=== PATIENT | male | born 1940 | race Caucasian/White ===

== ENCOUNTER → 2016-10-30 | Outpatient (CLI) | payer MEDICARE, OTHER ==
[~2016-10-30] MED LIST: AMLO2.5T PO; ASPI325T32 PO; DIGO125T PO; FAMO20TA5 PO; ISOS30TA3 PO; LISI1TAB8 PO; LOVA20TA2 PO; METO-333 PO; NITR0.4T SL; OMEG-77 PO; TAMS0.4C2 PO
--- OUTSIDE RECORDS SUMMARY | 2016-10-30 11:54 | XMS REPORT | Continuity of Care Document ---
Author Author [facility] Organization [facility] Address Unknown Phone Unavailable Allergies Medications Problems Procedures Results Encounters ACCT No. Visit Date/Time Discharge Status Pt. Type Provider Facility Loc./Unit Complaint [id number] 09/27/2013 08:30:00 2013 23:59:59 CLS Outpatient
[2016-10-30 12:05] LABS: MEAN PLATELET VOLUME 11.5 FL (7.4-10.4); RED BLOOD COUNT 5.39 10^6/uL (4.35-5.85); RED CELL DISTRIBUTION WIDTH 12.7 % (10.0-14.5); WHITE BLOOD COUNT 6.9 10^3/uL (4.3-11.0)
[2016-10-30 12:26] LABS: ALANINE AMINOTRANSFERASE 33 U/L (0-55); ALBUMIN 4.3 G/DL (3.2-4.5); ANION GAP 10 MMOL/L (5-14); ASPARTATE AMINO TRANSFERASE 26 U/L (5-34); BLOOD UREA NITROGEN 11 MG/DL (7-18); BUN/CREATININE RATIO 11; CALCIUM 9.4 MG/DL (8.5-10.1); CARBON DIOXIDE 27 MMOL/L (21-32); CHLORIDE 97 MMOL/L (98-107); CREATININE SERUM 1.02 MG/DL (0.60-1.30); GFR ESTIMATED > 60; GLUCOSE 104 MG/DL (70-105); POTASSIUM 4.2 MMOL/L (3.6-5.0); SODIUM 134 MMOL/L (135-145); TOTAL PROTEIN 7.2 G/DL (6.4-8.2)
[2016-10-30 12:33] LABS: TROPONIN I < 0.30 NG/ML (<0.30)
== END ==
LOC: CARD 11:51
PROVIDERS: ATTEND Nurse Practitioner Family
DX: R07.9 Chest pain, unspecified (principal)
CPT/HCPCS: 36415; 80053; 82553; 84484; 85027; 93005

== ENCOUNTER 2016-11-11 08:17 | Emergency (ER) | payer MEDICARE, OTHER ==
[~2016-11-11] VITALS: Ht 180.3 cm; Wt 83.5 kg
[~2016-11-11 08:17] MED LIST changes: -ISOS30TA3 PO
--- OUTSIDE RECORDS SUMMARY | 2016-11-11 08:22 | XMS REPORT | Continuity of Care Document ---
Author Author [facility] Organization [facility] Address Unknown Phone Unavailable Care Team Providers Care Eyewear Consultant Name Role Phone KALI BRAVO MD PCP Insurance Providers Payer Name Policy Number Subscriber Name Relationship [employer] [id number] Zion Portillo 18 Self / Same As Patient Comm Crossover Enter Ins Name [id number] Zion Portillo 18 Self / Same As Patient Advance Directives Directive Response Recorded Date/Time Advance Directives Yes 11/03/16 3:09pm Health Care Power of Distance Learning Program Coordinator Y 11/03/16 3:09pm Resuscitation Status Full Code 11/03/16 3:09pm Chief Complaint and Reason for Visit Chief Complaint CHEST PAIN Reason for Visit Chest pain Problems Active Problems Medical Problem Onset Date Status Chest pain Unknown Acute Medications Current Home Medications Medication Dose Units Route Directions Days/Qty Instructions Start Date Tamsulosin Hcl 0.4 Mg 0.4 Mg Oral Daily@1800 11/03/16 Lovastatin 20 Mg 40 Mg Oral Twice A Day 11/03/16 Nitroglycerin 0.4 Mg 0.4 Mg Sublingual As Directed as needed for Chest Pain 11/03/16 [place]-3 Fatty Acids/Fish Oil 1 Each 1,000 Mg Oral Twice A Day Metoprolol Tartrate 25 Mg 12.5 Mg Oral Twice A Day 30 11/05/16 Amlodipine Besylate 2.5 Mg 2.5 Mg Oral Daily 30 11/05/16 Aspirin 325 Mg 325 Mg Oral Daily 90 11/05/16 Famotidine 20 Mg 20 Mg Oral Twice A Day 60 11/05/16 Past Home Medications Medication Directions Ordered Status Digoxin 125 Mcg Tablet, 0.125 Mg Oral Daily 11/03/16 Discontinued Lisinopril/Hydrochlorothiazide 1 Each Tablet, 1 Tab Oral Daily 11/03/16 Discontinued Social History Social History Problem Response Recorded Date/Time Alcohol Use Regular Use 11/03/2016 3:23pm Recreational Drug Use No 11/03/2016 3:23pm Recent Foreign Travel No 11/03/2016 3:01pm Recent Infectious Disease Exposure No 11/03/2016 3:01pm Hospitalization with Isolation Denies 11/05/2016 10:24am Sexually Transmitted Disease No 11/03/2016 3:23pm HIV/AIDS No 11/03/2016 3:23pm Smoking Status Former Smoker 11/03/2016 3:05pm Type Used Cigarettes 11/05/2016 10:24am Recent Hopitalizations No 11/03/2016 3:23pm Sexually Transmitted Disease No 11/03/2016 3:23pm Hospitalization with Isolation Denies 11/05/2016 10:24am Query Response Start Date Stop Date Smoking Status Former Smoker Hospital Discharge Instructions Patient Instructions Physician Instructions Prescription: Transmitted to Pharmacy Resume Normal Activity: Yes (after 3 days) Discharge Diet: Low Fat/Low Cholesterol Diet for 24 Hours: No Alcohol, No Saxman Foods, No Spicy Foods Diet After 24 Hours: Clear Liquid if Nauseous Drink 6-8 Glasses of Fluid/Day: Yes Driving Instructions: No Driving for 24 Hours Return to The Hospital For: any concern for lifethreatening illness or injury Symptoms to Reoprt to : Fever Over 101 Degrees F, Pain/Pressure in Chest, Heart Beat Irreg/Pounding, Pain/Pressure in Jaw, Lightheadedness, Pain/Pressure in Shoulder, Questions/Concerns, Dizziness/Fainting, Shortness of Breath For Problems or Questions: Contact Your Physician, Go to Emergency Room Plan of Care Discharge Date 11/05/16 10:00am Disposition 01 HOME, SELF-CARE Instructions/Education Provided Ventricular Tachycardia Chest Pain (DC) Prescriptions See Medication Section Referrals [facility] (Unspecified) - 11/13/16 Reason(s) for Referral: Chest pain You are scheduled for a follow up appointment with Dr. Bravo on November [address] recinos (Unspecified) - 11/11/16 Reason(s) for Referral: Chest pain You are scheduled for a follow up appointment with Dr. Recinos on November 11 at 1030 am, please call his office of concerns at [phone] Care Plan and Goals See Discharge Instructions Section Functional Status Query Response Date Recorded Patient Orientation Person Place Time November 05, 2016 10:24am Patient Orientation Person Place Time Situation November 05, 2016 10:24am Comprehension Ability Understands Concepts November 05, 2016 8:15am Allergies, Adverse Reactions, Alerts No known allergies. Immunizations No immunization records. Vital Signs Acute Vital Signs Vital Response Date/Time Temperature (Fahrenheit) 96.7 degrees F (97.6 - 99.5) 11/05/2016 10:00am Temperature (Calculated Celsius) 35.61166 degrees C (36.4 - 37.5) 11/05/2016 8:16am Temperature Source Tympanic 11/05/2016 10:00am Pulse Rate (adult) 61 bpm (60 - 90) 11/05/2016 10:00am Respiratory Rate 15 bpm (12 - 24) 11/05/2016 10:00am O2 Sat by Pulse Oximetry 95 % (88 - 100) 11/05/2016 10:00am Blood Pressure 129/65 mm Hg 11/05/2016 10:00am Blood Pressure Mean 86 mm Hg 11/05/2016 9:00am Pain Numeric Pain Scale 0-No Pain 11/05/2016 10:00am Height (Feet) 5 feet 11/03/2016 3:01pm Height (Inches) 11.00 inches 11/03/2016 3:01pm Height (Calculated Centimeters) 180.740466 cm 11/03/2016 3:01pm Weight (Pounds) 184 pounds 11/05/2016 5:40am Weight (Ounces) 3.0 oz 11/05/2016 5:40am Weight (Calculated Grams) 91827.045 gm 11/05/2016 5:40am Weight (Calculated Kilograms) 83.769425 kilograms 11/05/2016 5:40am Calculated BMI 26.0 11/03/2016 3:01pm Capillary Refill Capillary Refill Less Than 3 Seconds 11/04/2016 7:05pm Results Laboratory Results Test Name Result Units Flags Reference Collection Date/Time Result Date/ Time Comments White Blood Count 6.9 10^3/uL 4.3-11.0 10/30/2016 11:59am 10/30/2016 12 :07pm Red Blood Count 5.39 10^6/uL 4.35-5.85 10/30/2016 11:59am 10/30/2016 12 :07pm Hemoglobin 16.0 G/DL 13.3-17.7 10/30/2016 11:5910/30/2016 12:07pm Hematocrit 46 % 40-54 10/30/2016 11:5910/30/2016 12:07pm Mean Corpuscular Volume 86 FL 80-99 10/30/2016 11:5910/30/2016 12: 07pm Mean Corpuscular Hemoglobin 30 PG 25-34 10/30/2016 11:59am 10/30/2016 12:07pm Mean Corpuscular Hemoglobin Concent 35 G/DL 32-36 10/30/2016 11:59 12:07pm Red Cell Distribution Width 12.7 % 10.0-14.5 10/30/2016 11:592016 12:07pm Platelet Count 137 10^3/uL 130-400 10/30/2016 11:5910/30/2016 12: 07pm Mean Platelet Volume 11.5 FL H 7.4-10.4 10/30/2016 11:5910/30/2016 12: 07pm Sodium Level 134 MMOL/L L 135-145 10/30/2016 11:5910/30/2016 12:30pm Potassium Level 4.2 MMOL/L 3.6-5.0 10/30/2016 11:5910/30/2016 12: 30pm Chloride Level 97 MMOL/L L 98-107 10/30/2016 11:5910/30/2016 12:30pm Carbon Dioxide Level 27 MMOL/L 21-32 10/30/2016 11:5910/30/2016 12: 30pm Anion Gap 10 MMOL/L 5-14 10/30/2016 11:5910/30/2016 12:30pm Blood Urea Nitrogen 11 MG/DL 7-18 10/30/2016 11:59am 10/30/2016 12: 30pm Creatinine 1.02 MG/DL 0.60-1.30 10/30/2016 11:59am 10/30/2016 12:30pm BUN/Creatinine Ratio 11 10/30/2016 11:59am 10/30/2016 12:30pm Estimat Glomerular Filtration Rate > 60 10/30/2016 11:59am 2016 12:30pm GFR INTERPRETIVE DATA UNITS FOR ESTIMATED GFR (eGFR): mL/min/1.73 M2 REFERENCE RANGE FOR ESTIMATED GFR (eGFR) eGFR NORMAL eGFR >60 MODERATELY DECREASED eGFR 30-59 SEVERLY DECREASED eGFR 15-29 KIDNEY FAILURE <15 (OR DIALYSIS) Glucose Level 104 MG/DL 70-105 10/30/2016 11:59am 10/30/2016 12:30pm Calcium Level 9.4 MG/DL 8.5-10.1 10/30/2016 11:59am 10/30/2016 12:30pm Total Bilirubin 1.0 MG/DL 0.1-1.0 10/30/2016 11:59am 10/30/2016 12: 30pm Alkaline Phosphatase 81 U/L 40-136 10/30/2016 11:59am 10/30/2016 12: 30pm Aspartate Amino Transf (AST/SGOT) 26 U/L 5-34 10/30/2016 11:59am 2016 12:30pm Alanine Aminotransferase (ALT/SGPT) 33 U/L 0-55 10/30/2016 11:59am 12:30pm Creatine Kinase MB 3.7 NG/ML <6.6 10/30/2016 11:5910/30/2016 12: 36pm Troponin I < 0.30 NG/ML <0.30 10/30/2016 11:59am 10/30/2016 12:36pm Total Protein 7.2 G/DL 6.4-8.2 10/30/2016 11:59am 10/30/2016 12:30pm Albumin 4.3 G/DL 3.2-4.5 10/30/2016 11:59am 10/30/2016 12:30pm Pending Laboratory Results Test Name Collection Date/Time Procedures Procedure Status Date Provider(s) Tracing only of electrocardiogram Completed 10/30/16 KAREN MCCAIN APRN Tracing only of electrocardiogram Completed 11/03/16 EMILIA THAKUR MD Color Doppler echocardiography Completed 11/04/16 Santiago RECINOS MD Encounters Encounter Location Arrival/Admit Date Discharge/Depart Date Attending Provider Discharged Inpatient (obs) [facility] 11/03/16 2:22pm 10:00am KALI BRAVO MD Registered Clinic [facility] 10/30/16 11:51am KAREN MCCAIN APRN Recent Diagnosis Chest pain
[2016-11-11 08:32] LABS: BASOPHILS % (AUTO) 1 % (0-10); EOSINOPHILS # (AUTO) 0.2 10^3/uL (0.0-0.3); EOSINOPHILS % (AUTO) 3 % (0-10); LYMPHOCYTES # (AUTO) 1.7 X 10^3 (1.0-4.0); LYMPHOCYTES % (AUTO) 25 % (12-44); MEAN CORPUSCULAR HEMOGLOBIN 30 PG (25-34); MEAN CORPUSCULAR HGB CONC 34 G/DL (32-36); MEAN CORPUSCULAR VOLUME 87 FL (80-99); MEAN PLATELET VOLUME 11.5 FL (7.4-10.4); MONOCYTES # (AUTO) 0.7 X 10^3 (0.0-1.0); MONOCYTES % (AUTO) 11 % (0-12); NEUTROPHILS # (AUTO) 4.3 X 10^3 (1.8-7.8); NEUTROPHILS % (AUTO) 61 % (42-75); PLATELET COUNT 152 10^3/uL (130-400); RED BLOOD COUNT 5.31 10^6/uL (4.35-5.85); RED CELL DISTRIBUTION WIDTH 12.7 % (10.0-14.5)
[2016-11-11 08:46] LABS: INR 1.1 (0.8-1.4); PROTHROMBIN TIME PATIENT 13.6 SEC (12.2-14.7)
[2016-11-11 08:54] LABS: ALANINE AMINOTRANSFERASE 37 U/L (0-55); ALBUMIN 4.1 G/DL (3.2-4.5); ANION GAP 10 MMOL/L (5-14); ASPARTATE AMINO TRANSFERASE 23 U/L (5-34); BILIRUBIN,TOTAL 1.1 MG/DL (0.1-1.0); BLOOD UREA NITROGEN 14 MG/DL (7-18); BUN/CREATININE RATIO 13; CALCIUM 9.1 MG/DL (8.5-10.1); CARBON DIOXIDE 24 MMOL/L (21-32); CHLORIDE 101 MMOL/L (98-107); GFR ESTIMATED > 60; GLUCOSE 99 MG/DL (70-105); MAGNESIUM 2.4 MG/DL (1.8-2.4); POTASSIUM 4.3 MMOL/L (3.6-5.0); SODIUM 135 MMOL/L (135-145); TOTAL PROTEIN 6.7 G/DL (6.4-8.2)
[2016-11-11] MEDS ORDERED: RX-NITROGLYCERIN 0.4 MG TAB BTL 25'S SL ONE (09:00)
--- NOTE | 2016-11-11 09:32 | Diagnostic Imaging Report ---
INDICATION: Chest pain, left arm tingling. FINDINGS: Heart size and configuration normal. Vascular structures nondilated. Hilar and mediastinal contours normal. No failure, effusion, or pneumothorax. IMPRESSION: Negative. Dictated by: Dictated on workstation # [id number]
--- NOTE | 2016-11-11 10:19 | ED Chest Pain ---
General Chief Complaint: Chest Pain Stated Complaint: CHEST PAIN Nursing Triage Note: PT REPORTS CHEST PAIN WHEN HE WOKE UP AROUND 0600 THIS AM. HE REPORTS L ARM TINGLING. HE DENIES N/V, DYSPNEA, DIAPHORESIS. PT ALSO REPORTS TAKING 325 ASA AND 2 [employer]. Nursing Sepsis Screen: No Definite Risk Source: patient, old records Exam Limitations: no limitations History of Present Illness Time seen by provider: 08:22 Initial Comments This 76-year-old gentleman presents to the emergency room with complaints of chest pain and pain and numbness in the left arm. he took 2 nitroglycerin at home which did help. He also take aspirin 325 mg. Pain started at about 07: 00. It is characterized as a tightness. He now rates the pain as a 2-3/10. He denies any palpitations. He has associated shortness of air and dizziness. Review of his chart reveals a cardiac catheterization performed on November 05 revealing no obstructive disease but noting slow flow in the RCA. Patient contacted Dr. Recinos's office and was directed to the emergency room. Allergies and Home Medications Allergies Coded Allergies: No Known Drug Allergies (Unverified , 11/03/16) Home Medications Amlodipine Besylate 2.5 Mg Tablet #30 2.5 MG PO DAILY Prescribed by: KALI ORO on 11/05/16 0931 Aspirin 325 Mg Tablet. #90 325 MG PO DAILY Prescribed by: KALI ORO on 11/05/16 0931 Famotidine 20 Mg Tablet #60 20 MG PO BID Prescribed by: KALI ORO on 11/05/16 0931 Isosorbide Mononitrate 30 Mg Tab.er.24h #14 30 MG PO DAILY Prescribed by: EMILIA TEJADA on 11/11/16 1234 Lovastatin 20 Mg Tablet 40 MG PO BID (Reported) Metoprolol Tartrate 25 Mg Tablet #30 12.5 MG PO BID Prescribed by: KALI ORO on 11/05/16 0931 Nitroglycerin 0.4 Mg Tab.subl 0.4 MG SL UD PRN PRN CHEST PAIN (Reported) [place]-3 Fatty Acids/Fish Oil 1 Each Capsule 1,000 MG PO BID (Reported) Tamsulosin HCl 0.4 Mg Cap.er.24h 0.4 MG PO DAILY@1800 (Reported) Review of Systems Constitutional: no symptoms reported EENTM: No Symptoms Reported Respiratory: See HPI Cardiovascular: See HPI Gastrointestinal: No Symptoms Reported Genitourinary: No Symptoms Reported Musculoskeletal: no symptoms reported Skin: no symptoms reported Psychiatric/Neurological: No Symptoms Reported Endocrine: No Symptoms Reported Past Uocptue-Soexth-Jqjpqi Hx Patient Social History Alcohol Use: Occasionally Uses Recreational Drug Use: No Smoking Status: Former Smoker Type Used: Cigarettes 2nd Hand Smoke Exposure: No Recent Foreign Travel: No Contact w/Someone Who Travel: No Recent Infectious Disease Expo: No Recent Hopitalizations: Yes (CHEST PAIN) Immunizations Up To Date Tetanus Booster (TDap): Unknown Date of Pneumonia Vaccine: Jun 08, 2016 Date of Influenza Vaccine: Jun 08, 2016 Seasonal Allergies Seasonal Allergies: Yes Surgeries HX Surgeries: Yes (skin cancer excision) Surgeries: Abdominal, Cardiac (cardiac catheter October 2016), Tonsillectomy Respiratory Hx Respiratory Disorders: No Cardiovascular Hx Cardiac Disorders: Yes Cardiac Disorders: High Cholesterol, Hypertension Neurological Hx Neurological Disorders: No Reproductive System Hx Reproductive Disorders: No Sexually Transmitted Disease: No HIV/AIDS: No Genitourinary Hx Genitourinary Disorders: No Genitourinary Disorders: Benign Prostatic Hyperpl, Prostate Problems Gastrointestinal Hx Gastrointestinal Disorders: No Gastrointestinal Disorders: Gastroesophageal Reflux Musculoskeletal Hx Musculoskeletal Disorders: No Musculoskeletal Disorders: Arthritis Endocrine Hx Endocrine Disorders: No HEENT HX ENT Disorders: No Loss of Vision: Denies Hearing Impairment: Denies Cancer Hx Cancer: Yes Cancer: Skin Psychosocial Hx Psychiatric Problems: No Integumentary HX Skin/Integumentary Disorder: No Blood Transfusions Hx Blood Disorders: No Adverse Reaction to a Blood Tr: No Family Medical History Significant Family History: Heart Disease, Cancer, COPD Family Medial History: Asthma 19 FATHER Cancer of mouth Cardiovascular disease G8 BROTHER Myocardial infarction G8 BROTHER Neoplasm G8 BROTHER Parkinson's disease 19 MOTHER Respiratory disorder 19 FATHER Physical Exam Vital Signs Vital Sign - Last 12Hours 11/11/16 11/11/16 08:17 08:20 Temp 98.3 Pulse 54 Resp 16 B/P 146/91 Pulse Ox 96 O2 Delivery Room Air O2 Flow Rate 2 Capillary Refill : Less Than 3 Seconds General Appearance: No Apparent Distress WD/WN HEENT: PERRL/EOMI Normal ENT Inspection Neck: Normal Inspection Respiratory: Chest Non Tender Lungs Clear Normal Breath Sounds No Accessory Muscle Use No Respiratory Distress Cardiovascular: Regular Rate, Rhythm No Edema No Murmur Gastrointestinal: Normal Bowel Sounds Non Tender Soft Extremity: Normal Inspection Non Tender No Calf Tenderness No Pedal Edema Neurologic/Psychiatric: Alert Oriented x3 No Motor/Sensory Deficits 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 Norm as Tested Skin: Normal Color Warm/Dry Progress/Results/Core Measures Results/Orders Lab Results Laboratory Tests Test 11/11/16 08:26 11/11/16 11:29 Range/Units Activated Partial Thromboplast Time 29 24-35 SEC Alanine Aminotransferase (ALT/SGPT) 37 0-55 U/L Albumin 4.1 3.2-4.5 G/DL Alkaline Phosphatase 81 40-136 U/L Anion Gap 10 5-14 MMOL/L Aspartate Amino Transf (AST/SGOT) 23 5-34 U/L BUN/Creatinine Ratio 13 Basophils # (Auto) 0.0 0.0-0.1 10^3/uL Basophils (%) (Auto) 1 0-10 % Blood Urea Nitrogen 14 7-18 MG/DL Calcium Level 9.1 8.5-10.1 MG/DL Carbon Dioxide Level 24 21-32 MMOL/L Chloride Level 101 98-107 MMOL/L Creatinine 1.10 0.60-1.30 MG/DL Eosinophils # (Auto) 0.2 0.0-0.3 10^3/uL Eosinophils (%) (Auto) 3 0-10 % Estimat Glomerular Filtration Rate > 60 Glucose Level 99 70-105 MG/DL Hematocrit 46 40-54 % Hemoglobin 15.8 13.3-17.7 G/DL INR Comment 1.1 0.8-1.4 Lymphocytes # (Auto) 1.7 1.0-4.0 X 10^3 Lymphocytes (%) (Auto) 25 12-44 % Magnesium Level 2.4 1.8-2.4 MG/DL Mean Corpuscular Hemoglobin 30 25-34 PG Mean Corpuscular Hemoglobin Concent 34 32-36 G/DL Mean Corpuscular Volume 87 80-99 FL Mean Platelet Volume 11.5 H 7.4-10.4 FL Monocytes # (Auto) 0.7 0.0-1.0 X 10^3 Monocytes (%) (Auto) 11 0-12 % Myoglobin 75.0 10.0-92.0 NG/ML Neutrophils # (Auto) 4.3 1.8-7.8 X 10^3 Neutrophils (%) (Auto) 61 42-75 % Platelet Count 152 130-400 10^3/uL Potassium Level 4.3 3.6-5.0 MMOL/L Prothrombin Time 13.6 12.2-14.7 SEC Red Blood Count 5.31 4.35-5.85 10^6/uL Red Cell Distribution Width 12.7 10.0-14.5 % Sodium Level 135 135-145 MMOL/L Total Bilirubin 1.1 H 0.1-1.0 MG/DL Total Protein 6.7 6.4-8.2 G/DL Troponin I < 0.30 < 0.30 <0.30 NG/ML White Blood Count 7.0 4.3-11.0 10^3/uL My Orders Orders-EMILIA THAKUR MD Cbc With Automated Diff (11/11/16 08:22) Magnesium (11/11/16 08:22) Chest 1 View, Ap/Pa Only (11/11/16 08:22) Ekg Tracing (11/11/16 08:22) Cardiac Profile 1 (11/11/16 08:22) Comprehensive Metabolic Panel (11/11/16 08:22) Myoglobin Serum (11/11/16 08:22) Protime With Inr (11/11/16 08:22) Partial Thromboplastin Time (11/11/16 08:22) O2 (11/11/16 08:22) Monitor-Rhythm Ecg Trace Only (11/11/16 08:22) Saline Lock/Iv-Start (11/11/16 08:22) Rx-Nitroglycerin Sl Tabs (Rx-Nitrostat S (11/11/16 09:00) Famotidine Injection (Pepcid Injection) (11/11/16 10:30) Lidocaine 2% Viscous 15 Ml (Xylocaine Vi (11/11/16 10:30) Antacid Suspension (Mylanta Suspension (11/11/16 10:30) Troponin I (11/11/16 10:32) Ketorolac Injection (Toradol Injection) (11/11/16 12:30) Ekg Tracing (11/11/16 14:54) Medications Given in ED Vital Signs/I&O Vital Sign - Last 12Hours 11/11/16 11/11/16 11/11/16 11/11/16 08:17 08:17 08:20 13:00 Temp 98.3 98.3 Pulse 54 56 Resp 16 16 B/P 146/91 Pulse Ox 96 100 96 O2 Delivery Room Air Room Air Nasal Cannula O2 Flow Rate 2 Blood Pressure Mean: 109 Progress Note #1: Time: 10:18 Progress Note Case reviewed with Dr. Recinos who believes his pain is not related to coronary artery disease based on his prior workup. He requests an additional troponin be drawn at the 3 hour bailey a and a trial treatment of GI cocktail and Toradol be administered. If troponin is negative, he may be discharged with the addition of Imdur Rx. Progress Note #2: Progress Note 3 are troponin was negative. GI cocktail did not improve his pain but Toradol did. ECG Initial ECG Impression Date: Nov 11, 2016 Initial ECG Impression Time: 08:22 Initial ECG Rate: 53 Initial ECG Rhythm: Normal Sinus Initial ECG Intervals: Normal Comment Normal sinus rhythm with no ST elevation or depression. No abnormal intervals or axis deviation. Diagnostic Imaging Diagonstic Imaging: Xray Plain Films/CT/US/NM/MRI: chest Comments Chest x-ray viewed by me and report reviewed. See report below: NAME: GABY VALERO Drew MED REC#: [id number] PT STATUS: REG ER : 1940 PHYSICIAN: EMILIA THAKUR MD ADMIT DATE: 11/11/16/ER Signed Date of Exam: 11/11/16 CHEST 1 VIEW, AP/PA ONLY INDICATION: Chest pain, left arm tingling. FINDINGS: Heart size and configuration normal. Vascular structures nondilated. Hilar and mediastinal contours normal. No failure, effusion, or pneumothorax. IMPRESSION: Negative. Dictated by: Dictated on workstation # [id number] Dict: 11/11/16 0927 Trans: 11/11/16 1146 GENNY [id number] Interpreted by: MARY DUPREE Electronically signed by:MARY DUPREE 11/11/16 1148 Departure Impression Impression: Primary Impression: Chest pain Qualified Code: R07.9 - Chest pain, unspecified Additional Impression: Lightheadedness Disposition: 01 HOME, SELF-CARE Condition: Stable Departure-Patient Inst. Decision time for Depature: 12:31 Referrals: KALI ORO MD (PCP/Family) Primary Care Physician Patient Instructions: Chest Pain (DC) Add. Discharge Instructions: Use Imdur (isosorbide mononitrate) as prescribed which will hopefully prevent the need for nitroglycerin use. Follow-up with Dr. Recinos as soon as possible. Return to the emergency room if symptoms worsen. All discharge instructions reviewed with patient and/or family. Voiced understanding. Scripts Isosorbide Mononitrate (Isosorbide Mononitrate ER)30 Mg Tab.er.24h30 Mg PO DAILY #14 TAB Prov:EMILIA THAKUR MD 11/11/16 Copy Copies To 1: Santiago RECINOS MD, JOSHUA T MD Nov 11, 2016 10:19
[2016-11-11] MEDS ORDERED: ANTACID SUSP 30 ML UDC (MYLANTA) PO ONE (10:30)
[2016-11-11] MEDS ORDERED: LIDOCAINE 2% VISCOUS 15 ML UDC PO ONE (10:30)
[2016-11-11] MEDS ORDERED: FAMOTIDINE 20MG/2ML IV (PEPCID) IVP ONE (10:30)
[2016-11-11] MEDS ORDERED: KETOROLAC 30 MG/ML VIAL IVP ONE (12:30)
[2016-11-11] MEDS ORDERED: ISOS30TA3 PO ×2 (12:33→12:34)
[2016-11-11 13:00] VITALS: BP 135/84
== END 2016-11-11 13:00 | disposition home or self-care (01) ==
LOC: EDUNIT# 08:17 → ER 08:19
DX: R07.9 Chest pain, unspecified (principal); R42 Dizziness and giddiness; M79.602 Pain in left arm; I10 Essential (primary) hypertension; Z79.82 Long term (current) use of aspirin; Z79.899 Other long term (current) drug therapy; Z87.891 Personal history of nicotine dependence
CPT/HCPCS: 36415; 71010; 80053; 83735; 83874; 84484; 85025; 85610; 85730; 93005; 93041; 96374; 96375

== ENCOUNTER 2018-03-31 05:31 | Outpatient (CLI) | payer MEDICARE, OTHER ==
[~2018-03-31] VITALS: Ht 180.3 cm; Wt 86.6 kg
[~2018-03-31 05:31] MED LIST changes: +ISOS30TA3 PO
[2018-03-31 11:15] VITALS: BP 130/68
[2018-03-31] MEDS ORDERED: AMLO5TAB2 PO (14:04)
[2018-03-31] MEDS ORDERED: OMEG-109 PO (14:04)
[2018-03-31] MEDS ORDERED: ASPI81TA16 PO (14:04)
[2018-03-31] MEDS ORDERED: METO-333 PO (14:04)
[2018-03-31] MEDS ORDERED: DUTA0.5C16 PO (14:04)
[2018-03-31] MEDS ORDERED: LOVA40TA2 PO (14:04)
[2018-04-03] MEDS ORDERED: TRAM50TA2 PO (13:43)
== END 2018-03-31 11:25 | disposition home or self-care (01) ==
LOC: PREOP 05:31
PROVIDERS: ATTEND Surgery
DX: Z01.818 Encounter for other preprocedural examination (principal)
CPT/HCPCS: 87081

== ENCOUNTER 2018-04-03 09:32 | Day surgery (SDC) | payer MEDICARE, OTHER ==
[~2018-04-03] VITALS: Ht 180.3 cm; Wt 86.6 kg
[~2018-04-03 09:32] MED LIST changes: +AMLO5TAB2 PO; +ASPI81TA16 PO; +DUTA0.5C16 PO; +LOVA40TA2 PO; +OMEG-109 PO
[2018-04-03] MEDS ORDERED: ceFAZolin 2 GM IV Premixed 50 ML ONE (09:40)
[2018-04-03 09:45] VITALS: BP 132/76
[2018-04-03] MEDS: LACTATED RINGERS 1,000 ML IV PRN ×3 (09:45→13:30)
[2018-04-03] MEDS ORDERED: ceFAZolin 2 GM IV Premixed 50 ML IV ONE (10:00)
[2018-04-03] MEDS ORDERED: CATHETER FLUSH 10 ML SYR IV PRN (10:00)
[2018-04-03] MEDS ORDERED: BUP/EPI 0.5% 1:200,000 (SENSORCAINE) 30 ML VIAL ONE (10:23)
[2018-04-03] MEDS ORDERED: SEVOFLURANE (ULTANE) 15 ML INHAL SOLN ONE ×5 (10:34→13:56)
[2018-04-03] MEDS ORDERED: DEXAMETHASONE 10 MG/ML (DECADRON) 1 ML VIAL ONE ×2 (10:34→13:43)
[2018-04-03] MEDS ORDERED: LIDOCAINE PF 2% 5 ML (XYLOCAINE) VIAL ONE (10:34)
[2018-04-03] MEDS ORDERED: ROCURONIUM 10 MG/ML 5 ML SYRINGE IV ONE (10:34)
[2018-04-03] MEDS ORDERED: ONDANSETRON 4 MG/2 ML (SDV) Z0FRAN ONE ×2 (10:34→13:43)
[2018-04-03] MEDS ORDERED: fentaNYL INJECTION 100 MCG/2 ML AMP ONE (10:35)
[2018-04-03] MEDS ORDERED: MIDAZOLAM 2 MG/2 ML (VERSED) VIAL ONE (10:35)
--- NOTE | 2018-04-03 12:44 | Progress Note-Pre Operative ---
Pre-Operative Progress Note H&P Reviewed The H&P was reviewed, patient examined and no changes noted. Date Seen by Provider: Mar 30, 2018 Time Seen by Provider: 14:20 Date H&P Reviewed: Apr 03, 2018 Time H&P Reviewed: 12:44 Pre-Operative Diagnosis: Skin lesions ARMOND GOLDBERG MD Apr 03, 2018 12:44 pm
[2018-04-03] MEDS ORDERED: GLYCOPYRROLATE 0.2 MG/ML (ROBINUL) 2 ML VIAL ONE (13:35)
[2018-04-03] MEDS ORDERED: proPOfol 200 MG/20 ML (DIPRIVAN) VIAL IV ONE (13:36)
[2018-04-03] MEDS ORDERED: TRAM50TA2 PO (13:43)
--- NOTE | 2018-04-03 13:45 | Discharge Inst-Simple/Standard ---
Discharge Inst-Standard Discharge Medications New, Converted or Re-Newed RX: RX on Chart Patient Instructions/Follow Up Plan of Care/Instructions/FU: Band-Aids off in 48 hours. Follow-up with my nurse in 10 days for suture removal Activity as Tolerated: Yes Discharge Diet: No Restrictions ARMOND GOLDBERG MD Apr 03, 2018 1:45 pm
--- NOTE | 2018-04-03 13:58 | Operative Report ---
Operative Report Date of Procedure/Surgery Apr 03, 2018 Surgeon (s) ARMOND GOLDBERG MD [employer] Consultant (s): N/A Post-Operative Diagnosis 1. 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 Superficial squamous cell carcinoma left yazdanism Procedure Performed 1. Excision of basal cell carcinoma right side of neck 2. Excision of squamous cell carcinoma left yazdanism Description of Procedure Anesthesia Type: General Estimated blood loss (mL): Minimal Specimen(s) collected/removed Basal and squamous cell carcinoma Description of the Procedure Indication for the procedures: This gentleman presented with skin lesions involving the right posterior neck and the left yazdanism, having the appearance of a carcinomata. He was offered excision with frozen section to confirm the diagnosis and ensure negative margins, should malignancy be discovered. Informed consent was obtained after reviewing the operative details and complications of hematoma and wound infection. Description of the procedures: She was placed supine on the operative table and general anesthesia induced. A gram of Ancef was administered intravenously as prophylaxis against wound infection. 1. Basal cell carcinoma right side of neck: After adequate anesthetic preparation, preemptive analgesia was established using 0.5 percent Marcaine with epinephrine. An elliptical incision 4 cm in length by 3 cm in width was made and the lesion excised down to the subcutaneous tissue. It was oriented with silk sutures and sent for histological examination. The pathologist reported basal cell carcinoma with negative margins. Hemostasis was achieved using cautery and the incision closed using interrupted 4-0 nylon sutures. Steri-Strips and a nonadherent dressing were then applied. 2. Squamous cell carcinoma left yazdanism: Skin preparation and preemptive analgesia were established using the similar fashion. An elliptical incision 4 cm in length by 20 cm in width was made and the lesion excised down to the subcutaneous tissue. It was some sutures and sent for frozen section analysis. The pathologist reported a squamous cell carcinoma with negative margins. Hemostasis was achieved using cautery, ligaclips and a Vicryl transfixation suture. The defect was then closed using 5-0 nylon, in a continuous fashion. Steri-strips and a nonadherent dressing were applied. He tolerated procedure well, was extubated in the operating room and taken to the recovery room in a stable condition. Findings of the Procedure See op report Allergies and Home Medications Allergies Coded Allergies: No Known Drug Allergies (Unverified , 11/03/16) Home Medications Amlodipine Besylate 5 Mg Tablet, 5 MG PO DAILY, (Reported) Aspirin 81 Mg Tablet.dr, 81 MG PO DAILY, (Reported) Dutasteride 0.5 Mg Capsule, 0.5 MG PO DAILY, (Reported) Lovastatin 40 Mg Tablet, 40 MG PO HS, (Reported) Metoprolol Tartrate 25 Mg Tablet, 12.5 MG PO BID, (Reported) take 1/2 of 25mg tab Nitroglycerin 0.4 Mg Tab.subl, 0.4 MG SL UD PRN for CHEST PAIN, (Reported) [place]-3 Fatty Acids/Fish Oil 1 Each Capsule, 1,200 MG PO DAILY, (Reported) Tamsulosin HCl 0.4 Mg Cap.er.24h, 0.4 MG PO DAILY@1800, (Reported) Tramadol HCl 50 Mg Tablet, 50 MG PO Q12H PRN for PAIN-MILD TO MODERATE Prescribed by: ARMOND GOLDBERG on 04/03/18 1343 Patient Home Medication List Home Medication List Reviewed: Yes ARMOND GOLDBERG MD Apr 03, 2018 1:58 pm
[2018-04-03] MEDS ORDERED: ONDANSETRON 4 MG/2 ML (SDV) Z0FRAN IVP PRN (14:15)
[2018-04-03] MEDS ORDERED: morphine INJ 10 MG/ML 1ML (SYR OR VIAL) IVP PRN (14:15)
[2018-04-03 14:50] VITALS: BP 121/62
[2018-04-03 15:20] VITALS: BP 120/60
[2018-04-03 15:50] VITALS: BP 127/67
[2018-04-03 16:00] VITALS: BP 127/67
== END 2018-04-03 16:00 | disposition home or self-care (01) ==
LOC: SDC 09:32
PROVIDERS: ATTEND Surgery
DX: C44.41 Basal cell carcinoma of skin of scalp and neck (principal); C44.320 Squamous cell carcinoma of skin of unspecified parts of face; I10 Essential (primary) hypertension; Z79.82 Long term (current) use of aspirin

== ENCOUNTER 2019-08-02 05:47 | Outpatient (CLI) | payer MEDICARE, OTHER ==
[~2019-08-02] VITALS: Ht 182 cm; Wt 86.3 kg
[~2019-08-02 05:47] MED LIST changes: -AMLO2.5T PO; +AMLO2.5T4 PO; -AMLO5TAB2 PO; +AMLO5TAB9 PO; +TRAM50TA2 PO
[2019-08-02] MEDS ORDERED: AMLO10TA7 PO (13:27)
[2019-08-02] MEDS ORDERED: TAMS0.4C98 PO (13:27)
== END 2019-08-02 13:30 ==
LOC: PREOP 05:47
PROVIDERS: ATTEND Surgery
DX: Z01.818 Encounter for other preprocedural examination (principal)

== ENCOUNTER → 2020-02-28 | Outpatient (CLI) | payer MEDICARE, OTHER ==
[~2020-02-28] MED LIST changes: +AMLO10TA7 PO; -DIGO125T PO; +DIGO125T3 PO; -DUTA0.5C16 PO; +DUTA0.5C17 PO; +LISI1TAB25 PO; -LISI1TAB8 PO; +TMSL.4C PO; -TRAM50TA2 PO; +TRM50T PO
--- NOTE | 2020-02-28 13:28 | Diagnostic Imaging Report ---
EXAMINATION: Chest 2 view HISTORY: WEIGHT LOSS UNINTENTIONAL COMPARISON: None available. FINDINGS: The lungs are clear without edema or pneumonia. No pleural effusion or pneumothorax. Heart size is normal. IMPRESSION: 1. Clear lungs. Dictated by: Dictated on workstation # [id number]
== END ==
LOC: RAD 13:01
PROVIDERS: ATTEND Family Medicine
DX: R63.4 Abnormal weight loss (principal)
CPT/HCPCS: 71046

== ENCOUNTER 2020-03-15 12:53 | Outpatient (RCR) | payer MEDICARE, OTHER ==
[2020-03-08 12:50] VITALS: BP 134/63
[2020-03-08] MEDS: FERRIC CARBOXYMALTOSE INJ 750 MG in NS (IVPB) 250 ML IV SCH (13:12)
[~2020-03-15] VITALS: Ht 180.3 cm; Wt 78.2 kg
[~2020-03-15 12:53] MED LIST changes: -LISI1TAB25 PO; +LISI1TAB46 PO
[2020-03-15 13:00] VITALS: BP 127/64
[2020-03-15 13:18] VITALS: BP 127/64
[2020-03-15] MEDS: FERRIC CARBOXYMALTOSE INJ 750 MG in NS (IVPB) 250 ML IV SCH (13:24)
[2020-03-15 13:40] VITALS: BP 127/64
== END 2020-06-06 | disposition home or self-care (01) ==
LOC: SDC 12:53
PROVIDERS: ATTEND Nurse Practitioner Family
DX: D64.9 Anemia, unspecified (principal)
CPT/HCPCS: 96365

== ENCOUNTER 2020-03-23 07:15 | Outpatient (RCR) | payer MEDICARE, OTHER ==
[~2020-03-23] VITALS: Ht 180.3 cm; Wt 78.2 kg
[~2020-03-23 07:15] MED LIST changes: +LISI1TAB25 PO; -LISI1TAB46 PO
== END 2020-03-23 10:25 | disposition home or self-care (01) ==
LOC: PREOP 07:15
PROVIDERS: ATTEND Surgery
DX: Z01.818 Encounter for other preprocedural examination (principal); D50.9 Iron deficiency anemia, unspecified; K29.50 Unspecified chronic gastritis without bleeding; Z20.828 Contact with and (suspected) exposure to other viral communicable diseases
CPT/HCPCS: 87635

== ENCOUNTER 2020-03-27 07:59 | Day surgery (SDC) | payer MEDICARE, OTHER ==
[2020-03-27] VITALS (7 sets, daily range): BP systolic 85–137; BP diastolic 54–70
[~2020-03-27] VITALS: Ht 180 cm; Wt 78.2 kg
[2020-03-27] MEDS ORDERED: LACTATED RINGERS 1,000 ML IV STA (08:06)
[2020-03-27] MEDS ORDERED: LACTATED RINGERS 1,000 ML IV ONE (08:12)
[2020-03-27] MEDS ORDERED: HURRICAINE EXT TUBE (BENZOCAINE) XX PRN (08:15)
[2020-03-27] MEDS ORDERED: proPOfol 200 MG/20 ML (DIPRIVAN) VIAL IV ONE (08:15)
--- NOTE | 2020-03-27 08:15 | Progress Note-Pre Operative ---
Pre-Operative Progress Note H&P Reviewed The H&P was reviewed, patient examined and no changes noted. Time Seen by Provider: 08:14 Date H&P Reviewed: Mar 27, 2020 Time H&P Reviewed: 08:14 Pre-Operative Diagnosis: Dysphagia, Gastritis, unintentional weight loss, a nemia, ?rectal bleed DORIS BUSTAMANTE DO Mar 27, 2020 08:15
--- NOTE | 2020-03-27 08:59 | Progress Note-Post Operative ---
Post-Operative Progess Note Surgeon (s)/Manager Assessment (s) Surgeon DORIS BUSTAMANTE DO Manager Assessment: none Pre-Operative Diagnosis Dysphagia, Gastritis, unintentional weight loss, anemia, ?rectal bleed Post-Operative Diagnosis Duodenal polyp Gastritis hiatal hernia esophagitis diverticula desc colon polyp internal hemorrhoids Procedure & Operative Findings Date of Procedure 03/27/20 Procedure Performed/Findings EGD with bx Colon with bx Anesthesia Type IV sedation by anesthesia Estimated Blood Loss Estimated blood loss (mL): scant Specimens/Packing Specimens Removed duodenal polyp antral bx x 2 GE jxn bx desc colon polyp DORIS BUSTAMANTE DO Mar 27, 2020 08:59
--- NOTE | 2020-03-27 09:01 | Endoscopy Discharge Instruct ---
Endo Procedure/Findings Findings 1.: Polyp (duodenum), Hiatal Hernia, Gastritis 2.: Polyp (descending colon) 3.: Diverticulosis 4.: Internal Hemorrhoids Discharge Instructions - Activity: You might feel a little sleepy until tomorrow. This is due to the medicine you received to relax you. Until tomorrow, you should: NOT drive a car, operate machinery or power tools. NOT drink any alcoholic beverages. NOT make any important decisions or sign importortant papers. Do not return to work until tomorrow, unless otherwise instructed. Resume previous activities tomorrow. Diet: Start by taking liquids. If you tolerate liquids, advance to solid food. make an appointment for one week 1.: Colonscopy in 5 years, EGD in 3 years Notify Physician - If you experience excessive bleeding, unusual abdominal pain, fever, or chest pain, contact your doctor immediately. DORIS BUSTAMANTE DO Mar 27, 2020 09:01
--- NOTE | 2020-03-27 09:39 | Anesthesia-General Post-Op ---
MAC Patient Condition Mental Status/LOC: Same as Preop Cardiovascular: Satisfactory Nausea/Vomiting: Absent Respiratory: Satisfactory Pain: Controlled Complications: Absent Post Op Complications Complications None Follow Up Care/Instructions Patient Instructions None needed. Anesthesiology Discharge Order Discharge Order Patient is doing well, no complaints, stable vital signs, no apparent adverse anesthesia problems. YOAN RAMAN DO Mar 27, 2020 09:39
--- NOTE | 2020-03-28 04:05 | OPERATIVE REPORT ---
DATE OF SERVICE: 03/27/2020 PREOPERATIVE DIAGNOSES: Dysphagia, gastritis, some weight loss, anemia and questionable rectal bleed. POSTOPERATIVE DIAGNOSES: Duodenal polyp, gastritis, hiatal hernia as well as colon polyps, diverticula, internal hemorrhoids. PROCEDURES: 1. EGD with biopsy. 2. Colonoscopy with cold biopsy. SURGEON: Rajan Das DO COURTROOM CLERK: None. ANESTHESIA: IV sedation by the anesthesiologist. SPECIMEN: Duodenal polyp, biopsy of antrum x2. GE junction biopsy and a descending colon polyp biopsy. BLOOD LOSS: Scant. FLUIDS: Per anesthesia. POSTOPERATIVE CONDITION: Stable. INDICATION FOR PROCEDURE: The patient is an 79-year-old male who has been having some dysphagia, gastritis, weight loss. He was also anemic and had a questionable rectal bleed, needed a workup. FINDINGS: The patient had a duodenal polyp. He had some gastritis and hiatal hernia, possibly some esophagitis. In the colon, he had a small polyp and then he had a large diverticula and some internal hemorrhoids. PROCEDURE NOTE: After informed consent was obtained, the patient was brought to the endoscopy suite, placed in bed in left lateral decubitus position. He was administered IV sedation by the anesthesiologist who then monitored his vitals the entire time, heart rate, blood pressure and pulse ox and started with the EGD, placing scope down the mouth through the esophagus into the stomach, pushed through into the antrum into the duodenum and in the duodenum saw a polyp, took a picture of this and did a biopsy and then pulled back and did a biopsy of the antrum twice and then pulled into the GE junction and did a biopsy of GE junction and had retroflexed the scope and saw a hiatal hernia, took a picture of this. At this point, then suctioned the air out of stomach, pulled the scope up the esophagus and out the mouth. Switched the camera, switched gloves, went down below, started the colonoscopy, pushed the scope in. On the way in, noted large diverticula, took pictures of these and then able to get past these all the way to the cecum, pushed in about 150 cm. Once in the cecum, took a picture of appendiceal orifice and then slowly withdrew the scope insufflating to look circumferentially at the de luna looking at the cecum, up the ascending colon to the hepatic flexure, then down the transverse colon, splenic flexure, into the descending colon. In the descending colon, saw small flat polyp, did a cold biopsy of this and then continued down through the sigmoid into the rectum, retroflexed the scope in the rectal vault and saw some minimal internal hemorrhoids, took a picture of this, removed the scope in the stomach. We did see small little bits of what looked like blood. Picture was taken, maybe this is just a gastritis. The patient tolerated the procedure, recovered in endoscopy suite. Job ID: [id number] DocumentID: [id number] Dictated Date: 03/27/2020 20:30:52 Roving Can Tender Date: 03/28/2020 04:04:07 Dictated By: RAJAN DAS DO
== END 2020-03-27 09:50 | disposition home or self-care (01) ==
LOC: ENDO 07:59
PROVIDERS: ATTEND Surgery
DX: K31.7 Polyp of stomach and duodenum (principal); K29.50 Unspecified chronic gastritis without bleeding; K63.5 Polyp of colon; K21.0 Gastro-esophageal reflux disease with esophagitis; K31.89 Other diseases of stomach and duodenum; K44.9 Diaphragmatic hernia without obstruction or gangrene; K64.8 Other hemorrhoids; K57.30 Diverticulosis of large intestine without perforation or abscess without bleeding; D50.9 Iron deficiency anemia, unspecified; I10 Essential (primary) hypertension; E78.5 Hyperlipidemia, unspecified; M06.9 Rheumatoid arthritis, unspecified; N40.0 Benign prostatic hyperplasia without lower urinary tract symptoms; Z79.82 Long term (current) use of aspirin; Z87.891 Personal history of nicotine dependence; Z79.899 Other long term (current) drug therapy; Z85.828 Personal history of other malignant neoplasm of skin

== ENCOUNTER → 2020-04-18 | Outpatient (CLI) | payer MEDICARE, OTHER ==
[~2020-04-18] MED LIST changes: +BARIUM SUSPENSION 2.1% (VANILLA SILQ) 450 ML PO ONE; +CATHETER FLUSH 10 ML SYR IV PRN; +HOLD METFORMIN - RECEIVED CONTRAST 20 ML VIAL IV SCH; +IOHEXOL 350 MG/ML 100 ML (OMNIPAQUE 350) VIAL IV ONE; +NS 100 ML (IVPB) BAG IV ONE
--- NOTE | 2020-04-18 14:50 | Diagnostic Imaging Report ---
EXAMINATION: CT Chest, Abdomen and Pelvis with intravenous contrast. TECHNIQUE: Multiple contiguous axial images were obtained through the chest, abdomen and pelvis after the uneventful administration of intravenous contrast. All CT scans use one or more of the following dose optimizing techniques: automated exposure control, MA and/or KvP adjustment based on a patient size and exam type, or iterative reconstruction. HISTORY: Weight loss and abdominal pain. COMPARISON: None available. FINDINGS: There is no edema or pneumonia. No pleural effusion. No pneumothorax. No suspicious nodules. There is no axillary or supraclavicular lymphadenopathy. There is no mediastinal lymphadenopathy. Heart size is normal. There are mild coronary artery calcifications. No pericardial effusion. Aorta is normal in caliber. There is a hyperenhancing focus in the right hemiliver which is occult on the delayed imaging. This is likely either hemangioma or transient hepatic attenuation difference. There is no biliary ductal dilation. Gallbladder is normal. Pancreas is normal. Spleen is normal. Adrenal glands are normal. There is a 6.0 x 5.5 cm intermediate attenuation in left lower pole renal lesion. In this location on the previous exam, there was a cyst measuring 3.3 cm. This was clearly a cyst with internal Hounsfield attenuation of approximately three. There is no hydronephrosis. Urinary bladder is normal. There is a fat-containing left inguinal hernia. Visualized bowel is normal in caliber without obstruction or inflammation. No free fluid or air. No abdominal or pelvic lymphadenopathy. Aorta is normal in caliber without aneurysm. There are no suspicious osseous lesions. IMPRESSION: 1. Left renal mass with intermediate attenuation highly concerning for renal cell carcinoma. Pre and postcontrast-enhanced exam is recommended to determine if there are solid enhancing components. 2. Indeterminate liver lesion likely representing transient hepatic attenuation difference. Liver MRI is recommended for further evaluation. Report give to Dr. Bravo at 2:49 PM 04/18/2020/cb Report faxed to [phone] Dictated by: Dictated on workstation # [id number]
== END ==
LOC: RAD 13:04
PROVIDERS: ATTEND Family Medicine
DX: N28.89 Other specified disorders of kidney and ureter (principal); K76.89 Other specified diseases of liver; R63.4 Abnormal weight loss; R10.9 Unspecified abdominal pain
CPT/HCPCS: 71260; 74177

== ENCOUNTER → 2020-04-20 | Outpatient (CLI) | payer MEDICARE, OTHER ==
[~2020-04-20] MED LIST changes: -BARIUM SUSPENSION 2.1% (VANILLA SILQ) 450 ML PO ONE; -CATHETER FLUSH 10 ML SYR IV PRN; +GADOBUTROL 10 MMOL/10 ML (GADAVIST) VIAL IV ONE; -HOLD METFORMIN - RECEIVED CONTRAST 20 ML VIAL IV SCH; -IOHEXOL 350 MG/ML 100 ML (OMNIPAQUE 350) VIAL IV ONE; -NS 100 ML (IVPB) BAG IV ONE
--- NOTE | 2020-04-20 10:16 | Diagnostic Imaging Report ---
PROCEDURE: MR imaging abdomen with and without contrast. TECHNIQUE: Multiplanar, multisequence MR imaging of the abdomen was performed with and without contrast. INDICATION: Renal mass. Indeterminate liver lesion. COMPARISON: CT chest and pelvis 04/18/[address] abdomen and pelvis of 04/19/2020. FINDINGS: No hepatic steatosis, iron deposition or nodularity of the surface. Portal vein is patent. Postcontrast imaging demonstrates no pathologic enhancement that would suggest a neoplastic process. In the right hepatic lobe along the posterior margin of the middle hepatic vein, segment 8, there is a vague bulbous focus of enhancement at the branching point of hepatic vein which follows the blood pool on all phases. This has associated T2 hyperintense signal and measures 1.3 x 0.5 cm (image 9, series 7) and would be compatible with a hemangioma. The small size does not entirely account for the enhancement seen on prior CT and there is also likely a component of transient hepatic attenuation difference on that CT but there are no features of transient hepatic intensity difference on today's examination. In the lower pole of left kidney, there is again noted a solid mass with a claw sign indicating arising from the kidney. This measures approximately 5.3 x 5.5 cm on today's examination and is hypoenhancing relative to the normal renal parenchyma but has MRI features that must be considered a primary renal cancer until proven otherwise. No lymphadenopathy in the upper abdomen. Gallbladder is normal in appearance. No pancreatic mass. Adrenals are normal. Spleen is unremarkable. No pleural effusion. IMPRESSION: 1. There is a small hemangioma within the anterior aspect of the right hepatic lobe (segment 8). No focal hepatic lesion that would indicate metastatic disease/neoplastic process. 2. Solid mass in lower pole of left kidney is again noted and must be considered primary renal cell carcinoma until proven otherwise. Dictated by: Dictated on workstation # [id number]
== END ==
LOC: RAD 07:45
PROVIDERS: ATTEND Family Medicine
DX: N28.89 Other specified disorders of kidney and ureter (principal); K76.89 Other specified diseases of liver; D18.03 Hemangioma of intra-abdominal structures
CPT/HCPCS: 74183

== ENCOUNTER → 2020-05-19 | Outpatient (CLI) | payer MEDICARE, OTHER ==
[~2020-05-19] MED LIST changes: -GADOBUTROL 10 MMOL/10 ML (GADAVIST) VIAL IV ONE; -LISI1TAB25 PO; +LISI1TAB46 PO
--- NOTE | 2020-05-19 12:13 | NUR ---
EKG DONE. DR. ORO CALLED WITH RESULTS. ORDERS FROM DR. ORO TO DISMISS HOME. COPY OF EKG FAXED TO DR. ORO AND [facility].
== END ==
LOC: CARD 11:13
DX: Z01.810 Encounter for preprocedural cardiovascular examination (principal)
CPT/HCPCS: 93005

== ENCOUNTER → 2020-08-08 | Outpatient (CLI) | payer MEDICARE, OTHER ==
[~2020-08-08] MED LIST changes: +AMLO-250 PO; +AMLO-251 PO; -AMLO10TA7 PO; -AMLO5TAB9 PO
--- NOTE | 2020-08-08 12:09 | Diagnostic Imaging Report ---
INDICATION: Low back pain and left hip pain. TIME OF EXAM: 10:05 AM FINDINGS: 2 views left hip demonstrate normal femoral acetabular alignment. Femoral head and neck are intact. Joint space is fairly well-maintained. No fracture or dislocation is identified. IMPRESSION: No acute bony abnormality is detected. Dictated by: Dictated on workstation # [id number]
--- NOTE | 2020-08-08 12:28 | Diagnostic Imaging Report ---
INDICATION: Muscle spasms and back pain. TIME OF EXAM: 10:06 AM FINDINGS: 3 views lumbar spine were obtained. There is some straightening of the normal lumbar lordotic curvature. Vertebral body heights are maintained. No acute compression fracture is detected. There is multilevel degenerative disc disease with variable disc space narrowing and marginal spurring. There is multilevel facet arthropathy. Abdominal aorta is heavily calcified. IMPRESSION: Lumbar spondylosis. No acute bony abnormality is detected. Dictated by: Dictated on workstation # [id number]
== END ==
LOC: RAD 09:29
PROVIDERS: ATTEND Family Medicine
DX: M47.816 Spondylosis without myelopathy or radiculopathy, lumbar region (principal)
CPT/HCPCS: 72100; 73502

== ENCOUNTER → 2020-08-29 | Outpatient (CLI) | payer MEDICARE, OTHER | LOC: CARD 14:00 | PROVIDERS: ATTEND Internal Medicine Cardiovascular Disease | DX: I47.2 Ventricular tachycardia (principal); I51.7 Cardiomegaly | CPT/HCPCS: 93306 ==

== ENCOUNTER → 2020-09-15 | Outpatient (CLI) | payer MEDICARE, OTHER ==
[~2020-09-15] VITALS: Ht 180 cm; Wt 75.0 kg
[~2020-09-15] MED LIST changes: +CATHETER FLUSH 10 ML SYR IV PRN; +REGADENOSON 0.4 MG/5 ML SYR (LEXISCAN) IV ONE
[2020-09-15 09:12] VITALS: BP 141/76
== END ==
LOC: CARD 08:15
PROVIDERS: ATTEND Internal Medicine Cardiovascular Disease
DX: I47.2 Ventricular tachycardia (principal)
CPT/HCPCS: 78452; 93017; A9502

== ENCOUNTER → 2021-01-26 | Outpatient (CLI) | payer MEDICARE, OTHER ==
[~2021-01-26] MED LIST changes: +ACHD5005 PO; -CATHETER FLUSH 10 ML SYR IV PRN; -DUTA0.5C17 PO; +DUTA0.5C36 PO; +HOLD METFORMIN - RECEIVED CONTRAST 20 ML VIAL IV SCH; -ISOS30TA3 PO; +ISOS30TA82 PO; +NF-NACL1GT PO; +OXYB5TAB13 PO; -REGADENOSON 0.4 MG/5 ML SYR (LEXISCAN) IV ONE
[2021-01-26] MEDS: IOHEXOL 350 MG/ML 100 ML (OMNIPAQUE 350) VIAL IV ONE (12:31)
[2021-01-26] MEDS: CATHETER FLUSH 10 ML SYR IV PRN (12:31)
[2021-01-26] MEDS: NS 100 ML (IVPB) BAG IV ONE (12:31)
--- NOTE | 2021-01-26 13:13 | Diagnostic Imaging Report ---
PROCEDURE: CT chest, abdomen, and pelvis with contrast. TECHNIQUE: Multiple contiguous axial images were obtained through the chest, abdomen, and pelvis after the administration of intravenous contrast. Auto Exposure Controls were utilized during the CT exam to meet ALARA standards for radiation dose reduction. INDICATION: Renal cell carcinoma. COMPARISON: Correlation is made with prior CT from 04/18/2020. FINDINGS: CT CHEST: No axillary, hilar, or mediastinal lymphadenopathy is detected. No pericardial or pleural fluid is detected. No definite pulmonary masses are seen. Minimal nodularity along the major fissures bilaterally appears similar to prior exam. There is a sclerotic lesion within the T9 vertebral body, similar to prior exam and indeterminate. No osteolytic lesions are seen. IMPRESSION: 1. No evidence of thoracic lymphadenopathy or pulmonary metastatic disease. CT ABDOMEN AND PELVIS: Tiny low densities in the left lobe of the liver are noted, too small to characterize but perhaps small cysts. No other liver masses are seen. Gallbladder is unremarkable. There is no biliary ductal dilatation. The pancreas and spleen are unremarkable. No adrenal mass is detected. Left kidney is now surgically absent. Right kidney is unremarkable. Aorta is heavily calcified but nonaneurysmal. No central retroperitoneal or mesenteric lymphadenopathy is seen. Small and large bowel loops are normal in caliber. There is diverticulosis of the sigmoid but no evidence of acute diverticulitis. Bladder is unremarkable. There is a fat-containing left inguinal hernia. No definite inguinal or iliac lymphadenopathy is detected. There appears to be an acute compression fracture involving the L5 vertebral body, new since prior CT. There are areas of sclerosis within the L5 vertebral body and this may be a pathologic fracture. There is a new area of sclerosis in the right iliac bone, also suspicious for a metastatic lesion. Remainder of the lumbar vertebrae are unremarkable. IMPRESSION: 1. No evidence of abdominal or pelvic lymphadenopathy. 2. L5 compression fracture, likely pathologic. This would likely be amenable to kyphoplasty with core biopsy. No definite retropulsion of fracture fragments is identified. 3. Sclerotic lesion in the right iliac bone, consistent with metastatic lesion. Dictated by: Dictated on workstation # [id number]
== END ==
LOC: RAD 11:51
PROVIDERS: ATTEND Nurse Practitioner Family
DX: C64.9 Malignant neoplasm of unspecified kidney, except renal pelvis (principal); S32.050A Wedge compression fracture of fifth lumbar vertebra, initial encounter for closed fracture; C79.51 Secondary malignant neoplasm of bone; X58.XXXA Exposure to other specified factors, initial encounter
CPT/HCPCS: 71260; 74177

== ENCOUNTER 2021-01-29 12:21 | Inpatient (IN) | payer MEDICARE, OTHER ==
[~2021-01-29] VITALS: Ht 180.3 cm; Wt 66.7 kg
[~2021-01-29 12:21] MED LIST changes: -ACHD5005 PO; -HOLD METFORMIN - RECEIVED CONTRAST 20 ML VIAL IV SCH; -NF-NACL1GT PO; -OXYB5TAB13 PO
[2021-01-29] MEDS ORDERED: CATHETER FLUSH 10 ML SYR IV PRN (13:15)
[2021-01-29 13:28] VITALS: BP 156/75
[2021-01-29] MEDS: NS IV 1000 ML 1,000 ML IV SCH ×2 (13:33→23:23)
[2021-01-29] MEDS: ENOXAPARIN 40 MG/0.4 ML (LOVENOX) SYR SC SCH (13:33)
[2021-01-29] MEDS: morphine INJ 4 MG/ML 1 ML (VIAL/SYRINGE) IVP PRN ×2 (14:48→17:26)
[2021-01-29] MEDS ORDERED: NF-NACL1GT PO (15:41)
[2021-01-29] MEDS ORDERED: ACHD5005 PO (15:41)
[2021-01-29] MEDS ORDERED: OXYB5TAB13 PO (15:41)
[2021-01-29] MEDS ORDERED: polyethylene glycoL POWDER 17 GM (MIRALAX) PACK PO PRN (15:45)
[2021-01-29 16:00] VITALS: BP 132/64
--- NOTE | 2021-01-29 16:26 | History & Physical ---
History of Present Illness History of Present Illness Reason for visit/HPI PT IS AN 80 Y/O MALE WHO IS KNOWN TO ME FROM CLINIC. HE PRESENTED TO THE [facility] TODAY FOR A CONSULTATION AFTER AN OUTSIDE MRI SHOWED LIKELY METASTATIC RENAL CELL CARCINOMA TO HIS SPINE AND ILIAC BONE ON THE LEFT. DR. BOYD INITIALLY WAS PLANNING ON SENDING THE PT TO TO HIS UROLOGIST FOR THEM TO GET GABY INTO NEUROSURGERY FOR BIOPSY AND TREATMENT OF THE COMPRESSION FX WITH BIOPS Y, HOWEVER THE NEUROSURGERY TEAM RECOMMENDED TO AVOID BIOPSY OF THE LUMBAR SPINE AND INSTEAD START HIM ON IV STEROIDS, RADIATION TREATMENT OF THE SPINAL LESION AND INSTEAD TO BIOPSY THE ILIAC BONE ISLAND OF METASTASIS. [facility] WAS THEREFORE ADMITTED FOR PAIN CONTROL WELL RADIATION AND IV STEROIDS WITH PLANS FOR BIOPSY ON 01/30/2021. THIS EVENING GABY REPORTS THAT HE IS FEELING PAIN AT A 4/10 WHILE LYING STILL IN BED, BUT THIS GOES UP TO 10/10 WITH ANY MOVEMENT OR SITTING UP AT ALL IN THE BED/CHAIR. HE REPORTS PAIN WITH ROLLING OVER TO URINATE AND HE HAS NOT HAD A BOWEL MOVEMENT IN THE LAST 1-2 DAYS. Date of Admission January 29, 2021 at 12:45 Date Seen by a Provider: January 29, 2021 Time Seen by a Provider: 16:10 Attending Physician Kali Bravo MD Admitting Physician Kali Bravo MD Consult DR. BOYD, DR. MAN, DR. CABRERA Allergies and Home Medications Allergies Coded Allergies: No Known Drug Allergies (Verified , 03/27/20) Home Medications Amlodipine Besylate 10 Mg Tablet, 10 MG PO DAILY, (Reported) Last Action: Reviewed Dutasteride 0.5 Mg Capsule, 0.5 MG PO DAILY, (Reported) Last Action: Converted Hydrocodone/Acetaminophen 1 Each Tablet, 1 EACH PO Q4H PRN for PAIN-MODERATE (5- 7), (Reported) Last Action: Reviewed Lovastatin 40 Mg Tablet, 40 MG PO HS, (Reported) Last Action: Held Metoprolol Tartrate 25 Mg Tablet, 12.5 MG PO BID, (Reported) TAKES OF A (25MG) TABLET Last Action: Reviewed Oxybutynin Chloride 5 Mg Tablet, 5 MG PO DAILY, (Reported) Last Action: Held Sodium Chloride 1 Gm Tab, 0.5 GM PO BID, (Reported) TAKES OF A (1GM) TABLET Last Action: Held Tamsulosin HCl 0.4 Mg Cap, 0.4 MG PO HS, (Reported) Last Action: Reviewed Patient Home Medication List Home Medication List Reviewed: Yes Past Ufulaxo-Piodxz-Vcrojb Hx Past Med/Social Hx: Reviewed Nursing Past Med/Soc Hx Patient Social History Marrital Status: Number of Children: 2 Number of living children: 2 Living Status: LIVES AT HOME WITH SPOUSE 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) Alcohol Beverage of Choice: Beer Smoking Status: Former Smoker Former Smoker, Quit: Nov 03, 1976 Type Used: Cigarettes 2nd Hand Smoke Exposure: Yes Physical Abuse Screen: No Sexual Abuse: No Recent Foreign Travel: No Contact w/other who traveled: No Recent Hopitalizations: No Recent Infectious Disease Expo: No Immunizations Up To Date Tetanus Booster (TDap): Unknown Date of Pneumonia Vaccine: Jun 15, 2018 Date of Influenza Vaccine: Jun 08, 2020 Seasonal Allergies Seasonal Allergies: Yes Past Medical History Surgeries: Abdominal (UMBILICAL HERNIA REPAIR IN 2007), Adenoidectomy, Nephrectomy (LEFT SIDE 2019 AT [facility] DR. MCKOY), Tonsillectomy Currently Using CPAP: No Currently Using BIPAP: No Cardiac: High Cholesterol, Hypertension Reproductive: No Sexually Transmitted Disease: No HIV/AIDS: No Genitourinary: Benign Prostatic Hyperpl, Prostate Problems Gastrointestinal: Gastroesophageal Reflux Musculoskeletal: Arthritis Loss of Vision: Denies Hearing Impairment: Denies Cancer: Skin, Kidney (LEFT - RENAL CELL CARCINOMA WITH LEFT KIDNEY REMOVED IN 2019 AT [facility]) What Type of Treatment Did You: Surgical Intervention History of Blood Disorders: No Adverse Reaction to Blood Garvey: No (N/A) Family History Reviewed and Corrections made Asthma 19 FATHER Cancer of mouth Cardiovascular disease G8 BROTHER Myocardial infarction G8 BROTHER Neoplasm G8 BROTHER Parkinson's disease 19 MOTHER Respiratory disorder 19 FATHER Heart Disease, Cancer, CAD Over 55 Years Old, COPD, Other Conditions/Hx (PARKINSON'S DISEASE) Review of Systems Constitutional: No chills, No diaphoresis, No fever; malaise, weakness, weight loss EENTM: No hoarseness, No throat pain Respiratory: No cough, No dyspnea on exertion, No short of breath Cardiovascular: No palpitations, No syncope Gastrointestinal: No abdominal pain; constipation; No loss of appetite, No nausea, No vomiting Genitourinary: frequency Musculoskeletal: back pain, other (LEFT HIP PAIN) Skin: no symptoms reported Psychiatric/Neurological: Denies Anxiety, Denies Depressed; Weakness All Other Systems Reviewed Negative Unless Noted: Yes Physical Exam Vital Signs Vital Signs - First Documented 01/29/21 01/29/21 12:40 13:28 Temp 37.1 Pulse 70 Resp 18 B/P (MAP) 156/75 (102) Pulse Ox 94 O2 Delivery Room Air Capillary Refill : Height, Weight, BMI Height: 5'11.00" Weight: 191lbs. 0.0oz. 86.441530gt; 28.71 BMI Method:Stated General Appearance: No Apparent Distress, WD/WN Eyes: Bilateral Eye Normal Inspection, Bilateral Eye PERRL, Bilateral Eye EOMI HEENT: PERRL/EOMI, Pharynx Normal Neck: Non Tender, Supple Respiratory: Chest Non Tender, Lungs Clear, Normal Breath Sounds, No Accessory Muscle Use, No Respiratory Distress Cardiovascular: Regular Rate, Rhythm, No Edema, Normal Peripheral Pulses Gastrointestinal: Normal Bowel Sounds, No Organomegaly, No Pulsatile Mass, Non Tender, Soft Rectal: Deferred Back: Other (PT LYING FLAT IN BED, PAIN WITH MOVEMENT, SITTING UPRIGHT CAUSES SIGNIFICANT PAIN) Extremity: Normal Capillary Refill, Normal Range of Motion, Non Tender, No Calf Tenderness, No Pedal Edema Neurologic/Psychiatric: Alert, Oriented x3, No Motor/Sensory Deficits, Normal Mood/Affect, 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 BOYD - INITIALLY TODAY HE WAS PLANNING ON SENDING PT UP TO [facility] WHERE HE HAS BEEN TREATED FOR RENAL CELL CA, HOWEVER, THE UROLOGIST UP THERE INFORMED US THAT THEY WOULD NOT RECOMMEND A BIOPSY OF THE SPINE, INSTEAD WOULD RECOMMEND STEROIDS, RADIATION AND BIOPSY OF ILIAC BONE. - DECISION WAS THEN MADE TO KEEP GABY HERE IN [place] FOR RADIATION AND BIOPSY. CT CHEST/ABDOMEN/PELVIS W 01/26/21 PROCEDURE: CT chest, abdomen, and pelvis with contrast. INDICATION: Renal cell carcinoma. COMPARISON: Correlation is made with prior CT from 04/18/2020. CT CHEST: No axillary, hilar, or mediastinal lymphadenopathy is detected. No pericardial or pleural fluid is detected. No definite pulmonary masses are seen. Minimal nodularity along the major fissures bilaterally appears similar to prior exam. There is a sclerotic lesion within the T9 vertebral body, similar to prior exam and indeterminate. No osteolytic lesions are seen. IMPRESSION: 1. No evidence of thoracic lymphadenopathy or pulmonary metastatic disease. CT ABDOMEN AND PELVIS: Tiny low densities in the left lobe of the liver are noted, too small to characterize but perhaps small cysts. No other liver masses are seen. Gallbladder is unremarkable. There is no biliary ductal dilatation. The pancreas and spleen are unremarkable. No adrenal mass is detected. Left kidney is now surgically absent. Right kidney is unremarkable. Aorta is heavily calcified but nonaneurysmal. No central retroperitoneal or mesenteric lymphadenopathy is seen. Small and large bowel loops are normal in caliber. There is diverticulosis of the sigmoid but no evidence of acute diverticulitis. Bladder is unremarkable. There is a fat-containing left inguinal hernia. No definite inguinal or iliac lymphadenopathy is detected. There appears to be an acute compression fracture involving the L5 vertebral body, new since prior CT. There are areas of sclerosis within the L5 vertebral body and this may be a pathologic fracture. There is a new area of sclerosis in the right iliac bone, also suspicious for a metastatic lesion. Remainder of the lumbar vertebrae are unremarkable. IMPRESSION: 1. No evidence of abdominal or pelvic lymphadenopathy. 2. L5 compression fracture, likely pathologic. This would likely be amenable to kyphoplasty with core biopsy. No definite retropulsion of fracture fragments is identified. 3. Sclerotic lesion in the right iliac bone, consistent with metastatic lesion. HYPERTENSION - RESUME HOME REGIMEN BPH - RESUME HOME REGIMEN SEVERE BACK PAIN - IV MORPHINE, STEROIDS FOR DECREASE IN EDEMA FROM METASTATIC CANCER TO BONE LEFT HIP PAIN - PAIN CONTROL WITH MORPHINE, HYPONATREMIA - PT ON IV FLUIDS, MONITOR SODIUM LEVELS Admission Diagnosis RENAL CELL CARCINOMA STATUS POST LEFT NEPHRECTOMY METASTATIC LESIONS TO SPINE AND ILIAC BONE AND SACRUM HYPERTENSION BPH SEVERE BACK PAIN LEFT HIP PAIN HYPONATREMIA Admission Status: Inpatient Order (span 2 midnights) Reason for Inpatient Admission: INPT ADMISSION FOR PAIN CONTROL, TREATMENT OF METASTATIC CANCER TO SPINE, HIP, WILL REQUIRE AT LEAST 72+ HOURS FOR STABILIZATION AND PLAN FOR FURTHER TREATMENT/PLACEMENT KALI BRAVO MD January 29, 2021 16:26
[2021-01-29] MEDS: TAMSULOSIN 0.4 MG (FLOMAX) CAP PO SCH (16:50)
[2021-01-29] MEDS ORDERED: LIDOCAINE UROJET 2% GEL 10 ML PKG ONE (17:02)
[2021-01-29] MEDS ORDERED: LIDOCAINE UROJET 2% GEL 10 ML PKG TOP ONE (17:15)
[2021-01-29 19:42] VITALS: BP 135/71
[2021-01-29] MEDS: DOCUSATE SODIUM 100 MG (COLACE) CAP PO SCH (20:00)
[2021-01-29] MEDS: meTOprolol TARTRATE 25 MG (LOPRESSOR) TABLET PO SCH (20:01)
--- NOTE | 2021-01-29 22:45 | CONSULTATION REPORT ---
DATE OF SERVICE: 01/29/2021 The patient is admitted to room 422. PRIMARY AND REFERRING PHYSICIAN: Rita Bravo MD IMPRESSION: 1. An 80-year-old male admitted to the hospital with intractable low back pain. 2. Recent MRI of the lower back with sclerotic lesion replacing L5 vertebral body with spinal canal encroachment, sacral lesion as well as a pelvic lesion consistent with metastasis. CT scan of the chest, abdomen and pelvis done after the MRI showed acute compression fracture of L5 vertebral body. 3. Previous history of kidney cancer, status post left nephrectomy in 2019. RECOMMENDATIONS: 1. Pain management with IV morphine. 2. Dexamethasone 10 mg bolus, which was given at [facility] and 4 mg IV every 6 hours. 3. Radiation oncology consultation for palliative radiation therapy. 4. Radiology consult for biopsy of the pelvic lesion. 5. After the radiation therapy is completed, if the patient still has significant pain due to the compression fracture, he may be a candidate for kyphoplasty. 6. Once the pathology result is available, we will discuss about other systemic treatment options. 7. We will follow the patient with you. BRIEF HISTORY: The patient is an 80-year-old male who was diagnosed with left kidney cancer and underwent left nephrectomy in 05/2020. He complained of increasing back pain since the past few months until recent MRI of the back showed possible metastatic disease and cauda equina syndrome. An urgent medical oncology consultation was requested, and the patient was seen today morning, but because of his significant pain, it was decided to admit him to the hospital for further management. Discussions were held with his urologist at [facility] prior to admission here for further management. PAST MEDICAL HISTORY: Significant for hypertension for more than 10 years. He has cardiac problems and was following with network applications specialist, but denied any coronary artery disease or WI. History of gastroesophageal reflux disease and taking Pepcid on an outpatient basis. Hypercholesterolemia diagnosed several years ago and on treatment. History of chronic anemia. PAST SURGICAL HISTORY: Include a tonsillectomy and adenoidectomy in childhood, few skin cancers removed from his neck and face in the past. Umbilical hernia repair in 2007 and robotic-assisted left nephrectomy in 05/2020. SOCIAL HISTORY: The patient is and lives in [facility]. He has two daughters, one of whom lives in [place] and one in [place]. 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 He has smoked less than a pack of cigarettes a day for 10 years, but quit more than 45 years ago. He uses 1 to 2 beer on most days until 2 weeks ago. Denied any recreational drug use. FAMILY HISTORY: Significant for his mother who was diagnosed with stomach cancer at the age of 75 years. His brother was diagnosed with pancreatic/liver cancer in his 60s. His sister was diagnosed with breast cancer in her late 60s. No other malignancies in the family that the patient knows of. Several relatives have diabetes mellitus type 1. PHYSICAL EXAMINATION: GENERAL: Today showed an elderly male, well developed and nourished, awake and oriented, in moderate distress due to the back pain. VITAL SIGNS: Temperature was 36.5 degrees centigrade, pulse rate of 70, respirations 20, blood pressure 132/64 with oxygen saturation of 95% on room air. HEENT: Normocephalic, extraocular muscles intact, conjunctivae pink, oral mucosa moist. NECK: Supple, with no JVD. No cervical, supraclavicular or axillary lymphadenopathy palpable. CHEST: Symmetrical. LUNGS: Fairly clear to auscultation without wheezes or rales. CARDIOVASCULAR: Regular in rate and rhythm. No murmurs or gallops heard. ABDOMEN: Soft, nontender with no hepatosplenomegaly or other masses palpable. EXTREMITIES: Showed no edema. Motor strength in the left lower extremity was 4/5 compared to the right side, which was 5/5. There was no other focal motor deficits noted. Any movement of his body cause significant pain and he was lying in bed without moving during the interview and exam. Recent MRI of the lumbar spine done on 01/24/2021 at [facility] was reviewed. This showed the L5 vertebral body completely replaced by what is likely metastatic cancer. Also lesion in the first sacral vertebral body that also has appearance of a metastatic lesion. There is an area of mass in the right iliac bone adjacent to the SI joint that has the appearance of metastatic lesion. The L5 vertebral body mass extends posterior to the spinal canal causing severe central spinal stenosis. Left lateral recess and neural foraminal stenosis is also seen at the L5 level. The patient then had CT scan of the chest, abdomen and pelvis on 01/26/[address] [facility] scan of the chest showed no evidence of thoracic lymphadenopathy or pulmonary metastatic disease. Sclerotic lesion within the T9 vertebral body similar to prior exam, which is indeterminate. No osteolytic lesion seen. CT scan of the abdomen and pelvis showed no evidence of lymphadenopathy. L5 compression fracture likely pathologic was seen, areas of sclerosis within the L5 vertebral body was seen. New area of sclerosis in the right iliac bone also suspicious for metastatic lesion. Reviewed his previous robotic-assisted laparoscopic left nephrectomy done at [facility]. Pathology report showed renal tumor with predominantly papillary architecture and cells with oncocytic and eosinophilic cytoplasm as well as prominent spindle cell/sarcomatoid features and extensive necrosis. This was WHO grade IV tumor and unclassified. Tumor extended into the renal sinus, but all margins were uninvolved by invasive carcinoma. Pathology staging was [id number]. Thank you for allowing me to participate in this patient's care. I will follow the patient with you and make appropriate recommendations. Job ID: [id number] DocumentID: [id number] Dictated Date: 01/29/2021 18:26:05 Offset Lithographic Press Operator Date: 01/29/2021 22:45:16 Dictated By: NADIA BOYD MD
[2021-01-30] VITALS (16 sets, daily range): BP systolic 119–163; BP diastolic 57–82
[2021-01-30] MEDS: morphine INJ 4 MG/ML 1 ML (VIAL/SYRINGE) IVP PRN ×4 (05:24→21:16)
[2021-01-30 05:59] LABS: BASOPHILS % (AUTO) 0 % (0-10); EOSINOPHILS % (AUTO) 0 % (0-10); HEMATOCRIT 38 % (40-54); HEMOGLOBIN 12.2 g/dL (13.3-17.7); LYMPHOCYTES # (AUTO) 0.7 10^3/uL (1.0-4.0); LYMPHOCYTES % (AUTO) 7 % (12-44); MEAN CORPUSCULAR HEMOGLOBIN 27 pg (25-34); MEAN CORPUSCULAR HGB CONC 33 g/dL (32-36); MEAN CORPUSCULAR VOLUME 82 fL (80-99); MEAN PLATELET VOLUME 10.4 fL (9.0-12.2); MONOCYTES # (AUTO) 0.2 10^3/uL (0.0-1.0); MONOCYTES % (AUTO) 2 % (0-12); NEUTROPHILS # (AUTO) 9.3 10^3/uL (1.8-7.8); NEUTROPHILS % (AUTO) 90 % (42-75); PLATELET COUNT 288 10^3/uL (130-400); WHITE BLOOD COUNT 10.4 10^3/uL (4.3-11.0)
[2021-01-30 06:11] LABS: INR 1.2 (0.8-1.4); PROTHROMBIN TIME PATIENT 15.2 SEC (12.2-14.7)
[2021-01-30 06:19] LABS: ALBUMIN 3.1 GM/DL (3.2-4.5); CHLORIDE 95 MMOL/L (98-107); POTASSIUM 4.2 MMOL/L (3.6-5.0); SODIUM 129 MMOL/L (135-145)
[2021-01-30 06:20] LABS: CALCIUM 9.1 MG/DL (8.5-10.1)
[2021-01-30 06:21] LABS: GLUCOSE 148 MG/DL (70-105)
[2021-01-30 06:22] LABS: TOTAL PROTEIN 6.5 GM/DL (6.4-8.2)
[2021-01-30 06:23] LABS: BILIRUBIN,TOTAL 0.5 MG/DL (0.1-1.0); CARBON DIOXIDE 24 MMOL/L (21-32)
[2021-01-30 06:24] LABS: LYMPHOCYTES % (MANUAL) 5 %; MONOCYTES % (MANUAL) 2 %; NEUTROPHILS % (MANUAL) 93 %; RBC MORPH NORMAL
[2021-01-30 06:25] LABS: ALKALINE PHOSPHATASE 186 U/L (40-136); CREATININE SERUM 0.96 MG/DL (0.60-1.30); GFR ESTIMATED > 60
[2021-01-30 06:26] LABS: BUN/CREATININE RATIO 20
[2021-01-30 06:28] LABS: ALANINE AMINOTRANSFERASE 30 U/L (0-55)
[2021-01-30] MEDS ORDERED: morphine INJ 10 MG/ML 1ML (SYR OR VIAL) IVP STA (08:49)
[2021-01-30] MEDS ORDERED: DUTASTERIDE 0.5 MG PO SCH (09:00)
--- NOTE | 2021-01-30 09:14 | Progress Note ---
Subjective Subjective Date Seen by Provider: January 30, 2021 Time Seen by Provider: 08:20 PT REPORTS THAT HE IS FEELING BETTER TODAY WITH IMPROVED PAIN CONTROL WELL NOT HAVING TO GET UP TO URINATE HELPING TO ALSO IMPROVE HIS PAIN. PT HAD CARBONE PLACED LAST NIGHT. HE IS WORRIED ABOUT ADEQUATE PAIN CONTROL PRIOR TO GOING DOWN TO HAVE BIOPSY AND RADIATION. HE HAS NOT HAD A BOWEL MOVEMENT IN THE PAST 2-3 DAYS. Review of Systems General: No Chills; Fatigue HEENT: No Head Aches Pulmonary: No Dyspnea, No Cough Cardiovascular: No: Chest Pain, Palpitations Gastrointestinal: Abdominal Pain; No: Nausea Genitourinary: Other (CARBONE IN PLACE) Musculoskeletal: back pain, leg pain (LEFT HIP/BACK) Neurological: Weakness; No: Change in speech All Other Systems Reviewed All Other Systems Reviewed: Yes Objective Exam Vital Signs Vital Signs - First Documented 01/29/21 01/29/21 12:40 13:28 Temp 37.1 Pulse 70 Resp 18 B/P (MAP) 156/75 (102) Pulse Ox 94 O2 Delivery Room Air Capillary Refill : General Appearance: No Apparent Distress, WD/WN Eyes: Bilateral Eye Normal Inspection, Bilateral Eye PERRL, Bilateral Eye EOMI HEENT: PERRL/EOMI, Pharynx Normal Neck: Non Tender, Supple Respiratory: Chest Non Tender, Lungs Clear, Normal Breath Sounds, No Accessory Muscle Use, No Respiratory Distress Cardiovascular: Regular Rate, Rhythm, No Edema, Normal Peripheral Pulses Gastrointestinal: Normal Bowel Sounds, No Organomegaly, No Pulsatile Mass, Non Tender, Soft Extremity: Normal Capillary Refill Neurologic/Psychiatric: Alert, Oriented x3, No Motor/Sensory Deficits, Normal Mood/Affect, tobacco sizer II-XII Norm as Tested Skin: Warm/Dry Lymphatic: No Adenopathy Results Lab Laboratory Tests 01/30/21 05:39: White Blood Count 10.4, Red Blood Count 4.56, Hemoglobin 12.2L, Hematocrit 38L, Mean Corpuscular Volume 82, Mean Corpuscular Hemoglobin 27, Mean Corpuscular Hemoglobin Concent 33, Red Cell Distribution Width 14.1, Platelet Count 288, Mean Platelet Volume 10.4, Immature Granulocyte % (Auto) 1, Neutrophils (%) (Auto) 90H, Lymphocytes (%) (Auto) 7L, Monocytes (%) (Auto) 2, Eosinophils (%) (Auto) 0, Basophils (%) (Auto) 0, Neutrophils # (Auto) 9.3H, Lymphocytes # (Auto) 0.7L, Monocytes # (Auto) 0.2, Eosinophils # (Auto) 0.0, Basophils # (Auto) 0.0, Immature Granulocyte # (Auto) 0.1, Neutrophils % (Manual) 93, Lymphocytes % (Manual) 5, Monocytes % (Manual) 2, Blood Morphology Comment NORMAL, Prothrombin Time 15.2H, INR Comment 1.2, Sodium Level 129L, Potassium Level 4.2, Chloride Level 95L, Carbon Dioxide Level 24, Anion Gap 10, Blood Urea Nitrogen 19H, Creatinine 0.96, Estimat Glomerular Filtration Rate > 60, BUN/Creatinine Ratio 20, Glucose Level 148H, Calcium Level 9.1, Corrected Calci um 9.8, Total Bilirubin 0.5, Aspartate Amino Transf (AST/SGOT) 19, Alanine Aminotransferase (ALT/SGPT) 30, Alkaline Phosphatase 186H, Total Protein 6.5, Albumin 3.1L Assessment/Plan Assessment/Plan Admission Dx RENAL CELL CARCINOMA STATUS POST LEFT NEPHRECTOMY METASTATIC LESIONS TO SPINE AND ILIAC BONE AND SACRUM HYPERTENSION BPH SEVERE BACK PAIN LEFT HIP PAIN HYPONATREMIA CONSTIPATION Assessment and Plan RENAL CELL CARCINOMA STATUS POST LEFT NEPHRECTOMY METASTATIC LESIONS TO SPINE AND ILIAC BONE AND SACRUM HYPERTENSION BPH SEVERE BACK PAIN LEFT HIP PAIN HYPONATREMIA CONSTIPATION RENAL CELL CARCINOMA STATUS POST LEFT NEPHRECTOMY METASTATIC LESIONS TO SPINE AND ILIAC BONE AND SACRUM - PAIN CONTROL WITH IV MORPHINE - CONSULT TO DR. BOYD - INITIALLY TODAY HE WAS PLANNING ON SENDING PT UP TO WHERE HE HAS BEEN TREATED FOR RENAL CELL CA, HOWEVER, THE UROLOGIST UP THERE INFORMED US THAT THEY WOULD NOT RECOMMEND A BIOPSY OF THE SPINE, INSTEAD WOULD RECOMMEND STEROIDS, RADIATION AND BIOPSY OF ILIAC BONE. - DECISION WAS THEN MADE TO KEEP GABY HERE IN [place] FOR RADIATION AND BIOPSY. CT CHEST/ABDOMEN/PELVIS W 01/26/21 PROCEDURE: CT chest, abdomen, and pelvis with contrast. INDICATION: Renal cell carcinoma. COMPARISON: Correlation is made with prior CT from 04/18/2020. CT CHEST: No axillary, hilar, or mediastinal lymphadenopathy is detected. No pericardial or pleural fluid is detected. No definite pulmonary masses are seen. Minimal nodularity along the major fissures bilaterally appears similar to prior exam. There is a sclerotic lesion within the T9 vertebral body, similar to prior exam and indeterminate. No osteolytic lesions are seen. IMPRESSION: 1. No evidence of thoracic lymphadenopathy or pulmonary metastatic disease. CT ABDOMEN AND PELVIS: Tiny low densities in the left lobe of the liver are noted, too small to characterize but perhaps small cysts. No other liver masses are seen. Gallbladder is unremarkable. There is no biliary ductal dilatation. The pancreas and spleen are unremarkable. No adrenal mass is detected. Left kidney is now surgically absent. Right kidney is unremarkable. Aorta is heavily calcified but nonaneurysmal. No central retroperitoneal or mesenteric lymphadenopathy is seen. Small and large bowel loops are normal in caliber. There is diverticulosis of th e sigmoid but no evidence of acute diverticulitis. Bladder is unremarkable. There is a fat-containing left inguinal hernia. No definite inguinal or iliac lymphadenopathy is detected. There appears to be an acute compression fracture involving the L5 vertebral body, new since prior CT. There are areas of sclerosis within the L5 vertebral body and this may be a pathologic fracture. T here is a new area of sclerosis in the right iliac bone, also suspicious for a metastatic lesion. Remainder of the lumbar vertebrae are unremarkable. IMPRESSION: 1. No evidence of abdominal or pelvic lymphadenopathy. 2. L5 compression fracture, likely pathologic. This would likely be amenable to kyphoplasty with core biopsy. No definite retropulsion of fracture fragments is identified. 3. Sclerotic lesion in the right iliac bone, consistent with metastatic lesion. HYPERTENSION - RESUMED HOME REGIMEN - BP IMPROVED TODAY COMPARED TO ADMISSION BPH - RESUMED HOME REGIMEN - FLOMAX AND PROSCAR SEVERE BACK PAIN - IV MORPHINE, STEROIDS FOR DECREASE IN EDEMA FROM METASTATIC CANCER TO BONE LEFT HIP PAIN - PAIN CONTROL WITH MORPHINE, HYPONATREMIA - PT ON IV FLUIDS, MONITOR SODIUM LEVELS CONSTIPATION - DULCOLAX PO, PRN MIRALAX CHANGED TO SCHEDULED AT HS, AND PT TO BE GIVEN A DULCOLAX SUPPOSITORY TODAY IF NO BM BY 2PM CARBONE PLACED YESTERDAY FOR COMFORT, TO AIDE PAIN CONTROL SO PT DOES NOT HAVE TO GET UP TO URINATE OR ROLL TO THE SIDE TO URINATE. WILL START LOVENOX AND SCD'S FOR DVT PROPHYLAXIS TOMORROW. GI PROPHYLAXIS WITH PEPCID. Admission Dx RENAL CELL CARCINOMA STATUS POST LEFT NEPHRECTOMY METASTATIC LESIONS TO SPINE AND ILIAC BONE AND SACRUM HYPERTENSION BPH SEVERE BACK PAIN LEFT HIP PAIN HYPONATREMIA Clinical Quality Measures Admission Status Admission Dx RENAL CELL CARCINOMA STATUS POST LEFT NEPHRECTOMY METASTATIC LESIONS TO SPINE AND ILIAC BONE AND SACRUM HYPERTENSION BPH SEVERE BACK PAIN LEFT HIP PAIN HYPONATREMIA PREETHI,KALI A MD January 30, 2021 09:14
[2021-01-30] MEDS: DOCUSATE SODIUM 100 MG (COLACE) CAP PO SCH ×2 (09:42→21:17)
[2021-01-30] MEDS: FINASTERIDE (PROSCAR) 5 MG TAB PO SCH ×3 (09:42→17:25)
[2021-01-30] MEDS: PANTOPRAZOLE 40 MG (PROTONIX) TAB PO SCH (09:42)
[2021-01-30] MEDS: amLODIPine 5 MG (NORVASC) TAB PO SCH (09:42)
[2021-01-30] MEDS: meTOprolol TARTRATE 25 MG (LOPRESSOR) TABLET PO SCH ×2 (09:42→21:17)
[2021-01-30] MEDS: NS IV 1000 ML 1,000 ML IV SCH (09:43)
[2021-01-30] MEDS ORDERED: MIDAZOLAM 2 MG/2 ML (VERSED) VIAL IVP ONE (11:15)
[2021-01-30] MEDS ORDERED: fentaNYL INJ 100 MCG/2 ML AMP IVP ONE (11:15)
[2021-01-30] MEDS ORDERED: LIDOCAINE 1% INJ 20 ML 20 ML VIAL INJ ONE (11:15)
[2021-01-30] MEDS: ENOXAPARIN 40 MG/0.4 ML (LOVENOX) SYR SC SCH ×2 (13:17→21:15)
--- NOTE | 2021-01-30 13:45 | Pre-Op Note & Conscious Sedat ---
Pre-Operative Progress Note H&P Reviewed The H&P was reviewed, patient examined and no changes noted. Date H&P Reviewed: January 30, 2021 Time H&P Reviewed: 11:00 Pre-Op Diagnosis: iliac mass Conscious Sedation Pre-Proced Time 11:00 ASA Score 2 For ASA 3 and 4: Consider anesthesia and medical clearance. Also, for patients with a history of failed moderate sedation consider anesthesia. Airway Lungs Heart ASA score ASA 1: a normal healthy patient ASA 2: a patient with a mild systemic disease (mid diabetes, controlled hypertension, obesity ASA 3: a patient with a severe systemic disease that limits activity (angina, COPD, prior Myocardial infarction) ASA 4: a patient with an incapacitating disease that is a constant threat to life (CHF, renal failure) ASA 5: a moribund patient not expected to survive 24 hrs. (ruptured aneurysm) ASA 6: a declared brain- patient whose organs are being harvested. For emergent operations, add the letter E after the classification Mallampati Classification Grade 2 Sedation Plan Analgesia, Amnesia, Plan communicated to team members, Discussed options with patient/fam, Discussed risks with patient/fam The patient is an appropriate candidate to undergo the planned procedure, sedation, and anesthesia. The patient immediately re-assessed prior to indication. ЮЛИЯ MAN MD January 30, 2021 13:45
[2021-01-30] MEDS ORDERED: BISACODYL 10 MG SUPP (DULCOLAX) PR ONE (14:00)
--- NOTE | 2021-01-30 16:01 | Diagnostic Imaging Report ---
INDICATION: Sclerotic bone lesion. Patient presents for CT-guided biopsy. DETAILS OF THE PROCEDURE: The patient was brought to the CT suite and placed on the table in the prone position. Axial imaging through the pelvis was performed to evaluate for an appropriate entry site. The procedure was performed utilizing conscious sedation with Radiology nursing and constant patient monitoring. The patient was given a total of 100 mcg of fentanyl intravenously and 1 mg of Versed intravenously. The total procedure time was 10 minutes. The bone biopsy needle was advanced and placed with its tip along the posterior cortex of the right iliac bone. The needle was advanced through the cortex utilizing a bone marrow drill. Core biopsy of the sclerotic lesion in the right iliac bone was performed. The needle was removed and hemostasis was obtained using manual compression. The patient tolerated the procedure well and left the Department in stable condition. IMPRESSION: Successful CT-guided bone biopsy of the sclerotic lesion in the right iliac bone utilizing conscious sedation. Pathology results are currently pending. Dictated by: Dictated on workstation # [id number]
[2021-01-30] MEDS: TAMSULOSIN 0.4 MG (FLOMAX) CAP PO SCH (17:25)
--- NOTE | 2021-01-30 18:25 | Progress Note ---
Standard Progress Note Progress Notes/Assess & Plan Date Seen by a Provider: January 30, 2021 Time Seen by a Provider: 18:20 Progress/Assessment & Plan 80-year-old male with history of left kidney cancer, status post left nephrectomy in 2019 admitted to the hospital with intractable low back pain. MRI and CT scan showing sclerotic/lytic process involving L5 vertebral body with spinal canal encroachment as well as other lesions in the sacrum and pelvic bone. Evidence of L5 vertebral body compression fracture. Patient underwent CT-guided biopsy of the pelvic bone mass today under conscious sedation and tolerated this. Radiation oncology consult was also completed. He is currently on steroids as well as pain medications with reasonable control of back pain. Any movement still causes significant pain. Morphine 2 mg bolus does not control the discomfort when he moves. Will increase the dose to 4 mg bolus as needed. Continue bowel regimen. Will await pathology report before any definitive recommendations regarding systemic therapy. Start radiation therapy palliatively soon. Will follow patient with you. NADIA BOYD January 30, 2021 18:25
[2021-01-30] MEDS: polyethylene glycoL POWDER 17 GM (MIRALAX) PACK PO SCH (21:49)
[2021-01-31 00:25] VITALS: BP 125/76
[2021-01-31 04:40] VITALS: BP 165/77
[2021-01-31 05:23] LABS: CHLORIDE 94 MMOL/L (98-107); POTASSIUM 4.3 MMOL/L (3.6-5.0); SODIUM 128 MMOL/L (135-145)
[2021-01-31 05:24] LABS: CALCIUM 8.9 MG/DL (8.5-10.1)
[2021-01-31 05:25] LABS: GLUCOSE 131 MG/DL (70-105)
[2021-01-31 05:26] LABS: CARBON DIOXIDE 26 MMOL/L (21-32)
[2021-01-31 05:28] LABS: CREATININE SERUM 0.89 MG/DL (0.60-1.30); GFR ESTIMATED > 60
[2021-01-31 05:29] LABS: BUN/CREATININE RATIO 22
[2021-01-31 07:25] VITALS: BP 151/72
[2021-01-31] MEDS: PANTOPRAZOLE 40 MG (PROTONIX) TAB PO SCH (08:52)
[2021-01-31] MEDS: amLODIPine 5 MG (NORVASC) TAB PO SCH (08:53)
[2021-01-31] MEDS: DOCUSATE SODIUM 100 MG (COLACE) CAP PO SCH ×2 (08:53→20:29)
[2021-01-31] MEDS: morphine INJ 4 MG/ML 1 ML (VIAL/SYRINGE) IVP PRN ×4 (08:53→21:48)
[2021-01-31] MEDS: meTOprolol TARTRATE 25 MG (LOPRESSOR) TABLET PO SCH ×2 (08:53→20:29)
--- NOTE | 2021-01-31 08:57 | Progress Note ---
Subjective Subjective Date Seen by Provider: January 31, 2021 Time Seen by Provider: 08:40 PT CONTINUES TO COMPLAIN ABOUT PAIN IN HIS BACK, PAIN WITH MOVEMENT, DISCOMFORT WITH ROLLING OVER IN BED. HE COMPLAINS ABOUT CONSTIPATION. Review of Systems General: No Chills; Fatigue HEENT: No Head Aches Pulmonary: No Dyspnea, No Cough Cardiovascular: No: Chest Pain, Palpitations Gastrointestinal: Abdominal Pain; No: Nausea Genitourinary: Other (CARBONE IN PLACE) Musculoskeletal: back pain, leg pain (LEFT HIP/BACK) Neurological: Weakness; No: Change in speech All Other Systems Reviewed All Other Systems Reviewed: Yes Objective Exam Vital Signs Vital Signs - First Documented 01/29/21 01/29/21 01/30/21 12:40 13:28 12:15 Temp 37.1 Pulse 70 Resp 18 B/P (MAP) 156/75 (102) Pulse Ox 94 O2 Delivery Room Air O2 Flow Rate 2.00 Capillary Refill : General Appearance: No Apparent Distress, WD/WN Eyes: Bilateral Eye Normal Inspection, Bilateral Eye PERRL, Bilateral Eye EOMI HEENT: PERRL/EOMI, Pharynx Normal Neck: Non Tender, Supple Respiratory: Chest Non Tender, Lungs Clear, Normal Breath Sounds, No Accessory Muscle Use, No Respiratory Distress Cardiovascular: Regular Rate, Rhythm, No Edema, Normal Peripheral Pulses Gastrointestinal: Normal Bowel Sounds, No Organomegaly, No Pulsatile Mass, Non Tender, Soft Extremity: Normal Capillary Refill Neurologic/Psychiatric: Alert, Oriented x3, No Motor/Sensory Deficits, Normal Mood/Affect, forensic social worker II-XII Norm as Tested Skin: Warm/Dry Lymphatic: No Adenopathy Results Lab Laboratory Tests 01/31/21 04:55: Sodium Level 128L, Potassium Level 4.3, Chloride Level 94L, Carbon Dioxide Level 26, Anion Gap 8, Blood Urea Nitrogen 20H, Creatinine 0.89, Estimat Glomerular Filtration Rate > 60, BUN/Creatinine Ratio 22, Glucose Level 131H, Calcium Level 8.9 Assessment/Plan Assessment/Plan Admission Dx RENAL CELL CARCINOMA STATUS POST LEFT NEPHRECTOMY METASTATIC LESIONS TO SPINE AND ILIAC BONE AND SACRUM HYPERTENSION BPH SEVERE BACK PAIN LEFT HIP PAIN HYPONATREMIA CONSTIPATION Assessment and Plan RENAL CELL CARCINOMA STATUS POST LEFT NEPHRECTOMY METASTATIC LESIONS TO SPINE AND ILIAC BONE AND SACRUM HYPERTENSION BPH SEVERE BACK PAIN LEFT HIP PAIN HYPONATREMIA CONSTIPATION RENAL CELL CARCINOMA STATUS POST LEFT NEPHRECTOMY METASTATIC LESIONS TO SPINE AND ILIAC BONE AND SACRUM - PAIN CONTROL WITH IV MORPHINE - CONSULT TO DR. BOYD - ONC AND DR. CABRERA - RAD ONC - INITIALLY ON THE DAY OF ADMISSION DR. BOYD WAS PLANNING ON SENDING PT TO WHERE HE HAS BEEN TREATED FOR RENAL CELL CA, HOWEVER, THE UROLOGIST AT INFORMED US THAT THEY WOULD NOT RECOMMEND A BIOPSY OF THE SPINE, INSTEAD WOULD RECOMMEND STEROIDS, RADIATION AND BIOPSY OF ILIAC BONE. - DECISION WAS THEN MADE TO KEEP GABY HERE IN [place] FOR RADIATION AND BIOPSY. - PT IS STATUS POST BIOPSY - WAITING ON PATHOLOGY CT CHEST/ABDOMEN/PELVIS W 01/26/21 PROCEDURE: CT chest, abdomen, and pelvis with contrast. INDICATION: Renal cell carcinoma. COMPARISON: Correlation is made with prior CT from 04/18/2020. CT CHEST: No axillary, hilar, or mediastinal lymphadenopathy is detected. No pericardial or pleural fluid is detected. No definite pulmonary masses are seen. Minimal nodularity along the major fissures bilaterally appears similar to prior exam. There is a sclerotic lesion within the T9 vertebral body, similar to prior exam and indeterminate. No osteolytic lesions are seen. IMPRESSION: 1. No evidence of thoracic lymphadenopathy or pulmonary metastatic disease. CT ABDOMEN AND PELVIS: Tiny low densities in the left lobe of the liver are noted, too small to characterize but perhaps small cysts. No other liver masses are seen. Gallbladder is unremarkable. There is no biliary ductal dilatation. The pancreas and spleen are unremarkable. No adrenal mass is detected. Left kidney is now surgically absent. Right kidney is unremarkable. Aorta is heavily calcified but nonaneurysmal. No central retroperitoneal or mesenteric lymphadenopathy is seen. Small and large bowel loops are normal in caliber. There is diverticulosis of the sigmoid but no evidence of acute diverticulitis. Bladder is unremarkable. There is a fat-containing left inguinal hernia. No definite inguinal or iliac lymphadenopathy is detected. There appears to be an acute compression fracture involving the L5 vertebral body, new since prior CT. There are areas of sclerosis within the L5 vertebral body and this may be a pathologic fracture. There is a new area of sclerosis in the right iliac bone, also suspicious for a metastatic lesion. Remainder of the lumbar vertebrae are unremarkable. IMPRESSION: 1. No evidence of abdominal or pelvic lymphadenopathy. 2. L5 compression fracture, likely pathologic. This would likely be amenable to kyphoplasty with core biopsy. No definite retropulsion of fracture fragments is identified. 3. Sclerotic lesion in the right iliac bone, consistent with metastatic lesion. HYPERTENSION - RESUMED HOME REGIMEN - BP STABLE, MONITOR, ADDITIONAL AGENTS IF NEEDED BPH - RESUMED HOME REGIMEN - FLOMAX AND PROSCAR SEVERE BACK PAIN - IV MORPHINE, STEROIDS FOR DECREASE IN EDEMA FROM METASTATIC CANCER TO BONE LEFT HIP PAIN - PAIN CONTROL WITH MORPHINE, HYPONATREMIA - PT ON IV FLUIDS, MONITOR SODIUM LEVELS CONSTIPATION - DULCOLAX PO, PRN MIRALAX CHANGED TO SCHEDULED AT HS, AND PT TO BE GIVEN A DULCOLAX SUPPOSITORY TODAY IF NO BM BY 2PM CARBONE PLACED YESTERDAY FOR COMFORT, TO AIDE PAIN CONTROL SO PT DOES NOT HAVE TO GET UP TO URINATE OR ROLL TO THE SIDE TO URINATE. WILL START LOVENOX AND SCD'S FOR DVT PROPHYLAXIS TOMORROW. GI PROPHYLAXIS WITH PEPCID. Admission Dx RENAL CELL CARCINOMA STATUS POST LEFT NEPHRECTOMY METASTATIC LESIONS TO SPINE AND ILIAC BONE AND SACRUM HYPERTENSION BPH SEVERE BACK PAIN LEFT HIP PAIN HYPONATREMIA CONSTIPATION Clinical Quality Measures Admission Status Admission Dx RENAL CELL CARCINOMA STATUS POST LEFT NEPHRECTOMY METASTATIC LESIONS TO SPINE AND ILIAC BONE AND SACRUM HYPERTENSION BPH SEVERE BACK PAIN LEFT HIP PAIN HYPONATREMIA CONSTIPATION KALI ORO MD January 31, 2021 08:57
[2021-01-31] MEDS ORDERED: meTOprolol TARTRATE 25 MG (LOPRESSOR) TABLET PO ONE (09:15)
[2021-01-31 11:25] VITALS: BP 122/64
[2021-01-31 16:00] VITALS: BP 144/69
--- NOTE | 2021-01-31 17:21 | Progress Note ---
Standard Progress Note Progress Notes/Assess & Plan Date Seen by a Provider: January 31, 2021 Time Seen by a Provider: 17:18 Progress/Assessment & Plan 80-year-old male with history of left kidney cancer, status post left nephrectomy in 2019 admitted to the hospital with intractable low back pain. MRI and CT scan showing sclerotic/lytic process involving L5 vertebral body with spinal canal encroachment as well as other lesions in the sacrum and pelvic bone. Evidence of L5 vertebral body compression fracture. Patient underwent CT-guided biopsy of the pelvic bone mass on 01/30/2021 under conscious sedation. Slides will be available for pathology review tomorrow. Radiation oncology consult completed. He is currently on steroids as well as pain medications with reasonable control of back pain. He was able to sit and take a shower today. He is using morphine 4 mg IV prior to any activity. I will switch the dexamethasone to 4 mg p.o. every 8 hours today. Continue bowel regimen. Will await pathology report before any definitive recommendations regarding systemic therapy. Start radiation therapy palliatively soon. Will follow patient with you. NADIA BOYD January 31, 2021 17:21
[2021-01-31] MEDS: TAMSULOSIN 0.4 MG (FLOMAX) CAP PO SCH (17:37)
[2021-01-31] MEDS: FINASTERIDE (PROSCAR) 5 MG TAB PO SCH (17:37)
[2021-01-31 20:00] VITALS: BP 128/61
[2021-01-31] MEDS: ENOXAPARIN 40 MG/0.4 ML (LOVENOX) SYR SC SCH (20:29)
[2021-01-31] MEDS: polyethylene glycoL POWDER 17 GM (MIRALAX) PACK PO SCH (20:29)
[2021-02-01] MEDS: morphine INJ 4 MG/ML 1 ML (VIAL/SYRINGE) IVP PRN ×5 (00:13→15:04)
[2021-02-01 00:17] VITALS: BP 132/62
[2021-02-01 03:29] VITALS: BP 145/71
[2021-02-01 06:00] LABS: HEMATOCRIT 35 % (40-54); HEMOGLOBIN 11.4 g/dL (13.3-17.7); MEAN CORPUSCULAR HEMOGLOBIN 27 pg (25-34); MEAN CORPUSCULAR HGB CONC 33 g/dL (32-36); MEAN CORPUSCULAR VOLUME 82 fL (80-99); MEAN PLATELET VOLUME 10.8 fL (9.0-12.2); PLATELET COUNT 280 10^3/uL (130-400); WHITE BLOOD COUNT 16.3 10^3/uL (4.3-11.0)
[2021-02-01 06:10] LABS: CHLORIDE 91 MMOL/L (98-107); POTASSIUM 4.4 MMOL/L (3.6-5.0)
[2021-02-01] MEDS ORDERED: NS IV 1000 ML 1,000 ML ONE (06:10)
[2021-02-01 06:11] LABS: CALCIUM 8.4 MG/DL (8.5-10.1); GLUCOSE 121 MG/DL (70-105)
[2021-02-01 06:12] LABS: SODIUM 125 MMOL/L (135-145)
[2021-02-01 06:13] LABS: CARBON DIOXIDE 25 MMOL/L (21-32)
[2021-02-01 06:15] LABS: CREATININE SERUM 0.97 MG/DL (0.60-1.30); GFR ESTIMATED > 60
[2021-02-01 06:16] LABS: BUN/CREATININE RATIO 24
[2021-02-01] MEDS: NS IV 1000 ML 1,000 ML IV SCH ×2 (06:29→20:32)
--- NOTE | 2021-02-01 08:55 | Progress Note ---
Subjective Subjective Date Seen by Provider: February 01, 2021 Time Seen by Provider: 08:30 PT REPORTS THAT HE CONTINUES TO HAVE CONSTIPATION. HE HAS INCREASE IN PAIN WITH MOVEMENT. FAMILY NOTES THAT HE IS SOMEWHAT IRRITABLE AT TIME. HE DENIES CHEST PAIN, SHORTNESS OF BREATH, ABDOMINAL PAIN. Review of Systems General: No Chills; Fatigue HEENT: No Head Aches Pulmonary: No Dyspnea, No Cough Cardiovascular: No: Chest Pain, Palpitations Gastrointestinal: Abdominal Pain, Constipation; No: Nausea Genitourinary: Other (CARBONE IN PLACE) Musculoskeletal: back pain, leg pain (LEFT HIP/BACK) Neurological: Weakness; No: Change in speech All Other Systems Reviewed All Other Systems Reviewed: Yes Objective Exam Vital Signs Vital Signs - First Documented 01/29/21 01/29/21 01/30/21 12:40 13:28 12:15 Temp 37.1 Pulse 70 Resp 18 B/P (MAP) 156/75 (102) Pulse Ox 94 O2 Delivery Room Air O2 Flow Rate 2.00 Capillary Refill : General Appearance: No Apparent Distress, WD/WN Eyes: Bilateral Eye Normal Inspection, Bilateral Eye PERRL, Bilateral Eye EOMI HEENT: PERRL/EOMI, Pharynx Normal Neck: Non Tender, Supple Respiratory: Chest Non Tender, Lungs Clear, Normal Breath Sounds, No Accessory Muscle Use, No Respiratory Distress Cardiovascular: Regular Rate, Rhythm, No Edema, Normal Peripheral Pulses Gastrointestinal: Normal Bowel Sounds, No Organomegaly, No Pulsatile Mass, Non Tender, Soft Extremity: Normal Capillary Refill Neurologic/Psychiatric: Alert, Oriented x3, No Motor/Sensory Deficits, Normal 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, 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 as 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 Skin: Warm/Dry Lymphatic: No Adenopathy Results Lab Laboratory Tests 02/01/21 05:40: White Blood Count 16.3H, Red Blood Count 4.26L, Hemoglobin 11.4L, Hematocrit 35L , Mean Corpuscular Volume 82, Mean Corpuscular Hemoglobin 27, Mean Corpuscular Hemoglobin Concent 33, Red Cell Distribution Width 14.2, Platelet Count 280, Mean Platelet Volume 10.8, Sodium Level 125*L, Potassium Level 4.4, Chloride Level 91L, Carbon Dioxide Level 25, Anion Gap 9, Blood Urea Nitrogen 23H, Creatinine 0.97, Estimat Glomerular Filtration Rate > 60, BUN/Creatinine Ratio 24, Glucose Level 121H, Calcium Level 8.4L Assessment/Plan Assessment/Plan Admission Dx RENAL CELL CARCINOMA STATUS POST LEFT NEPHRECTOMY METASTATIC LESIONS TO SPINE AND ILIAC BONE AND SACRUM HYPERTENSION BPH SEVERE BACK PAIN LEFT HIP PAIN HYPONATREMIA CONSTIPATION Assessment and Plan RENAL CELL CARCINOMA STATUS POST LEFT NEPHRECTOMY METASTATIC LESIONS TO SPINE AND ILIAC BONE AND SACRUM HYPERTENSION BPH SEVERE BACK PAIN LEFT HIP PAIN HYPONATREMIA CONSTIPATION RENAL CELL CARCINOMA STATUS POST LEFT NEPHRECTOMY METASTATIC LESIONS TO SPINE AND ILIAC BONE AND SACRUM - PAIN CONTROL WITH IV MORPHINE - CONSULT TO DR. BOYD - ONC AND DR. CABRERA - RAD ONC - INITIALLY ON THE DAY OF ADMISSION DR. BOYD WAS PLANNING ON SENDING PT TO WHERE HE HAS BEEN TREATED FOR RENAL CELL CA, HOWEVER, THE UROLOGIST AT INFORMED US THAT THEY WOULD NOT RECOMMEND A BIOPSY OF THE SPINE, INSTEAD WOULD RECOMMEND STEROIDS, RADIATION AND BIOPSY OF ILIAC BONE. - DECISION WAS THEN MADE TO KEEP GABY HERE IN [place] FOR RADIATION AND BIOPSY. - PT IS STATUS POST BIOPSY - CONTINUING TO WAIT ON PATHOLOGY CT CHEST/ABDOMEN/PELVIS W 01/26/21 PROCEDURE: CT chest, abdomen, and pelvis with contrast. INDICATION: Renal cell carcinoma. COMPARISON: Correlation is made with prior CT from 04/18/2020. CT CHEST: No axillary, hilar, or mediastinal lymphadenopathy is detected. No pericardi al or pleural fluid is detected. No definite pulmonary masses are seen. Minimal nodularity along the major fissures bilaterally appears similar to prior exam. There is a sclerotic lesion within the T9 vertebral body, similar to prior exam and indeterminate. No osteolytic lesions are seen. IMPRESSION: 1. No evidence of thoracic lymphadenopathy or pulmonary metastatic disease. CT ABDOMEN AND PELVIS: Tiny low densities in the left lobe of the liver are noted, too small to characterize but perhaps small cysts. No other liver masses are seen. Gallbladder is unremarkable. There is no biliary ductal dilatation. The pancreas and spleen are unremarkable. No adrenal mass is detected. Left kidney is now surgically absent. Right kidney is unremarkable. Aorta is heavily calcified but nonaneurysmal. No central retroperitoneal or mesenteric lymphadenopathy is seen. Small and large bowel loops are normal in caliber. There is diverticulosis of the sigmoid but no evidence of acute diverticulitis. Bladder is unremarkable. There is a fat-containing left inguinal hernia. No definite inguinal or iliac lymphadenopathy is detected. There appears to be an acute compression fracture involving the L5 vertebral body, new since prior CT. There are areas of sclerosis within the L5 vertebral body and this may be a pathologic fracture. There is a new area of sclerosis in the right iliac bone, also suspicious for a metastatic lesion. Remainder of the lumbar vertebrae are unremarkable. IMPRESSION: 1. No evidence of abdominal or pelvic lymphadenopathy. 2. L5 compression fracture, likely pathologic. This would likely be amenable to kyphoplasty with core biopsy. No definite retropulsion of fracture fragments is identified. 3. Sclerotic lesion in the right iliac bone, consistent with metastatic lesion. HYPERTENSION - RESUMED HOME REGIMEN - BP STABLE, MONITOR, ADDITIONAL AGENTS IF NEEDED BPH - RESUMED HOME REGIMEN - FLOMAX AND PROSCAR SEVERE BACK PAIN - IV MORPHINE, STEROIDS FOR DECREASE IN EDEMA FROM METASTATIC CANCER TO BONE LEFT HIP PAIN - PAIN CONTROL WITH MORPHINE, HYPONATREMIA - PT ON IV FLUIDS, MONITOR SODIUM LEVELS CONSTIPATION - DULCOLAX PO, PRN MIRALAX CHANGED TO SCHEDULED AT HS - STARTED PT ON RELISTOR ON 02/01/2021 CARBONE PLACED FOR COMFORT, TO AIDE PAIN CONTROL SO PT DOES NOT HAVE TO GET UP TO URINATE OR ROLL TO THE SIDE TO URINATE. LOVENOX AND SCD'S FOR DVT PROPHYLAXIS GI PROPHYLAXIS WITH PEPCID. Admission Dx RENAL CELL CARCINOMA STATUS POST LEFT NEPHRECTOMY METASTATIC LESIONS TO SPINE AND ILIAC BONE AND SACRUM HYPERTENSION BPH SEVERE BACK PAIN LEFT HIP PAIN HYPONATREMIA CONSTIPATION Clinical Quality Measures Admission Status Admission Dx RENAL CELL CARCINOMA STATUS POST LEFT NEPHRECTOMY METASTATIC LESIONS TO SPINE AND ILIAC BONE AND SACRUM HYPERTENSION BPH SEVERE BACK PAIN LEFT HIP PAIN HYPONATREMIA CONSTIPATION KALI ORO MD February 01, 2021 08:55
[2021-02-01] MEDS: meTOprolol TARTRATE 25 MG (LOPRESSOR) TABLET PO SCH ×2 (09:22→20:31)
[2021-02-01] MEDS: amLODIPine 5 MG (NORVASC) TAB PO SCH (09:22)
[2021-02-01] MEDS: PANTOPRAZOLE 40 MG (PROTONIX) TAB PO SCH (09:22)
[2021-02-01] MEDS: DOCUSATE SODIUM 100 MG (COLACE) CAP PO SCH ×2 (09:22→20:31)
[2021-02-01] MEDS ORDERED: METHYLNALTREXONE 12 MG/0.6 ML (RELISTOR) VIAL SQ SCH (10:00)
[2021-02-01 16:00] VITALS: BP 147/62
--- NOTE | 2021-02-01 16:42 | Progress Note ---
Standard Progress Note Progress Notes/Assess & Plan Date Seen by a Provider: February 01, 2021 Time Seen by a Provider: 16:39 Progress/Assessment & Plan 80-year-old male with history of left kidney cancer, status post left nephrectomy in 2019 admitted to the hospital with intractable low back pain. MRI and CT scan showing sclerotic/lytic process involving L5 vertebral body with spinal canal encroachment as well as other lesions in the sacrum and pelvic bone. Evidence of L5 vertebral body compression fracture. Patient underwent CT-guided biopsy of the pelvic bone mass on 01/30/2021 under conscious sedation. 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 IHC stains pending. Radiation oncology notified of pathology results. He will start palliative radiation therapy today. He is currently on steroids as well as pain medications with reasonable control of back pain. He is more tired today. He is using morphine 4 mg IV prior to any activity. Currently on dexamethasone 4 mg p.o. every 8 hours with food. Continue bowel regimen. Once radiation therapy is completed, will discuss about palliative systemic therapy. First-line agents include immunotherapy plus targeted therapy. Will follow patient with you. NADIA BOYD February 01, 2021 16:42
[2021-02-01] MEDS: FINASTERIDE (PROSCAR) 5 MG TAB PO SCH (17:29)
[2021-02-01] MEDS: TAMSULOSIN 0.4 MG (FLOMAX) CAP PO SCH (17:29)
[2021-02-01] MEDS ORDERED: BISACODYL 10 MG SUPP (DULCOLAX) PR PRN (17:45)
[2021-02-01] MEDS ORDERED: HYDROCORTISONE/PRAM (PROCTOFOAM HC) 10 GM CAN PR PRN (17:45)
[2021-02-01 20:00] VITALS: BP 130/68
[2021-02-01] MEDS: ENOXAPARIN 40 MG/0.4 ML (LOVENOX) SYR SC SCH (20:31)
[2021-02-01] MEDS: polyethylene glycoL POWDER 17 GM (MIRALAX) PACK PO SCH (20:31)
[2021-02-02 00:12] VITALS: BP 169/76
[2021-02-02] MEDS: morphine INJ 4 MG/ML 1 ML (VIAL/SYRINGE) IVP PRN ×2 (03:51→08:40)
[2021-02-02 05:43] LABS: CHLORIDE 92 MMOL/L (98-107); POTASSIUM 4.2 MMOL/L (3.6-5.0); SODIUM 126 MMOL/L (135-145)
[2021-02-02 05:44] LABS: CALCIUM 8.4 MG/DL (8.5-10.1); GLUCOSE 109 MG/DL (70-105)
[2021-02-02 05:46] LABS: CARBON DIOXIDE 22 MMOL/L (21-32)
[2021-02-02 05:48] LABS: CREATININE SERUM 0.81 MG/DL (0.60-1.30); GFR ESTIMATED > 60
[2021-02-02 05:49] LABS: BUN/CREATININE RATIO 28
[2021-02-02 07:20] VITALS: BP 154/76
[2021-02-02] MEDS: meTOprolol TARTRATE 25 MG (LOPRESSOR) TABLET PO SCH (08:41)
[2021-02-02] MEDS: amLODIPine 5 MG (NORVASC) TAB PO SCH (08:41)
[2021-02-02] MEDS: DOCUSATE SODIUM 100 MG (COLACE) CAP PO SCH (08:41)
[2021-02-02] MEDS: PANTOPRAZOLE 40 MG (PROTONIX) TAB PO SCH (08:41)
[2021-02-02] MEDS: NS IV 1000 ML 1,000 ML IV SCH (10:06)
--- NOTE | 2021-02-02 10:15 | Discharge Summary ---
Diagnosis/Chief Complaint Date of Admission January 29, 2021 at 12:45 Date of Discharge Discharge Date: February 02, 2021 Discharge Time: 10:15 Admission Diagnosis Admission Diagnosis RENAL CELL CARCINOMA STATUS POST LEFT NEPHRECTOMY METASTATIC LESIONS TO SPINE AND ILIAC BONE AND SACRUM HYPERTENSION BPH SEVERE BACK PAIN LEFT HIP PAIN HYPONATREMIA CONSTIPATION Discharge Diagnosis RENAL CELL CARCINOMA STATUS POST LEFT NEPHRECTOMY METASTATIC LESIONS TO SPINE AND ILIAC BONE AND SACRUM HYPERTENSION BPH SEVERE BACK PAIN LEFT HIP PAIN HYPONATREMIA CONSTIPATION Reason Hospital Visit PT IS AN 80 Y/O MALE WHO IS KNOWN TO ME FROM CLINIC. HE PRESENTED TO THE [facility] TODAY FOR A CONSULTATION AFTER AN OUTSIDE MRI SHOWED LIKELY METASTATIC RENAL CELL CARCINOMA TO HIS SPINE AND ILIAC BONE ON THE LEFT. DR. BOYD INITIALLY WAS PLANNING ON SENDING THE PT TO TO HIS UROLOGIST FOR THEM TO GET GABY INTO NEUROSURGERY FOR BIOPSY AND TREATMENT OF THE COMPRESSION FX WITH BIOPSY, HOWEVER THE NEUROSURGERY TEAM RECOMMENDED TO AVOID BIOPSY OF THE LUMBAR SPINE AND INSTEAD START HIM ON IV STEROIDS, RADIATION TREATMENT OF THE SPINAL LESION AND INSTEAD TO BIOPSY THE ILIAC BONE ISLAND OF METASTASIS. GABY WAS THEREFORE ADMITTED FOR PAIN CONTROL WELL RADIATION AND IV STEROIDS WITH PLANS FOR BIOPSY ON 01/30/2021. THIS EVENING GABY REPORTS THAT HE IS FEELING PAIN AT A 4/10 WHILE LYING STILL IN BED, BUT THIS GOES UP TO 10/10 WITH ANY MOVEMENT OR SITTING UP AT ALL IN THE BED/CHAIR. HE REPORTS PAIN WITH ROLLING OVER TO URINATE AND HE HAS NOT HAD A BOWEL MOVEMENT IN THE LAST 1-2 DAYS. Discharge Summary Procedures: ILIAC BONE BIOPSY RADIATION THERAPY Consultations DR. YANNICK MAN Discharge Physical Examination Allergies: Coded Allergies: No Known Drug Allergies (Verified , 03/27/20) Vitals & I&Os Vital Signs Date Time Temp Pulse Resp B/P (MAP) Pulse Ox O2 Delivery O2 Flow Rate FiO2 02/02/21 07:20 36.7 62 20 154/76 (102) 99 Room Air 01/30/21 12:30 2.00 General Appearance: Alert, Oriented X3, Cooperative, No Acute Distress HEENT: Atraumatic, PERRLA, Mucous Memb Moist/[place] Respiratory: Clear to Auscultation, Normal Air Movement Cardiovascular: Regular Rate Abdominal: Normal Bowel Sounds, Soft Extremities: No Clubbing, No Cyanosis Skin: No Rashes, No Breakdown Neuro: Cranial Nerves 3-12 NL Psych/Mental Status: Mental Status NL, Mood NL Hospital Course Was the Problem List Reviewed?: Yes RENAL CELL CARCINOMA STATUS POST LEFT NEPHRECTOMY METASTATIC LESIONS TO SPINE AND ILIAC BONE AND SACRUM HYPERTENSION BPH SEVERE BACK PAIN LEFT HIP PAIN HYPONATREMIA CONSTIPATION RENAL CELL CARCINOMA STATUS POST LEFT NEPHRECTOMY METASTATIC LESIONS TO SPINE AND ILIAC BONE AND SACRUM - PAIN CONTROL WITH IV MORPHINE - CONSULT TO DR. BOYD - ONC AND DR. CABRERA - RAD ONC - INITIALLY ON THE DAY OF ADMISSION DR. BOYD WAS PLANNING ON SENDING PT TO WHERE HE HAS BEEN TREATED FOR RENAL CELL CA, HOWEVER, THE UROLOGIST AT INFORMED US THAT THEY WOULD NOT RECOMMEND A BIOPSY OF THE SPINE, INSTEAD WOULD RECOMMEND STEROIDS, RADIATION AND BIOPSY OF ILIAC BONE. - DECISION WAS THEN MADE TO KEEP GABY HERE IN [place] FOR RADIATION AND BIOPSY. - PT IS STATUS POST BIOPSY - CONTINUING TO WAIT ON PATHOLOGY CT CHEST/ABDOMEN/PELVIS W 01/26/21 PROCEDURE: CT chest, abdomen, and pelvis with contrast. INDICATION: Renal cell carcinoma. COMPARISON: Correlation is made with prior CT from 04/18/2020. CT CHEST: No axillary, hilar, or mediastinal lymphadenopathy is detected. No pericardial or pleural fluid is detected. No definite pulmonary masses are seen. Minimal nodularity along the major fissures bilaterally appears similar to prior exam. There is a sclerotic lesion within the T9 vertebral body, similar to prior exam and indeterminate. No osteolytic lesions are seen. IMPRESSION: 1. No evidence of thoracic lymphadenopathy or pulmonary metastatic disease. CT ABDOMEN AND PELVIS: Tiny low densities in the left lobe of the liver are noted, too small to characterize but perhaps small cysts. No other liver masses are seen. Gallbladder is unremarkable. There is no biliary ductal dilatation. The pancreas and spleen are unremarkable. No adrenal mass is detected. Left kidney is now surgically absent. Right kidney is unremarkable. Aorta is heavily calcified but nonaneurysmal. No central retroperitoneal or mesenteric lymphadenopathy is seen. Small and large bowel loops are normal in caliber. There is diverticulosis of the sigmoid but no evidence of acute diverticulitis. Bladder is unremarkable. There is a fat-containing left inguinal hernia. No definite inguinal or iliac lymphadenopathy is detected. There appears to be an acute compression fracture involving the L5 vertebral body, new since prior CT. There are areas of sclerosis within the L5 vertebral body and this may be a pathologic fracture. There is a new area of sclerosis in the right iliac bone, also suspicious for a metastatic lesion. Remainder of the lumbar vertebrae are unremarkable. IMPRESSION: 1. No evidence of abdominal or pelvic lymphadenopathy. 2. L5 compression fracture, likely pathologic. This would likely be amenable to kyphoplasty with core biopsy. No definite retropulsion of fracture fragments is identified. 3. Sclerotic lesion in the right iliac bone, consistent with metastatic lesion. 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 LOVENOX AND SCD'S FOR DVT PROPHYLAXIS GI PROPHYLAXIS WITH PEPCID. Pending Labs Laboratory Tests 02/02/21 05:12: Sodium Level 126, Potassium Level 4.2, Chloride Level 92, Carbon Dioxide Level 22, Anion Gap 12, Blood Urea Nitrogen 23, Creatinine 0.81, Estimat Glomerular Filtration Rate > 60, BUN/Creatinine Ratio 28, Glucose Level 109, Calcium Level 8.4 Discharge Condition at discharge STABLE Instructions to patient/family Please see electronic discharge instructions given to patient. Discharge Medications Reviewed and agree with Discharge Medication list on patient's Discharge Instruction sheet KALI ORO MD February 02, 2021 10:15
== END 2021-02-02 10:19 | disposition swing bed (61) | DRG 543 ==
LOC: 4TH 12:45
PROVIDERS: ADMIT Family Medicine; ATTEND Family Medicine
PROC: 07DR3ZX Extraction of Iliac Bone Marrow, Percutaneous Approach, Diagnostic (ICD-10-PCS; principal; 2021-01-29)
PROC: [UNRECOGNIZED PROCEDURE] (2021-01-29)
DX: C79.51 Secondary malignant neoplasm of bone (principal); E87.1 Hypo-osmolality and hyponatremia; M48.56XA Collapsed vertebra, not elsewhere classified, lumbar region, initial encounter for fracture; G89.3 Neoplasm related pain (acute) (chronic); Z87.891 Personal history of nicotine dependence; Z90.5 Acquired absence of kidney; E78.00 Pure hypercholesterolemia, unspecified; I10 Essential (primary) hypertension; N40.0 Benign prostatic hyperplasia without lower urinary tract symptoms; K21.9 Gastro-esophageal reflux disease without esophagitis; M19.90 Unspecified osteoarthritis, unspecified site; M54.9 Dorsalgia, unspecified; Z85.53 Personal history of malignant neoplasm of renal pelvis; M25.552 Pain in left hip; K59.00 Constipation, unspecified
CPT/HCPCS: 36415; 38222; 77012; 77280; 77290; 77295; 77300; 77334; 77470; 80048; 80053; 85007; 85027; 85610; 99156; 99205

== ENCOUNTER 2021-02-02 09:19 | Inpatient (IN) | payer MEDICARE, OTHER ==
[~2021-02-02] VITALS: Ht 180.3 cm; Wt 86.6 kg
[~2021-02-02 09:19] MED LIST changes: +ACHD5005 PO; +NF-NACL1GT PO; +OXYB5TAB13 PO
[2021-02-02] MEDS ORDERED: METOCLOPRAMIDE INJ 10 MG/2 ML (REGLAN) IV PRN (10:30)
[2021-02-02] MEDS ORDERED: BISACODYL 10 MG SUPP (DULCOLAX) PR PRN (10:30)
[2021-02-02] MEDS ORDERED: ONDANSETRON 4 MG/2 ML (SDV) Z0FRAN IV PRN (10:30)
[2021-02-02] MEDS ORDERED: diphenhydrAMINE 50 MG/ML INJ (BENADRYL) IV PRN (10:30)
[2021-02-02] MEDS ORDERED: ENOXAPARIN 40 MG/0.4 ML (LOVENOX) SYR SC SCH (10:30)
[2021-02-02] MEDS ORDERED: CATHETER FLUSH 10 ML SYR IV PRN (10:30)
[2021-02-02] MEDS ORDERED: NALOXONE 0.4 MG/ML 1 ML (NARCAN) VIAL IV PRN (10:30)
[2021-02-02] MEDS ORDERED: HYDROCORTISONE/PRAM (PROCTOFOAM HC) 10 GM CAN PR PRN (10:30)
--- NOTE | 2021-02-02 10:49 | History & Physical ---
History of Present Illness History of Present Illness Reason for visit/HPI PT IS AN 80 Y/O MALE WHO HAS KNOWN HISTORY OF LEFT SIDED RENAL CELL CARCINOMA - STATUS POST LEFT NEPHRECTOMY IN 05/2021 AT [facility]. HE STARTED TO HAVE AN INCREASE IN PAIN IN HIS BACK, WAS SENT FOR IMAGING WHICH REVEALED DESTRUCTIVE LESION TO LUMBAR SPINE. PT WAS REFERRED TO DR. BOYD FOR EVALUATION, AND AT THE TIME OF THE EVAL, THEY WERE GOING TO SEND HIM BACK TO FOR A BIOPSY, BUT RECOMMENDED FOR GABY TO STAY LOCALLY, HAVE HIS ILIAC BONE BIOPSIED HERE AND THEN START ON STEROIDS AND RADIATION THERAPY. HE WAS STARTED ON RADIATION YESTERDAY AFTER THE INITIAL LOOK AT HIS CELLS FROM BIOPSY LOOKED LIKE METASTATIC RENAL CELL CA. TODAY HIS BIOPSY CONFIRMED METASTATIC RENAL CELL CA, AND HE WILL BE TRANSITIONED TO SWING BED FOR PAIN CONTROL WITH IV MORHPINE, CONTINUED RADIATION THERAPY, AND START BED BOUND PHYSICAL THERAPY. Date of Admission 02/02/2021 Date Seen by a Provider: February 02, 2021 Time Seen by a Provider: 09:40 Attending Physician Kali Bravo MD Admitting Physician Kali Bravo MD Consult DR. BOYD - ONCOLOGY/HEMATOLOGY DR. CABRERA - RADIATION ONCOLOGY Allergies and Home Medications Allergies Coded Allergies: No Known Drug Allergies (Verified , 03/27/20) Home Medications Amlodipine Besylate 10 Mg Tablet, 10 MG PO DAILY, (Reported) Last Action: Reviewed Dutasteride 0.5 Mg Capsule, 0.5 MG PO DAILY, (Reported) Last Action: Reviewed Hydrocodone/Acetaminophen 1 Each Tablet, 1 EACH PO Q4H PRN for PAIN-MODERATE (5- 7), (Reported) Last Action: Reviewed Lovastatin 40 Mg Tablet, 40 MG PO HS, (Reported) Last Action: Reviewed Metoprolol Tartrate 25 Mg Tablet, 12.5 MG PO BID, (Reported) TAKES OF A (25MG) TABLET Last Action: Reviewed Oxybutynin Chloride 5 Mg Tablet, 5 MG PO DAILY, (Reported) Last Action: Reviewed Sodium Chloride 1 Gm Tab, 0.5 GM PO BID, (Reported) TAKES OF A (1GM) TABLET Last Action: Reviewed Tamsulosin HCl 0.4 Mg Cap, 0.4 MG PO HS, (Reported) Last Action: Reviewed Patient Home Medication List Home Medication List Reviewed: Yes Past Czniahz-Ozgpaj-Umopcm Hx Past Med/Social Hx: Reviewed and Corrections made Patient Social History Marrital Status: Number of Children: 2 Number of living children: 2 Living Status: LIVES WITH SPOUSE IN THEIR HOME 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) Alcohol Beverage of Choice: Beer Smoking Status: Former Smoker Former Smoker, Quit: Nov 03, 1976 Type Used: Cigarettes 2nd Hand Smoke Exposure: No Physical Abuse Screen: No Sexual Abuse: No Recent Foreign Travel: No Contact w/other who traveled: No Recent Hopitalizations: No Recent Infectious Disease Expo: No Social History LIVES WITH 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, 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 Immunizations Up To Date Tetanus Booster (TDap): Unknown Date of Pneumonia Vaccine: Jun 15, 2018 Date of Influenza Vaccine: Jun 08, 2020 Seasonal Allergies Seasonal Allergies: Yes Past Medical History Surgeries: Abdominal, Adenoidectomy, Nephrectomy (LEFT SIDE 05/2021), Ton sillectomy Currently Using CPAP: No Currently Using BIPAP: No Cardiac: High Cholesterol, Hypertension Reproductive: No Sexually Transmitted Disease: No HIV/AIDS: No Genitourinary: Benign Prostatic Hyperpl, Prostate Problems Gastrointestinal: Gastroesophageal Reflux Musculoskeletal: Arthritis Loss of Vision: Denies Hearing Impairment: Denies Cancer: Skin, Kidney What Type of Treatment Did You: Surgical Intervention History of Blood Disorders: No Adverse Reaction to Blood Garvey: No (N/A) Family History Reviewed and Corrections made Asthma 19 FATHER Cancer of mouth Cardiovascular disease G8 BROTHER Myocardial infarction G8 BROTHER Neoplasm G8 BROTHER Parkinson's disease 19 MOTHER Respiratory disorder 19 FATHER Asthma, Heart Disease, Cancer, CAD Over 55 Years Old, COPD, Other Conditions/Hx (PARKINSON'S DISEASE) Review of Systems Constitutional: No chills, No fever; malaise, weakness EENTM: No hoarseness, No throat pain Respiratory: No cough, No dyspnea on exertion, No short of breath Cardiovascular: No chest pain, No palpitations Gastrointestinal: No abdominal pain; constipation; No loss of appetite, No nausea, No vomiting Genitourinary: other (CARBONE IN PLACE) Musculoskeletal: back pain, muscle weakness, other (LEFT HEEL PAIN, LEFT HIP PAIN) Skin: other (LEFT NASAL BRIDGE RAISED INTERMITTENTLY BLEEDING SITE) Psychiatric/Neurological: Denies Anxiety, Denies Depressed; Other (FAMILY REPORTS WAS A LITTLE CONFUSED YESTERDAY AFTER MORPHINE, WAS ALSO IRRITABLE) All Other Systems Reviewed Negative Unless Noted: Yes Physical Exam Vital Signs Capillary Refill : Height, Weight, BMI Height: 5'11.00" Weight: 191lbs. 0.0oz. 86.098686dv; 28.71 BMI Method:Stated General Appearance: No Apparent Distress, WD/WN HEENT: PERRL/EOMI, Pharynx Normal, Other (NODULAR LESION LEFT NASAL BRIDGE NEAR EYE) Respiratory: Chest Non Tender, Lungs Clear, Normal Breath Sounds, No Accessory Muscle Use, No Respiratory Distress Cardiovascular: Regular Rate, Rhythm, Normal Peripheral Pulses Gastrointestinal: Normal Bowel Sounds, No Organomegaly, No Pulsatile Mass, Non Tender, Soft Rectal: Deferred Extremity: Normal Capillary Refill, Normal Inspection, Non Tender, No Calf Tenderness, No Pedal Edema Neurologic/Psychiatric: Alert, Oriented x3, No Motor/Sensory Deficits, Normal Mood/Affect, 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 BOYD - ONC AND DR. CABRERA - RAD ONC - INITIALLY ON THE DAY OF ADMISSION DR. BOYD WAS PLANNING ON SENDING PT TO WHERE HE HAS BEEN TREATED FOR RENAL CELL CA, HOWEVER, THE UROLOGIST AT INFORMED US THAT THEY WOULD NOT RECOMMEND A BIOPSY OF THE SPINE, INSTEAD WOULD RECOMMEND STEROIDS, RADIATION AND BIOPSY OF ILIAC BONE. - DECISION WAS THEN MADE TO KEEP GABY HERE IN [place] FOR RADIATION AND BIOPSY. - PT IS STATUS POST BIOPSY - VERBAL REPORT FROM PATHOLOGY - THE BIOPSY REVEALED METASTATIC RENAL CELL CARCINOMA - NEXT STEP WILL BE KYPHOPLASTY AFTER HE HAS COMPLETED RADIATION THERAPY TO HIS SPINE - PT WAS STARTED ON RADIATION THERAPY ON 02/01/21 -TOTAL NUMBER OF TREATMENTS TO BE DETERMINED BY DR. CABRERA CT CHEST/ABDOMEN/PELVIS W 01/26/21 PROCEDURE: CT chest, abdomen, and pelvis with contrast. INDICATION: Renal cell carcinoma. COMPARISON: Correlation is made with prior CT from 04/18/2020. CT CHEST: No axillary, hilar, or mediastinal lymphadenopathy is detected. No p ericardial or pleural fluid is detected. No definite pulmonary masses are seen. Minimal nodularity along the major fissures bilaterally appears similar to prior exam. There is a sclerotic lesion within the T9 vertebral body, similar to prior exam and indeterminate. No osteolytic lesions are seen. IMPRESSION: 1. No evidence of thoracic lymphadenopathy or pulmonary metastatic disease. CT ABDOMEN AND PELVIS: Tiny low densities in the left lobe of the liver are noted, too small to characterize but perhaps small cysts. No other liver masses are seen. Gallbladder is unremarkable. There is no biliary ductal dilatation. The pancreas and spleen are unremarkable. No adrenal mass is detected. Left kidney is now surgically absent. Right kidney is unremarkable. Aorta is heavily calcified but nonaneurysmal. No central retroperitoneal or mesenteric lymphadenopathy is seen. Small and large bowel loops are normal in caliber. There is diverticulosis of the sigmoid but no evidence of acute diverticulitis. Bladder is unremarkable. There is a fat-containing left inguinal hernia. No definite inguinal or iliac lymphadenopathy is detected. There appears to be an acute compression fracture involving the L5 vertebral body, new since prior CT. There are areas of sclerosis within the L5 vertebral body and this may be a pathologic fracture. There is a new area of sclerosis in the right iliac bone, also suspicious for a metastatic lesion. Remainder of the lumbar vertebrae are unremarkable. IMPRESSION: 1. No evidence of abdominal or pelvic lymphadenopathy. 2. L5 compression fracture, likely pathologic. This would likely be amenable to kyphoplasty with core biopsy. No definite retropulsion of fracture fragments is identified. 3. Sclerotic lesion in the right iliac bone, consistent with metastatic lesion. HYPERTENSION - RESUMED HOME REGIMEN - BP STABLE, MONITOR, ADDITIONAL AGENTS IF NEEDED BPH - RESUMED HOME REGIMEN - FLOMAX AND PROSCAR SEVERE BACK PAIN - IV MORPHINE, STEROIDS FOR DECREASE IN EDEMA FROM METASTATIC CANCER TO BONE - NOT WELL CONTROLLED - WILL START FISCAL TECHNICIAN PUMP FOR PT CONTROL OF PAIN LEFT HIP PAIN - PAIN CONTROL WITH MORPHINE, HYPONATREMIA - PT ON IV FLUIDS, MONITOR SODIUM LEVELS, GATORADE/POWERADE WITH MEALS CONSTIPATION - DULCOLAX PO, PRN MIRALAX CHANGED TO SCHEDULED AT [facility] - STARTED PT ON RELISTOR ON 02/01/2021 HEMORRHOIDS - RX FOR PROTOCORT AND PRN DULCOLAX WEAKNESS WITH GAIT INSTABILITY - START BED BOUND THERAPY AT THIS TIME LEFT HEEL PAIN - RX FOR VOLTAREN GEL TO HEEL CARBONE PLACED FOR COMFORT, TO AIDE PAIN CONTROL SO PT DOES NOT HAVE TO GET UP TO URINATE OR ROLL TO THE SIDE TO URINATE. LOVENOX AND SCD'S FOR DVT PROPHYLAXIS GI PROPHYLAXIS WITH PEPCID. Admission Diagnosis RENAL CELL CARCINOMA STATUS POST LEFT NEPHRECTOMY RENAL CELL CARCINOMA METASTATIC LESIONS TO SPINE AND ILIAC BONE AND SACRUM HYPERTENSION BPH SEVERE BACK PAIN LEFT HIP PAIN HYPONATREMIA CONSTIPATION HEMORRHOIDS WEAKNESS LEFT HEEL PAIN Admission Status: Other (Swing Bed) KALI BRAVO MD February 02, 2021 10:49
[2021-02-02] MEDS: morphine PCA 100 MG/100 ML BAG IV PRN (12:01)
[2021-02-02] MEDS: NS IV 1000 ML 1,000 ML IV SCH (12:06)
[2021-02-02] MEDS ORDERED: DICLOFENAC 1% GEL 100 GM (VOLTAREN) TUBE TOP SCH (13:00)
--- NOTE | 2021-02-02 14:22 | Occupational Therapy Eval ---
OT Evaluation-General/PLF Medical Diagnosis Admission Date February 02, 2021 at 10:26 Medical Diagnosis: metastatic renal cell cancer Onset Date: February 02, 2021 Therapy Diagnosis Therapy Diagnosis: decreased ADL Status, weakness Height/Weight Height (Feet): 5 Height (Inches): 11.00 Weight (Pounds): 191 Weight (Ounces): 0.0 Referral Physician: Shelly Referral Reason: Evaluation/Treatment Medical History Additional Medical History HTN, high cholesterol, GERD, arthritis, skin cancer, kidney cancer (L nephrectomy 2019) Current History Increased pain in back. Biopsy confirmed metastatic renal cell cancer, transferred to [facility] status for pain control, radiation therapy, and skilled therapies. Social History Current Living Status: Spouse ADL-Prior Level of Function SCALE: Activities may be completed with or without assistive devices. 2-Ahcfdvxzgd-jowcjow completes the activity by him/herself with no assistance from a helper. 5-Set-up or Clean-up Assistance-helper sets up or cleans up; patient completes activity. [place] assists only prior to or following the activity. 4-Supervision or Touching Assistance-helper provides verbal cues and/or touching/steadying and/or contact guard assistance as patient completes activity. Assistance may be provided throughout the activity or intermittently. 3-Partial/Moderate Assistance-helper does LESS THAN HALF the effort. [place] lifts, holds or supports trunk or limbs, but provides less than half the effort. 2-Substantial/Maximal Assistance-helper does MORE THAN HALF the effort. [place] lifts or holds trunk or limbs and provides more than half the effort. 4-Khlxwmgbb-ouaufj does ALL the effort. Patient does none of the effort to complete the activity. Or, the assistance of 2 or more helpers is required for the patient to complete the activity. If activity was not attempted, code reason: 7-Patient Refused. 9-Not Applicable-not attempted and the patient did not perform the activity before the current illness, exacerbation or injury. 10-Not Attempted due to Environmental Limitations-(lack of equipment, weather restraints, etc.). 88-Not Attempted due to Medical Conditions or Safety Concerns. ADL PLOF Comments Pt reports IND with all ADLs at PLOF, owns a cane and a walker, uses AD for functional mobility as needed. Self Care: Independent Functional Cognition: Independent DME/Equipment: Tub/Shower OT Current Status Subjective Pt laying in bed, daughter and at bedside. Agreeable to OT evaluation and tx. Mental Status/Objective Patient Orientation: Person, Place, Time, Situation Attachments: IV, Oxygen Current Glasses/Contacts: Yes Hand Dominance: Right Upper Extremity ROM WFL Upper Extremity Coordination WFL Upper Extremity Sensation WFL, pt denies tingling/numbness Upper Extremity Strength RUE shoulder strength decreased. ADL-Treatment Eating (QC): 6 (Pt indicates able to open containers and use utensils to cut food.) Oral Hygiene (QC): 5 (based on clincial judgement, pt would require set up assist with task at bed level.) Shower/Bathe Self (QC): 88 (not attempted due to pt's pain and no OOB activity per doctor) Upper Body Dressing (QC): 88 (not attempted due to pt's pain and no OOB activity per doctor) Lower Body Dressing (QC): 88 (not attempted due to pt's pain and no OOB activity per doctor) On/Off Footwear (QC): 88 (not attempted due to pt's pain and no OOB activity per doctor) Toileting Hygiene (QC): 88 (not attempted due to pt's pain and no OOB activity per doctor) Other Treatments Pt laying in bed, family present. Pt agreeable to OT evaluation and tx. Pt provides information about home set up and PLOF, and participates in UE screen. Pt states he has increased pain when HOB is raised. Per doctor, no OOB activity at this time. Pt's lunch arrives, but pt does not desire food at this time, as he is not hungry. OT educated pt and family on recommendation for tub transfer bench for when pt returns home, they verbalize understanding. ADLs not performed on this date as pt has increased pain in sitting, and no OOB activities per doctor. OT tx focused on increasing BUE strength and activity tolerance. OT educated pt on UE exercises using moderate resistance theraband, providing pt with written HEP. Pt completed x10 reps each of the following, BUES: shoulder flexion (3 reps RUE due to fatigue), external rotation, horizontal abduction, elbow flexion and elbow extension. Pt required min skilled verbal cues with exercises. Pt provided with heavy resistance set up mold technician sponge, pt completed x20 reps BUEs. Post tx, pt laying in bed, call light in reach and all needs met. Education OT Patient Education: Correct positioning, Energy conservation, Exercise program, Modified ADL techniques, Progress toward Goal/Update tx plan, Purpose of tx/functional activities Teaching Recipient: Patient Teaching Methods: Discussion Response to Teaching: Verbalize Understanding OT Chcf Goals Greenhouse Laborer Goals Time Frame: Feb 23, 2021 Eating (QC): 6 Oral Hygiene (QC): 6 Toileting Hygiene (QC): 4 Shower/Bathe Self (QC): 4 Upper Body Dressing (QC): 5 Lower Body Dressing (QC): 3 On/Off Footwear (QC): 3 Additional Goals: 1-Demonstrate ADL Tasks, 2-Verbalize Understanding, 3-Impro veStrength/Sameer 1=Demonstrate adherence to instructed precautions during ADL tasks. 2=Patient will verbalize/demonstrate understanding of assistive devices/modifications for ADL. 3=Patient will improve strength/tolerance for activity to enable patient to perform ADL's. OT Education/Plan Problem List/Assessment Assessment: Decreased Activ Tolerance, Decreased UE Strength, Impaired I ADL's, Impaired Self-Care Skills Pt would benefit from skilled OT services in order to increase BUE strength and activity tolerance, and increase safety and independence with ADLs in order to maximize LOF for safe return home. Discharge Recommendations Plan/Recommendations: Continue POC Equpiment Recommendations-D/C: Extended Bath Bench Treatment Plan/Plan of Care Patient would benefit from OT for education, treatment and training to promote independence in ADL's, mobility, safety and/or upper extremity function for ADL's. Plan of Care: ADL Retraining, Functional Mobility, UE Funct Exercise/Act Treatment Duration: Feb 23, 2021 Frequency: 5 times per week Estimated Hrs Per Day: .25 hour per day Agreement: Yes Rehab Potential: Guarded Time/GCodes Start Time: 13:25 Stop Time: 13:50 Total Time Billed (hr/min): 25 Billed Treatment Time 1, EVM (10'), EX (15') [place] RUBIN OT February 02, 2021 14:22
--- NOTE | 2021-02-02 14:40 | Physical Therapy Evaluation ---
PT Evaluation-General Medical Diagnosis Admission Date February 02, 2021 at 10:26 Medical Diagnosis: renal cell carcinoma Onset Date: January 29, 2021 Therapy Diagnosis Therapy Diagnosis: debility/weakness Height/Weight Height (Feet): 5 Height (Inches): 11.00 Weight (Pounds): 191 Weight (Ounces): 0.0 Precautions Precautions/Isolations: Standard Precautions Referral Physician: Shelly Reason for Referral: Evaluation/Treatment Referral Comments Bed Bound exercises only to begin and advance as physician states Medical History Pertinent Medical History: HTN Additional Medical History nephrectomy Current History SWB status for pain control due to metastatic cancer and L5 compression fracture Reviewed History: Yes Social History Home: Single Level Current Living Status: Spouse Prior Prior Level of Function SCALE: Activities may be completed with or without assistive devices. 9-Ctzwsahtxj-pqxkqkm completes the activity by him/herself with no assistance from a helper. 5-Set-up or Clean-up Assistance-helper sets up or cleans up; patient completes activity. [place] assists only prior to or following the activity. 4-Supervision or Touching Assistance-helper provides verbal cues and/or touching/steadying and/or contact guard assistance as patient completes activity. Assistance may be provided throughout the activity or intermittently. 3-Partial/Moderate Assistance-helper does LESS THAN HALF the effort. [place] lifts, holds or supports trunk or limbs, but provides less than half the effort. 2-Substantial/Maximal Assistance-helper does MORE THAN HALF the effort. [place] lifts or holds trunk or limbs and provides more than half the effort. 3-Fidjfuajh-kfuzwj does ALL the effort. Patient does none of the effort to complete the activity. Or, the assistance of 2 or more helpers is required for the patient to complete the activity. If activity was not attempted, code reason: 7-Patient Refused. 9-Not Applicable-not attempted and the patient did not perform the activity before the current illness, exacerbation or injury. 10-Not Attempted due to Environmental Limitations-(lack of equipment, weather restraints, etc.). 88-Not Attempted due to Medical Conditions or Safety Concerns. Bed Mobility: 6 Transfers (B,C,W/C): 6 Gait: 6 Indoor Mobility (Ambulation): Independent Prior Devices Use: Walker PT Evaluation-Current Subjective Patient agrees to PT. Pain Numeric Pain Scale: 3 Location: Left, Lower Location Body Site: Back Pain Description: Ache Objective Patient Orientation: Normal For Age Attachments: Helms Catheter, IV DISTRIBUTION CENTER ASSOCIATE ROM/Strength ROM Lower Extremities bilateral LE WFL Strength Lower Extremities 3/5 grossly bilateral LE (no formal resistance testing performed) Integumentary/Posture Integumentary refer to nursing notes Bladder Incontinence: Helms Cath Neuromuscular (Tone, Coordination, Reflexes) grossly intact Sensory Vision: Functional Hearing: Functional Transfers Roll Left & Right (QC): 88 Sit to Lying (QC): 88 Lying to Sitting/Side of Bed(Q: 88 Sit to Stand (QC): 88 Chair/Iuj-xp-Frsim Xfer(QC): 88 Toilet Transfer (QC): 88 Car Transfer (QC): 88 bed bound exercises only Gait Does the Patient Walk?: No and Walking Goal IS indicated Walk 10 feet (QC): 88 Walk 50 ft with 2 Turns(QC): 88 Walk 150 ft (QC): 88 Walking 10ft/uneven surface-QC: 88 Gait Assistive Device: FWW Wheelchair Training Does the Pt Use a Wheelchair?: No Wheel 50 ft with 2 turns (QC): 9 Wheel 150 ft (QC): 9 Stairs 1 Step (curb) (QC): 88 4 Steps (QC): 88 12 Steps (QC): 9 Balance Picking up an Object (QC): 88 Treatment Issued written HEP and performed exercises 10 reps of all (AP, QS, GS, HS, SLR, Abd/Add) Assessment/Needs 80 y.o. male, will be seen by skilled PT to perform bed exercises bilateral LE and advance to OOB activity per physician request. Rehab Potential: Guarded PT Home Health Speech Therapist Goals Fdc Goals PT Home Health Speech Therapist Goals Time Frame: Feb 23, 2021 Roll Left & Right (QC): 4 Sit to Lying (QC): 4 Lying-Sitting on Side/Bed(QC): 4 Sit to Stand (QC): 4 Chair/Gau-cx-Sursq Xfer(QC): 4 Toilet Transfer (QC): 4 Car Transfer (QC): 4 Does the Patient Walk: Yes Walk 10 feet (QC): 4 Walk 50ft with 2 Turns (QC): 4 Walk 150 ft (QC): 4 Walking 10ft on Uneven Surface: 4 1 Step (curb) (QC): 4 4 Steps (QC): 9 12 Steps (QC): 9 Picking up an Object (QC): 5 (modified) Wheel 50 feet with 2 turns (QC: 9 Wheel 150 feet: 9 PT Plan Problem List Problem List: Activity Tolerance Treatment/Plan Treatment Plan: Continue Plan of Care Treatment Plan: Bed Mobility, Education, Functional Activity Sameer, Functional Strength, Gait, Safety, Therapeutic Exercise, Transfers Treatment Duration: Feb 23, 2021 Frequency: 6 times per week Estimated Hrs Per Day: .25 hour per day Patient and/or Family Agrees t: Yes Time/GCodes Time In: 1300 Time Out: 1323 Total Billed Treatment Time: 23 Total Billed Treatment 1 visit EVModC 8 min EX 15 min JENNIFER ROBLES PT February 02, 2021 14:40
[2021-02-02] MEDS: FINASTERIDE (PROSCAR) 5 MG TAB PO SCH (17:10)
[2021-02-02] MEDS: TAMSULOSIN 0.4 MG (FLOMAX) CAP PO SCH (17:10)
[2021-02-02 17:28] VITALS: BP 137/74
[2021-02-02] MEDS: DOCUSATE SODIUM 100 MG (COLACE) CAP PO SCH (20:18)
[2021-02-02] MEDS: meTOprolol TARTRATE 25 MG (LOPRESSOR) TABLET PO SCH (20:18)
[2021-02-02] MEDS: polyethylene glycoL POWDER 17 GM (MIRALAX) PACK PO SCH (20:18)
[2021-02-02] MEDS: ENOXAPARIN 40 MG/0.4 ML (LOVENOX) SYR SC SCH (20:18)
[2021-02-02] MEDS: DICLOFENAC 1% GEL 100 GM (VOLTAREN) TUBE TOP SCH (20:21)
[2021-02-03 05:41] LABS: BASOPHILS % (AUTO) 0 % (0-10); EOSINOPHILS % (AUTO) 0 % (0-10); HEMATOCRIT 40 % (40-54); HEMOGLOBIN 12.7 g/dL (13.3-17.7); LYMPHOCYTES # (AUTO) 0.7 10^3/uL (1.0-4.0); LYMPHOCYTES % (AUTO) 5 % (12-44); MEAN CORPUSCULAR HEMOGLOBIN 27 pg (25-34); MEAN CORPUSCULAR HGB CONC 32 g/dL (32-36); MEAN CORPUSCULAR VOLUME 84 fL (80-99); MEAN PLATELET VOLUME 10.8 fL (9.0-12.2); MONOCYTES % (AUTO) 7 % (0-12); NEUTROPHILS # (AUTO) 11.9 10^3/uL (1.8-7.8); NEUTROPHILS % (AUTO) 87 % (42-75); PLATELET COUNT 255 10^3/uL (130-400); WHITE BLOOD COUNT 13.7 10^3/uL (4.3-11.0)
[2021-02-03 05:45] VITALS: BP 149/64
[2021-02-03 05:51] LABS: CHLORIDE 89 MMOL/L (98-107); POTASSIUM 4.6 MMOL/L (3.6-5.0)
[2021-02-03 05:52] LABS: CALCIUM 8.7 MG/DL (8.5-10.1)
[2021-02-03 05:53] LABS: GLUCOSE 108 MG/DL (70-105)
[2021-02-03 05:54] LABS: CARBON DIOXIDE 26 MMOL/L (21-32)
[2021-02-03 05:57] LABS: CREATININE SERUM 0.75 MG/DL (0.60-1.30); GFR ESTIMATED > 60
[2021-02-03 05:58] LABS: BUN/CREATININE RATIO 29; SODIUM 126 MMOL/L (135-145)
[2021-02-03 06:05] LABS: LYMPHOCYTES % (MANUAL) 2 %; MONOCYTES % (MANUAL) 5 %; NEUTROPHILS % (MANUAL) 93 %; RBC MORPH NORMAL
[2021-02-03 08:38] VITALS: BP 177/80
--- NOTE | 2021-02-03 08:49 | Physical Therapy Daily Note ---
PT Daily Note-Current Subjective Pt agreeable to PT exercises in bed this date, denies pain when he is lying flat. "It only hurts when I sit up." Appearance Following session, pt supine in bed with call light and tray within reach. All needs met at this time. Mental Status Patient Orientation: Person, Place Attachments: Oxygen, Helms Catheter, IV Transfers SCALE: Activities may be completed with or without assistive devices. 2-Oocjbcwury-poqezdj completes the activity by him/herself with no assistance from a helper. 5-Set-up or Clean-up Assistance-helper sets up or cleans up; patient completes activity. Malone assists only prior to or following the activity. 4-Supervision or Touching Assistance-helper provides verbal cues and/or touchi ng/steadying and/or contact guard assistance as patient completes activity. Assistance may be provided throughout the activity or intermittently. 3-Partial/Moderate Assistance-helper does LESS THAN HALF the effort. Malone lifts, holds or supports trunk or limbs, but provides less than half the effort. 2-Substantial/Maximal Assistance-helper does MORE THAN HALF the effort. Malone lifts or holds trunk or limbs and provides more than half the effort. 7-Toruzxsgt-cpcccl does ALL the effort. Patient does none of the effort to complete the activity. Or, the assistance of 2 or more helpers is required for the patient to complete the activity. If activity was not attempted, code reason: 7-Patient Refused. 9-Not Applicable-not attempted and the patient did not perform the activity before the current illness, exacerbation or injury. 10-Not Attempted due to Environmental Limitations-(lack of equipment, weather restraints, etc.). 88-Not Attempted due to Medical Conditions or Safety Concerns. Exercises Supine Ex: Ankle pumps, Quad Set, Glut sets, Heel Slides, Straight leg raise, Hip abd/add Supine Reps: 20 Assessment Current Status: Fair Progress Pt tolerated supine bed exercises well, no increase in pain level noted. PT Entry Level Automotive Technician Goals Entry Level Automotive Technician Goals PT Residential Goals Time Frame: Feb 23, 2021 Roll Left & Right (QC): 4 Sit to Lying (QC): 4 Lying-Sitting on Side/Bed(QC): 4 Sit to Stand (QC): 4 Chair/Fym-sm-Dsaig Xfer(QC): 4 Toilet Transfer (QC): 4 Car Transfer (QC): 4 Does the Patient Walk: Yes Walk 10 feet (QC): 4 Walk 50ft with 2 Turns (QC): 4 Walk 150 ft (QC): 4 Walking 10ft on Uneven Surface: 4 1 Step (curb) (QC): 4 4 Steps (QC): 9 12 Steps (QC): 9 Picking up an Object (QC): 5 (modified) Wheel 50 feet with 2 turns (QC: 9 Wheel 150 feet: 9 PT Plan Problem List Problem List: Activity Tolerance, Functional Strength, Safety, Balance, Gait, Transfer, Bed Mobility, ROM Treatment/Plan Treatment Plan: Continue Plan of Care Treatment Plan: Bed Mobility, Education, Functional Activity Sameer, Functional Strength, Gait, Safety, Therapeutic Exercise, Transfers Treatment Duration: Feb 23, 2021 Frequency: 6 times per week Estimated Hrs Per Day: .25 hour per day Patient and/or Family Agrees t: Yes Time/GCodes Time In: 816 Time Out: 831 Total Billed Treatment 1 visit EX (15') [place] PT February 03, 2021 08:49
[2021-02-03] MEDS: DOCUSATE SODIUM 100 MG (COLACE) CAP PO SCH ×2 (09:21→20:13)
[2021-02-03] MEDS: meTOprolol TARTRATE 25 MG (LOPRESSOR) TABLET PO SCH ×2 (09:21→20:13)
[2021-02-03] MEDS: PANTOPRAZOLE 40 MG (PROTONIX) TAB PO SCH (09:22)
[2021-02-03] MEDS: SENNA W/DOCUSATE (SENOKOT S) TABLET PO SCH (09:22)
[2021-02-03] MEDS: amLODIPine 5 MG (NORVASC) TAB PO SCH (09:22)
[2021-02-03] MEDS: METHYLNALTREXONE 12 MG/0.6 ML (RELISTOR) VIAL SQ SCH (09:23)
[2021-02-03] MEDS: DICLOFENAC 1% GEL 100 GM (VOLTAREN) TUBE TOP SCH ×4 (10:04→20:13)
--- NOTE | 2021-02-03 12:50 | Progress Note ---
Subjective Subjective Date Seen by Provider: February 03, 2021 Time Seen by Provider: 12:44 80 yo male with metastatic renal cell carcinoma- admitted for pain control. He reports his pain is a little better. reports he is able to tolerate sitting up a little better. He is hopeful to get pain under control and go home to return for radiation treatments. Review of Systems General: No Chills, No Night Sweats HEENT: No Head Aches Pulmonary: No Dyspnea, No Cough Cardiovascular: No: Chest Pain, Palpitations Gastrointestinal: No: Nausea, Vomiting, Abdominal Pain Genitourinary: No Dysuria Musculoskeletal: other (left hip pain), back pain Neurological: Weakness All Other Systems Reviewed All Other Systems Reviewed: Yes Objective Exam Vital Signs Vital Signs Date Time Temp Pulse Resp B/P (MAP) Pulse Ox O2 Delivery O2 Flow Rate FiO2 02/03/21 10:30 97 Room Air 02/03/21 09:00 18 02/03/21 09:00 95 Room Air 02/03/21 08:38 67 177/80 (112) Room Air 02/03/21 06:53 96 Room Air 02/03/21 05:45 36.7 62 15 149/64 (92) 99 Room Air 02/03/21 02:29 95 Room Air 02/02/21 21:46 97 Room Air 02/02/21 20:30 97 Room Air 02/02/21 20:12 17 02/02/21 18:30 97 Room Air 02/02/21 17:28 36.3 73 17 137/74 (95) 98 Room Air 02/02/21 13:07 98 Room Air I & O 02/03/21 06:59 Intake Total 2480 ml Output Total 4850 ml Balance -2370 ml General Appearance: No Apparent Distress, WD/WN HEENT: PERRL/EOMI, Other (NODULAR LESION LEFT NASAL BRIDGE NEAR EYE) Respiratory: Chest Non Tender, Lungs Clear, Normal Breath Sounds, No Accessory Muscle Use, No Respiratory Distress Cardiovascular: Regular Rate, Rhythm, Normal Peripheral Pulses Gastrointestinal: Normal Bowel Sounds, No Organomegaly, No Pulsatile Mass, Non Tender, Soft Rectal: Deferred Extremity: Normal Capillary Refill, Normal Inspection, Non Tender, No Calf Tenderness, No Pedal Edema Neurologic/Psychiatric: Alert, Oriented x3, No Motor/Sensory Deficits, Normal Mood/Affect Skin: Warm/Dry Lymphatic: No Adenopathy Results Lab Laboratory Tests 02/03/21 05:10: White Blood Count 13.7H, Red Blood Count 4.73, Hemoglobin 12.7L, Hematocrit 40, Mean Corpuscular Volume 84, Mean Corpuscular Hemoglobin 27, Mean Corpuscular Hemoglobin Concent 32, Red Cell Distribution Width 14.3, Platelet Count 255, Mean Platelet Volume 10.8, Immature Granulocyte % (Auto) 1, Neutrophils (%) (Auto) 87H, Lymphocytes (%) (Auto) 5L, Monocytes (%) (Auto) 7, Eosinophils (%) (Auto) 0, Basophils (%) (Auto) 0, Neutrophils # (Auto) 11.9H, Lymphocytes # (Auto) 0.7L, Monocytes # (Auto) 1.0, Eosinophils # (Auto) 0.0, Basophils # (Auto) 0.0, Immature Granulocyte # (Auto) 0.1, Neutrophils % (Manual) 93, Lymphocytes % (Manual) 2, Monocytes % (Manual) 5, Blood Morphology Comment NORMAL, Sodium Level 126L, Potassium Level 4.6, Chloride Level 89L, Carbon Dioxide Level 26, Anion Gap 10, Blood Urea Nitrogen 22H, Creatinine 0.75, Estimat Glomerular Filtration Rate > 60, BUN/Creatinine Ratio 29, Glucose Level 108H, Calcium Level 8.7 Assessment/Plan Assessment/Plan Assessment and Plan RENAL CELL CARCINOMA STATUS POST LEFT NEPHRECTOMY RENAL CELL CARCINOMA METASTATIC LESIONS TO SPINE AND ILIAC BONE AND SACRUM - PAIN CONTROL WITH IV MORPHINE - CONSULT TO DR. BOYD - ONC AND DR. CABRERA - RAD ONC - PT IS STATUS POST BIOPSY - THE BIOPSY REVEALED METASTATIC RENAL CELL CARCINOMA - NEXT STEP WILL BE KYPHOPLASTY AFTER HE HAS COMPLETED RADIATION THERAPY TO HIS SPINE - PT WAS STARTED ON RADIATION THERAPY ON 02/01/21 -TOTAL NUMBER OF TREATMENTS TO BE DETERMINED BY DR. CABRERA CT CHEST/ABDOMEN/PELVIS W 01/26/21 HYPERTENSION - RESUMED HOME REGIMEN - BP STABLE, MONITOR, ADDITIONAL AGENTS IF NEEDED BPH - RESUMED HOME REGIMEN - FLOMAX AND PROSCAR SEVERE BACK PAIN - IV MORPHINE, STEROIDS FOR DECREASE IN EDEMA FROM METASTATIC CANCER TO BONE - DRY YARD WORKER pump. LEFT HIP PAIN - PAIN CONTROL WITH MORPHINE, HYPONATREMIA - PT ON IV FLUIDS, MONITOR SODIUM LEVELS, GATORADE/POWERADE WITH MEALS -multifactorial- one being his malignancy. CONSTIPATION - DULCOLAX PO, MIRALAX - STARTED PT ON RELISTOR ON 02/01/2021 HEMORRHOIDS - RX FOR PROTOCORT AND PRN DULCOLAX WEAKNESS WITH GAIT INSTABILITY - BED BOUND THERAPY LEFT HEEL PAIN - RX FOR VOLTAREN GEL TO HEEL CARBONE PLACED FOR COMFORT, TO AIDE PAIN CONTROL SO PT DOES NOT HAVE TO GET UP TO URINATE OR ROLL TO THE SIDE TO URINATE. LOVENOX AND SCD'S FOR DVT PROPHYLAXIS GI PROPHYLAXIS WITH PEPCID. 02/03/21- patient's pain is controlled a little better- goal right now is to get his pain under a little better control in hopes of him going home and returning for radiation. Continue SWB status and we will reassess after his next radiation treatment on FridayFebruary 06. Na level at 126 will need to monitor- GEORGE DOUGLAS MD February 03, 2021 12:50
[2021-02-03] MEDS: NS IV 1000 ML 1,000 ML IV SCH ×2 (13:25→17:00)
[2021-02-03 17:00] VITALS: BP 125/54
[2021-02-03] MEDS: FINASTERIDE (PROSCAR) 5 MG TAB PO SCH (18:03)
[2021-02-03] MEDS: TAMSULOSIN 0.4 MG (FLOMAX) CAP PO SCH (18:03)
[2021-02-03] MEDS: polyethylene glycoL POWDER 17 GM (MIRALAX) PACK PO SCH (20:13)
[2021-02-03] MEDS: ENOXAPARIN 40 MG/0.4 ML (LOVENOX) SYR SC SCH (20:13)
[2021-02-04 05:23] VITALS: BP 159/63
[2021-02-04 05:35] LABS: CHLORIDE 91 MMOL/L (98-107); POTASSIUM 4.6 MMOL/L (3.6-5.0); SODIUM 126 MMOL/L (135-145)
[2021-02-04 05:36] LABS: CALCIUM 8.1 MG/DL (8.5-10.1); GLUCOSE 116 MG/DL (70-105)
[2021-02-04 05:38] LABS: CARBON DIOXIDE 25 MMOL/L (21-32)
[2021-02-04 05:40] LABS: CREATININE SERUM 0.83 MG/DL (0.60-1.30); GFR ESTIMATED > 60
[2021-02-04 05:41] LABS: BUN/CREATININE RATIO 33
[2021-02-04] MEDS: SENNA W/DOCUSATE (SENOKOT S) TABLET PO SCH (08:24)
[2021-02-04] MEDS: DOCUSATE SODIUM 100 MG (COLACE) CAP PO SCH ×2 (08:25→19:27)
[2021-02-04] MEDS: meTOprolol TARTRATE 25 MG (LOPRESSOR) TABLET PO SCH ×2 (08:25→19:25)
[2021-02-04] MEDS: PANTOPRAZOLE 40 MG (PROTONIX) TAB PO SCH (08:25)
[2021-02-04] MEDS: amLODIPine 5 MG (NORVASC) TAB PO SCH (08:25)
[2021-02-04] MEDS: DICLOFENAC 1% GEL 100 GM (VOLTAREN) TUBE TOP SCH ×4 (08:28→19:27)
[2021-02-04] MEDS ORDERED: METHYLNALTREXONE 12 MG/0.6 ML (RELISTOR) VIAL SQ SCH (09:00)
--- NOTE | 2021-02-04 10:59 | Progress Note ---
Standard Progress Note Progress Notes/Assess & Plan Date Seen by a Provider: February 04, 2021 Time Seen by a Provider: 10:55 Progress/Assessment & Plan 80-year-old male admitted with intractable low back pain with MRI showing L5 lesion with compression fracture as well as sacral and pelvic lesions. Patient has previous history of renal cancer status post nephrectomy in 2019. 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 Started on palliative radiation last . Currently on morphine FIELD TECHNICAL SPECIALIST at 1 mg/h continuous infusion with as needed boluses. Pain under better control. He is sitting up in a chair this morning and is using bolus morphine before any activity. Appetite is fair and denied any constipation. Currently taking dexamethasone 4 mg every 8 hours with food. I will change this to twice daily with food. Started in bed physical therapy. Still has Helms catheter as he needs help getting up and cannot stand or sit for prolonged time. Resume radiation therapy on Friday as tomorrow is a holiday. Once pain better controlled, will change pain medication to oral and DC Helms catheter. Will follow patient with you. NADIA BOYD February 04, 2021 10:59
[2021-02-04 15:47] VITALS: BP 135/69
[2021-02-04] MEDS: TAMSULOSIN 0.4 MG (FLOMAX) CAP PO SCH (17:13)
[2021-02-04] MEDS: FINASTERIDE (PROSCAR) 5 MG TAB PO SCH (17:13)
[2021-02-04 18:39] VITALS: BP 135/69
[2021-02-04] MEDS: morphine PCA 100 MG/100 ML BAG IV PRN (18:39)
[2021-02-04] MEDS: polyethylene glycoL POWDER 17 GM (MIRALAX) PACK PO SCH (19:24)
[2021-02-04] MEDS: ENOXAPARIN 40 MG/0.4 ML (LOVENOX) SYR SC SCH (19:25)
[2021-02-05] MEDS: NS IV 1000 ML 1,000 ML IV SCH (02:09)
[2021-02-05 04:28] LABS: BASOPHILS % (AUTO) 0 % (0-10); EOSINOPHILS % (AUTO) 0 % (0-10); HEMATOCRIT 36 % (40-54); HEMOGLOBIN 11.9 g/dL (13.3-17.7); LYMPHOCYTES # (AUTO) 0.7 10^3/uL (1.0-4.0); LYMPHOCYTES % (AUTO) 5 % (12-44); MEAN CORPUSCULAR HEMOGLOBIN 27 pg (25-34); MEAN CORPUSCULAR HGB CONC 33 g/dL (32-36); MEAN CORPUSCULAR VOLUME 82 fL (80-99); MEAN PLATELET VOLUME 10.8 fL (9.0-12.2); MONOCYTES # (AUTO) 1.4 10^3/uL (0.0-1.0); MONOCYTES % (AUTO) 10 % (0-12); NEUTROPHILS # (AUTO) 11.9 10^3/uL (1.8-7.8); NEUTROPHILS % (AUTO) 85 % (42-75); PLATELET COUNT 236 10^3/uL (130-400)
[2021-02-05 04:39] LABS: CHLORIDE 89 MMOL/L (98-107); POTASSIUM 4.4 MMOL/L (3.6-5.0)
[2021-02-05 04:40] LABS: CALCIUM 8.2 MG/DL (8.5-10.1)
[2021-02-05 04:41] LABS: GLUCOSE 115 MG/DL (70-105)
[2021-02-05 04:42] LABS: CARBON DIOXIDE 26 MMOL/L (21-32)
[2021-02-05 04:45] LABS: BUN/CREATININE RATIO 32; CREATININE SERUM 0.76 MG/DL (0.60-1.30); GFR ESTIMATED > 60
[2021-02-05 04:50] LABS: SODIUM 124 MMOL/L (135-145)
[2021-02-05 04:51] LABS: LYMPHOCYTES % (MANUAL) 4 %; MONOCYTES % (MANUAL) 10 %; NEUTROPHILS % (MANUAL) 86 %; RBC MORPH NORMAL
[2021-02-05 05:20] VITALS: BP 158/80
[2021-02-05] MEDS: amLODIPine 5 MG (NORVASC) TAB PO SCH (08:24)
[2021-02-05] MEDS: PANTOPRAZOLE 40 MG (PROTONIX) TAB PO SCH (08:24)
[2021-02-05] MEDS: SENNA W/DOCUSATE (SENOKOT S) TABLET PO SCH (08:24)
[2021-02-05] MEDS: DOCUSATE SODIUM 100 MG (COLACE) CAP PO SCH ×2 (08:24→19:46)
[2021-02-05] MEDS: meTOprolol TARTRATE 25 MG (LOPRESSOR) TABLET PO SCH ×2 (08:24→19:46)
[2021-02-05] MEDS: DICLOFENAC 1% GEL 100 GM (VOLTAREN) TUBE TOP SCH ×4 (08:25→19:49)
[2021-02-05] MEDS: SODIUM CHLORIDE 1 GM TABLET PO SCH ×2 (08:25→19:48)
[2021-02-05] MEDS: METHYLNALTREXONE 12 MG/0.6 ML (RELISTOR) VIAL SQ SCH (08:25)
--- NOTE | 2021-02-05 09:39 | Physical Therapy Daily Note ---
PT Daily Note-Current Subjective Pt agreeable to exercise. Transfers SCALE: Activities may be completed with or without assistive devices. 5-Zzkdzcptys-etbafxw completes the activity by him/herself with no assistance from a helper. 5-Set-up or Clean-up Assistance-helper sets up or cleans up; patient completes activity. Crawford assists only prior to or following the activity. 4-Supervision or Touching Assistance-helper provides verbal cues and/or touching/steadying and/or contact guard assistance as patient completes activity. Assistance may be provided throughout the activity or intermittently. 3-Partial/Moderate Assistance-helper does LESS THAN HALF the effort. Crawford lifts, holds or supports trunk or limbs, but provides less than half the effort. 2-Substantial/Maximal Assistance-helper does MORE THAN HALF the effort. Crawford lifts or holds trunk or limbs and provides more than half the effort. 1-Ffpxrlufp-ywxipz does ALL the effort. Patient does none of the effort to complete the activity. Or, the assistance of 2 or more helpers is required for the patient to complete the activity. If activity was not attempted, code reason: 7-Patient Refused. 9-Not Applicable-not attempted and the patient did not perform the activity before the current illness, exacerbation or injury. 10-Not Attempted due to Environmental Limitations-(lack of equipment, weather restraints, etc.). 88-Not Attempted due to Medical Conditions or Safety Concerns. Exercises Supine Ex: Ankle pumps, Quad Set, Glut sets, Heel Slides, Short Arc Quads, Resisted flex/ext, Straight leg raise, Hip abd/add Supine Reps: 15 End range passive stretch for ankle DF and hip abd Assessment pt tolerated exercise without complaint of increased pain. Pt reports he will repeat exercises with assist from his later in the day. PT Skilled Nursing Goals Senior Svp Goals PT Skilled Nursing Goals Time Frame: Feb 23, 2021 Roll Left & Right (QC): 4 Sit to Lying (QC): 4 Lying-Sitting on Side/Bed(QC): 4 Sit to Stand (QC): 4 Chair/Prs-vd-Erwxh Xfer(QC): 4 Toilet Transfer (QC): 4 Car Transfer (QC): 4 Does the Patient Walk: Yes Walk 10 feet (QC): 4 Walk 50ft with 2 Turns (QC): 4 Walk 150 ft (QC): 4 Walking 10ft on Uneven Surface: 4 1 Step (curb) (QC): 4 4 Steps (QC): 9 12 Steps (QC): 9 Picking up an Object (QC): 5 (modified) Wheel 50 feet with 2 turns (QC: 9 Wheel 150 feet: 9 PT Plan Treatment/Plan Treatment Plan: Continue Plan of Care Treatment Plan: Bed Mobility, Education, Functional Activity Sameer, Functional Strength, Gait, Safety, Therapeutic Exercise, Transfers Treatment Duration: Feb 23, 2021 Frequency: 6 times per week Estimated Hrs Per Day: .25 hour per day Patient and/or Family Agrees t: Yes Time/GCodes Time In: 915 Time Out: 935 Total Billed Treatment Time: 15 Total Billed Treatment visit, exercise 15min LOUISE SALINAS PT February 05, 2021 09:39
[2021-02-05] MEDS ORDERED: SODIUM CHLORIDE 3% 500 ML IV SCH (10:00)
--- NOTE | 2021-02-05 11:01 | Occupational Ther Daily Note ---
OT Current Status-Daily Note Subjective No pain reported. Mental Status/Objective Patient Orientation: Person, Place, Time, Situation ADL-Treatment Therapy Code Descriptions/Definitions Functional Tyrrell Measure: 0=Not Assessed/NA 4=Minimal Assistance 1=Total Assistance 5=Supervision or Setup 2=Maximal Assistance 6=Modified Tyrrell 3=Moderate Assistance 7=Complete IndependenceSCALE: Activities may be completed with or without assistive devices. 8-Yzntftyrtp-uddxxts completes the activity by him/herself with no assistance from a helper. 5-Set-up or Clean-up Assistance-helper sets up or cleans up; patient completes activity. Kent assists only prior to or following the activity. 4-Supervision or Touching Assistance-helper provides verbal cues and/or touching/steadying and/or contact guard assistance as patient completes activity. Assistance may be provided throughout the activity or intermittently. 3-Partial/Moderate Assistance-helper does LESS THAN HALF the effort. Kent lifts, holds or supports trunk or limbs, but provides less than half the effort. 2-Substantial/Maximal Assistance-helper does MORE THAN HALF the effort. Kent lifts or holds trunk or limbs and provides more than half the effort. 3-Tmrkhelaf-ohyoxg does ALL the effort. Patient does none of the effort to complete the activity. Or, the assistance of 2 or more helpers is required for the patient to complete the activity. If activity was not attempted, code reason: 7-Patient Refused. 9-Not Applicable-not attempted and the patient did not perform the activity before the current illness, exacerbation or injury. 10-Not Attempted due to Environmental Limitations-(lack of equipment, weather restraints, etc.). 88-Not Attempted due to Medical Conditions or Safety Concerns. Shower/Bathe Self (QC): 3 (Mod assist per pt. and spouse.) On/Off Footwear: 2 (Per pt. and spouse.) Pt. sitting on side of bed when OT enters room. Pt. has just returned from shower. Spouse assisted pt. in shower. Pt. able to transfer sit-supine with SBA, but requires assistance to manuever bed to comfort level. Pt. rests, and agrees to UE exercises. Pt. has been issued theraband and HEP/handout. Spouse would like to see exercises demonstrated so that she can assist him if needed. Pt. is able to complete 4 bilateral UE exercises x 10 reps each, with red theraband, in all planes, for continued strengthening and endurance. Pt. requires rest breaks throughout session. Noted increased weakness overall in right shoulder, and pt. is limited in range that he can perform with exercises. All needs are met at end of session and pt. reports being comfortable in bed. Education OT Patient Education: Correct positioning, Exercise program, Modified ADL techniques, Progress toward Goal/Update tx plan, Purpose of tx/functional activities, Reviewed precautions, Rehab process, Transfer techniques Teaching Recipient: Patient Teaching Methods: Demonstration, Discussion Response to Teaching: Verbalize Understanding, Return Demonstration OT Skilled Nursing Goals Software Asset Manager Goals Time Frame: Feb 23, 2021 Eating (QC): 6 Oral Hygiene (QC): 6 Toileting Hygiene (QC): 4 Shower/Bathe Self (QC): 4 Upper Body Dressing (QC): 5 Lower Body Dressing (QC): 3 On/Off Footwear (QC): 3 Additional Goals: 1-Demonstrate ADL Tasks, 2-Verbalize Understanding, 3- ImproveStrength/Sameer 1=Demonstrate adherence to instructed precautions during ADL tasks. 2=Patient will verbalize/demonstrate understanding of assistive devices/modifications for ADL. 3=Patient will improve strength/tolerance for activity to enable patient to perform ADL's. OT Education/Plan Problem List/Assessment Assessment: Decreased Activ Tolerance, Decreased UE Strength, Impaired I ADL's, Impaired Self-Care Skills Pt would benefit from skilled OT services in order to increase BUE strength and activity tolerance, and increase safety and independence with ADLs in order to maximize LOF for safe return home. Discharge Recommendations Plan/Recommendations: Continue POC Treatment Plan/Plan of Care Treatment,Training & Education: Yes Patient would benefit from OT for education, treatment and training to promote independence in ADL's, mobility, safety and/or upper extremity function for ADL's. Plan of Care: ADL Retraining, Functional Mobility, UE Funct Exercise/Act Treatment Duration: Feb 23, 2021 Frequency: 5 times per week Estimated Hrs Per Day: .25 hour per day Agreement: Yes Rehab Potential: Fair Time/GCodes Start Time: 10:17 Stop Time: 10:34 Total Time Billed (hr/min): 17 Billed Treatment Time 1, Ex LAUREN HERNADEZ OT February 05, 2021 11:01
--- NOTE | 2021-02-05 11:38 | Progress Note ---
Subjective Subjective Date Seen by Provider: February 05, 2021 Time Seen by Provider: 10:20 80 yo male with metastatic renal cell carcinoma- admitted for pain control. He is not happy about getting another IV as it makes it even more difficult to move or get around. and daughter at bedside. Sodium level down to 124- unable to keep up with po and IVF fluids. Overall patient is a little better- he did take a shower today and this made him feel a little better Review of Systems General: No Chills, No Night Sweats HEENT: No Head Aches Pulmonary: No Dyspnea, No Cough Cardiovascular: No: Chest Pain, Palpitations Gastrointestinal: No: Nausea, Vomiting, Abdominal Pain Genitourinary: No Dysuria Musculoskeletal: other (left hip pain), back pain Neurological: Weakness All Other Systems Reviewed All Other Systems Reviewed: Yes Objective Exam Vital Signs Vital Signs Date Time Temp Pulse Resp B/P (MAP) Pulse Ox O2 Delivery O2 Flow Rate FiO2 02/05/21 10:15 Room Air 02/05/21 09:00 Room Air 02/05/21 09:00 14 02/05/21 07:20 97 Room Air 02/05/21 05:20 36.7 58 15 158/80 (106) 98 Room Air 02/05/21 02:13 93 Room Air 02/04/21 22:21 96 Room Air 02/04/21 20:20 97 Room Air 02/04/21 20:19 16 02/04/21 19:23 36.7 17 02/04/21 18:44 97 Room Air 02/04/21 18:39 36.8 67 18 135/69 (91) 96 Room Air 02/04/21 14:44 99 Room Air I & O 02/05/21 07:00 Intake Total 3545 ml Output Total 3150 ml Balance 395 ml General Appearance: No Apparent Distress, WD/WN HEENT: PERRL/EOMI, Other (NODULAR LESION LEFT NASAL BRIDGE NEAR EYE) Respiratory: Chest Non Tender, Lungs Clear, Normal Breath Sounds, No Accessory Muscle Use, No Respiratory Distress Cardiovascular: Regular Rate, Rhythm, Normal Peripheral Pulses Gastrointestinal: Normal Bowel Sounds, No Organomegaly, No Pulsatile Mass, Non Tender, Soft Rectal: Deferred Extremity: Normal Capillary Refill, Normal Inspection, Non Tender, No Calf Tenderness, Pedal Edema (trace) Neurologic/Psychiatric: Alert, Oriented x3, No Motor/Sensory Deficits, Normal Mood/Affect Skin: Warm/Dry Lymphatic: No Adenopathy Results Lab Laboratory Tests 02/05/21 04:15: White Blood Count 14.0H, Red Blood Count 4.42, Hemoglobin 11.9L, Hematocrit 36L, Mean Corpuscular Volume 82, Mean Corpuscular Hemoglobin 27, Mean Corpuscular Hemoglobin Concent 33, Red Cell Distribution Width 14.4, Platelet Count 236, Mean Platelet Volume 10.8, Immature Granulocyte % (Auto) 1, Neutrophils (%) (Auto) 85H, Lymphocytes (%) (Auto) 5L, Monocytes (%) (Auto) 10, Eosinophils (%) (Auto) 0, Basophils (%) (Auto) 0, Neutrophils # (Auto) 11.9H, Lymphocytes # (Auto) 0.7L, Monocytes # (Auto) 1.4H, Eosinophils # (Auto) 0.0, Basophils # (Auto) 0.0, Immature Granulocyte # (Auto) 0.1, Neutrophils % (Manual) 86, Lymphocytes % (Manual) 4, Monocytes % (Manual) 10, Blood Morphology Comment NORMAL, Sodium Level 124*L, Potassium Level 4.4, Chloride Level 89L, Carbon Dioxide Level 26, Anion Gap 9, Blood Urea Nitrogen 24H, Creatinine 0.76, Estimat Glomerular Filtration Rate > 60, BUN/Creatinine Ratio 32, Glucose Level 115H, Calcium Level 8.2L Assessment/Plan Assessment/Plan Assessment and Plan RENAL CELL CARCINOMA STATUS POST LEFT NEPHRECTOMY RENAL CELL CARCINOMA METASTATIC LESIONS TO SPINE AND ILIAC BONE AND SACRUM - PAIN CONTROL WITH IV MORPHINE - CONSULT TO DR. BOYD - ONC AND DR. CABRERA - RAD ONC - PT IS STATUS POST BIOPSY - THE BIOPSY REVEALED METASTATIC RENAL CELL CARCINOMA - NEXT STEP WILL BE KYPHOPLASTY AFTER HE HAS COMPLETED RADIATION THERAPY TO HIS SPINE - PT WAS STARTED ON RADIATION THERAPY ON 02/01/21 -TOTAL NUMBER OF TREATMENTS TO BE DETERMINED BY DR. CABRERA CT CHEST/ABDOMEN/PELVIS W 01/26/21 HYPERTENSION - RESUMED HOME REGIMEN - BP STABLE, MONITOR, ADDITIONAL AGENTS IF NEEDED BPH - RESUMED HOME REGIMEN - FLOMAX AND PROSCAR SEVERE BACK PAIN - IV MORPHINE, STEROIDS FOR DECREASE IN EDEMA FROM METASTATIC CANCER TO BONE - COLLET MAKING MACHINE OPERATOR pump. LEFT HIP PAIN - PAIN CONTROL WITH MORPHINE, HYPONATREMIA - PT ON IV FLUIDS, MONITOR SODIUM LEVELS, GATORADE/POWERADE WITH MEALS -multifactorial- one being his malignancy. CONSTIPATION - DULCOLAX PO, MIRALAX - STARTED PT ON RELISTOR ON 02/01/2021 HEMORRHOIDS - RX FOR PROTOCORT AND PRN DULCOLAX WEAKNESS WITH GAIT INSTABILITY - BED BOUND THERAPY LEFT HEEL PAIN - RX FOR VOLTAREN GEL TO HEEL CARBONE PLACED FOR COMFORT, TO AIDE PAIN CONTROL SO PT DOES NOT HAVE TO GET UP TO URINATE OR ROLL TO THE SIDE TO URINATE. LOVENOX AND SCD'S FOR DVT PROPHYLAXIS GI PROPHYLAXIS WITH PEPCID. 02/03/21- patient's pain is controlled a little better- goal right now is to get his pain under a little better control in hopes of him going home and returning for radiation. Continue SWB status and we will reassess after his next radiation treatment on FridayFebruary 06. Na level at 126 will need to monitor- 02/04/21- feeling a little better- sat up in chair 02/05/21- Na down to 124- starting hypertonic saline- goal to bring it up to 130. Rechecking BMP at 6pm. 1 bag of 500cc 3% saline should be enough. Continue pain control. Dr. Bravo will resume care tomorrow. GEORGE DOUGLAS MD February 05, 2021 11:38
[2021-02-05] MEDS: FINASTERIDE (PROSCAR) 5 MG TAB PO SCH (17:41)
[2021-02-05] MEDS: TAMSULOSIN 0.4 MG (FLOMAX) CAP PO SCH (17:41)
[2021-02-05 18:00] VITALS: BP 168/87
[2021-02-05 18:38] LABS: CHLORIDE 91 MMOL/L (98-107); POTASSIUM 4.7 MMOL/L (3.6-5.0); SODIUM 126 MMOL/L (135-145)
[2021-02-05 18:39] LABS: CALCIUM 8.1 MG/DL (8.5-10.1); GLUCOSE 108 MG/DL (70-105)
[2021-02-05 18:41] LABS: CARBON DIOXIDE 27 MMOL/L (21-32)
[2021-02-05 18:43] LABS: CREATININE SERUM 0.75 MG/DL (0.60-1.30); GFR ESTIMATED > 60
[2021-02-05 18:44] LABS: BUN/CREATININE RATIO 31
[2021-02-05] MEDS: polyethylene glycoL POWDER 17 GM (MIRALAX) PACK PO SCH (19:46)
[2021-02-05] MEDS: ENOXAPARIN 40 MG/0.4 ML (LOVENOX) SYR SC SCH (19:46)
[2021-02-06] MEDS: NS IV 1000 ML 1,000 ML IV SCH ×2 (02:30→13:06)
[2021-02-06 04:31] LABS: CHLORIDE 96 MMOL/L (98-107)
[2021-02-06 04:32] LABS: POTASSIUM 4.3 MMOL/L (3.6-5.0); SODIUM 131 MMOL/L (135-145)
[2021-02-06 04:33] LABS: GLUCOSE 113 MG/DL (70-105)
[2021-02-06 04:35] LABS: CARBON DIOXIDE 25 MMOL/L (21-32)
[2021-02-06 04:37] LABS: CREATININE SERUM 0.72 MG/DL (0.60-1.30); GFR ESTIMATED > 60
[2021-02-06 04:38] LABS: BUN/CREATININE RATIO 29
[2021-02-06 05:58] VITALS: BP 130/73
--- NOTE | 2021-02-06 08:48 | Progress Note ---
Subjective Subjective Date Seen by Provider: Feb 06, 2021 Time Seen by Provider: 08:50 PT REPORTS THAT HE WOULD LIKE HIS CO2 MONITOR REMOVED AND SOME OF THE IV'S REMOVED WELL. HE REPORTS THAT HIS STOOLING HAS IMPROVED AND HE HAS BEEN ABLE TO SIT ON THE TOILET WITHOUT MUCH PAIN. 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 HE WOULD LIKE TO KEEP HIS CARBONE FOR ANOTHER DAY OR SO. THEY REPORT THAT DR. BOYD TALKED ABOUT REMOVING THE TAX SERVICES SPECIALIST AND STARTING HIM ON ORAL PAIN MEDICATION TODAY OR TOMORROW. Review of Systems General: No Chills, No Night Sweats HEENT: No Head Aches Pulmonary: No Dyspnea, No Cough Cardiovascular: No: Chest Pain, Palpitations Gastrointestinal: No: Nausea, Vomiting, Abdominal Pain Genitourinary: No Dysuria Musculoskeletal: other (left hip pain), back pain Neurological: Weakness All Other Systems Reviewed All Other Systems Reviewed: Yes Objective Exam Vital Signs Vital Signs - First Documented 02/02/21 02/02/21 02/02/21 12:39 13:07 17:28 Temp 36.3 Pulse 73 Resp 18 B/P (MAP) 137/74 (95) Pulse Ox 98 O2 Delivery Room Air Capillary Refill : General Appearance: No Apparent Distress, WD/WN HEENT: PERRL/EOMI, Other (NODULAR LESION LEFT NASAL BRIDGE NEAR EYE) Respiratory: Chest Non Tender, Lungs Clear, Normal Breath Sounds, No Accessory Muscle Use, No Respiratory Distress Cardiovascular: Regular Rate, Rhythm, Normal Peripheral Pulses Gastrointestinal: Normal Bowel Sounds, No Organomegaly, No Pulsatile Mass, Non Tender, Soft Rectal: Deferred Extremity: Normal Capillary Refill, Normal Inspection, Non Tender, No Calf Tenderness, Pedal Edema (trace) Neurologic/Psychiatric: Alert, Oriented x3, No Motor/Sensory Deficits, Normal Mood/Affect Skin: Warm/Dry Lymphatic: No Adenopathy Results Lab Laboratory Tests 02/05/21 18:11: Sodium Level 126L, Potassium Level 4.7, Chloride Level 91L, Carbon Dioxide Level 27, Anion Gap 8, Blood Urea Nitrogen 23H, Creatinine 0.75, Estimat Glomerular Filtration Rate > 60, BUN/Creatinine Ratio 31, Glucose Level 108H, Calcium Level 8.1L 02/06/21 04:05: Sodium Level 131L, Potassium Level 4.3, Chloride Level 96L, Carbon Dioxide Level 25, Anion Gap 10, Blood Urea Nitrogen 21H, Creatinine 0.72, Estimat Glomerular Filtration Rate > 60, BUN/Creatinine Ratio 29, Glucose Level 113H, Calcium Level 8.0L Assessment/Plan Assessment/Plan Admission Dx RENAL CELL CARCINOMA STATUS POST LEFT NEPHRECTOMY 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 BOYD - ONC AND DR. CABRERA - RAD ONC - INITIALLY ON THE DAY OF ADMISSION DR. BOYD WAS PLANNING ON SENDING PT TO WHERE HE HAS BEEN TREATED FOR RENAL CELL CA, HOWEVER, THE UROLOGIST AT [facility] NFORMED US THAT THEY WOULD NOT RECOMMEND A BIOPSY OF THE SPINE, INSTEAD WOULD RECOMMEND STEROIDS, RADIATION AND BIOPSY OF ILIAC BONE. - DECISION WAS THEN MADE TO KEEP GABY HERE IN [place] FOR RADIATION AND BIOPSY. - PT IS STATUS POST BIOPSY - VERBAL REPORT FROM PATHOLOGY - THE BIOPSY REVEALED METASTATIC RENAL CELL CARCINOMA - NEXT STEP WILL BE KYPHOPLASTY AFTER HE HAS COMPLETED RADIATION THERAPY TO HIS SPINE - PT WAS STARTED ON RADIATION THERAPY ON 02/01/21 -TOTAL NUMBER OF TREATMENTS TO BE DETERMINED BY DR. CABRERA CT CHEST/ABDOMEN/PELVIS W 01/26/21 PROCEDURE: CT chest, abdomen, and pelvis with contrast. INDICATION: Renal cell carcinoma. COMPARISON: Correlation is made with prior CT from 04/18/2020. CT CHEST: No axillary, hilar, or mediastinal lymphadenopathy is detected. No pericardial or pleural fluid is detected. No definite pulmonary masses are seen. Minimal nodularity along the major fissures bilaterally appears similar to prior exam. There is a sclerotic lesion within the T9 vertebral body, similar to prior exam and indeterminate. No osteolytic lesions are seen. IMPRESSION: 1. No evidence of thoracic lymphadenopathy or pulmonary metastatic disease. CT ABDOMEN AND PELVIS: Tiny low densities in the left lobe of the liver are noted, too small to characterize but perhaps small cysts. No other liver masses are seen. Gallbladder is unremarkable. There is no biliary ductal dilatation. The pancreas and spleen are unremarkable. No adrenal mass is detected. Left kidney is now surgically absent. Right kidney is unremarkable. Aorta is heavily calcified but nonaneurysmal. No central retroperitoneal or mesenteric lymphadenopathy is seen. Small and large bowel loops are normal in caliber. There is diverticulosis of the sigmoid but no evidence of acute diverticulitis. Bladder is unremarkable. There is a fat-containing left inguinal hernia. No definite inguinal or iliac lymphadenopathy is detected. There appears to be an acute compression fracture involving the L5 vertebral body, new since prior CT. There are areas of sclerosis within the L5 vertebral body and this may be a pathologic fracture. There is a new area of sclerosis in the right iliac bone, also suspicious for a metastatic lesion. Remainder of the lumbar vertebrae are unremarkable. IMPRESSION: 1. No evidence of abdominal or pelvic lymphadenopathy. 2. L5 compression fracture, likely pathologic. This would likely be amenable to kyphoplasty with core biopsy. No definite retropulsion of fracture fragments is identified. 3. Sclerotic lesion in the right iliac bone, consistent with metastatic lesion. HYPERTENSION - RESUMED HOME REGIMEN - BP STABLE, MONITOR, ADDITIONAL AGENTS IF NEEDED BPH - RESUMED HOME REGIMEN - FLOMAX AND PROSCAR SEVERE BACK PAIN - STARTED TAX SERVICES SPECIALIST PUMP FOR PT CONTROL OF PAIN - PT TO BE TRANSITIONED TO ORAL EXTENDED RELEASE MORPHINE AT 15MG BID WITH PRN MORPHINE VIA TAX SERVICES SPECIALIST, AND WILL THEN MONITOR SYMPTOMS AND PAIN CONTROL. LEFT HIP PAIN - PAIN CONTROL WITH MORPHINE, HYPONATREMIA - PT ON IV FLUIDS, MONITOR SODIUM LEVELS, GATORADE/POWERADE WITH MEALS CONSTIPATION - DULCOLAX PO, PRN MIRALAX CHANGED TO SCHEDULED AT [facility] - STARTED PT ON RELISTOR ON 02/01/2021 HEMORRHOIDS - RX FOR PROTOCORT AND PRN DULCOLAX WEAKNESS WITH GAIT INSTABILITY - [facility] LEFT HEEL PAIN - RX FOR VOLTAREN GEL TO HEEL CARBONE PLACED FOR COMFORT, TO AIDE PAIN CONTROL SO PT DOES NOT HAVE TO GET UP TO URINATE OR ROLL TO THE SIDE TO URINATE. LOVENOX AND SCD'S FOR DVT PROPHYLAXIS GI PROPHYLAXIS WITH PEPCID. Admission Dx RENAL CELL CARCINOMA STATUS POST LEFT NEPHRECTOMY RENAL CELL CARCINOMA METASTATIC LESIONS TO SPINE AND ILIAC BONE AND SACRUM HYPERTENSION BPH SEVERE BACK PAIN LEFT HIP PAIN HYPONATREMIA CONSTIPATION HEMORRHOIDS WEAKNESS LEFT HEEL PAIN Clinical Quality Measures Admission Status Admission Dx RENAL CELL CARCINOMA STATUS POST LEFT NEPHRECTOMY RENAL CELL CARCINOMA METASTATIC LESIONS TO SPINE AND ILIAC BONE AND SACRUM HYPERTENSION BPH SEVERE BACK PAIN LEFT HIP PAIN HYPONATREMIA CONSTIPATION HEMORRHOIDS WEAKNESS LEFT HEEL PAIN KALI ORO MD Feb 06, 2021 08:48
[2021-02-06] MEDS: amLODIPine 5 MG (NORVASC) TAB PO SCH (08:49)
[2021-02-06] MEDS: meTOprolol TARTRATE 25 MG (LOPRESSOR) TABLET PO SCH ×2 (08:49→20:59)
[2021-02-06] MEDS: SENNA W/DOCUSATE (SENOKOT S) TABLET PO SCH (08:50)
[2021-02-06] MEDS: DOCUSATE SODIUM 100 MG (COLACE) CAP PO SCH ×2 (08:50→20:58)
[2021-02-06] MEDS: PANTOPRAZOLE 40 MG (PROTONIX) TAB PO SCH (08:50)
[2021-02-06] MEDS: SODIUM CHLORIDE 1 GM TABLET PO SCH ×2 (08:50→20:58)
[2021-02-06] MEDS: DICLOFENAC 1% GEL 100 GM (VOLTAREN) TUBE TOP SCH ×4 (08:51→21:00)
--- NOTE | 2021-02-06 10:27 | Occupational Ther Daily Note ---
OT Current Status-Daily Note Subjective Pt laying in bed, 2 family members present. Pt agreeable to OT tx. Denies pain while seated. Mental Status/Objective Patient Orientation: Person, Place, Time, Situation ADL-Treatment Therapy Code Descriptions/Definitions Functional [place] Measure: 0=Not Assessed/NA 4=Minimal Assistance 1=Total Assistance 5=Supervision or Setup 2=Maximal Assistance 6=Modified [place] 3=Moderate Assistance 7=Complete IndependenceSCALE: Activities may be completed with or without assistive devices. 0-Emfkigmhvo-utzxwlo completes the activity by him/herself with no assistance from a helper. 5-Set-up or Clean-up Assistance-helper sets up or cleans up; patient completes activity. [place] assists only prior to or following the activity. 4-Supervision or Touching Assistance-helper provides verbal cues and/or touching/steadying and/or contact guard assistance as patient completes activity. Assistance may be provided throughout the activity or intermittently. 3-Partial/Moderate Assistance-helper does LESS THAN HALF the effort. [place] lifts, holds or supports trunk or limbs, but provides less than half the effort. 2-Substantial/Maximal Assistance-helper does MORE THAN HALF the effort. [place] lifts or holds trunk or limbs and provides more than half the effort. 8-Mfpgsttvy-hiibcz does ALL the effort. Patient does none of the effort to complete the activity. Or, the assistance of 2 or more helpers is required for the patient to complete the activity. If activity was not attempted, code reason: 7-Patient Refused. 9-Not Applicable-not attempted and the patient did not perform the activity before the current illness, exacerbation or injury. 10-Not Attempted due to Environmental Limitations-(lack of equipment, weather restraints, etc.). 88-Not Attempted due to Medical Conditions or Safety Concerns. Eating (QC): 6 (Per pt report) Oral Hygiene (QC): 5 (based on clincial judgement, pt would require set up assist at bed level.) Shower/Bathe Self (QC): 3 (based on pt and spouse information, mod A.) Upper Body Dressing (QC): 88 (not attempted due to pt's pain and no OOB activity per doctor) Lower Body Dressing (QC): 88 (not attempted due to pt's pain and no OOB activity per doctor) On/Off Footwear: 2 (per pt and spouse report) Toileting Hygiene (QC): 88 (not attempted due to pt's pain and no OOB activity per doctor) Toilet Transfer (QC): 88 (not attempted due to pt's pain and no OOB activity per doctor) Other Treatment Pt laying in bed, agreeable to OT Tx. OT educated pt and family on DME/AE r ecommendations. Pt's family has already purchased an extended bath bench for pt. OT educates pt on long handled sponge to wash LEs, in order to conserve energy and decrease bending/twisting required for task in order to decrease pain. OT discusses BSC for pt if pt does not have energy to ambulate into bathroom. Pt's family indicate they are having GBs installed in shower and possibly by toilet. OT educated family on using BSC over toilet as another option, they verbalize understanding. Pt and family state no concerns wtih ability to complete ADLs at home. In order to increase BUE strength and activity tolerance, pt completed 5/5 UE exercises using moderate resistance theraband, x10 reps each (x10 reps AROM R shoulder flexion due to limited shoulder movement and weakness, pt unable to complete shoulder flexion using theraband.) OT provided pt with light resistance theraband for RUE shoulder flexion, pt still had difficulty with movement, instructed to continue AROM and progress towards light resistance band. Post tx, pt laying in bed, call light in reach and all needs met. Education OT Patient Education: Correct positioning, Modified ADL techniques, Progress toward Goal/Update tx plan, Purpose of tx/functional activities Teaching Recipient: Patient Teaching Methods: Discussion Response to Teaching: Verbalize Understanding OT Correction Goals Intervention Nurse Goals Time Frame: Feb 23, 2021 Eating (QC): 6 Oral Hygiene (QC): 6 Toileting Hygiene (QC): 4 Shower/Bathe Self (QC): 4 Upper Body Dressing (QC): 5 Lower Body Dressing (QC): 3 On/Off Footwear (QC): 3 Additional Goals: 1-Demonstrate ADL Tasks, 2-Verbalize Understanding, 3- ImproveStrength/Sameer 1=Demonstrate adherence to instructed precautions during ADL tasks. 2=Patient will verbalize/demonstrate understanding of assistive devices/modifications for ADL. 3=Patient will improve strength/tolerance for activity to enable patient to perform ADL's. OT Education/Plan Problem List/Assessment Assessment: Decreased Activ Tolerance, Decreased UE Strength, Impaired Bed Mobility, Impaired Funct Balance, Impaired I ADL's, Impaired Self-Care Skills Pt would benefit from skilled OT services in order to increase BUE strength and activity tolerance, and increase safety and independence with ADLs in order to maximize LOF for safe return home. Discharge Recommendations Plan/Recommendations: Continue POC Treatment Plan/Plan of Care Patient would benefit from OT for education, treatment and training to promote independence in ADL's, mobility, safety and/or upper extremity function for ADL's. Plan of Care: ADL Retraining, Functional Mobility, UE Funct Exercise/Act Treatment Duration: Feb 23, 2021 Frequency: 5 times per week Estimated Hrs Per Day: .25 hour per day Agreement: Yes Rehab Potential: Fair Time/GCodes Start Time: 09:35 Stop Time: 09:55 Total Time Billed (hr/min): 20 Billed Treatment Time 1, EX [place] RUBIN OT Feb 06, 2021 10:27
--- NOTE | 2021-02-06 12:25 | Physical Therapy Daily Note ---
PT Daily Note-Current Subjective Pt denies pain. Pt up in chair, just finished a shower. Pt agreeable to ther ex in recliner. Daughter present and inquires about home evaluation. Discussed home equipment for pt including: hospital bed, bedside commode, urinal, shower chair and installing a bar near toilet in bathroom. Pt daughter has on order a shower chair and hand held shower. Pt daughter had hand rail installed for steps to enter home. Pt daughter plans to video the bathroom to show therapist for suggestions on bar placement. Home health will be ordered once pt DC'd per daughter. Mental Status Patient Orientation: Person, Place, Situation Transfers SCALE: Activities may be completed with or without assistive devices. 2-Ccbohkdkhk-aotaqlg completes the activity by him/herself with no assistance from a helper. 5-Set-up or Clean-up Assistance-helper sets up or cleans up; patient completes activity. [place] assists only prior to or following the activity. 4-Supervision or Touching Assistance-helper provides verbal cues and/or touching/steadying and/or contact guard assistance as patient completes activity. Assistance may be provided throughout the activity or intermittently. 3-Partial/Moderate Assistance-helper does LESS THAN HALF the effort. [place] lifts, holds or supports trunk or limbs, but provides less than half the effort. 2-Substantial/Maximal Assistance-helper does MORE THAN HALF the effort. [place] lifts or holds trunk or limbs and provides more than half the effort. 9-Wtbychffo-lcfdoo does ALL the effort. Patient does none of the effort to complete the activity. Or, the assistance of 2 or more helpers is required for the patient to complete the activity. If activity was not attempted, code reason: 7-Patient Refused. 9-Not Applicable-not attempted and the patient did not perform the activity before the current illness, exacerbation or injury. 10-Not Attempted due to Environmental Limitations-(lack of equipment, weather restraints, etc.). 88-Not Attempted due to Medical Conditions or Safety Concerns. Exercises Supine Ex: Heel Slides, Hip abd/add Supine Reps: 20 Seated Therapy Exercises: Ankle pumps, Long arc quads, Hip flexion Seated Reps: 20 Assessment Current Status: Good Progress Pt humberto above well without increase in pain per pt. Pt resting with call light and all needs met. Pt family education: discussed best options for hospital bed and commode placement and Bathroom situation at home. Pt and pt family verbalized agreement. All needs met. PT Technology Sales Specialist Goals Senior Living Goals PT Technology Sales Specialist Goals Time Frame: Feb 23, 2021 Roll Left & Right (QC): 4 Sit to Lying (QC): 4 Lying-Sitting on Side/Bed(QC): 4 Sit to Stand (QC): 4 Chair/Rfp-ij-Ihbea Xfer(QC): 4 Toilet Transfer (QC): 4 Car Transfer (QC): 4 Does the Patient Walk: Yes Walk 10 feet (QC): 4 Walk 50ft with 2 Turns (QC): 4 Walk 150 ft (QC): 4 Walking 10ft on Uneven Surface: 4 1 Step (curb) (QC): 4 4 Steps (QC): 9 12 Steps (QC): 9 Picking up an Object (QC): 5 (modified) Wheel 50 feet with 2 turns (QC: 9 Wheel 150 feet: 9 PT Plan Treatment/Plan Treatment Plan: Continue Plan of Care Treatment Plan: Bed Mobility, Education, Functional Activity Sameer, Functional Strength, Gait, Safety, Therapeutic Exercise, Transfers Treatment Duration: Feb 23, 2021 Frequency: 6 times per week Estimated Hrs Per Day: .25 hour per day Patient and/or Family Agrees t: Yes Time/GCodes Time In: 1100 Time Out: 1120 Total Billed Treatment Time: 20 Total Billed Treatment 1, ther ex 20' LIZ TAYLOR CPTA Feb 06, 2021 12:25
[2021-02-06 17:01] VITALS: BP 135/72
[2021-02-06] MEDS: TAMSULOSIN 0.4 MG (FLOMAX) CAP PO SCH (17:05)
[2021-02-06] MEDS: FINASTERIDE (PROSCAR) 5 MG TAB PO SCH (17:05)
--- NOTE | 2021-02-06 19:06 | Progress Note ---
Standard Progress Note Progress Notes/Assess & Plan Date Seen by a Provider: Feb 06, 2021 Time Seen by a Provider: 19:03 Progress/Assessment & Plan 80-year-old male admitted with intractable low back pain with MRI showing L5 lesion with compression fracture as well as sacral and pelvic lesions. Patient has previous history of renal cancer status post nephrectomy in 2019. 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 Started on palliative radiation last . Currently on morphine TRAFFIC DIVISION COMMANDING OFFICER at 1 mg/h continuous infusion with as needed boluses. Pain under good control. He is able to walk into the restroom with a walker and sit in the chair for short periods of time. He is starting on long-acting oral pain medications today with the continuous infusion by TRAFFIC DIVISION COMMANDING OFFICER scheduled to be stopped tomorrow morning. Continue as needed boluses and titrate dose as needed. Continue physical therapy and start ambulating more as tolerated. Currently on dexamethasone 4 mg twice daily and will continue this for a few days before changing this to daily. Will consider discontinuing Helms catheter tomorrow morning. Continue daily radiation therapy. Will discuss systemic therapy for metastatic renal cell carcinoma once radiation is completed and patient is stable. Will follow patient with you. NADIA BOYD Feb 06, 2021 19:06
[2021-02-06] MEDS: polyethylene glycoL POWDER 17 GM (MIRALAX) PACK PO SCH (20:58)
[2021-02-06] MEDS: ENOXAPARIN 40 MG/0.4 ML (LOVENOX) SYR SC SCH (20:59)
[2021-02-06] MEDS: morphine ER 15 MG (MS CONTIN) TAB PO SCH (20:59)
[2021-02-07 04:24] LABS: BASOPHILS % (AUTO) 0 % (0-10); EOSINOPHILS % (AUTO) 0 % (0-10); HEMATOCRIT 36 % (40-54); HEMOGLOBIN 11.7 g/dL (13.3-17.7); LYMPHOCYTES # (AUTO) 0.6 10^3/uL (1.0-4.0); LYMPHOCYTES % (AUTO) 6 % (12-44); MEAN CORPUSCULAR HEMOGLOBIN 27 pg (25-34); MEAN CORPUSCULAR HGB CONC 33 g/dL (32-36); MEAN CORPUSCULAR VOLUME 83 fL (80-99); MEAN PLATELET VOLUME 11.5 fL (9.0-12.2); MONOCYTES # (AUTO) 0.8 10^3/uL (0.0-1.0); MONOCYTES % (AUTO) 8 % (0-12); NEUTROPHILS # (AUTO) 8.4 10^3/uL (1.8-7.8); NEUTROPHILS % (AUTO) 85 % (42-75); PLATELET COUNT 187 10^3/uL (130-400); WHITE BLOOD COUNT 9.9 10^3/uL (4.3-11.0)
[2021-02-07 04:40] LABS: CHLORIDE 94 MMOL/L (98-107)
[2021-02-07 04:41] LABS: POTASSIUM 4.5 MMOL/L (3.6-5.0); SODIUM 129 MMOL/L (135-145)
[2021-02-07 04:42] LABS: CALCIUM 8.4 MG/DL (8.5-10.1); GLUCOSE 102 MG/DL (70-105)
[2021-02-07 04:44] LABS: CARBON DIOXIDE 27 MMOL/L (21-32); LYMPHOCYTES % (MANUAL) 10 %; MONOCYTES % (MANUAL) 6 %; NEUTROPHILS % (MANUAL) 84 %; RBC MORPH NORMAL
[2021-02-07 04:46] LABS: CREATININE SERUM 0.74 MG/DL (0.60-1.30); GFR ESTIMATED > 60
[2021-02-07 04:47] LABS: BUN/CREATININE RATIO 31
[2021-02-07 06:00] VITALS: BP 155/72
[2021-02-07] MEDS: morphine PCA 100 MG/100 ML BAG IV PRN (06:57)
[2021-02-07] MEDS: METHYLNALTREXONE 12 MG/0.6 ML (RELISTOR) VIAL SQ SCH (08:08)
[2021-02-07] MEDS: DOCUSATE SODIUM 100 MG (COLACE) CAP PO SCH ×2 (08:08→21:06)
[2021-02-07] MEDS: morphine ER 15 MG (MS CONTIN) TAB PO SCH ×2 (08:08→21:05)
[2021-02-07] MEDS: SENNA W/DOCUSATE (SENOKOT S) TABLET PO SCH (08:09)
[2021-02-07] MEDS: amLODIPine 5 MG (NORVASC) TAB PO SCH (08:09)
[2021-02-07] MEDS: PANTOPRAZOLE 40 MG (PROTONIX) TAB PO SCH (08:09)
[2021-02-07] MEDS: meTOprolol TARTRATE 25 MG (LOPRESSOR) TABLET PO SCH ×2 (08:09→21:06)
[2021-02-07] MEDS: SODIUM CHLORIDE 1 GM TABLET PO SCH ×2 (08:09→21:05)
[2021-02-07] MEDS: DICLOFENAC 1% GEL 100 GM (VOLTAREN) TUBE TOP SCH ×5 (08:10→21:54)
--- NOTE | 2021-02-07 08:40 | Progress Note ---
Subjective Subjective Date Seen by Provider: Feb 07, 2021 Time Seen by Provider: 08:30 PT REPORTS THAT HE IS STILL HAVING SOME BACK PAIN, LESS THAN ON ADMISSION. FAMILY REPORTS THAT THEY WERE TOLD HE WOULD BE ABLE TO GO OFF OF TAFFY PULLER SOON. HE DENIES ABDOMINAL PAIN, NAUSEA, CHEST PAIN, SHORTNESS OF BREATH Review of Systems General: No Chills, No Night Sweats HEENT: No Head Aches Pulmonary: No Dyspnea, No Cough Cardiovascular: No: Chest Pain, Palpitations Gastrointestinal: No: Nausea, Vomiting, Abdominal Pain Genitourinary: No Dysuria Musculoskeletal: other (left hip pain), back pain Neurological: Weakness All Other Systems Reviewed All Other Systems Reviewed: Yes Objective Exam Vital Signs Vital Signs - First Documented 02/02/21 02/02/21 02/02/21 12:39 13:07 17:28 Temp 36.3 Pulse 73 Resp 18 B/P (MAP) 137/74 (95) Pulse Ox 98 O2 Delivery Room Air Capillary Refill : General Appearance: No Apparent Distress, WD/WN HEENT: PERRL/EOMI, Other (NODULAR LESION LEFT NASAL BRIDGE NEAR EYE) Respiratory: Chest Non Tender, Lungs Clear, Normal Breath Sounds, No Accessory Muscle Use, No Respiratory Distress Cardiovascular: Regular Rate, Rhythm, Normal Peripheral Pulses Gastrointestinal: Normal Bowel Sounds, No Organomegaly, No Pulsatile Mass, Non Tender, Soft Rectal: Deferred Extremity: Normal Capillary Refill, Normal Inspection, Non Tender, No Calf Tenderness, Pedal Edema (trace) Neurologic/Psychiatric: Alert, Oriented x3, No Motor/Sensory Deficits, Normal Mood/Affect Skin: Warm/Dry Lymphatic: No Adenopathy Results Lab Laboratory Tests 02/07/21 03:52: White Blood Count 9.9, Red Blood Count 4.33, Hemoglobin 11.7L, Hematocrit 36L, Mean Corpuscular Volume 83, Mean Corpuscular Hemoglobin 27, Mean Corpuscular Hemoglobin Concent 33, Red Cell Distribution Width 14.6H, Platelet Count 187, Mean Platelet Volume 11.5, Immature Granulocyte % (Auto) 1, Neutrophils (%) (Auto) 85H, Lymphocytes (%) (Auto) 6L, Monocytes (%) (Auto) 8, Eosinophils (%) (Auto) 0, Basophils (%) (Auto) 0, Neutrophils # (Auto) 8.4H, Lymphocytes # (Auto) 0.6L, Monocytes # (Auto) 0.8, Eosinophils # (Auto) 0.0, Basophils # (Auto) 0.0, Immature Granulocyte # (Auto) 0.1, Neutrophils % (Manual) 84, Lymphocytes % (Manual) 10, Monocytes % (Manual) 6, Blood Morphology Comment NORMAL, Sodium Level 129L, Potassium Level 4.5, Chloride Level 94L, Carbon Dioxide Level 27, Anion Gap 8, Blood Urea Nitrogen 23H, Creatinine 0.74, Estimat Glomerular Filtration Rate > 60, BUN/Creatinine Ratio 31, Glucose Level 102, Calcium Level 8.4L Assessment/Plan Assessment/Plan Admission Dx RENAL CELL CARCINOMA STATUS POST LEFT NEPHRECTOMY 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 BOYD - ONC AND DR. CABRERA - RAD ONC - INITIALLY ON THE DAY OF ADMISSION DR. BOYD WAS PLANNING ON SENDING PT TO WHERE HE HAS BEEN TREATED FOR RENAL CELL CA, HOWEVER, THE UROLOGIST AT INFORMED US THAT THEY WOULD NOT RECOMMEND A BIOPSY OF THE SPINE, INSTEAD WOULD RECOMMEND STEROIDS, RADIATION AND BIOPSY OF ILIAC BONE. - DECISION WAS THEN MADE TO KEEP GABY HERE IN [place] FOR RADIATION AND BIOPSY. - PT IS STATUS POST BIOPSY - VERBAL REPORT FROM PATHOLOGY - THE BIOPSY REVEALED METASTATIC RENAL CELL CARCINOMA - NEXT STEP WILL BE KYPHOPLASTY AFTER HE HAS COMPLETED RADIATION THERAPY TO HIS SPINE - PT WAS STARTED ON RADIATION THERAPY ON 02/01/21 -TOTAL NUMBER OF TREATMENTS TO BE DETERMINED BY DR. CABRERA CT CHEST/ABDOMEN/PELVIS W 01/26/21 COMPARISON: Correlation is made with prior CT from 04/18/2020. CT CHEST IMPRESSION: 1. No evidence of thoracic lymphadenopathy or pulmonary metastatic disease. CT ABDOMEN AND PELVIS IMPRESSION: 1. No evidence of abdominal or pelvic lymphadenopathy. 2. L5 compression fracture, likely pathologic. This would likely be amenable to kyphoplasty with core biopsy. No definite retropulsion of fracture fragments is identified. 3. Sclerotic lesion in the right iliac bone, consistent with metastatic lesion. HYPERTENSION - RESUMED HOME REGIMEN - BP STABLE, MONITOR, ADDITIONAL AGENTS IF NEEDED BPH - RESUMED HOME REGIMEN - FLOMAX AND PROSCAR SEVERE BACK PAIN - STARTED TAFFY PULLER PUMP FOR PT CONTROL OF PAIN - PT TO BE TRANSITIONED TO ORAL EXTENDED RELEASE MORPHINE AT 15MG BID WITH PRN MORPHINE VIA TAFFY PULLER, AND WILL THEN MONITOR SYMPTOMS AND PAIN CONTROL. LEFT HIP PAIN - PAIN CONTROL WITH MORPHINE, HYPONATREMIA - PT ON IV FLUIDS, MONITOR SODIUM LEVELS, GATORADE/POWERADE WITH MEALS CONSTIPATION - DULCOLAX PO, PRN MIRALAX CHANGED TO SCHEDULED AT HS - STARTED PT ON RELISTOR ON 02/01/2021 HEMORRHOIDS - RX FOR PROTOCORT AND PRN DULCOLAX WEAKNESS WITH GAIT INSTABILITY - [facility]VANCE PHYSICAL THERAPY LEFT HEEL PAIN - RX FOR VOLTAREN GEL TO HEEL CARBONE PLACED FOR COMFORT, TO AIDE PAIN CONTROL SO PT DOES NOT HAVE TO GET UP TO URINATE OR ROLL TO THE SIDE TO URINATE - WITH HIS PAIN IMPROVING HE WILL EVENTUALLY HAVE THE CARBONE REMOVED. LOVENOX AND SCD'S FOR DVT PROPHYLAXIS GI PROPHYLAXIS WITH PEPCID. Admission Dx RENAL CELL CARCINOMA STATUS POST LEFT NEPHRECTOMY RENAL CELL CARCINOMA METASTATIC LESIONS TO SPINE AND ILIAC BONE AND SACRUM HYPERTENSION BPH SEVERE BACK PAIN LEFT HIP PAIN HYPONATREMIA CONSTIPATION HEMORRHOIDS WEAKNESS LEFT HEEL PAIN Clinical Quality Measures Admission Status Admission Dx RENAL CELL CARCINOMA STATUS POST LEFT NEPHRECTOMY RENAL CELL CARCINOMA METASTATIC LESIONS TO SPINE AND ILIAC BONE AND SACRUM HYPERTENSION BPH SEVERE BACK PAIN LEFT HIP PAIN HYPONATREMIA CONSTIPATION HEMORRHOIDS WEAKNESS LEFT HEEL PAIN KALI ORO MD Feb 07, 2021 08:40
[2021-02-07] MEDS ORDERED: SODIUM CHLORIDE 1 GM TABLET PO SCH (09:30)
--- NOTE | 2021-02-07 09:54 | Physical Therapy Daily Note ---
PT Daily Note-Current Subjective Patient agrees to PT. Mental Status Patient Orientation: Person, Time, Situation Attachments: Helms Catheter, IV Transfers SCALE: Activities may be completed with or without assistive devices. 2-Ozsjlofvzs-liybyuq completes the activity by him/herself with no assistance from a helper. 5-Set-up or Clean-up Assistance-helper sets up or cleans up; patient completes activity. [place] assists only prior to or following the activity. 4-Supervision or Touching Assistance-helper provides verbal cues and/or touching/steadying and/or contact guard assistance as patient completes activity. Assistance may be provided throughout the activity or intermittently. 3-Partial/Moderate Assistance-helper does LESS THAN HALF the effort. [place] lifts, holds or supports trunk or limbs, but provides less than half the effort. 2-Substantial/Maximal Assistance-helper does MORE THAN HALF the effort. [place] lifts or holds trunk or limbs and provides more than half the effort. 3-Sqzuicfnz-gjrvwe does ALL the effort. Patient does none of the effort to complete the activity. Or, the assistance of 2 or more helpers is required for the patient to complete the activity. If activity was not attempted, code reason: 7-Patient Refused. 9-Not Applicable-not attempted and the patient did not perform the activity before the current illness, exacerbation or injury. 10-Not Attempted due to Environmental Limitations-(lack of equipment, weather restraints, etc.). 88-Not Attempted due to Medical Conditions or Safety Concerns. Sit to Lying (QC): 6 Sit to Stand (QC): 4 (SBA) Toilet Transfer (QC): 4 (SBA) Gait Training Does the Patient Walk?: Yes Distance: 15' Walk 10 feet (QC): 4 (SBA) Gait Assistive Device: FWW steady, functional gait sequence Exercises Supine Ex: Ankle pumps, Quad Set, Glut sets, Heel Slides, Straight leg raise, Hip abd/add Supine Reps: 15 Assessment Increase in OOB activity per Dr. Bravo. Patient tolerated treatment well and returned to bed with needs met. PT Snf Goals Street Light Repairer Goals PT Snf Goals Time Frame: Feb 23, 2021 Roll Left & Right (QC): 4 Sit to Lying (QC): 4 Lying-Sitting on Side/Bed(QC): 4 Sit to Stand (QC): 4 Chair/Hge-gi-Iovto Xfer(QC): 4 Toilet Transfer (QC): 4 Car Transfer (QC): 4 Does the Patient Walk: Yes Walk 10 feet (QC): 4 Walk 50ft with 2 Turns (QC): 4 Walk 150 ft (QC): 4 Walking 10ft on Uneven Surface: 4 1 Step (curb) (QC): 4 4 Steps (QC): 9 12 Steps (QC): 9 Picking up an Object (QC): 5 (modified) Wheel 50 feet with 2 turns (QC: 9 Wheel 150 feet: 9 PT Plan Treatment/Plan Treatment Plan: Continue Plan of Care Treatment Plan: Bed Mobility, Education, Functional Activity Sameer, Functional Strength, Gait, Safety, Therapeutic Exercise, Transfers Treatment Duration: Feb 23, 2021 Frequency: 6 times per week Estimated Hrs Per Day: .25 hour per day Patient and/or Family Agrees t: Yes Time/GCodes Time In: 905 Time Out: 920 Total Billed Treatment Time: 15 Total Billed Treatment 1 visit EX 15 min JENNIFER ROBLES PT Feb 07, 2021 09:54
--- NOTE | 2021-02-07 11:08 | Physical Therapy Progress Note ---
Therapy Progress Note This note is for 02/06/21. Spoke with Dr. Bravo and she requested PT to initiate light out of bed activity with gait short distances only. Also requested family education on home modifications and DME recommendations for discharge. MELODY JO PT Feb 07, 2021 11:08
--- NOTE | 2021-02-07 13:10 | Occupational Ther Daily Note ---
OT Current Status-Daily Note Subjective Pt in bed, agreeable to OT Tx. Pt does not report any pain while supine. Mental Status/Objective Patient Orientation: Person, Place, Time, Situation ADL-Treatment Therapy Code Descriptions/Definitions Functional [place] Measure: 0=Not Assessed/NA 4=Minimal Assistance 1=Total Assistance 5=Supervision or Setup 2=Maximal Assistance 6=Modified [place] 3=Moderate Assistance 7=Complete IndependenceSCALE: Activities may be completed with or without assistive devices. 5-Izwwkrlpvi-xjnbrkx completes the activity by him/herself with no assistance from a helper. 5-Set-up or Clean-up Assistance-helper sets up or cleans up; patient completes activity. [place] assists only prior to or following the activity. 4-Supervision or Touching Assistance-helper provides verbal cues and/or touching/steadying and/or contact guard assistance as patient completes activity. Assistance may be provided throughout the activity or intermittently. 3-Partial/Moderate Assistance-helper does LESS THAN HALF the effort. [place] lifts, holds or supports trunk or limbs, but provides less than half the effort. 2-Substantial/Maximal Assistance-helper does MORE THAN HALF the effort. [place] lifts or holds trunk or limbs and provides more than half the effort. 9-Eoooutnse-qjcypk does ALL the effort. Patient does none of the effort to complete the activity. Or, the assistance of 2 or more helpers is required for the patient to complete the activity. If activity was not attempted, code reason: 7-Patient Refused. 9-Not Applicable-not attempted and the patient did not perform the activity before the current illness, exacerbation or injury. 10-Not Attempted due to Environmental Limitations-(lack of equipment, weather restraints, etc.). 88-Not Attempted due to Medical Conditions or Safety Concerns. Oral Hygiene (QC): 3 (Per pt report, assisted with task.) Other Treatment Pt laying in bed, agreeable to OT tx. Pt reports UE theraband exercises are going well. OT tx with focus on educating pt on energy conservation principles and modifications for activities, in order to increase safety and independence with daily tasks, he verbalized understanding. OT educated pt on the 3 "P's" of energy conservation, prioritize, plan, posture, and pace. Pt able to recall 4/4 "P's" after education, and indicates he will incorporate techniques when he returns home. Pt provided with written hand out about energy conservation. OT encouraged pt to continue UE exercises with theraband, increasing reps as tolerate. He verbalized understanding, states no questions/concerns about UE exercises. Pt declines ADLs , stating he has already cleaned his teeth (with assistance from ), and does not wish to shower at this time. Post tx, pt laying in bed, call light in reach and all needs met. Education OT Patient Education: Correct positioning, Energy conservation, Modified ADL techniques, Progress toward Goal/Update tx plan, Purpose of tx/functional activities Teaching Recipient: Patient Teaching Methods: Discussion Response to Teaching: Verbalize Understanding OT Resolution Agent Goals Resolution Agent Goals Time Frame: Feb 23, 2021 Eating (QC): 6 Oral Hygiene (QC): 6 Toileting Hygiene (QC): 4 Shower/Bathe Self (QC): 4 Upper Body Dressing (QC): 5 Lower Body Dressing (QC): 3 On/Off Footwear (QC): 3 Additional Goals: 1-Demonstrate ADL Tasks, 2-Verbalize Understanding, 3-ImproveStrength/Sameer 1=Demonstrate adherence to instructed precautions during ADL tasks. 2=Patient will verbalize/demonstrate understanding of assistive devices/modifications for ADL. 3=Patient will improve strength/tolerance for activity to enable patient to perform ADL's. OT Education/Plan Problem List/Assessment Assessment: Decreased Activ Tolerance, Decreased UE Strength, Impaired I ADL's, Impaired Self-Care Skills Pt would benefit from skilled OT services in order to increase BUE strength and activity tolerance, and increase safety and independence with ADLs in order to maximize LOF for safe return home. Discharge Recommendations Plan/Recommendations: Continue POC Treatment Plan/Plan of Care Patient would benefit from OT for education, treatment and training to promote independence in ADL's, mobility, safety and/or upper extremity function for ADL's. Plan of Care: ADL Retraining, Functional Mobility, UE Funct Exercise/Act Treatment Duration: Feb 23, 2021 Frequency: 5 times per week Estimated Hrs Per Day: .25 hour per day Agreement: Yes Rehab Potential: Fair Time/GCodes Start Time: 11:27 Stop Time: 11:42 Total Time Billed (hr/min): 15 Billed Treatment Time 1, AFRICA HORAN OT Feb 07, 2021 13:10
[2021-02-07] MEDS: FINASTERIDE (PROSCAR) 5 MG TAB PO SCH (17:10)
[2021-02-07] MEDS: TAMSULOSIN 0.4 MG (FLOMAX) CAP PO SCH (17:10)
[2021-02-07 18:00] VITALS: BP 118/70
[2021-02-07] MEDS: polyethylene glycoL POWDER 17 GM (MIRALAX) PACK PO SCH (21:06)
[2021-02-07] MEDS: ENOXAPARIN 40 MG/0.4 ML (LOVENOX) SYR SC SCH (21:06)
[2021-02-08] MEDS: NS IV 1000 ML 1,000 ML IV SCH (02:10)
[2021-02-08 06:00] VITALS: BP 154/80
[2021-02-08 06:13] LABS: CHLORIDE 93 MMOL/L (98-107); POTASSIUM 4.4 MMOL/L (3.6-5.0); SODIUM 129 MMOL/L (135-145)
[2021-02-08 06:14] LABS: CALCIUM 8.3 MG/DL (8.5-10.1); GLUCOSE 92 MG/DL (70-105)
[2021-02-08 06:16] LABS: CARBON DIOXIDE 29 MMOL/L (21-32)
[2021-02-08 06:18] LABS: CREATININE SERUM 0.75 MG/DL (0.60-1.30); GFR ESTIMATED > 60
[2021-02-08 06:19] LABS: BUN/CREATININE RATIO 32
[2021-02-08 08:16] VITALS: BP 149/78
[2021-02-08] MEDS: PANTOPRAZOLE 40 MG (PROTONIX) TAB PO SCH (08:27)
[2021-02-08] MEDS: DOCUSATE SODIUM 100 MG (COLACE) CAP PO SCH ×2 (08:27→20:23)
[2021-02-08] MEDS: morphine ER 15 MG (MS CONTIN) TAB PO SCH ×2 (08:27→20:24)
[2021-02-08] MEDS: amLODIPine 5 MG (NORVASC) TAB PO SCH (08:27)
[2021-02-08] MEDS: SODIUM CHLORIDE 1 GM TABLET PO SCH ×2 (08:27→21:26)
[2021-02-08] MEDS: SENNA W/DOCUSATE (SENOKOT S) TABLET PO SCH (08:27)
[2021-02-08] MEDS: meTOprolol TARTRATE 25 MG (LOPRESSOR) TABLET PO SCH ×2 (08:28→20:25)
[2021-02-08] MEDS: DICLOFENAC 1% GEL 100 GM (VOLTAREN) TUBE TOP SCH ×4 (08:29→20:25)
--- NOTE | 2021-02-08 08:49 | Progress Note ---
Subjective Subjective Date Seen by Provider: Feb 08, 2021 Time Seen by Provider: 08:50 PT REPORTS THAT HE IS FEELING MUCH BETTER TODAY - HE WANTS HIS CARBONE OUT TODAY. HE REPORTS THAT HE IS MUCH LESS FATIGUED Review of Systems General: No Chills, No Night Sweats HEENT: No Head Aches Pulmonary: No Dyspnea, No Cough Cardiovascular: No: Chest Pain, Palpitations Gastrointestinal: No: Nausea, Vomiting, Abdominal Pain Genitourinary: No Dysuria Musculoskeletal: other (left hip pain), back pain Neurological: Weakness All Other Systems Reviewed All Other Systems Reviewed: Yes Objective Exam Vital Signs Vital Signs - First Documented 02/02/21 02/02/21 02/02/21 12:39 13:07 17:28 Temp 36.3 Pulse 73 Resp 18 B/P (MAP) 137/74 (95) Pulse Ox 98 O2 Delivery Room Air Capillary Refill : General Appearance: No Apparent Distress, WD/WN HEENT: PERRL/EOMI, Other (NODULAR LESION LEFT NASAL BRIDGE NEAR EYE) Respiratory: Chest Non Tender, Lungs Clear, Normal Breath Sounds, No Accessory Muscle Use, No Respiratory Distress Cardiovascular: Regular Rate, Rhythm, Normal Peripheral Pulses Gastrointestinal: Normal Bowel Sounds, No Organomegaly, No Pulsatile Mass, Non Tender, Soft Rectal: Deferred Extremity: Normal Capillary Refill, Normal Inspection, Non Tender, No Calf Tenderness, Pedal Edema (trace) Neurologic/Psychiatric: Alert, Oriented x3, No Motor/Sensory Deficits, Normal Mood/Affect Skin: Warm/Dry Lymphatic: No Adenopathy Results Lab Laboratory Tests 02/08/21 05:44: Sodium Level 129L, Potassium Level 4.4, Chloride Level 93L, Carbon Dioxide Level 29, Anion Gap 7, Blood Urea Nitrogen 24H, Creatinine 0.75, Estimat Glomerular Filtration Rate > 60, BUN/Creatinine Ratio 32, Glucose Level 92, Calcium Level 8.3L Assessment/Plan Assessment/Plan Admission Dx RENAL CELL CARCINOMA STATUS POST LEFT NEPHRECTOMY 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 BOYD - ONC AND DR. CABRERA - RAD ONC - INITIALLY ON THE DAY OF ADMISSION DR. BOYD WAS PLANNING ON SENDING PT TO WHERE HE HAS BEEN TREATED FOR RENAL CELL CA, HOWEVER, THE UROLOGIST AT INFORMED US THAT THEY WOULD NOT RECOMMEND A BIOPSY OF THE SPINE, INSTEAD WOULD R [employer]COMMEND STEROIDS, RADIATION AND BIOPSY OF ILIAC BONE. - DECISION WAS THEN MADE TO KEEP GABY HERE IN [place] FOR RADIATION AND BIOPSY. - PT IS STATUS POST BIOPSY - VERBAL REPORT FROM PATHOLOGY - THE BIOPSY REVEALED METASTATIC RENAL CELL CARCINOMA - NEXT STEP WILL BE KYPHOPLASTY AFTER HE HAS COMPLETED RADIATION THERAPY TO HIS SPINE - PT WAS STARTED ON RADIATION THERAPY ON 02/01/21 -TOTAL NUMBER OF TREATMENTS TO BE DETERMINED BY DR. CABRERA CT CHEST/ABDOMEN/PELVIS W 01/26/21 COMPARISON: Correlation is made with prior CT from 04/18/2020. CT CHEST IMPRESSION: 1. No evidence of thoracic lymphadenopathy or pulmonary metastatic disease. CT ABDOMEN AND PELVIS IMPRESSION: 1. No evidence of abdominal or pelvic lymphadenopathy. 2. L5 compression fracture, likely pathologic. This would likely be amenable to kyphoplasty with core biopsy. No definite retropulsion of fracture fragments is identified. 3. Sclerotic lesion in the right iliac bone, consistent with metastatic lesion. HYPERTENSION - RESUMED HOME REGIMEN - BP STABLE, MONITOR, ADDITIONAL AGENTS IF NEEDED BPH - RESUMED HOME REGIMEN - FLOMAX AND PROSCAR SEVERE BACK PAIN - PT ON MS CONTIN AT 15MG BID - WILL HAVE PRN OXYCODONE AT 5MG PO QID FOR PRN CONTROL OF PAIN. LEFT HIP PAIN - PAIN CONTROLLED WITH MORPHINE, HYPONATREMIA - PT ON IV FLUIDS, MONITOR SODIUM LEVELS, GATORADE/POWERADE WITH MEALS CONSTIPATION - DULCOLAX PO, PRN MIRALAX CHANGED TO SCHEDULED AT HS - STARTED PT ON RELISTOR ON 02/01/2021 HEMORRHOIDS - RX FOR PROTOCORT AND PRN DULCOLAX WEAKNESS WITH GAIT INSTABILITY - [facility]VANCE PHYSICAL THERAPY LEFT HEEL PAIN - RX FOR VOLTAREN GEL TO HEEL CARBONE TO BE REMOVED TODAY LOVENOX AND SCD'S FOR DVT PROPHYLAXIS GI PROPHYLAXIS WITH PEPCID. Admission Dx RENAL CELL CARCINOMA STATUS POST LEFT NEPHRECTOMY RENAL CELL CARCINOMA METASTATIC LESIONS TO SPINE AND ILIAC BONE AND SACRUM HYPERTENSION BPH SEVERE BACK PAIN LEFT HIP PAIN HYPONATREMIA CONSTIPATION HEMORRHOIDS WEAKNESS LEFT HEEL PAIN Clinical Quality Measures Admission Status Admission Dx RENAL CELL CARCINOMA STATUS POST LEFT NEPHRECTOMY RENAL CELL CARCINOMA METASTATIC LESIONS TO SPINE AND ILIAC BONE AND SACRUM HYPERTENSION BPH SEVERE BACK PAIN LEFT HIP PAIN HYPONATREMIA CONSTIPATION HEMORRHOIDS WEAKNESS LEFT HEEL PAIN KALI ORO MD Feb 08, 2021 08:49
--- NOTE | 2021-02-08 10:29 | Physical Therapy Daily Note ---
PT Daily Note-Current Subjective Patient denies patient and agrees to PT. Mental Status Patient Orientation: Normal For Age Attachments: Helms Catheter, IV Transfers SCALE: Activities may be completed with or without assistive devices. 0-Ddszlqveej-nxnicfx completes the activity by him/herself with no assistance from a helper. 5-Set-up or Clean-up Assistance-helper sets up or cleans up; patient completes activity. [place] assists only prior to or following the activity. 4-Supervision or Touching Assistance-helper provides verbal cues and/or touching/steadying and/or contact guard assistance as patient completes activity. Assistance may be provided throughout the activity or intermittently. 3-Partial/Moderate Assistance-helper does LESS THAN HALF the effort. [place] lifts, holds or supports trunk or limbs, but provides less than half the effort. 2-Substantial/Maximal Assistance-helper does MORE THAN HALF the effort. [place] lifts or holds trunk or limbs and provides more than half the effort. 4-Bfdbfngxt-ebaugk does ALL the effort. Patient does none of the effort to complete the activity. Or, the assistance of 2 or more helpers is required for the patient to complete the activity. If activity was not attempted, code reason: 7-Patient Refused. 9-Not Applicable-not attempted and the patient did not perform the activity before the current illness, exacerbation or injury. 10-Not Attempted due to Environmental Limitations-(lack of equipment, weather restraints, etc.). 88-Not Attempted due to Medical Conditions or Safety Concerns. Lying to Sitting/Side of Bed(Q: 6 Sit to Stand (QC): 6 Gait Training Does the Patient Walk?: Yes Distance: 375' Walk 10 feet (QC): 5 Walk 50 ft with 2 Turns(QC): 5 Walk 150 ft (QC): 5 Gait Assistive Device: FWW Exercises Seated Therapy Exercises: Ankle pumps, Long arc quads Seated Reps: 15 Assessment Patient much improved with gross motor skills and remains seated EOB with spouse present. PT Residential Leasing Agent Goals Intermediate Goals PT Residential Leasing Agent Goals Time Frame: Feb 23, 2021 Roll Left & Right (QC): 4 Sit to Lying (QC): 4 Lying-Sitting on Side/Bed(QC): 4 Sit to Stand (QC): 4 Chair/Dgu-rk-Rcyfa Xfer(QC): 4 Toilet Transfer (QC): 4 Car Transfer (QC): 4 Does the Patient Walk: Yes Walk 10 feet (QC): 4 Walk 50ft with 2 Turns (QC): 4 Walk 150 ft (QC): 4 Walking 10ft on Uneven Surface: 4 1 Step (curb) (QC): 4 4 Steps (QC): 9 12 Steps (QC): 9 Picking up an Object (QC): 5 (modified) Wheel 50 feet with 2 turns (QC: 9 Wheel 150 feet: 9 PT Plan Treatment/Plan Treatment Plan: Continue Plan of Care Treatment Plan: Bed Mobility, Education, Functional Activity Sameer, Functional Strength, Gait, Safety, Therapeutic Exercise, Transfers Treatment Duration: Feb 23, 2021 Frequency: 6 times per week Estimated Hrs Per Day: .25 hour per day Patient and/or Family Agrees t: Yes Time/GCodes Time In: 911 Time Out: 926 Total Billed Treatment Time: 15 Total Billed Treatment 1 visit FA 15 min JENNIFER ROBLES PT Feb 08, 2021 10:29
--- NOTE | 2021-02-08 10:43 | Occupational Ther Daily Note ---
OT Current Status-Daily Note Subjective Pt agreeable to OT tx with focus on UE exercise. Pt and verbalize no questions/concerns with completing ADLs ADL-Treatment Therapy Code Descriptions/Definitions Functional [place] Measure: 0=Not Assessed/NA 4=Minimal Assistance 1=Total Assistance 5=Supervision or Setup 2=Maximal Assistance 6=Modified [place] 3=Moderate Assistance 7=Complete IndependenceSCALE: Activities may be completed with or without assistive devices. 6-Vvcmkjqtab-nqweltn completes the activity by him/herself with no assistance from a helper. 5-Set-up or Clean-up Assistance-helper sets up or cleans up; patient completes activity. [place] assists only prior to or following the activity. 4-Supervision or Touching Assistance-helper provides verbal cues and/or touching/steadying and/or contact guard assistance as patient completes activity. Assistance may be provided throughout the activity or intermittently. 3-Partial/Moderate Assistance-helper does LESS THAN HALF the effort. [place] lifts, holds or supports trunk or limbs, but provides less than half the effort. 2-Substantial/Maximal Assistance-helper does MORE THAN HALF the effort. [place] lifts or holds trunk or limbs and provides more than half the effort. 8-Vjjfwkcdc-ottxrr does ALL the effort. Patient does none of the effort to complete the activity. Or, the assistance of 2 or more helpers is required for the patient to complete the activity. If activity was not attempted, code reason: 7-Patient Refused. 9-Not Applicable-not attempted and the patient did not perform the activity before the current illness, exacerbation or injury. 10-Not Attempted due to Environmental Limitations-(lack of equipment, weather restraints, etc.). 88-Not Attempted due to Medical Conditions or Safety Concerns. Oral Hygiene (QC): 7 (Pt declined at this time) Shower/Bathe Self (QC): 7 (Pt declined at this time, states to prefer after radiation) Toileting Hygiene (QC): 3 (Per pt report, required min A with task) Other Treatment Pt laying in bed, declined ADLs at this time as he would prefer to shower later after radiation. In order to increase BUE Strength and activity tolerance, pt completed x10 reps AROM R shoulder flexion, then x15 reps of the following with moderate resistance theraband: L shoulder flexion, BUE external rotation, BUE horizontal abduction, BUE elbow flexion, BUE elbow extension. Pt took rest breaks as needed, requiring min skilled verbal cues for proper technique. Pt states he tolerated exercises well, and he is increasing reps as tolerated. Pt able to complete x5 reps R shoulder flexion with moderate resistance band, but quickly fatigued. OT encouraged pt to continue AROM for R shoulder, increasing reps to tolerance, he verbalized understanding. Post tx, pt laying in bed, call light in reach and all needs met. Education OT Patient Education: Correct positioning, Exercise program, Home exercise program, Modified ADL techniques, Progress toward Goal/Update tx plan, Purpose of tx/functional activities, Rehab process Teaching Recipient: Patient Teaching Methods: Discussion Response to Teaching: Verbalize Understanding OT Bench Shear Operator Goals Bench Shear Operator Goals Time Frame: Feb 23, 2021 Eating (QC): 6 Oral Hygiene (QC): 6 Toileting Hygiene (QC): 4 Shower/Bathe Self (QC): 4 Upper Body Dressing (QC): 5 Lower Body Dressing (QC): 3 On/Off Footwear (QC): 3 Additional Goals: 1-Demonstrate ADL Tasks, 2-Verbalize Understanding, 3- ImproveStrength/Sameer 1=Demonstrate adherence to instructed precautions during ADL tasks. 2=Patient will verbalize/demonstrate understanding of assistive devices/modifications for ADL. 3=Patient will improve strength/tolerance for activity to enable patient to perform ADL's. OT Education/Plan Problem List/Assessment Assessment: Decreased Activ Tolerance, Decreased UE Strength, Impaired I ADL's, Impaired Self-Care Skills Pt would benefit from skilled OT services in order to increase BUE strength and activity tolerance, and increase safety and independence with ADLs in order to maximize LOF for safe return home. Discharge Recommendations Plan/Recommendations: Continue POC Treatment Plan/Plan of Care Patient would benefit from OT for education, treatment and training to promote independence in ADL's, mobility, safety and/or upper extremity function for ADL's. Plan of Care: ADL Retraining, Functional Mobility, UE Funct Exercise/Act Treatment Duration: Feb 23, 2021 Frequency: 5 times per week Estimated Hrs Per Day: .25 hour per day Agreement: Yes Rehab Potential: Fair Time/GCodes Start Time: 09:56 Stop Time: 10:11 Total Time Billed (hr/min): 15 Billed Treatment Time 1, EX [place] RUBIN OT Feb 08, 2021 10:43
[2021-02-08 11:25] VITALS: BP 149/81
[2021-02-08 15:16] VITALS: BP 159/71
[2021-02-08] MEDS: TAMSULOSIN 0.4 MG (FLOMAX) CAP PO SCH (17:24)
[2021-02-08] MEDS: FINASTERIDE (PROSCAR) 5 MG TAB PO SCH (17:25)
[2021-02-08 19:14] VITALS: BP 129/68
[2021-02-08] MEDS: ENOXAPARIN 40 MG/0.4 ML (LOVENOX) SYR SC SCH (20:24)
[2021-02-08] MEDS: polyethylene glycoL POWDER 17 GM (MIRALAX) PACK PO SCH (20:24)
[2021-02-08 23:51] VITALS: BP 138/67
[2021-02-09 03:34] VITALS: BP 137/78
[2021-02-09 06:21] LABS: CHLORIDE 91 MMOL/L (98-107); SODIUM 129 MMOL/L (135-145)
[2021-02-09 06:22] LABS: CALCIUM 8.7 MG/DL (8.5-10.1); GLUCOSE 97 MG/DL (70-105)
[2021-02-09 06:24] LABS: CARBON DIOXIDE 26 MMOL/L (21-32)
[2021-02-09 06:26] LABS: CREATININE SERUM 0.78 MG/DL (0.60-1.30); GFR ESTIMATED > 60
[2021-02-09 06:27] LABS: BUN/CREATININE RATIO 26
[2021-02-09] MEDS: SENNA W/DOCUSATE (SENOKOT S) TABLET PO SCH (08:02)
[2021-02-09] MEDS: amLODIPine 5 MG (NORVASC) TAB PO SCH (08:03)
[2021-02-09] MEDS: morphine ER 15 MG (MS CONTIN) TAB PO SCH ×2 (08:03→20:35)
[2021-02-09] MEDS: PANTOPRAZOLE 40 MG (PROTONIX) TAB PO SCH (08:03)
[2021-02-09] MEDS: DOCUSATE SODIUM 100 MG (COLACE) CAP PO SCH ×2 (08:03→20:35)
[2021-02-09] MEDS: meTOprolol TARTRATE 25 MG (LOPRESSOR) TABLET PO SCH ×2 (08:03→20:35)
[2021-02-09] MEDS: SODIUM CHLORIDE 1 GM TABLET PO SCH ×2 (08:04→20:36)
[2021-02-09] MEDS: METHYLNALTREXONE 12 MG/0.6 ML (RELISTOR) VIAL SQ SCH (08:04)
[2021-02-09] MEDS: DICLOFENAC 1% GEL 100 GM (VOLTAREN) TUBE TOP SCH ×4 (08:04→20:38)
[2021-02-09 08:10] VITALS: BP 143/82
--- NOTE | 2021-02-09 10:06 | Progress Note ---
Subjective Subjective Date Seen by Provider: Feb 09, 2021 Time Seen by Provider: 10:00 PT REPORTS THAT HE IS FEELING BETTER TODAY. HE DENIES CONSTIPATION HE DENIES CHEST PAIN, SHORTNESS OF BREATH. Review of Systems General: No Chills, No Night Sweats HEENT: No Head Aches Pulmonary: No Dyspnea, No Cough Cardiovascular: No: Chest Pain, Palpitations Gastrointestinal: No: Nausea, Vomiting, Abdominal Pain Genitourinary: No Dysuria Musculoskeletal: other (left hip pain), back pain Neurological: Weakness All Other Systems Reviewed All Other Systems Reviewed: Yes Objective Exam Vital Signs Vital Signs - First Documented 02/03/21 02/03/21 02:29 05:45 Temp 36.7 Pulse 62 Resp 15 B/P (MAP) 149/64 (92) Pulse Ox 95 O2 Delivery Room Air Capillary Refill : General Appearance: No Apparent Distress, WD/WN HEENT: PERRL/EOMI, Other (NODULAR LESION LEFT NASAL BRIDGE NEAR EYE) Respiratory: Chest Non Tender, Lungs Clear, Normal Breath Sounds, No Accessory Muscle Use, No Respiratory Distress Cardiovascular: Regular Rate, Rhythm, Normal Peripheral Pulses Gastrointestinal: Normal Bowel Sounds, No Organomegaly, No Pulsatile Mass, Non Tender, Soft Rectal: Deferred Extremity: Normal Capillary Refill, Normal Inspection, Non Tender, No Calf Tenderness, Pedal Edema (trace) Neurologic/Psychiatric: Alert, Oriented x3, No Motor/Sensory Deficits, Normal Mood/Affect Skin: Warm/Dry Lymphatic: No Adenopathy Results Lab Laboratory Tests 02/09/21 05:10: Sodium Level 129L, Potassium Level 4.0, Chloride Level 91L, Carbon Dioxide Level 26, Anion Gap 12, Blood Urea Nitrogen 20H, Creatinine 0.78, Estimat Glomerular Filtration Rate > 60, BUN/Creatinine Ratio 26, Glucose Level 97, Calcium Level 8.7 Assessment/Plan Assessment/Plan Admission Dx RENAL CELL CARCINOMA STATUS POST LEFT NEPHRECTOMY 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 BOYD - ONC AND DR. CABRERA - RAD ONC - INITIALLY ON THE DAY OF ADMISSION DR. BOYD WAS PLANNING ON SENDING PT TO WHERE HE HAS BEEN TREATED FOR RENAL CELL CA, HOWEVER, THE UROLOGIST AT INFORMED US THAT THEY WOULD NOT RECOMMEND A BIOPSY OF THE SPINE, INSTEAD WOULD RECOMMEND STEROIDS, RADIATION AND BIOPSY OF ILIAC BONE. - DECISION WAS THEN MADE TO KEEP GABY HERE IN [place] FOR RADIATION AND BIOPSY. - PT IS STATUS POST BIOPSY - VERBAL REPORT FROM PATHOLOGY - THE BIOPSY REVEALED METASTATIC RENAL CELL CARCINOMA - NEXT STEP WILL BE KYPHOPLASTY AFTER HE HAS COMPLETED RADIATION THERAPY TO HIS SPINE - PT WAS STARTED ON RADIATION THERAPY ON 02/01/21 -TOTAL NUMBER OF TREATMENTS TO BE DETERMINED BY DR. CABRERA CT CHEST/ABDOMEN/PELVIS W 01/26/21 COMPARISON: Correlation is made with prior CT from 04/18/2020. CT CHEST IMPRESSION: 1. No evidence of thoracic lymphadenopathy or pulmonary metastatic disease. CT ABDOMEN AND PELVIS IMPRESSION: 1. No evidence of abdominal or pelvic lymphadenopathy. 2. L5 compression fracture, likely pathologic. This would likely be amenable to kyphoplasty with core biopsy. No definite retropulsion of fracture fragments is identified. 3. Sclerotic lesion in the right iliac bone, consistent with metastatic lesion. HYPERTENSION - RESUMED HOME REGIMEN - BP STABLE, MONITOR, ADDITIONAL AGENTS IF NEEDED BPH - RESUMED HOME REGIMEN - FLOMAX AND PROSCAR SEVERE BACK PAIN - PT ON MS CONTIN AT 15MG BID - WILL HAVE PRN OXYCODONE AT 5MG PO QID FOR PRN CONTROL OF PAIN. LEFT HIP PAIN - PAIN CONTROLLED WITH MORPHINE PO HYPONATREMIA - STOPPED IV FLUIDS TODAY, CONTINUE WITH ORAL SODIUM TABS -MONITOR SODIUM LEVELS, GATORADE/POWERADE WITH MEALS CONSTIPATION - DULCOLAX PO, PRN MIRALAX CHANGED TO SCHEDULED AT [facility], SENNA S DAILY - STARTED PT ON RELISTOR ON 02/01/2021 HEMORRHOIDS - RX FOR PROTOCORT AND PRN DULCOLAX WEAKNESS WITH GAIT INSTABILITY - [facility] LEFT HEEL PAIN - RX FOR VOLTAREN GEL TO HEEL CARBONE TO BE REMOVED TODAY LOVENOX AND SCD'S FOR DVT PROPHYLAXIS GI PROPHYLAXIS WITH PEPCID. Admission Dx RENAL CELL CARCINOMA STATUS POST LEFT NEPHRECTOMY RENAL CELL CARCINOMA METASTATIC LESIONS TO SPINE AND ILIAC BONE AND SACRUM HYPERTENSION BPH SEVERE BACK PAIN LEFT HIP PAIN HYPONATREMIA CONSTIPATION HEMORRHOIDS WEAKNESS LEFT HEEL PAIN Clinical Quality Measures Admission Status Admission Dx RENAL CELL CARCINOMA STATUS POST LEFT NEPHRECTOMY RENAL CELL CARCINOMA METASTATIC LESIONS TO SPINE AND ILIAC BONE AND SACRUM HYPERTENSION BPH SEVERE BACK PAIN LEFT HIP PAIN HYPONATREMIA CONSTIPATION HEMORRHOIDS WEAKNESS LEFT HEEL PAIN KALI ORO MD Feb 09, 2021 10:06
[2021-02-09 11:32] VITALS: BP 139/75
--- NOTE | 2021-02-09 11:34 | Physical Therapy Daily Note ---
PT Daily Note-Current Subjective Pt reports that they just removed his catheter and IV and he'd like to go for a walk. Transfers SCALE: Activities may be completed with or without assistive devices. 6-Enmpyutcey-tylkcjx completes the activity by him/herself with no assistance from a helper. 5-Set-up or Clean-up Assistance-helper sets up or cleans up; patient completes activity. [place] assists only prior to or following the activity. 4-Supervision or Touching Assistance-helper provides verbal cues and/or touching/steadying and/or contact guard assistance as patient completes activity. Assistance may be provided throughout the activity or intermittently. 3-Partial/Moderate Assistance-helper does LESS THAN HALF the effort. [place] lifts, holds or supports trunk or limbs, but provides less than half the effort. 2-Substantial/Maximal Assistance-helper does MORE THAN HALF the effort. [place] lifts or holds trunk or limbs and provides more than half the effort. 6-Rrhycjiej-miltmf does ALL the effort. Patient does none of the effort to complete the activity. Or, the assistance of 2 or more helpers is required for the patient to complete the activity. If activity was not attempted, code reason: 7-Patient Refused. 9-Not Applicable-not attempted and the patient did not perform the activity before the current illness, exacerbation or injury. 10-Not Attempted due to Environmental Limitations-(lack of equipment, weather restraints, etc.). 88-Not Attempted due to Medical Conditions or Safety Concerns. Roll Left & Right (QC): 6 Sit to Lying (QC): 6 Lying to Sitting/Side of Bed(Q: 6 Sit to Stand (QC): 5 Chair/Svi-le-[place] Xfer(QC): 5 Gait Training Ambulate 450ft with FWW and SBA. Education for upright posture when using the rolling walker. Exercises Standing: Sit to Stand Standing Reps: 5 performed sit to stand from low bed surface x 5 reps with education on technique. standing back to wall for lumbar and thoracic extension stretch. PT [facility] Goals Recruiting Internship Goals PT Recruiting Internship Goals Time Frame: Feb 23, 2021 Roll Left & Right (QC): 4 Sit to Lying (QC): 4 Lying-Sitting on Side/Bed(QC): 4 Sit to Stand (QC): 4 Chair/Frr-fz-Xnbii Xfer(QC): 4 Toilet Transfer (QC): 4 Car Transfer (QC): 4 Does the Patient Walk: Yes Walk 10 feet (QC): 4 Walk 50ft with 2 Turns (QC): 4 Walk 150 ft (QC): 4 Walking 10ft on Uneven Surface: 4 1 Step (curb) (QC): 4 4 Steps (QC): 9 12 Steps (QC): 9 Picking up an Object (QC): 5 (modified) Wheel 50 feet with 2 turns (QC: 9 Wheel 150 feet: 9 PT Plan Treatment/Plan Treatment Plan: Continue Plan of Care Treatment Plan: Bed Mobility, Education, Functional Activity Sameer, Functional Strength, Gait, Safety, Therapeutic Exercise, Transfers Treatment Duration: Feb 23, 2021 Frequency: 6 times per week Estimated Hrs Per Day: .25 hour per day Patient and/or Family Agrees t: Yes Time/GCodes Time In: 1115 Time Out: 1130 Total Billed Treatment Time: 15 Total Billed Treatment visit, gait 10 min, ex 5 min LOUISE SALINAS PT Feb 09, 2021 11:34
--- NOTE | 2021-02-09 11:49 | Occupational Ther Daily Note ---
OT Current Status-Daily Note Subjective Pt laying in bed, agreeable to OT tx. Denies pain at rest, but has slight pain in shoulders with exercise, he did not rate pain. Mental Status/Objective Patient Orientation: Person, Place, Time, Situation ADL-Treatment Therapy Code Descriptions/Definitions Functional [place] Measure: 0=Not Assessed/NA 4=Minimal Assistance 1=Total Assistance 5=Supervision or Setup 2=Maximal Assistance 6=Modified [place] 3=Moderate Assistance 7=Complete IndependenceSCALE: Activities may be completed with or without assistive devices. 6-Bnkrzqepzt-xkmblli completes the activity by him/herself with no assistance from a helper. 5-Set-up or Clean-up Assistance-helper sets up or cleans up; patient completes activity. [place] assists only prior to or following the activity. 4-Supervision or Touching Assistance-helper provides verbal cues and/or touching/steadying and/or contact guard assistance as patient completes activity. Assistance may be provided throughout the activity or intermittently. 3-Partial/Moderate Assistance-helper does LESS THAN HALF the effort. [place] lifts, holds or supports trunk or limbs, but provides less than half the effort. 2-Substantial/Maximal Assistance-helper does MORE THAN HALF the effort. [place] lifts or holds trunk or limbs and provides more than half the effort. 3-Jnjwxyqcb-hhwhft does ALL the effort. Patient does none of the effort to complete the activity. Or, the assistance of 2 or more helpers is required for the patient to complete the activity. If activity was not attempted, code reason: 7-Patient Refused. 9-Not Applicable-not attempted and the patient did not perform the activity before the current illness, exacerbation or injury. 10-Not Attempted due to Environmental Limitations-(lack of equipment, weather restraints, etc.). 88-Not Attempted due to Medical Conditions or Safety Concerns. Oral Hygiene (QC): 5 (Per pt and , pt able to complete task with set up assistance.) Other Treatment Pt laying in bed, declined ADLS at this time, states he does not need to use the bathroom and he has already completed oral care. He agrees to BUE exercises in order to increase BUE strength and activity tolerance. Pt completed x10 reps AROM R shoulder flexion, then x20 reps of the following using moderate resistance theraband: LUE shoulder flexion, BUE external rotation, BUE horizontal abduction, BUE elbow flexion, BUE elbow extension. Pt required min sk illed verbal cues for proper technique. Pt took rest breaks as needed, but was able to increase reps on this date. Post tx, pt laying in bed, call light in reach and all needs met. Education OT Patient Education: Correct positioning, Energy conservation, Exercise program, Home exercise program, Modified ADL techniques, Progress toward Goal/Update tx plan, Purpose of tx/functional activities, Rehab process Teaching Recipient: Patient Teaching Methods: Discussion Response to Teaching: Verbalize Understanding OT Usp Goals Usp Goals Time Frame: Feb 23, 2021 Eating (QC): 6 Oral Hygiene (QC): 6 Toileting Hygiene (QC): 4 Shower/Bathe Self (QC): 4 Upper Body Dressing (QC): 5 Lower Body Dressing (QC): 3 On/Off Footwear (QC): 3 Additional Goals: 1-Demonstrate ADL Tasks, 2-Verbalize Understanding, 3-ImproveStrength/Sameer 1=Demonstrate adherence to instructed precautions during ADL tasks. 2=Patient will verbalize/demonstrate understanding of assistive devices/modifications for ADL. 3=Patient will improve strength/tolerance for activity to enable patient to perform ADL's. OT Education/Plan Problem List/Assessment Assessment: Decreased Activ Tolerance, Decreased UE Strength, Impaired I ADL's, Impaired Self-Care Skills Pt would benefit from skilled OT services in order to increase BUE strength and activity tolerance, and increase safety and independence with ADLs in order to maximize LOF for safe return home. Discharge Recommendations Plan/Recommendations: Continue POC Treatment Plan/Plan of Care Patient would benefit from OT for education, treatment and training to promote independence in ADL's, mobility, safety and/or upper extremity function for ADL's. Plan of Care: ADL Retraining, Functional Mobility, UE Funct Exercise/Act Treatment Duration: Feb 23, 2021 Frequency: 5 times per week Estimated Hrs Per Day: .25 hour per day Agreement: Yes Rehab Potential: Fair Time/GCodes Start Time: 10:40 Stop Time: 10:55 Total Time Billed (hr/min): 15 Billed Treatment Time 1, EX [place] RUBIN OT Feb 09, 2021 11:49
[2021-02-09 16:00] VITALS: BP 131/71
[2021-02-09] MEDS: TAMSULOSIN 0.4 MG (FLOMAX) CAP PO SCH (17:15)
[2021-02-09] MEDS: FINASTERIDE (PROSCAR) 5 MG TAB PO SCH (17:15)
[2021-02-09 18:00] VITALS: BP 135/71
[2021-02-09] MEDS: polyethylene glycoL POWDER 17 GM (MIRALAX) PACK PO SCH (20:35)
[2021-02-09] MEDS: ENOXAPARIN 40 MG/0.4 ML (LOVENOX) SYR SC SCH (20:37)
[2021-02-10 05:41] LABS: HEMATOCRIT 37 % (40-54); HEMOGLOBIN 11.8 g/dL (13.3-17.7); MEAN CORPUSCULAR HEMOGLOBIN 27 pg (25-34); MEAN CORPUSCULAR HGB CONC 32 g/dL (32-36); MEAN CORPUSCULAR VOLUME 83 fL (80-99); MEAN PLATELET VOLUME 11.3 fL (9.0-12.2); PLATELET COUNT 179 10^3/uL (130-400); WHITE BLOOD COUNT 10.4 10^3/uL (4.3-11.0)
[2021-02-10 06:02] LABS: CHLORIDE 92 MMOL/L (98-107); POTASSIUM 4.2 MMOL/L (3.6-5.0); SODIUM 127 MMOL/L (135-145)
[2021-02-10 06:03] LABS: CALCIUM 8.4 MG/DL (8.5-10.1)
[2021-02-10 06:04] LABS: GLUCOSE 93 MG/DL (70-105)
[2021-02-10 06:05] LABS: CARBON DIOXIDE 25 MMOL/L (21-32)
[2021-02-10 06:08] LABS: BUN/CREATININE RATIO 28; CREATININE SERUM 0.79 MG/DL (0.60-1.30); GFR ESTIMATED > 60
[2021-02-10] MEDS: SENNA W/DOCUSATE (SENOKOT S) TABLET PO SCH (06:14)
[2021-02-10 06:15] VITALS: BP 138/80
[2021-02-10] MEDS: amLODIPine 5 MG (NORVASC) TAB PO SCH (08:57)
[2021-02-10] MEDS: PANTOPRAZOLE 40 MG (PROTONIX) TAB PO SCH (08:57)
[2021-02-10] MEDS: DOCUSATE SODIUM 100 MG (COLACE) CAP PO SCH ×2 (08:57→20:32)
[2021-02-10] MEDS: meTOprolol TARTRATE 25 MG (LOPRESSOR) TABLET PO SCH ×2 (08:57→20:33)
[2021-02-10] MEDS: DICLOFENAC 1% GEL 100 GM (VOLTAREN) TUBE TOP SCH ×3 (08:58→20:33)
[2021-02-10] MEDS: SODIUM CHLORIDE 1 GM TABLET PO SCH ×2 (09:04→20:33)
[2021-02-10] MEDS: morphine ER 15 MG (MS CONTIN) TAB PO SCH ×2 (09:04→20:32)
--- NOTE | 2021-02-10 11:49 | Progress Note ---
Subjective Date Seen by a Provider: Feb 10, 2021 Time Seen by a Provider: 11:42 Subjective/Events-last exam Fwup left renal cell carcinoma with mets to bone, hyponatremia, BPH, HTN, weakness. No complaints--pain controlled. Was up to sink this morning to shave by himself so feels like is getting a little stronger. Helms catheter out and is having nocturia which is not a new thing. Objective Exam Vital Signs Date Time Temp Pulse Resp B/P (MAP) Pulse Ox O2 Delivery O2 Flow Rate FiO2 02/10/21 06:15 36.3 67 18 138/80 (99) 98 Room Air 02/09/21 20:16 Room Air 02/09/21 18:00 36.2 74 18 135/71 (92) 98 Room Air 02/09/21 16:00 36.2 73 18 131/71 (91) 98 Room Air I & O 02/10/21 07:00 Intake Total 2140 ml Output Total 2650 ml Balance -510 ml Capillary Refill : General Appearance: No Apparent Distress Neck: Supple Respiratory: Lungs Clear Cardiovascular: Regular Rate, Rhythm Gastrointestinal: normal bowel sounds, soft, tenderness (RUQ) Extremity: Non Tender, No Calf Tenderness, No Pedal Edema Neurologic/Psychiatric: Alert, Oriented x3 Results Lab Laboratory Tests 02/10/21 05:20: White Blood Count 10.4, Red Blood Count 4.40, Hemoglobin 11.8L, Hematocrit 37L, Mean Corpuscular Volume 83, Mean Corpuscular Hemoglobin 27, Mean Corpuscular Hemoglobin Concent 32, Red Cell Distribution Width 15.0H, Platelet Count 179, Mean Platelet Volume 11.3, Sodium Level 127L, Potassium Level 4.2, Chloride Level 92L, Carbon Dioxide Level 25, Anion Gap 10, Blood Urea Nitrogen 22H, Creatinine 0.79, Estimat Glomerular Filtration Rate > 60, BUN/Creatinine Ratio 28, Glucose Level 93, Calcium Level 8.4L Assessment/Plan Assessment/Plan Assess & Plan/Chief Complaint 1. 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 HTN--stable 3. Hyponatremia--monitor, is on oral NaCl tablet 4. Weakness--doing PT/OT JOEY SILVERMAN DO Feb 10, 2021 11:49
--- NOTE | 2021-02-10 12:29 | Physical Therapy Daily Note ---
PT Daily Note-Current Subjective Pt supine in bed, w/ in the room, upon arrival. Pt agrees to PT tx. Pain Numeric Pain Scale: 0-No Pain Location: No Pain Reported Mental Status Patient Orientation: Normal For Age Transfers SCALE: Activities may be completed with or without assistive devices. 7-Bsgkpytkbr-suwuxik completes the activity by him/herself with no assistance from a helper. 5-Set-up or Clean-up Assistance-helper sets up or cleans up; patient completes activity. [place] assists only prior to or following the activity. 4-Supervision or Touching Assistance-helper provides verbal cues and/or touching/steadying and/or contact guard assistance as patient completes activity. Assistance may be provided throughout the activity or intermittently. 3-Partial/Moderate Assistance-helper does LESS THAN HALF the effort. [place] l ifts, holds or supports trunk or limbs, but provides less than half the effort. 2-Substantial/Maximal Assistance-helper does MORE THAN HALF the effort. [place] lifts or holds trunk or limbs and provides more than half the effort. 9-Wyzhrgcuf-sysgwg does ALL the effort. Patient does none of the effort to complete the activity. Or, the assistance of 2 or more helpers is required for t he patient to complete the activity. If activity was not attempted, code reason: 7-Patient Refused. 9-Not Applicable-not attempted and the patient did not perform the activity before the current illness, exacerbation or injury. 10-Not Attempted due to Environmental Limitations-(lack of equipment, weather restraints, etc.). 88-Not Attempted due to Medical Conditions or Safety Concerns. Lying to Sitting/Side of Bed(Q: 4 Sit to Stand (QC): 4 Chair/Hnt-bx-Bpvwd Xfer(QC): 4 Gait Training Does the Patient Walk?: Yes Distance: 150' and 450' Walk 10 feet (QC): 4 Walk 50 ft with 2 Turns(QC): 4 Walk 150 ft (QC): 4 Gait Persons Needed: 1 Gait Assistive Device: FWW Pt informed DATE PITTER that pt FWW was 's and that a taller FWW had been brought up for pt to try. Pt posture more upright when using taller FWW. Treatments Gait training completed. Pt sitting in recliner w/ in room, call light and bedside table w/in reach and all needs met at end of tx. Assessment Current Status: Excellent Progress Pt motivated and pleasant. No c/o pain or discomfort. PT Intermediate Goals Floor Care Technician Goals PT Intermediate Goals Time Frame: Feb 23, 2021 Roll Left & Right (QC): 4 Sit to Lying (QC): 4 Lying-Sitting on Side/Bed(QC): 4 Sit to Stand (QC): 4 Chair/Xpb-qx-Chskt Xfer(QC): 4 Toilet Transfer (QC): 4 Car Transfer (QC): 4 Does the Patient Walk: Yes Walk 10 feet (QC): 4 Walk 50ft with 2 Turns (QC): 4 Walk 150 ft (QC): 4 Walking 10ft on Uneven Surface: 4 1 Step (curb) (QC): 4 4 Steps (QC): 9 12 Steps (QC): 9 Picking up an Object (QC): 5 (modified) Wheel 50 feet with 2 turns (QC: 9 Wheel 150 feet: 9 PT Plan Problem List Problem List: Activity Tolerance, Functional Strength, Safety, Balance, Gait, Transfer, Bed Mobility, ROM Treatment/Plan Treatment Plan: Continue Plan of Care Treatment Plan: Bed Mobility, Education, Functional Activity Sameer, Functional Strength, Gait, Safety, Therapeutic Exercise, Transfers Treatment Duration: Feb 23, 2021 Frequency: 6 times per week Estimated Hrs Per Day: .25 hour per day Patient and/or Family Agrees t: Yes Safety Risks/Education Patient Education: Gait Training, Transfer Techniques, Safety Issues Teaching Recipient: Patient Teaching Methods: Discussion Response to Teaching: Verbalize Understanding Time/GCodes Time In: 1206 Time Out: 1222 Total Billed Treatment Time: 16 Total Billed Treatment 1, GT (16m) JORGE SAMAYOA DATE PITTER Feb 10, 2021 12:29
[2021-02-10 17:21] VITALS: BP 159/70
[2021-02-10] MEDS: FINASTERIDE (PROSCAR) 5 MG TAB PO SCH (17:40)
[2021-02-10] MEDS: TAMSULOSIN 0.4 MG (FLOMAX) CAP PO SCH (17:40)
[2021-02-10 20:33] VITALS: BP 122/60
[2021-02-10] MEDS: ENOXAPARIN 40 MG/0.4 ML (LOVENOX) SYR SC SCH (20:33)
[2021-02-10] MEDS: polyethylene glycoL POWDER 17 GM (MIRALAX) PACK PO SCH (20:33)
[2021-02-11 05:12] LABS: CHLORIDE 101 MMOL/L (98-107); POTASSIUM 4.3 MMOL/L (3.6-5.0); SODIUM 135 MMOL/L (135-145)
[2021-02-11 05:14] LABS: GLUCOSE 265 MG/DL (70-105)
[2021-02-11 05:15] LABS: CARBON DIOXIDE 23 MMOL/L (21-32)
[2021-02-11 05:18] LABS: BUN/CREATININE RATIO 18; CREATININE SERUM 0.76 MG/DL (0.60-1.30); GFR ESTIMATED > 60
[2021-02-11 05:46] VITALS: BP 122/66
[2021-02-11] MEDS: SENNA W/DOCUSATE (SENOKOT S) TABLET PO SCH (05:49)
[2021-02-11] MEDS: meTOprolol TARTRATE 25 MG (LOPRESSOR) TABLET PO SCH ×2 (08:46→20:29)
[2021-02-11] MEDS: DOCUSATE SODIUM 100 MG (COLACE) CAP PO SCH ×2 (08:46→20:29)
[2021-02-11] MEDS: PANTOPRAZOLE 40 MG (PROTONIX) TAB PO SCH (08:46)
[2021-02-11] MEDS: morphine ER 15 MG (MS CONTIN) TAB PO SCH ×2 (08:47→20:29)
[2021-02-11] MEDS: SODIUM CHLORIDE 1 GM TABLET PO SCH ×2 (08:47→20:29)
[2021-02-11] MEDS: amLODIPine 5 MG (NORVASC) TAB PO SCH (08:47)
[2021-02-11] MEDS: METHYLNALTREXONE 12 MG/0.6 ML (RELISTOR) VIAL SQ SCH (08:47)
[2021-02-11] MEDS: DICLOFENAC 1% GEL 100 GM (VOLTAREN) TUBE TOP SCH ×4 (08:48→20:30)
--- NOTE | 2021-02-11 09:39 | Progress Note ---
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 Pain controlled. Feeling well except still only passing small stools and has lots of gas. Objective Exam Vital Signs Date Time Temp Pulse Resp B/P (MAP) Pulse Ox O2 Delivery O2 Flow Rate FiO2 02/11/21 05:46 35.9 65 18 122/66 (84) 98 Room Air 02/10/21 20:33 68 122/60 (80) 02/10/21 20:18 Room Air 02/10/21 17:21 36.0 63 18 159/70 (99) 98 Room Air I & O 02/11/21 07:00 Intake Total 1810 ml Balance 1810 ml Capillary Refill : General Appearance: No Apparent Distress Respiratory: Lungs Clear Cardiovascular: Regular Rate, Rhythm Gastrointestinal: normal bowel sounds, soft, tenderness (RLQ/RUQ) Extremity: Non Tender, No Calf Tenderness, No Pedal Edema Neurologic/Psychiatric: Alert, Oriented x3 Results Lab Laboratory Tests 02/11/21 04:15: Sodium Level 135, Potassium Level 4.3, Chloride Level 101, Carbon Dioxide Level 23, Anion Gap 11, Blood Urea Nitrogen 14, Creatinine 0.76, Estimat Glomerular Filtration Rate > 60, BUN/Creatinine Ratio 18, Glucose Level 265H, Calcium Level 8.0L Assessment/Plan Assessment/Plan Assess & Plan/Chief Complaint 1. 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 HTN--stable 3. Hyponatremia--improved 4. Weakness--doing PT/OT 5. Constipation/Abdominal Bloating--on relistor and colace and miralax, will add simethicone JOEY Perry DO Feb 11, 2021 09:39
[2021-02-11] MEDS ORDERED: SIMETHICONE 80 MG (MYLICON) CHEW PO PRN (09:45)
[2021-02-11] MEDS: FINASTERIDE (PROSCAR) 5 MG TAB PO SCH (18:01)
[2021-02-11] MEDS: TAMSULOSIN 0.4 MG (FLOMAX) CAP PO SCH (18:01)
[2021-02-11 19:00] VITALS: BP 141/72
[2021-02-11] MEDS: ENOXAPARIN 40 MG/0.4 ML (LOVENOX) SYR SC SCH (20:29)
[2021-02-11 20:30] VITALS: BP 154/76
[2021-02-11] MEDS: polyethylene glycoL POWDER 17 GM (MIRALAX) PACK PO SCH (20:30)
[2021-02-12 04:44] LABS: HEMATOCRIT 34 % (40-54); HEMOGLOBIN 11.2 g/dL (13.3-17.7); MEAN CORPUSCULAR HEMOGLOBIN 27 pg (25-34); MEAN CORPUSCULAR HGB CONC 33 g/dL (32-36); MEAN CORPUSCULAR VOLUME 83 fL (80-99); PLATELET COUNT 144 10^3/uL (130-400); WHITE BLOOD COUNT 8.8 10^3/uL (4.3-11.0)
[2021-02-12 04:53] LABS: CHLORIDE 95 MMOL/L (98-107); POTASSIUM 3.8 MMOL/L (3.6-5.0); SODIUM 128 MMOL/L (135-145)
[2021-02-12 04:54] LABS: CALCIUM 8.1 MG/DL (8.5-10.1)
[2021-02-12 04:55] LABS: GLUCOSE 133 MG/DL (70-105)
[2021-02-12 04:56] LABS: CARBON DIOXIDE 23 MMOL/L (21-32)
[2021-02-12 04:59] LABS: CREATININE SERUM 0.81 MG/DL (0.60-1.30); GFR ESTIMATED > 60
[2021-02-12 05:00] LABS: BUN/CREATININE RATIO 31
[2021-02-12] MEDS: SENNA W/DOCUSATE (SENOKOT S) TABLET PO SCH (05:49)
[2021-02-12 05:50] VITALS: BP 136/70
--- NOTE | 2021-02-12 07:59 | Progress Note ---
Subjective Subjective Date Seen by Provider: Feb 12, 2021 Time Seen by Provider: 08:30 PT REPORTS THAT HE IS FEELING BETTER TODAY - HE DENIES COMPLAINTS, HE STATES THAT HIS PAIN IS IMPROVED AND HE IS MOVING AROUND MUCH BETTER. HE IS NEEDING A HOSPITAL BED AND OTHER AT HOME AIDES TO HELP HIM TO BE SAFE AT HOME. Review of Systems General: No Chills, No Night Sweats HEENT: No Head Aches Pulmonary: No Dyspnea, No Cough Cardiovascular: No: Chest Pain, Palpitations Gastrointestinal: No: Nausea, Vomiting, Abdominal Pain Genitourinary: No Dysuria Musculoskeletal: other (left hip pain), back pain Neurological: Weakness All Other Systems Reviewed All Other Systems Reviewed: Yes Objective Exam Vital Signs Vital Signs - First Documented 02/06/21 05:58 Temp 36.8 Pulse 63 Resp 18 B/P (MAP) 130/73 (92) Pulse Ox 97 O2 Delivery Room Air Capillary Refill : General Appearance: No Apparent Distress HEENT: PERRL/EOMI, Other (NODULAR LESION LEFT NASAL BRIDGE NEAR EYE) Neck: Supple Respiratory: Lungs Clear Cardiovascular: Regular Rate, Rhythm Gastrointestinal: Normal Bowel Sounds, No Organomegaly, No Pulsatile Mass, Non Tender, Soft Rectal: Deferred Extremity: Non Tender, No Calf Tenderness, No Pedal Edema Neurologic/Psychiatric: Alert, Oriented x3 Skin: Warm/Dry Lymphatic: No Adenopathy Results Lab Laboratory Tests 02/12/21 04:30: White Blood Count 8.8, Red Blood Count 4.12L, Hemoglobin 11.2L, Hematocrit 34L, Mean Corpuscular Volume 83, Mean Corpuscular Hemoglobin 27, Mean Corpuscular Hemoglobin Concent 33, Red Cell Distribution Width 15.1H, Platelet Count 144, Mean Platelet Volume 11.0, Sodium Level 128L, Potassium Level 3.8, Chloride Level 95L, Carbon Dioxide Level 23, Anion Gap 10, Blood Urea Nitrogen 25H, Creatinine 0.81, Estimat Glomerular Filtration Rate > 60, BUN/Creatinine Ratio 31, Glucose Level 133H, Calcium Level 8.1L Assessment/Plan Assessment/Plan Admission Dx RENAL CELL CARCINOMA STATUS POST LEFT NEPHRECTOMY 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 BOYD - ONC AND DR. CABRERA - RAD ONC - INITIALLY ON THE DAY OF ADMISSION DR. BOYD WAS PLANNING ON SENDING PT TO WHERE HE HAS BEEN TREATED FOR RENAL CELL CA, HOWEVER, THE UROLOGIST AT INFORMED US THAT THEY WOULD NOT RECOMMEND A BIOPSY OF THE SPINE, INSTEAD WOULD RECOMMEND STEROIDS, RADIATION AND BIOPSY OF ILIAC BONE. - DECISION WAS THEN MADE TO KEEP GABY HERE IN [place] FOR RADIATION AND BIOPSY. - PT IS STATUS POST BIOPSY - VERBAL REPORT FROM PATHOLOGY - THE BIOPSY REVEALED METASTATIC RENAL CELL CARCINOMA - NEXT STEP WILL BE KYPHOPLASTY AFTER HE HAS COMPLETED RADIATION THERAPY TO HIS SPINE - PT WAS STARTED ON RADIATION THERAPY ON 02/01/21 -TOTAL NUMBER OF TREATMENTS TO BE DETERMINED BY DR. CABRERA CT CHEST/ABDOMEN/PELVIS W 01/26/21 COMPARISON: Correlation is made with prior CT from 04/18/2020. CT CHEST IMPRESSION: 1. No evidence of thoracic lymphadenopathy or pulmonary metastatic disease. CT ABDOMEN AND PELVIS IMPRESSION: 1. No evidence of abdominal or pelvic lymphadenopathy. 2. L5 compression fracture, likely pathologic. This would likely be amenable to kyphoplasty with core biopsy. No definite retropulsion of fracture fragments is identified. 3. Sclerotic lesion in the right iliac bone, consistent with metastatic lesion. HYPERTENSION - RESUMED HOME REGIMEN - BP STABLE, MONITOR, ADDITIONAL AGENTS IF NEEDED BPH - RESUMED HOME REGIMEN - FLOMAX AND PROSCAR SEVERE BACK PAIN - PT ON MS CONTIN AT 15MG BID - WILL HAVE PRN OXYCODONE AT 5MG PO QID FOR PRN CONTROL OF PAIN. LEFT HIP PAIN - PAIN CONTROLLED WITH MORPHINE PO HYPONATREMIA - CONTINUE WITH ORAL SODIUM TABS -MONITOR SODIUM LEVELS, GATORADE/POWERADE WITH MEALS CONSTIPATION - DULCOLAX PO, PRN MIRALAX CHANGED TO SCHEDULED AT [facility], [facility] S DAILY - STARTED PT ON RELISTOR ON 02/01/2021 HEMORRHOIDS - RX FOR PROTOCORT AND PRN DULCOLAX WEAKNESS WITH GAIT INSTABILITY - [facility] PHYSICAL THERAPY LOVENOX AND SCD'S FOR DVT PROPHYLAXIS GI PROPHYLAXIS WITH PEPCID. Admission Dx RENAL CELL CARCINOMA STATUS POST LEFT NEPHRECTOMY RENAL CELL CARCINOMA METASTATIC LESIONS TO SPINE AND ILIAC BONE AND SACRUM HYPERTENSION BPH SEVERE BACK PAIN LEFT HIP PAIN HYPONATREMIA CONSTIPATION HEMORRHOIDS WEAKNESS LEFT HEEL PAIN Clinical Quality Measures Admission Status Admission Dx RENAL CELL CARCINOMA STATUS POST LEFT NEPHRECTOMY RENAL CELL CARCINOMA METASTATIC LESIONS TO SPINE AND ILIAC BONE AND SACRUM HYPERTENSION BPH SEVERE BACK PAIN LEFT HIP PAIN HYPONATREMIA CONSTIPATION HEMORRHOIDS WEAKNESS LEFT HEEL PAIN KALI ORO MD Feb 12, 2021 07:59
[2021-02-12] MEDS: morphine ER 15 MG (MS CONTIN) TAB PO SCH ×2 (08:25→20:07)
[2021-02-12] MEDS: DOCUSATE SODIUM 100 MG (COLACE) CAP PO SCH ×2 (08:25→20:07)
[2021-02-12] MEDS: SODIUM CHLORIDE 1 GM TABLET PO SCH ×2 (08:25→20:08)
[2021-02-12] MEDS: PANTOPRAZOLE 40 MG (PROTONIX) TAB PO SCH (08:25)
[2021-02-12] MEDS: amLODIPine 5 MG (NORVASC) TAB PO SCH (08:26)
[2021-02-12] MEDS: meTOprolol TARTRATE 25 MG (LOPRESSOR) TABLET PO SCH ×2 (08:26→20:08)
[2021-02-12] MEDS: DICLOFENAC 1% GEL 100 GM (VOLTAREN) TUBE TOP SCH ×4 (09:43→20:09)
--- NOTE | 2021-02-12 10:12 | Physical Therapy Daily Note ---
PT Daily Note-Current Subjective Patient agrees to PT. Family present. Reports he will dismiss to home this . Mental Status Patient Orientation: Normal For Age Transfers SCALE: Activities may be completed with or without assistive devices. 8-Eqckrqameg-uiktivu completes the activity by him/herself with no assistance from a helper. 5-Set-up or Clean-up Assistance-helper sets up or cleans up; patient completes activity. [place] assists only prior to or following the activity. 4-Supervision or Touching Assistance-helper provides verbal cues and/or touching/steadying and/or contact guard assistance as patient completes activity. Assistance may be provided throughout the activity or intermittently. 3-Partial/Moderate Assistance-helper does LESS THAN HALF the effort. [place] lifts, holds or supports trunk or limbs, but provides less than half the effort. 2-Substantial/Maximal Assistance-helper does MORE THAN HALF the effort. [place] lifts or holds trunk or limbs and provides more than half the effort. 9-Qkmpphrhw-akgkus does ALL the effort. Patient does none of the effort to complete the activity. Or, the assistance of 2 or more helpers is required for the patient to complete the activity. If activity was not attempted, code reason: 7-Patient Refused. 9-Not Applicable-not attempted and the patient did not perform the activity before the current illness, exacerbation or injury. 10-Not Attempted due to Environmental Limitations-(lack of equipment, weather restraints, etc.). 88-Not Attempted due to Medical Conditions or Safety Concerns. Roll Left & Right (QC): 6 Sit to Lying (QC): 6 Lying to Sitting/Side of Bed(Q: 6 Sit to Stand (QC): 6 Gait Training Does the Patient Walk?: Yes Distance: 500' Walk 10 feet (QC): 6 Walk 50 ft with 2 Turns(QC): 6 Walk 150 ft (QC): 6 Gait Assistive Device: FWW slow, steady, functional gait sequence with on deviation Exercises Supine Ex: Ankle pumps, Quad Set, Glut sets, Heel Slides, Straight leg raise, Hip abd/add Supine Reps: 15 Assessment Patient tolerated treatment well and is highly motivated to return to home this week. PT Senior Care Goals Senior Care Goals PT Distributor Of Directories Goals Time Frame: Feb 23, 2021 Roll Left & Right (QC): 4 Sit to Lying (QC): 4 Lying-Sitting on Side/Bed(QC): 4 Sit to Stand (QC): 4 Chair/Nfp-vg-Ohblj Xfer(QC): 4 Toilet Transfer (QC): 4 Car Transfer (QC): 4 Does the Patient Walk: Yes Walk 10 feet (QC): 4 Walk 50ft with 2 Turns (QC): 4 Walk 150 ft (QC): 4 Walking 10ft on Uneven Surface: 4 1 Step (curb) (QC): 4 4 Steps (QC): 9 12 Steps (QC): 9 Picking up an Object (QC): 5 (modified) Wheel 50 feet with 2 turns (QC: 9 Wheel 150 feet: 9 PT Plan Treatment/Plan Treatment Plan: Continue Plan of Care Treatment Plan: Bed Mobility, Education, Functional Activity Sameer, Functional Strength, Gait, Safety, Therapeutic Exercise, Transfers Treatment Duration: Feb 23, 2021 Frequency: 6 times per week Estimated Hrs Per Day: .25 hour per day Patient and/or Family Agrees t: Yes Time/GCodes Time In: 915 Time Out: 938 Total Billed Treatment Time: 23 Total Billed Treatment 1 visit EX 12 min FA 11 min JENNIFER ROBLES PT Feb 12, 2021 10:12
--- NOTE | 2021-02-12 10:28 | Occupational Ther Daily Note ---
OT Current Status-Daily Note Subjective Pt alert, lying in bed. Pt agrees to therapy. Pt states that he goes down for treatment around 10:30. No c/o pain at this time. Mental Status/Objective Patient Orientation: Person, Place, Time, Situation Attachments: IV ADL-Treatment Pt declines any ADLs at this time stating that he has already completed oral care and toileting prior to OT session and wants to complete bathing later in the day. Therapy Code Descriptions/Definitions Functional [place] Measure: 0=Not Assessed/NA 4=Minimal Assistance 1=Total Assistance 5=Supervision or Setup 2=Maximal Assistance 6=Modified [place] 3=Moderate Assistance 7=Complete IndependenceSCALE: Activities may be completed with or without assistive devices. 9-Zbcwzypvxe-dbgsnwm completes the activity by him/herself with no assistance from a helper. 5-Set-up or Clean-up Assistance-helper sets up or cleans up; patient completes activity. [place] assists only prior to or following the activity. 4-Supervision or Touching Assistance-helper provides verbal cues and/or touching/steadying and/or contact guard assistance as patient completes activity. Assistance may be provided throughout the activity or intermittently. 3-Partial/Moderate Assistance-helper does LESS THAN HALF the effort. [place] lifts, holds or supports trunk or limbs, but provides less than half the effort. 2-Substantial/Maximal Assistance-helper does MORE THAN HALF the effort. [place] lifts or holds trunk or limbs and provides more than half the effort. 9-Chacxbxkc-ikfsip does ALL the effort. Patient does none of the effort to complete the activity. Or, the assistance of 2 or more helpers is required for the patient to complete the activity. If activity was not attempted, code reason: 7-Patient Refused. 9-Not Applicable-not attempted and the patient did not perform the activity before the current illness, exacerbation or injury. 10-Not Attempted due to Environmental Limitations-(lack of equipment, weather restraints, etc.). 88-Not Attempted due to Medical Conditions or Safety Concerns. Other Treatment Pt agrees to complete B UE theraband exercises. Skilled instruction and modifications required for correct technique and R shldr weakness. Pt completed 2 set 15 reps of 6 exercises. External rotation and R shldr abd required isometric exercises instead of using theraband due to weakness. After therapy, pt lying in bed with call light/phone in reach. All needs met in room. OT Long-Term Goals [employer] Special [employer] Teacher Goals Time Frame: Feb 23, 2021 Eating (QC): 6 Oral Hygiene (QC): 6 Toileting Hygiene (QC): 4 Shower/Bathe Self (QC): 4 Upper Body Dressing (QC): 5 Lower Body Dressing (QC): 3 On/Off Footwear (QC): 3 Additional Goals: 1-Demonstrate ADL Tasks, 2-Verbalize Understanding, 3- ImproveStrength/Sameer 1=Demonstrate adherence to instructed precautions during ADL tasks. 2=Patient will verbalize/demonstrate understanding of assistive devices/modifications for ADL. 3=Patient will improve strength/tolerance for activity to enable patient to perform ADL's. OT Education/Plan Problem List/Assessment Assessment: Decreased Activ Tolerance, Decreased UE Strength, Impaired Self- Care Skills Pt would benefit from skilled OT services in order to increase BUE strength and activity tolerance, and increase safety and independence with ADLs in order to maximize LOF for safe return home. Discharge Recommendations Plan/Recommendations: Continue POC Treatment Plan/Plan of Care Patient would benefit from OT for education, treatment and training to promote independence in ADL's, mobility, safety and/or upper extremity function for ADL's. Plan of Care: ADL Retraining, Functional Mobility, UE Funct Exercise/Act Treatment Duration: Feb 23, 2021 Frequency: 5 times per week Estimated Hrs Per Day: .25 hour per day Agreement: Yes Rehab Potential: Fair Time/GCodes Start Time: 10:10 Stop Time: 10:25 Total Time Billed (hr/min): 15 Billed Treatment Time 1 visit-EX 1 (15 min) MELODY MELO Feb 12, 2021 10:28
--- NOTE | 2021-02-12 16:57 | Progress Note ---
Standard Progress Note Progress Notes/Assess & Plan Date Seen by a Provider: Feb 12, 2021 Time Seen by a Provider: 16:53 Progress/Assessment & Plan 80-year-old male admitted with intractable low back pain with MRI showing L5 lesion with compression fracture as well as sacral and pelvic lesions. Patient has previous history of renal cancer status post nephrectomy in 2019. 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 Started on palliative radiation and completed 7/10 fractions of treatment today. Currently on morphine ER 15 mg twice daily and not requiring additional pain medication. Pain under good control. He is able to walk with physical therapy and activity level is continuing to improve. Continue physical therapy. Currently on dexamethasone 4 mg twice daily and will change this to once daily in the morning with breakfast until and then DC. Continue radiation therapy as planned and discharge home when completing treatments. Will discuss systemic therapy for metastatic renal cell carcinoma after he recovers. An appointment with me at the cancer center has been scheduled for 02/23/2021 at 9 AM. Will follow patient with you. NADIA BOYD Feb 12, 2021 16:57
[2021-02-12] MEDS: TAMSULOSIN 0.4 MG (FLOMAX) CAP PO SCH (17:22)
[2021-02-12] MEDS: FINASTERIDE (PROSCAR) 5 MG TAB PO SCH (17:22)
[2021-02-12 18:30] VITALS: BP 124/62
[2021-02-12] MEDS: polyethylene glycoL POWDER 17 GM (MIRALAX) PACK PO SCH (20:08)
[2021-02-12] MEDS: ENOXAPARIN 40 MG/0.4 ML (LOVENOX) SYR SC SCH (20:08)
[2021-02-13 05:42] LABS: BUN/CREATININE RATIO 30; CALCIUM 8.4 MG/DL (8.5-10.1); CARBON DIOXIDE 28 MMOL/L (21-32); CHLORIDE 93 MMOL/L (98-107); CREATININE SERUM 0.82 MG/DL (0.60-1.30); GFR ESTIMATED > 60; GLUCOSE 70 MG/DL (70-105); POTASSIUM 4.2 MMOL/L (3.6-5.0); SODIUM 129 MMOL/L (135-145)
[2021-02-13 06:03] VITALS: BP 134/68
[2021-02-13] MEDS: SENNA W/DOCUSATE (SENOKOT S) TABLET PO SCH (06:04)
--- NOTE | 2021-02-13 08:38 | Occupational Ther Daily Note ---
OT Current Status-Daily Note Subjective Pt alert, in bathroom. Pt agrees to therapy. No c/o pain at this time. Mental Status/Objective Patient Orientation: Person, Place, Time, Situation Attachments: IV ADL-Treatment Pt independent with toilet transfer, toilet hygiene and clothing manipulation. Sitting at sink, pt able to complete bathing and oral care independently. Pt donned/doffed clothing by self after set up. Using FWW pt ambulated and transferred to different surfaces independently. After session, pt sitting on EOB with call light/phone in reach. present in room. Therapy Code Descriptions/Definitions Functional [place] Measure: 0=Not Assessed/NA 4=Minimal Assistance 1=Total Assistance 5=Supervision or Setup 2=Maximal Assistance 6=Modified [place] 3=Moderate Assistance 7=Complete IndependenceSCALE: Activities may be completed with or without assistive devices. 6-Zjmviowczn-kqjoytw completes the activity by him/herself with no assistance from a helper. 5-Set-up or Clean-up Assistance-helper sets up or cleans up; patient completes activity. [place] assists only prior to or following the activity. 4-Supervision or Touching Assistance-helper provides verbal cues and/or touching/steadying and/or contact guard assistance as patient completes activity. Assistance may be provided throughout the activity or intermittently. 3-Partial/Moderate Assistance-helper does LESS THAN HALF the effort. [place] li fts, holds or supports trunk or limbs, but provides less than half the effort. 2-Substantial/Maximal Assistance-helper does MORE THAN HALF the effort. [place] lifts or holds trunk or limbs and provides more than half the effort. 6-Xdxancyrv-lvsnro does ALL the effort. Patient does none of the effort to complete the activity. Or, the assistance of 2 or more helpers is required for the patient to complete the activity. If activity was not attempted, code reason: 7-Patient Refused. 9-Not Applicable-not attempted and the patient did not perform the activity before the current illness, exacerbation or injury. 10-Not Attempted due to Environmental Limitations-(lack of equipment, weather restraints, etc.). 88-Not Attempted due to Medical Conditions or Safety Concerns. OT Medical Staff Services Coordinator Goals Medical Staff Services Coordinator Goals Time Frame: Feb 23, 2021 Eating (QC): 6 (met) Oral Hygiene (QC): 6 (met) Toileting Hygiene (QC): 4 (met) Shower/Bathe Self (QC): 4 (met) Upper Body Dressing (QC): 5 (met) Lower Body Dressing (QC): 3 (met) On/Off Footwear (QC): 3 (met) Additional Goals: 1-Demonstrate ADL Tasks, 2-Verbalize Understanding, 3- ImproveStrength/Sameer 1=Demonstrate adherence to instructed precautions during ADL tasks. 2=Patient will verbalize/demonstrate understanding of assistive devices/modifications for ADL. 3=Patient will improve strength/tolerance for activity to enable patient to perform ADL's. OT Education/Plan Problem List/Assessment Assessment: Decreased Activ Tolerance Pt would benefit from skilled OT services in order to increase BUE strength and activity tolerance, and increase safety and independence with ADLs in order to maximize LOF for safe return home. Discharge Recommendations Plan/Recommendations: Continue POC Treatment Plan/Plan of Care Patient would benefit from OT for education, treatment and training to promote independence in ADL's, mobility, safety and/or upper extremity function for ADL's. Plan of Care: ADL Retraining, Functional Mobility, UE Funct Exercise/Act Treatment Duration: Feb 23, 2021 Frequency: 5 times per week Estimated Hrs Per Day: .25 hour per day Agreement: Yes Rehab Potential: Fair Time/GCodes Start Time: 08:30 Stop Time: 08:45 Total Time Billed (hr/min): 15 Billed Treatment Time 1 visit-ADL 1 (15 min) MELODY MELO Feb 13, 2021 08:38
[2021-02-13] MEDS: DOCUSATE SODIUM 100 MG (COLACE) CAP PO SCH ×2 (08:54→21:03)
[2021-02-13] MEDS: METHYLNALTREXONE 12 MG/0.6 ML (RELISTOR) VIAL SQ SCH (08:54)
[2021-02-13] MEDS: SODIUM CHLORIDE 1 GM TABLET PO SCH ×2 (08:54→21:04)
[2021-02-13] MEDS: PANTOPRAZOLE 40 MG (PROTONIX) TAB PO SCH (08:54)
[2021-02-13] MEDS: morphine ER 15 MG (MS CONTIN) TAB PO SCH ×2 (08:55→21:03)
[2021-02-13] MEDS: DICLOFENAC 1% GEL 100 GM (VOLTAREN) TUBE TOP SCH ×4 (08:55→21:04)
[2021-02-13] MEDS: amLODIPine 5 MG (NORVASC) TAB PO SCH (08:55)
[2021-02-13] MEDS: meTOprolol TARTRATE 25 MG (LOPRESSOR) TABLET PO SCH ×2 (08:56→21:03)
--- NOTE | 2021-02-13 09:37 | Progress Note ---
Subjective Subjective Date Seen by Provider: Feb 13, 2021 Time Seen by Provider: 08:30 PT REPORTS THAT HE IS FEELING BETTER TODAY - HE DENIES COMPLAINTS, HE STATES THAT HIS PAIN IS IMPROVED BUT HE IS STILL HAVING TROUBLE FINDING POSITIONS THAT HE CAN GET INTO FOR MORE THAN A FEW MINUTES WITHOUT PAIN IN HIS BACK AND HIP. HE IS NEEDING A HOSPITAL BED AND OTHER AT HOME AIDES TO HELP HIM TO BE SAFE AT HOME. Review of Systems General: No Chills, No Night Sweats; Fatigue HEENT: No Head Aches Pulmonary: No Dyspnea, No Cough Cardiovascular: No: Chest Pain, Palpitations Gastrointestinal: No: Nausea, Vomiting, Abdominal Pain Genitourinary: No Dysuria Musculoskeletal: other (left hip pain), back pain Neurological: Weakness All Other Systems Reviewed All Other Systems Reviewed: Yes Objective Exam Vital Signs Vital Signs - First Documented 02/07/21 02/07/21 00:04 06:00 Temp 36.1 Pulse 66 Resp 18 B/P (MAP) 155/72 (99) Pulse Ox 97 O2 Delivery Room Air Capillary Refill : General Appearance: No Apparent Distress HEENT: PERRL/EOMI, Other (NODULAR LESION LEFT NASAL BRIDGE NEAR EYE) Neck: Supple Respiratory: Lungs Clear Cardiovascular: Regular Rate, Rhythm Gastrointestinal: Normal Bowel Sounds, No Organomegaly, No Pulsatile Mass, Non Tender, Soft Rectal: Deferred Extremity: Non Tender, No Calf Tenderness, No Pedal Edema Neurologic/Psychiatric: Alert, Oriented x3 Skin: Warm/Dry Lymphatic: No Adenopathy Results Lab Laboratory Tests 02/13/21 05:00: Sodium Level 129L, Potassium Level 4.2, Chloride Level 93L, Carbon Dioxide Level 28, Anion Gap 8, Blood Urea Nitrogen 25H, Creatinine 0.82, Estimat Glomerular Filtration Rate > 60, BUN/Creatinine Ratio 30, Glucose Level 70, Calcium Level 8.4L Assessment/Plan Assessment/Plan Admission Dx RENAL CELL CARCINOMA STATUS POST LEFT NEPHRECTOMY 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 BOYD - ONC AND DR. CABRERA - RAD ONC - INITIALLY ON THE DAY OF ADMISSION DR. BOYD WAS PLANNING ON SENDING PT TO WHERE HE HAS BEEN TREATED FOR RENAL CELL CA, HOWEVER, THE UROLOGIST AT INFORMED US THAT THEY WOULD NOT RECOMMEND A BIOPSY OF THE SPINE, INSTEAD WOULD RECOMMEND STEROIDS, RADIATION AND BIOPSY OF ILIAC BONE. - DECISION WAS THEN MADE TO KEEP GABY HERE IN [place] FOR RADIATION AND BIOPSY. - PT IS STATUS POST BIOPSY - VERBAL REPORT FROM PATHOLOGY - THE BIOPSY REVEALED METASTATIC RENAL CELL CARCINOMA - NEXT STEP WILL BE KYPHOPLASTY AFTER HE HAS COMPLETED RADIATION THERAPY TO HIS SPINE - PT WAS STARTED ON RADIATION THERAPY ON 02/01/21 -TOTAL NUMBER OF TREATMENTS TO BE DETERMINED BY DR. CABRERA CT CHEST/ABDOMEN/PELVIS W 01/26/21 COMPARISON: Correlation is made with prior CT from 04/18/2020. CT CHEST IMPRESSION: 1. No evidence of thoracic lymphadenopathy or pulmonary metastatic disease. CT ABDOMEN AND PELVIS IMPRESSION: 1. No evidence of abdominal or pelvic lymphadenopathy. 2. L5 compression fracture, likely pathologic. This would likely be amenable to kyphoplasty with core biopsy. No definite retropulsion of fracture fragments is identified. 3. Sclerotic lesion in the right iliac bone, consistent with metastatic lesion. HYPERTENSION - RESUMED HOME REGIMEN - BP STABLE, MONITOR, ADDITIONAL AGENTS IF NEEDED BPH - RESUMED HOME REGIMEN - FLOMAX AND PROSCAR SEVERE BACK PAIN - PT ON MS CONTIN AT 15MG BID - WILL HAVE PRN OXYCODONE AT 5MG PO QID FOR PRN CONTROL OF PAIN. LEFT HIP PAIN - PAIN CONTROLLED WITH MORPHINE PO HYPONATREMIA - CONTINUE WITH ORAL SODIUM TABS -MONITOR SODIUM LEVELS, GATORADE/POWERADE WITH MEALS CONSTIPATION - DULCOLAX PO, PRN MIRALAX CHANGED TO SCHEDULED AT [facility] DAILY - STARTED PT ON RELISTOR ON 02/01/2021 HEMORRHOIDS - RX FOR PROTOCORT AND PRN DULCOLAX WEAKNESS WITH GAIT INSTABILITY - ADVANCE PHYSICAL THERAPY GABY CANNOT ACHIEVE COMFORT IN A REGULAR BED DUE TO NEED FOR FREQUENT POSITION CHANGES AND INABILITY ACHIEVE POSITIONS OF COMFORT WITH PILLOWS. HE NEEDS TO HAVE THE ABILITY TO FREQUENTLY ADJUST HIS POSITION AND PILLOWS DO NOT ALLOW FOR ENOUGH INCREMENTAL CHANGE TO GET INTO POSITIONS OF COMFORT FOR HIS BACK AND LOWER LEGS/HIP REGION FROM THE METASTATIC CANCER TO HIS BACK AND HIP/PELVIS. LOVENOX AND SCD'S FOR DVT PROPHYLAXIS GI PROPHYLAXIS WITH PEPCID. Admission Dx RENAL CELL CARCINOMA STATUS POST LEFT NEPHRECTOMY RENAL CELL CARCINOMA METASTATIC LESIONS TO SPINE AND ILIAC BONE AND SACRUM HYPERTENSION BPH SEVERE BACK PAIN LEFT HIP PAIN HYPONATREMIA CONSTIPATION HEMORRHOIDS WEAKNESS LEFT HEEL PAIN Clinical Quality Measures Admission Status Admission Dx RENAL CELL CARCINOMA STATUS POST LEFT NEPHRECTOMY RENAL CELL CARCINOMA METASTATIC LESIONS TO SPINE AND ILIAC BONE AND SACRUM HYPERTENSION BPH SEVERE BACK PAIN LEFT HIP PAIN HYPONATREMIA CONSTIPATION HEMORRHOIDS WEAKNESS LEFT HEEL PAIN KALI ORO MD Feb 13, 2021 09:37
--- NOTE | 2021-02-13 11:34 | Physical Therapy Daily Note ---
PT Daily Note-Current Subjective Patient agrees to PT. No c/o. Mental Status Patient Orientation: Normal For Age Transfers SCALE: Activities may be completed with or without assistive devices. 8-Mvemodvyao-vyfpbzr completes the activity by him/herself with no assistance from a helper. 5-Set-up or Clean-up Assistance-helper sets up or cleans up; patient completes activity. [place] assists only prior to or following the activity. 4-Supervision or Touching Assistance-helper provides verbal cues and/or touching/steadying and/or contact guard assistance as patient completes activity. Assistance may be provided throughout the activity or intermittently. 3-Partial/Moderate Assistance-helper does LESS THAN HALF the effort. [place] lifts, holds or supports trunk or limbs, but provides less than half the effort. 2-Substantial/Maximal Assistance-helper does MORE THAN HALF the effort. [place] lifts or holds trunk or limbs and provides more than half the effort. 9-Gzyizbchg-jxhfvl does ALL the effort. Patient does none of the effort to c omplete the activity. Or, the assistance of 2 or more helpers is required for the patient to complete the activity. If activity was not attempted, code reason: 7-Patient Refused. 9-Not Applicable-not attempted and the patient did not perform the activity before the current illness, exacerbation or injury. 10-Not Attempted due to Environmental Limitations-(lack of equipment, weather restraints, etc.). 88-Not Attempted due to Medical Conditions or Safety Concerns. Roll Left & Right (QC): 6 Sit to Lying (QC): 6 Lying to Sitting/Side of Bed(Q: 6 Sit to Stand (QC): 6 Chair/Zat-en-Eqkkp Xfer(QC): 6 Toilet Transfer (QC): 6 Car Transfer (QC): 6 Gait Training Does the Patient Walk?: Yes Distance: 500' Walk 10 feet (QC): 6 Walk 50 ft with 2 Turns(QC): 6 Walk 150 ft (QC): 6 Walking 10ft/uneven surface-QC: 6 Gait Assistive Device: FWW safe and functional with no deviation Wheelchair Training Does the Pt Use a Wheelchair?: No Wheel 50 ft with 2 turns (QC): 9 Wheel 150 ft (QC): 9 Stair Training Stair Training: Handrails/: 1 handrail, uses walker #of Steps: 12 1 Step (curb) (QC): 6 4 Steps (QC): 6 12 Steps (QC): 6 Stairs: Pattern: Step to Balance Picking up an Object (QC): 6 (seated position) Assessment Patient has attained and exceeded all functional goals. Patient highly motivated to return to home this week. PT Snf Goals Hunting And Fishing Guide Goals PT Snf Goals Time Frame: Feb 23, 2021 Roll Left & Right (QC): 4 (met 02/13/21) Sit to Lying (QC): 4 (met 02/13/21) Lying-Sitting on Side/Bed(QC): 4 (met 02/13/21) Sit to Stand (QC): 4 (met 02/13/21) Chair/Yoi-eu-Ligfv Xfer(QC): 4 (met 02/13/21) Toilet Transfer (QC): 4 (met 02/13/21) Car Transfer (QC): 4 (met 02/13/21) Does the Patient Walk: Yes Walk 10 feet (QC): 4 (met 02/13/21) Walk 50ft with 2 Turns (QC): 4 (met 02/13/21) Walk 150 ft (QC): 4 (met 02/13/21) Walking 10ft on Uneven Surface: 4 (met 02/13/21) 1 Step (curb) (QC): 4 (met 02/13/21) 4 Steps (QC): 9 (met 02/13/21) 12 Steps (QC): 9 (met 02/13/21) Picking up an Object (QC): 5 (met 02/13/21) Wheel 50 feet with 2 turns (QC: 9 (met 02/13/21) Wheel 150 feet: 9 (met 02/13/21) PT Plan Treatment/Plan Treatment Plan: Continue Plan of Care Treatment Plan: Bed Mobility, Education, Functional Activity Sameer, Functional Strength, Gait, Safety, Therapeutic Exercise, Transfers Treatment Duration: Feb 23, 2021 Frequency: 6 times per week Estimated Hrs Per Day: .25 hour per day Patient and/or Family Agrees t: Yes Time/GCodes Time In: 1031 Time Out: 1047 Total Billed Treatment Time: 16 Total Billed Treatment 1 visit FA 16 min JENNIFER ROBLES PT Feb 13, 2021 11:34
[2021-02-13 17:04] VITALS: BP 127/60
[2021-02-13] MEDS: TAMSULOSIN 0.4 MG (FLOMAX) CAP PO SCH (17:04)
[2021-02-13] MEDS: FINASTERIDE (PROSCAR) 5 MG TAB PO SCH (17:04)
[2021-02-13] MEDS: polyethylene glycoL POWDER 17 GM (MIRALAX) PACK PO SCH (21:04)
[2021-02-13] MEDS: ENOXAPARIN 40 MG/0.4 ML (LOVENOX) SYR SC SCH (21:04)
[2021-02-14 05:15] LABS: HEMOGLOBIN 10.5 g/dL (13.3-17.7); WHITE BLOOD COUNT 8.6 10^3/uL (4.3-11.0)
[2021-02-14] MEDS: SENNA W/DOCUSATE (SENOKOT S) TABLET PO SCH (05:58)
[2021-02-14 07:25] VITALS: BP 125/63
--- NOTE | 2021-02-14 08:41 | Progress Note ---
Subjective Subjective PT REPORTS THAT HE IS FEELING BETTER TODAY - HE DENIES COMPLAINTS, HE STATES THAT HIS PAIN IS IMPROVED BUT HE IS STILL HAVING TROUBLE FINDING POSITIONS THAT HE CAN GET INTO FOR MORE THAN A FEW MINUTES WITHOUT PAIN IN HIS BACK AND HIP. HE IS NEEDING A HOSPITAL BED AND OTHER AT HOME AIDES TO HELP HIM TO BE SAFE AT HOME. Review of Systems General: No Chills, No Night Sweats; Fatigue HEENT: No Head Aches Pulmonary: No Dyspnea, No Cough Cardiovascular: No: Chest Pain, Palpitations Gastrointestinal: No: Nausea, Vomiting, Abdominal Pain Genitourinary: No Dysuria Musculoskeletal: other (left hip pain), back pain Neurological: Weakness All Other Systems Reviewed All Other Systems Reviewed: Yes Objective Exam Vital Signs Vital Signs - First Documented 02/08/21 06:00 Temp 36.4 Pulse 64 Resp 18 B/P (MAP) 154/80 (104) Pulse Ox 97 O2 Delivery Room Air Capillary Refill : General Appearance: No Apparent Distress HEENT: PERRL/EOMI, Other (NODULAR LESION LEFT NASAL BRIDGE NEAR EYE) Neck: Supple Respiratory: Lungs Clear Cardiovascular: Regular Rate, Rhythm Gastrointestinal: Normal Bowel Sounds, No Organomegaly, No Pulsatile Mass, Non Tender, Soft Rectal: Deferred Extremity: Non Tender, No Calf Tenderness, No Pedal Edema Neurologic/Psychiatric: Alert, Oriented x3 Skin: Warm/Dry Lymphatic: No Adenopathy Results Lab Laboratory Tests 02/14/21 05:02: White Blood Count 8.6, Red Blood Count 3.88L, Hemoglobin 10.5L, Hematocrit 33L, Mean Corpuscular Volume 84, Mean Corpuscular Hemoglobin 27, Mean Corpuscular Hemoglobin Concent 32, Red Cell Distribution Width 15.3H, Platelet Count 109L, Mean Platelet Volume 11.0, Percent Immature Platelet Fraction 5.5 Assessment/Plan Assessment/Plan Admission Dx RENAL CELL CARCINOMA STATUS POST LEFT NEPHRECTOMY 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 BOYD - ONC AND DR. CABRERA - RAD ONC - INITIALLY ON THE DAY OF ADMISSION DR. BOYD WAS PLANNING ON SENDING PT TO WHERE HE HAS BEEN TREATED FOR RENAL CELL CA, HOWEVER, THE UROLOGIST AT INFORMED US THAT THEY WOULD NOT RECOMMEND A BIOPSY OF THE SPINE, INSTEAD WOULD RECOMMEND STEROIDS, RADIATION AND BIOPSY OF ILIAC BONE. - DECISION WAS THEN MADE TO KEEP GABY HERE IN [place] FOR RADIATION AND BIOPSY. - PT IS STATUS POST BIOPSY - VERBAL REPORT FROM PATHOLOGY - THE BIOPSY REVEALED METASTATIC RENAL CELL CARCINOMA - NEXT STEP WILL BE KYPHOPLASTY AFTER HE HAS COMPLETED RADIATION THERAPY TO HIS SPINE - PT WAS STARTED ON RADIATION THERAPY ON 02/01/21 -TOTAL NUMBER OF TREATMENTS TO BE DETERMINED BY DR. CABRERA CT CHEST/ABDOMEN/PELVIS W 01/26/21 COMPARISON: Correlation is made with prior CT from 04/18/2020. CT CHEST IMPRESSION: 1. No evidence of thoracic lymphadenopathy or pulmonary metastatic disease. CT ABDOMEN AND PELVIS IMPRESSION: 1. No evidence of abdominal or pelvic lymphadenopathy. 2. L5 compression fracture, likely pathologic. This would likely be amenable to kyphoplasty with core biopsy. No definite retropulsion of fracture fragments is identified. 3. Sclerotic lesion in the right iliac bone, consistent with metastatic lesion. HYPERTENSION - RESUMED HOME REGIMEN - BP STABLE, MONITOR, ADDITIONAL AGENTS IF NEEDED BPH - RESUMED HOME REGIMEN - FLOMAX AND PROSCAR SEVERE BACK PAIN - PT ON MS CONTIN AT 15MG BID - WILL HAVE PRN OXYCODONE AT 5MG PO QID FOR PRN CONTROL OF PAIN. LEFT HIP PAIN - PAIN CONTROLLED WITH MORPHINE PO HYPONATREMIA - CONTINUE WITH ORAL SODIUM TABS -MONITOR SODIUM LEVELS, GATORADE/POWERADE WITH MEALS CONSTIPATION - DULCOLAX PO, PRN MIRALAX CHANGED TO SCHEDULED AT [facility] DAILY - STARTED PT ON RELISTOR ON 02/01/2021 HEMORRHOIDS - RX FOR PROTOCORT AND PRN DULCOLAX WEAKNESS WITH GAIT INSTABILITY - ADVANCE PHYSICAL THERAPY GABY CANNOT ACHIEVE COMFORT IN A REGULAR BED DUE TO NEED FOR FREQUENT POSITION CHANGES AND INABILITY ACHIEVE POSITIONS OF COMFORT WITH PILLOWS. HE NEEDS TO HAVE THE ABILITY TO FREQUENTLY ADJUST HIS POSITION AND PILLOWS DO NOT ALLOW FOR ENOUGH INCREMENTAL CHANGE TO GET INTO POSITIONS OF COMFORT FOR HIS BACK AND LOWER LEGS/HIP REGION FROM THE METASTATIC CANCER TO HIS BACK AND HIP/PELVIS. LOVENOX AND SCD'S FOR DVT PROPHYLAXIS GI PROPHYLAXIS WITH PEPCID. Admission Dx RENAL CELL CARCINOMA STATUS POST LEFT NEPHRECTOMY RENAL CELL CARCINOMA METASTATIC LESIONS TO SPINE AND ILIAC BONE AND SACRUM HYPERTENSION BPH SEVERE BACK PAIN LEFT HIP PAIN HYPONATREMIA CONSTIPATION HEMORRHOIDS WEAKNESS LEFT HEEL PAIN Clinical Quality Measures Admission Status Admission Dx RENAL CELL CARCINOMA STATUS POST LEFT NEPHRECTOMY RENAL CELL CARCINOMA METASTATIC LESIONS TO SPINE AND ILIAC BONE AND SACRUM HYPERTENSION BPH SEVERE BACK PAIN LEFT HIP PAIN HYPONATREMIA CONSTIPATION HEMORRHOIDS WEAKNESS LEFT HEEL PAIN KALI ORO MD Feb 14, 2021 08:41
[2021-02-14] MEDS ORDERED: NF-NACL1GT PO (08:51)
[2021-02-14] MEDS ORDERED: BISA10SU8 PR (08:51)
[2021-02-14] MEDS ORDERED: DEXA4TAB PO (08:51)
[2021-02-14] MEDS ORDERED: SENN1TAB76 PO (08:51)
[2021-02-14] MEDS ORDERED: MORP-68 PO (08:51)
[2021-02-14] MEDS ORDERED: OXC5T PO (08:51)
[2021-02-14] MEDS ORDERED: DICL100G18 TOP (08:51)
[2021-02-14] MEDS ORDERED: PANT40TA52 PO (08:51)
[2021-02-14] MEDS ORDERED: POLY17PO54 PO (08:51)
[2021-02-14] MEDS ORDERED: METH150T PO (08:51)
[2021-02-14] MEDS: PANTOPRAZOLE 40 MG (PROTONIX) TAB PO SCH (09:08)
[2021-02-14] MEDS: DOCUSATE SODIUM 100 MG (COLACE) CAP PO SCH ×2 (09:08→20:56)
[2021-02-14] MEDS: meTOprolol TARTRATE 25 MG (LOPRESSOR) TABLET PO SCH ×2 (09:08→20:57)
[2021-02-14] MEDS: amLODIPine 5 MG (NORVASC) TAB PO SCH (09:09)
[2021-02-14] MEDS: DICLOFENAC 1% GEL 100 GM (VOLTAREN) TUBE TOP SCH ×4 (09:09→20:58)
[2021-02-14] MEDS: SODIUM CHLORIDE 1 GM TABLET PO SCH ×2 (09:09→20:56)
[2021-02-14] MEDS: morphine ER 15 MG (MS CONTIN) TAB PO SCH ×2 (09:09→20:56)
--- NOTE | 2021-02-14 10:12 | Physical Therapy Daily Note ---
PT Daily Note-Current Subjective Patient in room walking about pre tx, agrees to PT, has no complaints of pain Appearance Patient in room with family post tx. Patient has been ambulating in his room on his own with family present without difficulty. Mental Status Patient Orientation: Normal For Age Transfers SCALE: Activities may be completed with or without assistive devices. 4-Arilczjplv-ntwcnrd completes the activity by him/herself with no assistance from a helper. 5-Set-up or Clean-up Assistance-helper sets up or cleans up; patient completes activity. [place] assists only prior to or following the activity. 4-Supervision or Touching Assistance-helper provides verbal cues and/or touching/steadying and/or contact guard assistance as patient completes acti vity. Assistance may be provided throughout the activity or intermittently. 3-Partial/Moderate Assistance-helper does LESS THAN HALF the effort. [place] lifts, holds or supports trunk or limbs, but provides less than half the effort. 2-Substantial/Maximal Assistance-helper does MORE THAN HALF the effort. [place] lifts or holds trunk or limbs and provides more than half the effort. 2-Bbcskkdlo-anitnc does ALL the effort. Patient does none of the effort to complete the activity. Or, the assistance of 2 or more helpers is required for the patient to complete the activity. If activity was not attempted, code reason: 7-Patient Refused. 9-Not Applicable-not attempted and the patient did not perform the activity before the current illness, exacerbation or injury. 10-Not Attempted due to Environmental Limitations-(lack of equipment, weather restraints, etc.). 88-Not Attempted due to Medical Conditions or Safety Concerns. Sit to Stand (QC): 6 Gait Training Distance: 600' Walk 10 feet (QC): 6 Walk 50 ft with 2 Turns(QC): 6 Walk 150 ft (QC): 6 Gait Assistive Device: FWW slow but steady ambulation, independent with ambulation Exercises Seated Therapy Exercises: Ankle pumps, Long arc quads Seated Reps: 20 Treatments LE exercise, ambulation Assessment Current Status: Fair Progress Patient is independent with ambulation, patient states he has been performing his LE exercise on his own PT Rn Labor And Delivery Goals Rn Labor And Delivery Goals PT Rn Labor And Delivery Goals Time Frame: Feb 23, 2021 Roll Left & Right (QC): 4 (met 02/13/21) Sit to Lying (QC): 4 (met 02/13/21) Lying-Sitting on Side/Bed(QC): 4 (met 02/13/21) Sit to Stand (QC): 4 (met 02/13/21) Chair/Dna-zd-Hchug Xfer(QC): 4 (met 02/13/21) Toilet Transfer (QC): 4 (met 02/13/21) Car Transfer (QC): 4 (met 02/13/21) Does the Patient Walk: Yes Walk 10 feet (QC): 4 (met 02/13/21) Walk 50ft with 2 Turns (QC): 4 (met 02/13/21) Walk 150 ft (QC): 4 (met 02/13/21) Walking 10ft on Uneven Surface: 4 (met 02/13/21) 1 Step (curb) (QC): 4 (met 02/13/21) 4 Steps (QC): 9 (met 02/13/21) 12 Steps (QC): 9 (met 02/13/21) Picking up an Object (QC): 5 (met 02/13/21) Wheel 50 feet with 2 turns (QC: 9 (met 02/13/21) Wheel 150 feet: 9 (met 02/13/21) PT Plan Problem List Problem List: Activity Tolerance, Functional Strength, Safety, Balance, Gait, Transfer Treatment/Plan Treatment Plan: Continue Plan of Care Treatment Plan: Bed Mobility, Education, Functional Activity Sameer, Functional Strength, Gait, Safety, Therapeutic Exercise, Transfers Treatment Duration: Feb 23, 2021 Frequency: 6 times per week Estimated Hrs Per Day: .25 hour per day Patient and/or Family Agrees t: Yes Safety Risks/Education Patient Education: Gait Training, Transfer Techniques, Correct Positioning, Safety Issues Teaching Recipient: Patient Teaching Methods: Demonstration, Discussion Response to Teaching: Reinforcement Needed Time/GCodes Time In: 0953 Time Out: 1008 Total Billed Treatment Time: 15 Total Billed Treatment 1 visit GT 15' RENALDO VALIENTE PT Feb 14, 2021 10:12
--- NOTE | 2021-02-14 10:20 | Occupational Ther Daily Note ---
OT Current Status-Daily Note Subjective Pt alert, sitting up in bed. Pt agrees to therapy. No c/o pain. Mental Status/Objective Patient Orientation: Person, Place, Time, Situation Attachments: IV ADL-Treatment Therapy Code Descriptions/Definitions Functional [place] Measure: 0=Not Assessed/NA 4=Minimal Assistance 1=Total Assistance 5=Supervision or Setup 2=Maximal Assistance 6=Modified [place] 3=Moderate Assistance 7=Complete IndependenceSCALE: Activities may be completed with or without assistive devices. 5-Rptpyaqoji-tzbaqlg completes the activity by him/herself with no assistance from a helper. 5-Set-up or Clean-up Assistance-helper sets up or cleans up; patient completes activity. [place] assists only prior to or following the activity. 4-Supervision or Touching Assistance-helper provides verbal cues and/or touching/steadying and/or contact guard assistance as patient completes activity. Assistance may be provided throughout the activity or intermittently. 3-Partial/Moderate Assistance-helper does LESS THAN HALF the effort. [place] lift s, holds or supports trunk or limbs, but provides less than half the effort. 2-Substantial/Maximal Assistance-helper does MORE THAN HALF the effort. [place] lifts or holds trunk or limbs and provides more than half the effort. 7-Hulxwfuew-vaiqws does ALL the effort. Patient does none of the effort to complete the activity. Or, the assistance of 2 or more helpers is required for the patient to complete the activity. If activity was not attempted, code reason: 7-Patient Refused. 9-Not Applicable-not attempted and the patient did not perform the activity before the current illness, exacerbation or injury. 10-Not Attempted due to Environmental Limitations-(lack of equipment, weather restraints, etc.). 88-Not Attempted due to Medical Conditions or Safety Concerns. Other Treatment Pt agrees to complete B UE theraband and hand sponge exercises. Skilled instruction and modifications required for correct technique and R shldr weakness. Pt completed 1 set 15 reps of 6 exercises. External rotation and R shldr abd required isometric exercises instead of using theraband due to weakness. Completed pinch and apparel trimmings sales representative exercises 1 set 15 reps. After therapy, pt lying in bed with call light/phone in reach. All needs met in room. OT Retirement Goals Retirement Goals Time Frame: Feb 23, 2021 Eating (QC): 6 (met) Oral Hygiene (QC): 6 (met) Toileting Hygiene (QC): 4 (met) Shower/Bathe Self (QC): 4 (met) Upper Body Dressing (QC): 5 (met) Lower Body Dressing (QC): 3 (met) On/Off Footwear (QC): 3 (met) Additional Goals: 1-Demonstrate ADL Tasks, 2-Verbalize Understanding, 3- ImproveStrength/Sameer 1=Demonstrate adherence to instructed precautions during ADL tasks. 2=Patient will verbalize/demonstrate understanding of assistive devices/modifications for ADL. 3=Patient will improve strength/tolerance for activity to enable patient to perform ADL's. OT Education/Plan Problem List/Assessment Assessment: Decreased Activ Tolerance, Decreased UE Strength Pt would benefit from skilled OT services in order to increase BUE strength and activity tolerance, and increase safety and independence with ADLs in order to maximize LOF for safe return home. Discharge Recommendations Plan/Recommendations: Continue POC Treatment Plan/Plan of Care Patient would benefit from OT for education, treatment and training to promote independence in ADL's, mobility, safety and/or upper extremity function for ADL's. Plan of Care: ADL Retraining, Functional Mobility, UE Funct Exercise/Act Treatment Duration: Feb 23, 2021 Frequency: 5 times per week Estimated Hrs Per Day: .25 hour per day Agreement: Yes Rehab Potential: Fair Time/GCodes Start Time: 08:35 Stop Time: 08:50 Total Time Billed (hr/min): 15 Billed Treatment Time 1 visit-EX 1 (15 min) MELODY MELO Feb 14, 2021 10:20
[2021-02-14] MEDS: FINASTERIDE (PROSCAR) 5 MG TAB PO SCH (17:09)
[2021-02-14] MEDS: TAMSULOSIN 0.4 MG (FLOMAX) CAP PO SCH (17:09)
--- NOTE | 2021-02-14 18:09 | Progress Note ---
Standard Progress Note Progress Notes/Assess & Plan Date Seen by a Provider: Feb 14, 2021 Time Seen by a Provider: 18:06 Progress/Assessment & Plan 80-year-old male admitted with intractable low back pain with MRI showing L5 lesion with compression fracture as well as sacral and pelvic lesions. Patient has previous history of renal cancer status post nephrectomy in 2019. 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 Started on palliative radiation and completed 9/10 fractions today. Currently on morphine ER 15 mg twice daily and not taking additional pain medication. Pain under good control but is positional. He is able to rest better with the hospital bed. manager of allied health services working on arranging hospital bed and a walker for home use. He is able to walk with physical therapy and activity level is continuing to improve. Currently on dexamethasone 4 mg in the morning with breakfast until and then DC. Continue radiation therapy as planned and discharge home when completing treatments. Will discuss systemic therapy for metastatic renal cell carcinoma after he recovers. An appointment with me at the cancer center has been scheduled for 02/23/2021 at 9 AM. NADIA BOYD Feb 14, 2021 18:09
[2021-02-14 19:33] VITALS: BP 122/67
[2021-02-14] MEDS: ENOXAPARIN 40 MG/0.4 ML (LOVENOX) SYR SC SCH (20:57)
[2021-02-14] MEDS: polyethylene glycoL POWDER 17 GM (MIRALAX) PACK PO SCH (20:58)
[2021-02-15] MEDS: SENNA W/DOCUSATE (SENOKOT S) TABLET PO SCH (06:27)
--- NOTE | 2021-02-15 07:57 | Therapy Team Discharge Summary ---
Therapy Discharge Summary Discharge Recommendations Date of Discharge Physical Therapy Patient initially evaluated for bed exercises only due to uncontrolled back pain due to metastatic cancer to spine. Patient improved with pain control and was able to participate with OOB activities. Patient initially requires SBA to [facility] for safety with all mobility. Patient is currently at independent PLOF with all gross motor skills, performs HEP independently and has attained all functional goals. Patient will dismiss to home with family on this date. Occupational Therapy Decreased Activ Tolerance, Decreased UE Strength PT Lead Java Developer Architect Goals Lead Java Developer Architect Goals PT Lead Java Developer Architect Goals Time Frame: Feb 23, 2021 Roll Left to Right (QC): 4 (met 02/13/21) Sit to Lying (QC): 4 (met 02/13/21) Lying-Sitting on Side/Bed(QC): 4 (met 02/13/21) Sit to Stand (QC): 4 (met 02/13/21) Chair/Dkc-ve-Hkccg Xfer(QC): 4 (met 02/13/21) Car Transfer (QC): 4 (met 02/13/21) Does the Patient Walk: Yes Walk 10 feet (QC): 4 (met 02/13/21) Walk 10ft-Uneven Surface(QC): 4 (met 02/13/21) Walk 50ft with 2 Turns (QC): 4 (met 02/13/21) Walk 150 ft (QC): 4 (met 02/13/21) Wheel 50 feet with 2 turns (QC: 9 (met 02/13/21) 1 Step (curb) (QC): 4 (met 02/13/21) 4 Steps (QC): 9 (met 02/13/21) 12 Steps (QC): 9 (met 02/13/21) Picking up an Object (QC): 5 (met 02/13/21) OT Lead Java Developer Architect Goals Lead Java Developer Architect Goals Time Frame: Feb 23, 2021 Eating (QC): 6 (met) Oral Hygiene (QC): 6 (met) Shower/Bathe Self (QC): 4 (met) Upper Body Dressing (QC): 5 (met) Lower Body Dressing (QC): 3 (met) On/Off Footwear (QC): 3 (met) Toileting Hygiene (QC): 4 (met) Toilet/Commode Transfer (QC): 4 (met 02/13/21) Additional Goals: 1-Demonstrate ADL Tasks, 2-Verbalize Understanding, 3-ImproveStrength/Sameer 1=Demonstrate adherence to instructed precautions during ADL tasks. 2=Patient will verbalize/demonstrate understanding of assistive devices/modifications for ADL. 3=Patient will improve strength/tolerance for activity to enable patient to perform ADL's. JENNIFER ROBLES PT Feb 15, 2021 07:57
[2021-02-15 08:00] VITALS: BP 136/77
--- NOTE | 2021-02-15 08:30 | Discharge Summary ---
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 HE STARTED TO HAVE AN INCREASE IN PAIN IN HIS BACK, WAS SENT FOR IMAGING WHICH REVEALED DESTRUCTIVE LESION TO LUMBAR SPINE. PT WAS REFERRED TO DR. BOYD FOR EVALUATION, AND AT THE TIME OF THE EVAL, THEY WERE GOING TO SEND HIM BACK TO FOR A BIOPSY, BUT RECOMMENDED FOR GABY TO STAY LOCALLY, HAVE HIS ILIAC BONE BIOPSIED HERE AND THEN START ON STEROIDS AND RADIATION THERAPY. HE WAS STARTED ON RADIATION YESTERDAY AFTER THE INITIAL LOOK AT HIS CELLS FROM BIOPSY LOOKED LIKE METASTATIC RENAL CELL CA. TODAY HIS BIOPSY CONFIRMED METASTATIC RENAL CELL CA, AND HE WILL BE TRANSITIONED TO SWING BED FOR PAIN CONTROL WITH IV MORHPINE, CONTINUED RADIATION THERAPY, AND START BED BOUND PHYSICAL THERAPY. Discharge Summary Discharge Physical Examination Allergies: Coded Allergies: No Known Drug Allergies (Verified , 03/27/20) Vitals & I&Os Vital Signs Date Time Temp Pulse Resp B/P (MAP) Pulse Ox O2 Delivery O2 Flow Rate FiO2 02/15/21 08:00 36.4 67 14 136/77 (96) 98 Room Air Discharge Instructions to patient/family Please see electronic discharge instructions given to patient. Discharge Medications Reviewed and agree with Discharge Medication list on patient's Discharge Instruction sheet KALI OOR MD Feb 15, 2021 08:30
[2021-02-15] MEDS ORDERED: DEXA4TAB PO (08:36)
--- NOTE | 2021-02-15 08:42 | D/C HH Face to Face Order ---
D/C Face to Face Orders Reconcile Patient Problems Problems Reviewed?: Yes Instructions for Patient Via [facility], Patient Instructions/FollowUp: 1 WK [facility] Physician to follow Patient: PREETHI Discharge Diet for Home: Regular Diet Patient Problems: METASTATIC RENAL CELL CARCINOMA HYPONATREMIA HYPERTENSION PAIN FROM CANCER CONSTIPATION WEAKNESS Goals for Patient: IMPROVED STRENGTH CONTROLLED PAIN Patient Data-Allergies,Ht & Wt Patient Allergies: Coded Allergies: No Known Drug Allergies (Verified , 03/27/20) Height (Feet): 5 Height (Inches): 11.00 Weight (Pounds): 191 Weight (Ounces): 0.0 Home Health Need/Face to Face Date of Face to Face: Feb 15, 2021 Clinical Findings: Generalized weakness and fatigue, Muscle weakness, Pain with ambulation I have seen Pt [id number]: Yes Discharged To: Home Diagnosis/Conditions: METASTATIC RENAL CELL CARCINOMA HYPONATREMIA HYPERTENSION PAIN FROM CANCER CONSTIPATION WEAKNESS Patient is Homebound due to: Muscle weakness Homebound Status Due to the above stated illness, injury or surgical procedure (medical condition or diagnosis) and associated clinical findings, the patient is homebound because of his/her inability to leave home except with aid of a supportive device and/or person AND leaving the home requires a considerable and taxing effort or is medically contraindicated. Pt req the following assistanc: Walker Home Health Nursing Orders Home Health Services Order: Nursing Services, Cat Tender-Evaluate & Treat, Physical Therapy-Evaluate & Treat HOME SAFETY EVAL - SEE IF THERE IS ANYTHING ELSE IN THE HOME NEEDED FOR COMFORT/SAFETY Home Health Lab Orders Labs (specify type/freq): CBC, CMP IN 1 WK FROM DC Therapy Orders Therapy Orders: Physical Therapy, PT to assess for OT Therapy Specific Orders: Eval assistive deivces, Teach enviro modifications/safety, Increase strength/endurance Certify Stmt I certify that this patient is under my care and that I, a nurse practitioner or a physician; a refinery operator assistant working with me, had a face to face encounter that - meets the physician face to face encounter requirements with this patient as dated. Medication List: Active Scripts Active Dexamethasone 4 Mg Tablet 4 Mg PO UD TAKE 1/2 PILL DAILY X 2 DAYS THEN 1/2 PILL EVERY OTHER DAY X 3 DAYS THEN STOP THIS IS A CHANGE FROM THE RX SENT TO THE PHARMACY - DR. BOYD WANTS PT TO STOP MEDICATION INSTEAD OF PROLONGED USE - GABY SHOULD HAVE LEFT OVER PILLS FOR USE IF NEEDED LATER Stool Softener-Laxative Tablet (Sennosides/Docusate Sodium) 1 Each Tablet 2 Ea PO DAILY@0600 Pantoprazole Sodium 40 Mg Tablet.dr 40 Mg PO DAILY Polyethylene Glycol 3350 17 Gm Powd.pack 17 Gm PO HS Relistor (Methylnaltrexone [place]) 150 Mg Tablet 150 Mg PO Q48H Bisacodyl 10 Mg Supp.rect 10 Mg TN DAILY PRN Sodium Chloride 1 Gm Tab 1 Gm PO BID Oxyir Tablet (Oxycodone HCl) 5 Mg Tab 5 Mg PO Q6HR PRN Morphine Sulfate ER (Morphine Sulfate) 15 Mg Tablet.er 15 Mg PO BID Voltaren (Diclofenac Sodium) 100 Gm Gel..gram. 0 Gm TOP QID Reported Oxybutynin Chloride 5 Mg Tablet 5 Mg PO DAILY - HOLD UNLESS NEEDED Hydrocodone-Acetamin 5-325 mg (Hydrocodone/Acetaminophen) 1 Each Tablet 1 Each PO Q4H PRN - ONLY FOR MILD PAIN Amlodipine Besylate 10 Mg Tablet 10 Mg PO DAILY Flomax (Tamsulosin HCl) 0.4 Mg Cap 0.4 Mg PO HS Dutasteride 0.5 Mg Capsule 0.5 Mg PO DAILY Metoprolol Tartrate 25 Mg Tablet 12.5 Mg PO BID TAKES OF A (25MG) TABLET Lovastatin 40 Mg Tablet 40 Mg PO HS My orders: Orders - KALI ORO MD Amlodipine Tablet (Norvasc Tablet) (02/15/21 09:00) Patient Visit (02/14/21 ) Gait Training, Gerry 15 Min (02/14/21 ) Attending Discharge Inpt/Inobs (02/15/21 08:31) Home Danilo Services Dischage (02/15/21 08:31) KALI ORO MD Feb 15, 2021 08:37
[2021-02-15] MEDS ORDERED: amLODIPine 10 MG (NORVASC) TAB PO SCH (09:00)
[2021-02-15] MEDS: DOCUSATE SODIUM 100 MG (COLACE) CAP PO SCH (09:18)
[2021-02-15] MEDS: meTOprolol TARTRATE 25 MG (LOPRESSOR) TABLET PO SCH (09:19)
[2021-02-15] MEDS: morphine ER 15 MG (MS CONTIN) TAB PO SCH (09:20)
[2021-02-15] MEDS: PANTOPRAZOLE 40 MG (PROTONIX) TAB PO SCH (09:20)
[2021-02-15] MEDS: SODIUM CHLORIDE 1 GM TABLET PO SCH (09:21)
[2021-02-15] MEDS: METHYLNALTREXONE 12 MG/0.6 ML (RELISTOR) VIAL SQ SCH (09:21)
[2021-02-15] MEDS: DICLOFENAC 1% GEL 100 GM (VOLTAREN) TUBE TOP SCH (09:22)
[2021-02-15] MEDS ORDERED: METH12DI SQ (10:24)
--- NOTE | 2021-02-15 11:29 | Therapy Team Discharge Summary ---
Therapy Discharge Summary Discharge Recommendations Date of Discharge 02-15-21 Therapy D/C Recommendations: Home w/ Family Support Occupational Therapy Pt. has been seen by Occupational therapy to increase overall strength with daily skills. Pt. has met all goals. At discharge, pt. independent with bathing, dressing, toileting, and other functional tasks. Pt. discharging home with spouse to assist with daily needs. No further OT needs warranted at this time. Decreased Activ Tolerance, Decreased UE Strength PT Detention Goals Detention Goals PT Track Manager Goals Time Frame: Feb 23, 2021 Roll Left to Right (QC): 4 (met 02/13/21) Sit to Lying (QC): 4 (met 02/13/21) Lying-Sitting on Side/Bed(QC): 4 (met 02/13/21) Sit to Stand (QC): 4 (met 02/13/21) Chair/Xnb-vy-Zgjzo Xfer(QC): 4 (met 02/13/21) Car Transfer (QC): 4 (met 02/13/21) Does the Patient Walk: Yes Walk 10 feet (QC): 4 (met 02/13/21) Walk 10ft-Uneven Surface(QC): 4 (met 02/13/21) Walk 50ft with 2 Turns (QC): 4 (met 02/13/21) Walk 150 ft (QC): 4 (met 02/13/21) Wheel 50 feet with 2 turns (QC: 9 (met 02/13/21) 1 Step (curb) (QC): 4 (met 02/13/21) 4 Steps (QC): 9 (met 02/13/21) 12 Steps (QC): 9 (met 02/13/21) Picking up an Object (QC): 5 (met 02/13/21) OT Detention Goals Detention Goals Time Frame: Feb 23, 2021 Eating (QC): 6 (met) Oral Hygiene (QC): 6 (met) Shower/Bathe Self (QC): 4 (met) Upper Body Dressing (QC): 5 (met) Lower Body Dressing (QC): 3 (met) On/Off Footwear (QC): 3 (met) Toileting Hygiene (QC): 4 (met) Toilet/Commode Transfer (QC): 4 (met 6/8/21) Additional Goals: 1-Demonstrate ADL Tasks, 2-Verbalize Understanding, 3- ImproveStrength/Sameer 1=Demonstrate adherence to instructed precautions during ADL tasks. 2=Patient will verbalize/demonstrate understanding of assistive devices/modifications for ADL. 3=Patient will improve strength/tolerance for activity to enable patient to perform ADL's. LAUREN HERNADEZ OT Feb 15, 2021 11:29
== END 2021-02-15 11:25 | disposition home health service (06) | DRG 948 ==
LOC: 4TH 10:26
PROVIDERS: ADMIT Family Medicine; ATTEND Family Medicine
DX: G89.3 Neoplasm related pain (acute) (chronic) (principal); C79.51 Secondary malignant neoplasm of bone; M84.58XA Pathological fracture in neoplastic disease, other specified site, initial encounter for fracture; E87.1 Hypo-osmolality and hyponatremia; E78.00 Pure hypercholesterolemia, unspecified; I10 Essential (primary) hypertension; N40.0 Benign prostatic hyperplasia without lower urinary tract symptoms; K21.9 Gastro-esophageal reflux disease without esophagitis; M19.91 Primary osteoarthritis, unspecified site; K59.00 Constipation, unspecified; K64.9 Unspecified hemorrhoids; M79.672 Pain in left foot; R26.89 Other abnormalities of gait and mobility; R53.1 Weakness; Z85.528 Personal history of other malignant neoplasm of kidney; Z90.5 Acquired absence of kidney; Z87.891 Personal history of nicotine dependence; Z82.49 Family history of ischemic heart disease and other diseases of the circulatory system
CPT/HCPCS: 36415; 77336; 77417; 80048; 85007; 85027; 94760

== ENCOUNTER 2021-02-28 05:39 | Outpatient (CLI) | payer MEDICARE, OTHER ==
[~2021-02-28] VITALS: Ht 180.3 cm; Wt 70.4 kg
[~2021-02-28 05:39] MED LIST changes: +BISA10SU8 PR; +DEXA4TAB PO; +DICL100G18 TOP; +METH12DI SQ; +METH150T PO; +MORP-68 PO; +OXC5T PO; +PANT40TA52 PO; +POLY17PO54 PO; +SENN1TAB76 PO
[2021-03-03] MEDS ORDERED: MAGN200T8 PO (14:11)
== END 2021-02-28 11:20 | disposition home or self-care (01) ==
LOC: PREOP 05:39
PROVIDERS: ATTEND Surgery
DX: Z01.818 Encounter for other preprocedural examination (principal)

== ENCOUNTER 2021-03-01 09:25 | Day surgery (SDC) | payer MEDICARE, OTHER ==
[2021-03-01] VITALS (7 sets, daily range): BP systolic 106–120; BP diastolic 54–62
[~2021-03-01] VITALS: Ht 180.3 cm; Wt 70.4 kg
[2021-03-01] MEDS ORDERED: ceFAZolin 2 GM IV Premixed 50 ML IV ONE (09:45)
[2021-03-01] MEDS ORDERED: LACTATED RINGERS 1,000 ML IV PRN (09:45)
[2021-03-01] MEDS ORDERED: 0.9% SODIUM CHLORIDE PF INJ 20 ML VIAL ONE (09:50)
[2021-03-01] MEDS ORDERED: LIDOCAINE/EPI 1%-1:100,000 (XYLOCAINE) 20ML ONE (09:51)
[2021-03-01] MEDS ORDERED: HEParin (CENTRAL IV FLUSH) 500 UNIT/5 ML SYR ONE (09:51)
[2021-03-01] MEDS ORDERED: PROPOFOL INJECTION 50 ML IV ONE (09:55)
--- NOTE | 2021-03-01 10:58 | Progress Note-Pre Operative ---
Pre-Operative Progress Note H&P Reviewed The H&P was reviewed, patient examined and no changes noted. Time Seen by Provider: 10:24 Date H&P Reviewed: Mar 01, 2021 Time H&P Reviewed: 10:24 Pre-Operative Diagnosis: Venous insufficiency, Renal Cell CA DORIS BUSTAMANTE DO Mar 01, 2021 10:58
--- NOTE | 2021-03-01 11:05 | Progress Note-Post Operative ---
Post-Operative Progess Note Surgeon (s)/Purchasing Agent (s) Surgeon DORIS BUSTAMANTE DO Purchasing Agent: none Pre-Operative Diagnosis Venous insufficiency, Renal Cell CA Post-Operative Diagnosis same Procedure & Operative Findings Date of Procedure 03/01/21 Procedure Performed/Findings PROCEDURE: [Right] subclavian port placement using ultrasound guidance. COMPLICATIONS: None. INDICATIONS: The patient is a 80 year old male with Renal Cell CA and Venous insufficiency. Patient understands the risks and benefits of port placement and wished to proceed with the procedure. Consent was signed on the chart. PROCEDURE: The patient was taken to the operating suite, was prepped and draped in the sterile fashion. Local lidocaine was used to infiltrate towards right clavicle, along catheter tract and right chest wall where port would be placed. Using an 18 gauge needle with negative inspiration advanced toward the right subclavian vein; it was accessed and dark nonpulsatile blood was withdrawn. The wire was inserted. Fluoroscopy assured proper placement. The needle was removed and the wire was then secured. A #15 blade scalpel was used to make an incision over the right chest. Cautery was used to dissect down to the pectoral fascia. A pocket was created with blunt dissection. Next a stab incision was made along the guidewire with a #11 blade. The dilator sheath was then advanced over the wire under fluoroscopy and the dilator and wire were removed. The catheter was then tunneled from the stab incision into the pocket created. The [place] catheter was inserted through the sheath and the sheath was then removed. The [place] wire was removed. Fluoroscopy was used to cut to length and this was then attached to the port which was then placed within the pocket. The port had been tacked down to the chest wall with 3-0 prolene suture; was then accessed without difficulty. It was then flushed with saline and then heparin. The subcutaneous tissues were then reapproximated using 3-0 Vicryl. The skin was then closed with 4-0 Monocryl, 3 interrupted simple subcuticular stitches. The areas were then washed and dried. Skin Affix was placed over incisions. The patient tolerated the procedure well without complication and was taken to recovery room in stable condition. Anesthesia Type IV sedation by SYSTEM SALES CONSULTANT Estimated Blood Loss Estimated blood loss (mL): scant Specimens/Packing Specimens Removed none DORIS BUSTAMANTE DO Mar 01, 2021 11:05
--- NOTE | 2021-03-01 11:07 | Discharge Inst-Surgical ---
Discharge Inst-Surgical Depart Medication/Instructions New, Converted or Re-Newed RX: Other (PT has home meds) Patient Instructions Follow up Appt: Make appointment for 1 week. [phone] Instructions: No lifting greater than 20 pounds. No strenuous activity. May shower in 24 hours, no tub bath or soaking. Use incentive spirometer at home as directed. No Smoking Skin/Wound Care: May remove bandages in am. You need to leave the Dermabond on incision it will fall off on it's own. Symptoms to Report: Appetite Changes, Extremity Discoloration, Numbness/Tingling, Swelling Increased, Bleeding Excessive, Eyesight Changes, Pain Increased, Urine Color Change, Constipation(Persistent), Fever over 101 degree F, Pain/Pressure in chest, Urinating Difficulty, Cough Up/Vomit Blood, Heart Beat Irreg/Pounding, Pain/Pressure in jaw, Cramps in feet or legs, Lightheadedness, Pain/Pressure in shoulder, Diarrhea(Persistent), Memory Changes Suddenly, Questions/Concerns, Weight gain consecutive days, Dizziness/Fainting, Nausea/Vomiting, Shortness of Breath, Weight gain over 2 pounds If questions or concerns contact your physician Or seek help at emergency department. Activity Activity as Tolerated: Yes Activity Instructions: Avoid Stress to Incision Driving Instructions: No Driving/Refer to Dr. Jimenez Discharge Diet: No Restrictions Diet After 24 Hours: Clear Liquid if Nauseous If Any Problems/Questions/Issu: Contact Your Physician, Go to Emergency Room Skin/Wound Care Infection Signs and Symptoms: Increased Redness, Foul Odor of Wound, Increased Drainage, Skin Itchy or Has a Rash, Increased Swelling, Temperature Above 101 F Bathing Instructions: Shower Stitches/Taya/Dermabond Dis: DORIS Dong DO Mar 01, 2021 11:07
--- NOTE | 2021-03-01 12:23 | Diagnostic Imaging Report ---
INDICATION: Port-A-Cath placement. COMPARISON: None Total fluoroscopy time: 4.3 seconds FINDINGS: Single intraoperative images intensifier view of the right upper chest was obtained during Port-A-Cath placement. Images provided shows right subclavian venous approach. Central tip appears to terminate in the high SVC. Evaluation for pneumothorax is suboptimal given fluoroscopic modality. Please note, interpreting radiologist was not present during the procedure. IMPRESSION:. Fluoroscopic guidance provided during Port-A-Cath placement. Dictated by: Dictated on workstation # [id number]
--- NOTE | 2021-03-01 15:12 | Anesthesia-General Post-Op ---
MAC Patient Condition Mental Status/LOC: Same as Preop Cardiovascular: Satisfactory Nausea/Vomiting: Absent Respiratory: Satisfactory Pain: Controlled Complications: Absent Post Op Complications Complications None Follow Up Care/Instructions Patient Instructions None needed. Anesthesiology Discharge Order Discharge Order Patient is doing well, no complaints, stable vital signs, no apparent adverse anesthesia problems. No complications reported per nursing. ABBE SNELL CRNA Mar 01, 2021 15:12
[2021-03-03] MEDS ORDERED: MAGN200T8 PO (14:11)
== END 2021-03-01 12:05 ==
LOC: SDC 09:25
PROVIDERS: ATTEND Surgery
DX: C64.9 Malignant neoplasm of unspecified kidney, except renal pelvis (principal); C79.51 Secondary malignant neoplasm of bone; I87.2 Venous insufficiency (chronic) (peripheral); I10 Essential (primary) hypertension; K21.9 Gastro-esophageal reflux disease without esophagitis; N40.0 Benign prostatic hyperplasia without lower urinary tract symptoms; Z90.5 Acquired absence of kidney; Z79.891 Long term (current) use of opiate analgesic; Z87.891 Personal history of nicotine dependence; Z79.899 Other long term (current) drug therapy
CPT/HCPCS: 36561; 76000; 87081; C1788

== ENCOUNTER 2021-03-03 21:38 | Inpatient (IN) | payer MEDICARE, OTHER ==
[~2021-03-03] VITALS: Ht 180.3 cm; Wt 74.5 kg
[~2021-03-03 21:38] MED LIST changes: +MAGN200T8 PO
[2021-03-03] MEDS ORDERED: VANCOMYCIN INJECTION 750 MG in NS (IVPB) 100 ML IV ONE (22:15)
[2021-03-03] MEDS ORDERED: NS IV 500 ML 500 ML IV ONE (22:15)
[2021-03-03] MEDS ORDERED: LACTATED RINGERS 1,000 ML IV ONE (22:15)
[2021-03-03] MEDS ORDERED: CEFEPIME INJECTION 1,000 MG in WATER (STERILE) FOR INJECTION 10 ML IV ONE (22:15)
[2021-03-03 22:22] LABS: BASOPHILS % (AUTO) 0 % (0-10); EOSINOPHILS % (AUTO) 0 % (0-10); HEMATOCRIT 33 % (40-54); HEMOGLOBIN 10.6 g/dL (13.3-17.7); LYMPHOCYTES # (AUTO) 0.4 10^3/uL (1.0-4.0); LYMPHOCYTES % (AUTO) 6 % (12-44); MEAN CORPUSCULAR HEMOGLOBIN 28 pg (25-34); MEAN CORPUSCULAR HGB CONC 32 g/dL (32-36); MEAN CORPUSCULAR VOLUME 87 fL (80-99); MEAN PLATELET VOLUME 9.5 fL (9.0-12.2); MONOCYTES # (AUTO) 0.4 10^3/uL (0.0-1.0); MONOCYTES % (AUTO) 6 % (0-12); NEUTROPHILS # (AUTO) 5.4 10^3/uL (1.8-7.8); NEUTROPHILS % (AUTO) 87 % (42-75); PLATELET COUNT 163 10^3/uL (130-400); WHITE BLOOD COUNT 6.3 10^3/uL (4.3-11.0)
--- NOTE | 2021-03-03 22:23 | ED General ---
General Chief Complaint: Altered Mental Status Stated Complaint: CONFUSION / CHILLS / WAS SEEN EARLIER TODAY Nursing Triage Note: PT ARRIVES TO ER VIA WC WITH FAMILY WITH C/O WORSENING AMS AND LETHARGY. PT WAS SEEN EARLIER TODAY FOR THE SAME COMPLAINT AND REFUSED ADMISSION. Nursing Sepsis Screen: No Definite Risk Source of Information: Patient, Family (daughter) Exam Limitations: No Limitations History of Present Illness Date Seen by Provider: Mar 03, 2021 Time Seen by Provider: 22:07 Initial Comments Patient to the ER by private conveyance with chief complaint that the patient has continued to decline today. He has a history of metastatic renal cell carcinoma status post radiation therapy about to start immunotherapy next week. He came in earlier today with his family because there was some concern about a low-grade fever 100.1 and general malaise. He is not having cough shortness of air nausea vomiting. Occasionally has some low pelvic abdominal discomfort. He says is not having any right now. He was worked up and offered and encouraged to stay in the hospital however he declined. He was told to come back if he got worse. His daughter says now he has having decreased level of consciousness and he says he has more interested in staying in the hospital now. He has not had any antipyretics today. No diarrhea. Had a bowel movement earlier today. Discussed the case and stay with his and patient and they both agree that he is a DNR, allow natural . Allergies and Home Medications Allergies Coded Allergies: No Known Drug Allergies (Verified , 03/27/20) Home Medications Amlodipine Besylate 10 Mg Tablet, 10 MG PO DAILY, (Reported) Bisacodyl 10 Mg Supp.rect, 10 MG SC DAILY PRN for CONSTIPATION-4TH LINE Prescribed by: KALI ORO on 02/14/21850 Dexamethasone 4 Mg Tablet, 4 MG PO UD TAKE 1/2 PILL DAILY X 2 DAYS THEN 1/2 PILL EVERY OTHER DAY X 3 DAYS THEN STOP Prescribed by: KALI ORO on 02/15/21835 Diclofenac Sodium 100 Gm Gel..gram., 0 GM TOP QID Prescribed by: KALI ORO on 02/14/21850 Dutasteride 0.5 Mg Capsule, 0.5 MG PO DAILY, (Reported) Hydrocodone/Acetaminophen 1 Each Tablet, 1 EACH PO Q4H PRN for PAIN-MODERATE (5- 7), (Reported) Lovastatin 40 Mg Tablet, 40 MG PO HS, (Reported) Magnesium Oxide 200 Mg Tablet, 400 MG PO DAILY Prescribed by: FRANCESCA PATTEN on 03/03/21 1411 Methylnaltrexone [place] 12 Mg/0.6 Ml Syringe, 12 MG SQ Q48H USED THE 340B [employer] Prescribed by: NADIA BOYD on 02/15/21 1024 Metoprolol Tartrate 25 Mg Tablet, 12.5 MG PO BID, (Reported) TAKES OF A (25MG) TABLET Morphine Sulfate 15 Mg Tablet.er, 15 MG PO BID Prescribed by: KALI ORO on 02/14/21 0851 Oxybutynin Chloride 5 Mg Tablet, 5 MG PO DAILY, (Reported) Oxycodone Hcl 5 Mg Tab, 5 MG PO Q6HR PRN for PAIN-SEVERE (8-10) Prescribed by: KALI ORO on 02/14/21 0851 Polyethylene Glycol 3350 17 Gm Powd.pack, 17 GM PO HS Prescribed by: KALI ORO on 02/14/21 0851 Sennosides/Docusate Sodium 1 Each Tablet, 2 EA PO DAILY@0600 Prescribed by: KALI ORO on 02/14/21 0851 Sodium Chloride 1 Gm Tab, 1 GM PO BID Prescribed by: KALI ORO on 02/14/21 0851 Tamsulosin HCl 0.4 Mg Cap, 0.4 MG PO HS, (Reported) Patient Home Medication List Home Medication List Reviewed: Yes Review of Systems Review of Systems Constitutional: No chills; fever, malaise, weakness EENTM: No ear discharge, No ear pain Respiratory: No cough; short of breath Cardiovascular: No chest pain, No edema, No palpitations Gastrointestinal: No abdominal pain, No nausea, No vomiting Genitourinary: No discharge, No dysuria Musculoskeletal: No back pain, No joint pain All Other Systems Reviewed Negative Unless Noted: Yes Past Bbyqfvx-Jemghw-Qjgebc Hx Patient Social History Alcohol Use: Rarely Uses Number of Drinks Today: AA Alcohol Beverage of Choice: Beer Drug of Choice: Denies Smoking Status: Former Smoker Type Used: Cigarettes Former Smoker, Quit: Nov 03, 1976 2nd Hand Smoke Exposure: No Recent Infectious Disease Expo: No Recent Hopitalizations: No Immunizations Up To Date Tetanus Booster (TDap): Unknown Date of Pneumonia Vaccine: Jun 15, 2018 Date of Influenza Vaccine: Jun 08, 2020 Seasonal Allergies Seasonal Allergies: Yes Past Medical History Surgeries: Yes (skin cancer excision, hernia, ) Abdominal, Adenoidectomy, Nephrectomy, Tonsillectomy Respiratory: No Currently Using CPAP: No Currently Using BIPAP: No Cardiac: Yes High Cholesterol, Hypertension Neurological: No Reproductive Disorders: No Sexually Transmitted Disease: No HIV/AIDS: No Genitourinary: Yes (renal ca) Benign Prostatic Hyperpl, Prostate Problems Gastrointestinal: Yes (dysphagia) Gastroesophageal Reflux Musculoskeletal: Yes Arthritis Endocrine: No HEENT: Yes (GLASSES) Loss of Vision: Denies Hearing Impairment: Denies Cancer: Yes Skin, Kidney What Type of Treatment Did You: Surgical Intervention Psychosocial: No Integumentary: No Blood Disorders: No Adverse Reaction/Blood Tranf: No (N/A) Family Medical History Asthma 19 FATHER Cancer of mouth Cardiovascular disease G8 BROTHER Myocardial infarction G8 BROTHER Neoplasm G8 BROTHER Parkinson's disease 19 MOTHER Respiratory disorder 19 FATHER Asthma, Heart Disease, Cancer, CAD Over 55 Years Old, COPD, Other Conditions/Hx Physical Exam-Suspected Sepsis Physical Exam Vital Signs Vital Signs - First Documented 03/03/21 03/04/21 22:04 00:49 Temp 36.8 Pulse 99 Resp 18 B/P (MAP) 142/71 (94) Pulse Ox 96 O2 Delivery Room Air Capillary Refill : Less Than 3 Seconds Blood Pressure Mean: 94 Height, Weight, BMI Height: 5'11.00" Weight: 191lbs. 0.0oz. 86.623638bo; 19.00 BMI Method:Stated General Appearance: WD/WN, Mild Distress Eyes: Bilateral Eye Normal Inspection, Bilateral Eye PERRL, Bilateral Eye EOMI HEENT: PERRL/EOMI, TMs Normal, Normal ENT Inspection; No Pharynx Normal, No Moist Mucous Membranes (Dry oral mucosa) Neck: Full Range of Motion, Normal Inspection Respiratory: Lungs Clear, Normal Breath Sounds, No Accessory Muscle Use, Respiratory Distress (Mild with oxygen saturation 93% on room air nonlabored breathing) Cardiovascular: Regular Rate, Rhythm, No Edema, Normal Peripheral Pulses Gastrointestinal: Normal Bowel Sounds, Non Tender, Soft Extremity: Normal Capillary Refill, Normal Inspection, Non Tender, No Calf Tenderness, Pedal Edema (Trace) Neurologic/Psychiatric: Alert (Somnolent), Oriented x3, Other (Depressed affect, somnolent, slow to answer) Skin: normal color, warm/dry Focused Exam Sepsis Stage: Sepsis Possible Source: Unknown Lactate Level 03/03/21 22:05: Lactic Acid Level 1.65 Time of Focused Exam: 23:17 Respiratory: Lungs Clear, Normal Breath Sounds, No Accessory Muscle Use, R espiratory Distress (minimal 93% ) Cardiovascular: Regular Rate, Rhythm, Normal Peripheral Pulses Capillary Refill: Less Than 3 Seconds Peripheral Pulses: 2+ Radial Pulses (R), 2+ Radial Pulses (L) Skin: normal color, warm/dry Lactic Acid Level Within 3hrs of presentation: Admin fluids, Admin ABX, Blood cultures prior to ABX's, Focus exam, Lactate level Progress/Results/Core Measures Suspected Sepsis Recent Fever Within 48 Hours: Yes Infection Criteria Present: None New/Unexplained Altered Menta: Yes Sepsis Screen: No Definite Risk SIRS Temperature: Pulse: 99 Respiratory Rate: 18 Laboratory Tests 03/03/21 22:05: White Blood Count 6.3 03/04/21 05:29: White Blood Count 5.2 Blood Pressure 142 /71 Mean: 94 03/03/21 22:05: Lactic Acid Level 1.65 Laboratory Tests 03/03/21 22:05: Creatinine 1.09, Platelet Count 163, Total Bilirubin 1.3H 03/04/21 05:29: Creatinine 0.84, Platelet Count 130 Results/Orders Lab Results Laboratory Tests Test 03/03/21 22:05 03/03/21 22:08 03/03/21 22:19 03/03/21 22:28 Range/Units White Blood Count 6.3 4.3-11.0 10^3/uL Red Blood Count 3.86 L 4.30-5.52 10^6/uL Hemoglobin 10.6 L 13.3-17.7 g/dL Hematocrit 33 L 40-54 % Mean Corpuscular Volume 87 80-99 fL Mean Corpuscular Hemoglobin 28 25-34 pg Mean Corpuscular Hemoglobin Concent 32 32-36 g/dL Red Cell Distribution Width 15.6 H 10.0-14.5 % Platelet Count 163 130-400 10^3/uL Mean Platelet Volume 9.5 9.0-12.2 fL Immature Granulocyte % (Auto) 1 % Neutrophils (%) (Auto) 87 H 42-75 % Lymphocytes (%) (Auto) 6 L 12-44 % Monocytes (%) (Auto) 6 0-12 % Eosinophils (%) (Auto) 0 0-10 % Basophils (%) (Auto) 0 0-10 % Neutrophils # (Auto) 5.4 1.8-7.8 10^3/uL Lymphocytes # (Auto) 0.4 L 1.0-4.0 10^3/uL Monocytes # (Auto) 0.4 0.0-1.0 10^3/uL Eosinophils # (Auto) 0.0 0.0-0.3 10^3/uL Basophils # (Auto) 0.0 0.0-0.1 10^3/uL Immature Granulocyte # (Auto) 0.0 0.0-0.1 10^3/uL Sodium Level 128 L 135-145 MMOL/L Potassium Level 4.2 3.6-5.0 MMOL/L Chloride Level 91 L 98-107 MMOL/L Carbon Dioxide Level 24 21-32 MMOL/L Anion Gap 13 5-14 MMOL/L Blood Urea Nitrogen 14 7-18 MG/DL Creatinine 1.09 0.60-1.30 MG/DL Estimat Glomerular Filtration Rate > 60 BUN/Creatinine Ratio 13 Glucose Level 126 H 70-105 MG/DL Lactic Acid Level 1.65 0.50-2.00 MMOL/L Calcium Level 8.5 8.5-10.1 MG/DL Corrected Calcium 9.4 8.5-10.1 MG/DL Total Bilirubin 1.3 H 0.1-1.0 MG/DL Aspartate Amino Transf (AST/SGOT) 18 5-34 U/L Alanine Aminotransferase (ALT/SGPT) 18 0-55 U/L Alkaline Phosphatase 197 H 40-136 U/L Total Protein 6.7 6.4-8.2 GM/DL Albumin 2.9 L 3.2-4.5 GM/DL C-Reactive Protein High Sensitivity 18.72 H 0.00-0.50 MG/DL Procalcitonin 0.60 H <0.10 NG/ML Influenza Type A (RT-PCR) Not Detected Not Detecte Influenza Type B (RT-PCR) Not Detected Not Detecte SARS-CoV-2 RNA (RT-PCR) Not Detected Not Detecte Urine Color YELLOW Urine Clarity CLEAR Urine pH 5.5 5-9 Urine Specific [place] 1.025 H 1.016-1.022 Urine Protein 1+ H NEGATIVE Urine Glucose (UA) NEGATIVE NEGATIVE Urine Ketones NEGATIVE NEGATIVE Urine Nitrite NEGATIVE NEGATIVE Urine Bilirubin NEGATIVE NEGATIVE Urine Urobilinogen 0.2 < = 1.0 MG/DL Urine Leukocyte Esterase NEGATIVE NEGATIVE Urine RBC (Auto) 1+ H NEGATIVE Urine RBC RARE /HPF Urine WBC NONE /HPF Urine Squamous Epithelial Cells 2-5 /HPF Urine Crystals NONE /LPF Urine Bacteria NEGATIVE /HPF Urine Casts PRESENT /LPF Urine Hyaline Casts 2-5 H /LPF Urine Mucus NEGATIVE /LPF Urine Culture Indicated CULTURE PENDING Test 03/04/21 05:29 Range/Units White Blood Count 5.2 4.3-11.0 10^3/uL Red Blood Count 3.16 L 4.30-5.52 10^6/uL Hemoglobin 8.7 L 13.3-17.7 g/dL Hematocrit 27 L 40-54 % Mean Corpuscular Volume 86 80-99 fL Mean Corpuscular Hemoglobin 28 25-34 pg Mean Corpuscular Hemoglobin Concent 32 32-36 g/dL Red Cell Distribution Width 15.7 H 10.0-14.5 % Platelet Count 130 130-400 10^3/uL Mean Platelet Volume 10.7 9.0-12.2 fL Immature Granulocyte % (Auto) 1 % Neutrophils (%) (Auto) 82 H 42-75 % Lymphocytes (%) (Auto) 8 L 12-44 % Monocytes (%) (Auto) 9 0-12 % Eosinophils (%) (Auto) 0 0-10 % Basophils (%) (Auto) 0 0-10 % Neutrophils # (Auto) 4.2 1.8-7.8 10^3/uL Lymphocytes # (Auto) 0.4 L 1.0-4.0 10^3/uL Monocytes # (Auto) 0.5 0.0-1.0 10^3/uL Eosinophils # (Auto) 0.0 0.0-0.3 10^3/uL Basophils # (Auto) 0.0 0.0-0.1 10^3/uL Immature Granulocyte # (Auto) 0.0 0.0-0.1 10^3/uL Percent Immature Platelet Fraction 4.1 0.0-7.6 % Sodium Level 128 L 135-145 MMOL/L Potassium Level 4.0 3.6-5.0 MMOL/L Chloride Level 96 L 98-107 MMOL/L Carbon Dioxide Level 23 21-32 MMOL/L Anion Gap 9 5-14 MMOL/L Blood Urea Nitrogen 12 7-18 MG/DL Creatinine 0.84 0.60-1.30 MG/DL Estimat Glomerular Filtration Rate > 60 BUN/Creatinine Ratio 14 Glucose Level 125 H 70-105 MG/DL Calcium Level 7.9 L 8.5-10.1 MG/DL Magnesium Level 1.7 1.6-2.4 MG/DL Micro Results Microbiology 03/03/21 Urine Culture - Preliminary, Resulted My Orders Orders - LUPE MCLAIN Cbc With Automated Diff (03/03/21 22:15) Comprehensive Metabolic Panel (03/03/21 22:15) Sputum Culture (03/03/21 22:15) Urinalysis (03/03/21 22:15) Urine Culture (03/03/21 22:15) Chest 1 View, Ap/Pa Only (03/03/21 22:15) Ed Iv/Invasive Line Start (03/03/21 22:15) Ed Iv/Invasive Line Start (03/03/21 22:15) Vital Signs Adult Sepsis Patie Q15M (03/03/21 22:15) O2 (03/03/21 22:15) Remove Rings In Anticipation O (03/03/21 22:15) Lactic Acid Analyzer (03/03/21 22:15) Lactated Ringers (Lr 1000 Ml Iv Solution (03/03/21 22:15) Cefepime Injection (Maxipime Injection) (03/03/21 22:15) Vancomycin Injection (Vancomycin Injecti (03/03/21 22:15) Vancomycin Injection (Vancomycin Injecti (03/03/21 23:15) Ed Iv/Invasive Line Start (03/03/21 22:15) Ns Iv 500 Ml (Sodium Chloride 0.9%) (03/03/21 22:15) Covid 19 Inhouse Test (03/03/21 22:15) Influenza A And B By Pcr (03/03/21 22:15) Hs C Reactive Protein (03/03/21 22:23) Procalcitonin (Pct) (03/03/21 22:23) Ct Abdomen/Pelvis Wo (03/03/21 22:23) Medications Given in ED Vital Signs/I&O 03/04/21 03/04/21 03/04/21 03/04/21 07:26 08:00 11:13 11:38 Temp 36.8 38.4 39.6 Pulse 69 111 Resp 18 18 B/P (MAP) 120/56 (77) 128/62 (84) Pulse Ox 95 95 96 O2 Delivery Room Air Room Air Room Air 03/04/21 16:03 Temp 36.6 Pulse 82 Resp 18 B/P (MAP) 102/59 (73) Pulse Ox 96 O2 Delivery Room Air Capillary Refill : Less Than 3 Seconds Blood Pressure Mean: 94 Progress Note #1: Time: 22:21 Progress Note Report of subjective fever, tachycardia 110 115 heart rate and some slowed oxygen saturations as well as some low pelvic/abdominal pain bilateral. We will get a CT of his abdomen and pelvis given 1500 cc of fluid which is greater than 20 mL/kg and repeat some labs and chest x-ray. He had a blood culture from his port as well as peripherally earlier today so this does not need repeated. We will get lactate, CRP and pro calcitonin. COVID-19 swab. Progress Note #2: Time: 23:03 Progress Note The Covid is negative. He continues to have modest hypoxia 93% while on room air however his heart rate has significantly improved into the upper 80s low 90s after a bolus of IV fluids. Blood pressure is solid at 140/70. He has had no fever while he is here. CRP has continued to mount. If we do not find explanation for his infection we might suspect his port could be a source of infection however he is not having erythema pain or swelling associated with the site. Progress Note #3: Time: 23:52 Progress Note The patient is resting comfortably without current needs. There has been a delay in reading the CT of his abdomen and pelvis but it is in queue. Diagnostic Imaging Diagonstic Imaging: Xray Plain Films/CT/US/NM/MRI: chest Comments No acute cardiopulmonary process on 1 view chest x-ray. [facility] [place], [place] NAME: GABY VALERO MED REC#: [id number] PT STATUS: ADM IN : 1940 PHYSICIAN: LUPE MCLAIN MD ADMIT DATE: 03/03/21 Signed Date of Exam:03/03/21 CHEST 1 VIEW, AP/PA ONLY EXAMINATION: Chest radiograph, portable AP view. DATE: 03/03/2021 10:25 PM INDICATION: 80-year-old male, sepsis. COMPARISON: March 03, 2021 at 1147 hours. FINDINGS: The right sided central venous line overlies the mid SVC. Heart size and mediastinal contours are unchanged. There is no identified pneumothorax. There is no large pleural effusion. There is no identified focal airspace consolidation. IMPRESSION: 1. No identified acute cardiopulmonary abnormality. Dictated by: Dictated on workstation # [id number] Dict: 03/04/21 0745 Trans: 03/04/21 0833 [facility] [id number] Interpreted by: JERRY GASTON MD Electronically signed by: JERRY GASTON MD 03/04/2133 Reviewed: Reviewed by Me Diagonstic Imaging: CT (Without IV contrast) Plain Films/CT/US/NM/MRI: abdomen, pelvis Comments Suspect mild distal descending sigmoid junction diverticulitis. Post left nephrectomy and a mixed lytic sclerotic appearance to the L5 vertebra with mild loss of vertebral height. New since 04/2020. Findings are suspicious and represent osseous metastatic disease versus osteomyelitis given the history of pain and fever. [facility] [place] [place] NAME: GABY VALERO Drew [facility] REC#: [id number] PT STATUS: ADM IN : 1940 PHYSICIAN: LUPE MCLAIN MD ADMIT DATE: 03/03/21 Signed Date of Exam:03/03/21 CT ABDOMEN/PELVIS WO EXAMINATION: CT abdomen and pelvis without contrast. TECHNIQUE: Multiple contiguous axial images were obtained through the abdomen and pelvis without the use of intravenous contrast. All CT scans use one or more of the following dose optimizing techniques: automated exposure control, MA and/or KvP adjustment based on patient size and exam type or iterative reconstruction. HISTORY: low abd pain intermittent and fever COMPARISON: 01/26/2021 FINDINGS: Lung bases: Bibasilar dependent atelectasis. Solid organs: The liver is normal. The gallbladder is normal. There is no biliary ductal dilation. Pancreas is normal. Spleen is normal. Adrenal glands are normal. Left kidney is surgically absent. The right kidney demonstrates a 0.2 cm nonobstructing renal calculus. No hydronephrosis. Bowel: The stomach and small bowel are normal without obstruction. There is scattered colonic diverticulosis. There is a minimal amount of fat stranding seen along the distal aspect of the descending colon. The appendix is normal. Peritoneum: There is no intraperitoneal free fluid or free air. No suspicious lymphadenopathy. Vasculature: Calcification of the aorta without aneurysm. Musculoskeletal: Degenerative changes of the spine without suspicious osseous lesion or compression fracture. Stable mixed sclerotic appearance of the L5 vertebral body. Fat-containing left inguinal hernia. Pelvis: The prostate gland is enlarged. The urinary bladder is normal. IMPRESSION: 1. Colonic diverticulosis with minimal inflammation near the descending sigmoid colon junction which could be seen with acute diverticulitis. No abscess or free air. 2. Nonobstructing 0.2 cm right renal calculus. No hydronephrosis. 3. Stable sclerotic appearance of the L5 vertebral body compared to 01/26/2021. 4. Agree with preliminary interpretation. Dictated by: Dictated on workstation # [id number] Dict: 03/04/21 0703 Trans: 03/04/21 0916 [facility]ICK[facility] [id number] Interpreted by: TAMAR NORMAN DO Electronically signed by: TAMAR NORMAN DO 03/04/21 0916 Reviewed: Reviewed [facility] Study, Reviewed by Ut Departure Communication (Admissions) Time/Spoke to Admitting Phy: 00:25 Discussed the case with Dr. Lalito Panchal and he agrees with admission, Jazzmine Walker. Impression Primary Impression: Diverticulitis Additional Impression: Sepsis Qualified Codes: A41.9 - Sepsis, unspecified organism Disposition: ADMITTED INPATIENT Condition: Stable Admissions Decision to Admit Reason: Admit from ER (General) Decision to Admit/Date: Mar 03, 2021 Time/Decision to Admit Time: 23:00 Departure-Patient Inst. Referrals: KALI ORO MD (PCP/Family) Primary Care Physician LUPE MCLAIN Mar 03, 2021 22:23
[2021-03-03 22:33] LABS: ALBUMIN 2.9 GM/DL (3.2-4.5); CHLORIDE 91 MMOL/L (98-107); POTASSIUM 4.2 MMOL/L (3.6-5.0); SODIUM 128 MMOL/L (135-145)
[2021-03-03 22:35] LABS: CALCIUM 8.5 MG/DL (8.5-10.1)
[2021-03-03 22:36] LABS: GLUCOSE 126 MG/DL (70-105); TOTAL PROTEIN 6.7 GM/DL (6.4-8.2)
[2021-03-03 22:37] LABS: CARBON DIOXIDE 24 MMOL/L (21-32)
[2021-03-03 22:38] LABS: BILIRUBIN,TOTAL 1.3 MG/DL (0.1-1.0)
[2021-03-03 22:39] LABS: ALKALINE PHOSPHATASE 197 U/L (40-136); CREATININE SERUM 1.09 MG/DL (0.60-1.30); GFR ESTIMATED > 60
[2021-03-03 22:40] LABS: BUN/CREATININE RATIO 13
[2021-03-03 22:42] LABS: ALANINE AMINOTRANSFERASE 18 U/L (0-55)
[2021-03-03 23:03] LABS: BILIRUBIN,URINE NEGATIVE (NEGATIVE); CLARITY,URINE CLEAR; COLOR,URINE YELLOW; GLUCOSE, URINE (UA) NEGATIVE (NEGATIVE); KETONES,URINE NEGATIVE (NEGATIVE); LEUKOCYTE ESTERASE ,URINE NEGATIVE (NEGATIVE); NITRITE,URINE NEGATIVE (NEGATIVE); PH,URINE 5.5 (5-9); PROTEIN,URINE 1+ (NEGATIVE)
[2021-03-03] MEDS ORDERED: VANCOMYCIN INJECTION 500 MG in NS (IVPB) 100 ML IV ONE (23:15)
[2021-03-03 23:17] LABS: BACTERIA,URINE NEGATIVE /HPF; RBC,URINE RARE /HPF
[2021-03-04 01:10] VITALS: BP 109/55
[2021-03-04] MEDS ORDERED: ACETAMINOPHEN 325 MG TABLET ONE (01:12)
[2021-03-04] MEDS ORDERED: fentaNYL INJ 100 MCG/2 ML AMP IV PRN (01:15)
[2021-03-04] MEDS ORDERED: cefTRIAXone 1,000 MG in WATER (STERILE) FOR INJECTION 10 ML IV SCH (01:15)
[2021-03-04] MEDS ORDERED: HYDROcodone/APAP 5 MG/325 MG (LORTAB) TAB PO PRN (01:15)
[2021-03-04] MEDS: ACETAMINOPHEN 325 MG TABLET PO PRN ×2 (01:26→11:13)
[2021-03-04] MEDS: LACTATED RINGERS 1,000 ML IV SCH ×3 (01:52→15:01)
[2021-03-04] MEDS: metroNIDAZOLE 500MG/100ML IVPB 100 ML IV SCH ×3 (01:58→19:54)
[2021-03-04 04:17] VITALS: BP 126/63
[2021-03-04 06:01] LABS: BASOPHILS % (AUTO) 0 % (0-10); EOSINOPHILS % (AUTO) 0 % (0-10); MEAN CORPUSCULAR VOLUME 86 fL (80-99)
[2021-03-04 06:03] LABS: HEMATOCRIT 27 % (40-54); HEMOGLOBIN 8.7 g/dL (13.3-17.7); LYMPHOCYTES # (AUTO) 0.4 10^3/uL (1.0-4.0); LYMPHOCYTES % (AUTO) 8 % (12-44); MEAN CORPUSCULAR HEMOGLOBIN 28 pg (25-34); MEAN CORPUSCULAR HGB CONC 32 g/dL (32-36); MEAN PLATELET VOLUME 10.7 fL (9.0-12.2); MONOCYTES # (AUTO) 0.5 10^3/uL (0.0-1.0); MONOCYTES % (AUTO) 9 % (0-12); NEUTROPHILS # (AUTO) 4.2 10^3/uL (1.8-7.8); NEUTROPHILS % (AUTO) 82 % (42-75); PLATELET COUNT 130 10^3/uL (130-400); WHITE BLOOD COUNT 5.2 10^3/uL (4.3-11.0)
[2021-03-04 06:04] LABS: CHLORIDE 96 MMOL/L (98-107); SODIUM 128 MMOL/L (135-145)
[2021-03-04 06:06] LABS: CALCIUM 7.9 MG/DL (8.5-10.1); GLUCOSE 125 MG/DL (70-105)
[2021-03-04 06:07] LABS: CARBON DIOXIDE 23 MMOL/L (21-32)
[2021-03-04 06:10] LABS: CREATININE SERUM 0.84 MG/DL (0.60-1.30); GFR ESTIMATED > 60
[2021-03-04 06:11] LABS: BUN/CREATININE RATIO 14
--- NOTE | 2021-03-04 07:13 | Diagnostic Imaging Report ---
EXAMINATION: CT abdomen and pelvis without contrast. TECHNIQUE: Multiple contiguous axial images were obtained through the abdomen and pelvis without the use of intravenous contrast. All CT scans use one or more of the following dose optimizing techniques: automated exposure control, MA and/or KvP adjustment based on patient size and exam type or iterative reconstruction. HISTORY: low abd pain intermittent and fever COMPARISON: 01/26/2021 FINDINGS: Lung bases: Bibasilar dependent atelectasis. Solid organs: The liver is normal. The gallbladder is normal. There is no biliary ductal dilation. Pancreas is normal. Spleen is normal. Adrenal glands are normal. Left kidney is surgically absent. The right kidney demonstrates a 0.2 cm nonobstructing renal calculus. No hydronephrosis. Bowel: The stomach and small bowel are normal without obstruction. There is scattered colonic diverticulosis. There is a minimal amount of fat stranding seen along the distal aspect of the descending colon. The appendix is normal. Peritoneum: There is no intraperitoneal free fluid or free air. No suspicious lymphadenopathy. Vasculature: Calcification of the aorta without aneurysm. Musculoskeletal: Degenerative changes of the spine without suspicious osseous lesion or compression fracture. Stable mixed sclerotic appearance of the L5 vertebral body. Fat-containing left inguinal hernia. Pelvis: The prostate gland is enlarged. The urinary bladder is normal. IMPRESSION: 1. Colonic diverticulosis with minimal inflammation near the descending sigmoid colon junction which could be seen with acute diverticulitis. No abscess or free air. 2. Nonobstructing 0.2 cm right renal calculus. No hydronephrosis. 3. Stable sclerotic appearance of the L5 vertebral body compared to 01/26/2021. 4. Agree with preliminary interpretation. Dictated by: Dictated on workstation # [id number]
[2021-03-04 07:26] VITALS: BP 120/56
--- NOTE | 2021-03-04 07:58 | Diagnostic Imaging Report ---
EXAMINATION: Chest radiograph, portable AP view. DATE: 03/03/2021 10:25 PM INDICATION: 80-year-old male, sepsis. COMPARISON: March 03, 2021 at 1147 hours. FINDINGS: The right sided central venous line overlies the mid SVC. Heart size and mediastinal contours are unchanged. There is no identified pneumothorax. There is no large pleural effusion. There is no identified focal airspace consolidation. IMPRESSION: 1. No identified acute cardiopulmonary abnormality. Dictated by: Dictated on workstation # [id number]
--- NOTE | 2021-03-04 08:18 | Diagnostic Imaging Report ---
EXAMINATION: Chest radiograph, portable AP view. DATE: 03/04/2021 4:01 AM INDICATION: 80-year-old male, sepsis. COMPARISON: March 03, 2021. FINDINGS: There is a right-sided port catheter with tip overlying the lower SVC. Stable overall appearance of the cardiomediastinal silhouette. There is no identified pneumothorax. There is mild blunting of the left lateral costophrenic angle. 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 IMPRESSION: 1. Blunting of the left lateral costophrenic angle which may relate to small effusion, infiltrate, and/or atelectasis. 2. Stable positioning of the right-sided port catheter. Dictated by: Dictated on workstation # [id number]
--- NOTE | 2021-03-04 10:07 | History & Physical ---
History of Present Illness History of Present Illness Reason for visit/HPI 80 yo M with metastatic renal cell carcinoma- admitted for possible diverticulitis. He was at the hospital yesterday for weakness, fever, hypomagnesemia and after IVF and workup we were going to admit for observation but he ultimately decided to go home because he was feeling better. He returned last night for return/worsening of symptoms. Abdomen is distended noticed by family. Patient's says he started not feel well early last week- He had a port (right chest) placed 03/01/[address] Das. Lab called this AM and reported his blood cultures were growing gram negative likely e.coli (2 of 3 bottles). Sending for antibiotic sensitivities. One blood culture was taken from his port. He is supposed to have an infusion with oncology on FridayMarch 06. Last Admission was in January and he was discharged February 15 2021- it was for intractable back pain due to metastatic renal cell carcinoma. His pain was controlled on oral opioids. Right now his pain is not too bad. This AM- patient feels really cold, chills; warm blanket helped. CT suggests acute sigmoid diverticulitis. Labs: WBC 5.2, anemic., CRP 18, Procalc 0.6 Date of Admission Mar 03, 2021 at 23:00 Time Seen by a Provider: 11:00 I consulted on this patient on 03/04/21 10:01 Attending Physician George Douglas MD Admitting Physician Kali Bravo MD Consult Allergies and Home Medications Allergies Coded Allergies: No Known Drug Allergies (Verified , 03/27/20) Home Medications Amlodipine Besylate 10 Mg Tablet, 10 MG PO DAILY, (Reported) Bisacodyl 10 Mg Supp.rect, 10 MG HI DAILY PRN for CONSTIPATION-4TH LINE Prescribed by: KALI BRAVO on 02/14/21 0851 Dexamethasone 4 Mg Tablet, 4 MG PO UD TAKE 1/2 PILL DAILY X 2 DAYS THEN 1/2 PILL EVERY OTHER DAY X 3 DAYS THEN STOP Prescribed by: KALI BRAVO on 02/15/21 0836 Diclofenac Sodium 100 Gm Gel..gram., 0 GM TOP QID Prescribed by: KALI BRAVO on 02/14/21 0851 Dutasteride 0.5 Mg Capsule, 0.5 MG PO DAILY, (Reported) Hydrocodone/Acetaminophen 1 Each Tablet, 1 EACH PO Q4H PRN for PAIN-MODERATE (5- 7), (Reported) Lovastatin 40 Mg Tablet, 40 MG PO HS, (Reported) Magnesium Oxide 200 Mg Tablet, 400 MG PO DAILY Prescribed by: FRANCESCA PATTEN on 03/03/21 1411 Methylnaltrexone [place] 12 Mg/0.6 Ml Syringe, 12 MG SQ Q48H USED THE [employer]B [employer] Prescribed by: NADIA BOYD on 02/15/21 1024 Metoprolol Tartrate 25 Mg Tablet, 12.5 MG PO BID, (Reported) TAKES OF A (25MG) TABLET Morphine Sulfate 15 Mg Tablet.er, 15 MG PO BID Prescribed by: KALI BRAVO on 02/14/21 0851 Oxybutynin Chloride 5 Mg Tablet, 5 MG PO DAILY, (Reported) Oxycodone Hcl 5 Mg Tab, 5 MG PO Q6HR PRN for PAIN-SEVERE (8-10) Prescribed by: KALI BRAVO on 02/14/21 0851 Polyethylene Glycol 3350 17 Gm Powd.pack, 17 GM PO HS Prescribed by: KALI BRAVO on 02/14/21 0851 Sennosides/Docusate Sodium 1 Each Tablet, 2 EA PO DAILY@0600 Prescribed by: KALI BRAVO on 02/14/21 0851 Sodium Chloride 1 Gm Tab, 1 GM PO BID Prescribed by: KALI BRAVO on 02/14/21 0851 Tamsulosin HCl 0.4 Mg Cap, 0.4 MG PO HS, (Reported) Patient Home Medication List Home Medication List Reviewed: Yes Past Ctzhnsz-Dyohji-Lrhmhp Hx Patient Social History Alcohol Beverage of Choice: Beer Drug of Choice: Denies Smoking Status: Former Smoker Former Smoker, Quit: Nov 03, 1976 2nd Hand Smoke Exposure: No Recent Hopitalizations: No Have you traveled recently?: No Alcohol Use?: Yes Pt feels they are or have been: No Immunizations Up To Date Tetanus Booster (TDap): Unknown Date of Pneumonia Vaccine: Jun 15, 2018 Date of Influenza Vaccine: Jun 08, 2020 Seasonal Allergies Seasonal Allergies: Yes Surgeries Yes (skin cancer excision, hernia, ) Abdominal, Adenoidectomy, Nephrectomy, Tonsillectomy Respiratory No Currently Using CPAP: No Currently Using BIPAP: No Cardiovascular Yes High Cholesterol, Hypertension Neurological No Reproductive System Hx Reproductive Disorders: No Sexually Transmitted Disease: No HIV/AIDS: No Genitourinary Yes (renal ca) Benign Prostatic Hyperpl, Prostate Problems Gastrointestinal Yes (dysphagia) Gastroesophageal Reflux Musculoskeletal Yes Arthritis Endocrine History of Endocrine Disorders: No HEENT History of HEENT Disorders: Yes (GLASSES) Loss of Vision: Denies Hearing Impairment: Denies Cancer Yes Skin, Kidney Type of Treatment: Surgical Intervention Psychosocial History of Psychiatric Problem: No Integumentary History of Skin or Integumenta: No Blood Transfusions History of Blood Disorders: No Adverse Reaction to a Blood Tr: No (N/A) Family Medical History Significant Family History: Asthma, Heart Disease, Cancer, CAD Over 55 Years Old, COPD, Other Conditions/Hx Family Hx: Asthma 19 FATHER Cancer of mouth Cardiovascular disease G8 BROTHER Myocardial infarction G8 BROTHER Neoplasm G8 BROTHER Parkinson's disease 19 MOTHER Respiratory disorder 19 FATHER Review of Systems Review of Systems General: Chills HEENT: No Head Aches Pulmonary: No Dyspnea, No Cough Cardiovascular: No: Chest Pain, Palpitations Gastrointestinal: No: Nausea, Vomiting Genitourinary: No Dysuria Neurological: Weakness All Other Systems Reviewed All Other Systems Reviewed: Yes Physical Exam Vital Signs Vital Signs - First Documented 03/03/21 03/04/21 22:04 00:49 Temp 36.8 Pulse 99 Resp 18 B/P (MAP) 142/71 (94) Pulse Ox 96 O2 Delivery Room Air Capillary Refill : Less Than 3 Seconds Height, Weight, BMI Height: 5'11.00" Weight: 191lbs. 0.0oz. [id number]; 22.91 BMI Method:Stated General Appearance: No Apparent Distress HEENT: PERRL/EOMI Neck: Non Tender, Supple Respiratory: Chest Non Tender, Lungs Clear, Normal Breath Sounds, No Accessory Muscle Use, No Respiratory Distress Cardiovascular: Regular Rate, Rhythm, No Edema Gastrointestinal: Distended, Tenderness Rectal: Deferred Extremity: Non Tender, No Calf Tenderness Neurologic/Psychiatric: Alert, Oriented x3 Skin: Warm/Dry Assessment/Plan Assessment/Plan Admission Dx sepsis due to diverticulitis, bacteremia. Admission Status: Inpatient Order (span 2 midnights) Reason for Inpatient Admission: with patient's comorbidities he will require over 2 midnights to stabilize him. Awaiting culture results. He will require IV antibiotics at least until he is afebrile for 24hours. Assessment and Plan Admitted last night 03/03/21 03/04/21- continue inpatient, IVF- monitor repeat labs in AM. Potential etiology- microperforation of sigmoid diverticula- resulting in ecoli septicemia. Lab called this AM and reported his blood cultures were growing gram negative likely e.coli (2 of 3 bottles). Sending for antibiotic sensitivities. Changing antibiotic coverage - stopping ceftriaxone and starting cefepime 2g q8hour until final results are back. Keeping metronidazole on board. -spoke with Dr. Das- he verified he was on antibiotics because he has the port that he placed on 03/01/21. blood pressure is stable- this afternoon- Fever spiked and pulse- tachycardia. Not in septic shock. DVT ppx: lovenox Dispo: as above. Dr. Bravo will resume care in AM. Problems: (1) Sigmoid diverticulitis (2) Septicemia Assessment & Plan: blood cultures + gram negative- looking like ecoli. 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
[2021-03-04] MEDS: morphine ER 15 MG (MS CONTIN) TAB PO PRN (10:58)
[2021-03-04 11:38] VITALS: BP 128/62
[2021-03-04] MEDS: CEFEPIME INJECTION 2,000 MG in WATER (STERILE) FOR INJECTION 20 ML IV SCH ×2 (13:53→22:51)
[2021-03-04] MEDS: ENOXAPARIN 40 MG/0.4 ML (LOVENOX) SYR SQ SCH (13:53)
[2021-03-04 16:03] VITALS: BP 102/59
[2021-03-04 20:00] VITALS: BP 116/50
[2021-03-05 00:02] VITALS: BP 106/53
[2021-03-05] MEDS: LACTATED RINGERS 1,000 ML IV SCH ×4 (01:11→17:11)
[2021-03-05] MEDS: metroNIDAZOLE 500MG/100ML IVPB 100 ML IV SCH ×3 (03:14→17:07)
[2021-03-05 04:25] VITALS: BP 106/53
[2021-03-05 06:03] LABS: BASOPHILS % (AUTO) 0 % (0-10); EOSINOPHILS % (AUTO) 1 % (0-10); HEMATOCRIT 25 % (40-54); HEMOGLOBIN 8.2 g/dL (13.3-17.7); LYMPHOCYTES # (AUTO) 0.5 10^3/uL (1.0-4.0); LYMPHOCYTES % (AUTO) 12 % (12-44); MEAN CORPUSCULAR HEMOGLOBIN 28 pg (25-34); MEAN CORPUSCULAR HGB CONC 32 g/dL (32-36); MEAN CORPUSCULAR VOLUME 86 fL (80-99); MEAN PLATELET VOLUME 10.2 fL (9.0-12.2); MONOCYTES # (AUTO) 0.5 10^3/uL (0.0-1.0); MONOCYTES % (AUTO) 13 % (0-12); NEUTROPHILS % (AUTO) 75 % (42-75); PLATELET COUNT 118 10^3/uL (130-400); WHITE BLOOD COUNT 4.1 10^3/uL (4.3-11.0)
[2021-03-05 06:12] LABS: CHLORIDE 96 MMOL/L (98-107); POTASSIUM 3.7 MMOL/L (3.6-5.0); SODIUM 129 MMOL/L (135-145)
[2021-03-05 06:13] LABS: CALCIUM 7.6 MG/DL (8.5-10.1)
[2021-03-05 06:14] LABS: GLUCOSE 95 MG/DL (70-105)
[2021-03-05 06:15] LABS: CARBON DIOXIDE 23 MMOL/L (21-32)
[2021-03-05 06:18] LABS: CREATININE SERUM 0.71 MG/DL (0.60-1.30); GFR ESTIMATED > 60
[2021-03-05 06:19] LABS: BUN/CREATININE RATIO 18
[2021-03-05] MEDS: CEFEPIME INJECTION 2,000 MG in WATER (STERILE) FOR INJECTION 20 ML IV SCH ×3 (06:26→22:36)
[2021-03-05 08:00] VITALS: BP 138/71
--- NOTE | 2021-03-05 09:10 | Progress Note ---
Subjective Review of Systems General: Chills HEENT: No Head Aches Pulmonary: No Dyspnea, No Cough Cardiovascular: No: Chest Pain, Palpitations Gastrointestinal: No: Nausea, Vomiting Genitourinary: No Dysuria Neurological: Weakness All Other Systems Reviewed All Other Systems Reviewed: Yes Objective Exam Vital Signs Vital Signs - First Documented 03/03/21 03/04/21 22:04 00:49 Temp 36.8 Pulse 99 Resp 18 B/P (MAP) 142/71 (94) Pulse Ox 96 O2 Delivery Room Air Capillary Refill : Less Than 3 Seconds General Appearance: WD/WN, Mild Distress Eyes: Bilateral Eye Normal Inspection, Bilateral Eye PERRL, Bilateral Eye EOMI HEENT: PERRL/EOMI, TMs Normal, Normal ENT Inspection; No Pharynx Normal, No Moist Mucous Membranes (Dry oral mucosa) Neck: Full Range of Motion, Normal Inspection Respiratory: Lungs Clear, Normal Breath Sounds, No Accessory Muscle Use, Res piratory Distress (minimal 93% ) Cardiovascular: Regular Rate, Rhythm, Normal Peripheral Pulses Gastrointestinal: Normal Bowel Sounds, Non Tender, Soft Rectal: Deferred Extremity: Normal Capillary Refill, Normal Inspection, Non Tender, No Calf Tenderness, Pedal Edema (Trace) Neurologic/Psychiatric: Alert (Somnolent), Oriented x3, Other (Depressed affect, somnolent, slow to answer) Skin: Warm/Dry Results Lab Laboratory Tests 03/05/21 05:41: White Blood Count 4.1L, Red Blood Count 2.97L, Hemoglobin 8.2L, Hematocrit 25L, Mean Corpuscular Volume 86, Mean Corpuscular Hemoglobin 28, Mean Corpuscular Hemoglobin Concent 32, Red Cell Distribution Width 15.6H, Platelet Count 118L, Mean Platelet Volume 10.2, Immature Granulocyte % (Auto) 1, Neutrophils (%) (Auto) 75, Lymphocytes (%) (Auto) 12, Monocytes (%) (Auto) 13H, Eosinophils (%) (Auto) 1, Basophils (%) (Auto) 0, Neutrophils # (Auto) 3.0, Lymphocytes # (Auto) 0.5L, Monocytes # (Auto) 0.5, Eosinophils # (Auto) 0.0, Basophils # (Auto) 0.0, Immature Granulocyte # (Auto) 0.0, Sodium Level 129L, Potassium Level 3.7, Chloride Level 96L, Carbon Dioxide Level 23, Anion Gap 10, Blood Urea Nitrogen 13, Creatinine 0.71, Estimat Glomerular Filtration Rate > 60, BUN/Creatinine Ratio 18, Glucose Level 95, Calcium Level 7.6L Microbiology 03/03/21 Urine Culture - Final, Complete NO GROWTH Assessment/Plan Assessment/Plan Problems: (1) Sigmoid diverticulitis (2) Septicemia Assessment & Plan: blood cultures + gram negative- looking like ecoli. (3) Metastatic renal cell carcinoma to bone (4) Sepsis Qualifiers: Qualified Codes: A41.9 - Sepsis, unspecified organism KALI ORO MD Mar 05, 2021 09:10
[2021-03-05] MEDS: morphine ER 15 MG (MS CONTIN) TAB PO PRN ×2 (09:17→10:54)
[2021-03-05] MEDS ORDERED: MORP-68 PO (09:20)
[2021-03-05] MEDS ORDERED: OXYC5TAB PO (09:20)
[2021-03-05] MEDS ORDERED: POLY17PO6 PO (09:20)
[2021-03-05] MEDS ORDERED: FINA5TAB6 PO (09:20)
[2021-03-05] MEDS ORDERED: BISA10SU8 RC (09:20)
[2021-03-05] MEDS ORDERED: NF-NACL1GT PO (09:20)
[2021-03-05] MEDS ORDERED: DICL100G13 TP (09:20)
[2021-03-05] MEDS ORDERED: SENN-145 PO (09:20)
[2021-03-05 12:00] VITALS: BP 112/65
[2021-03-05] MEDS ORDERED: BISACODYL 10 MG SUPP (DULCOLAX) RC PRN (13:00)
[2021-03-05] MEDS: SODIUM CHLORIDE 1 GM TABLET PO SCH ×2 (13:43→20:47)
[2021-03-05] MEDS: DICLOFENAC 1% GEL 100 GM (VOLTAREN) TUBE TP SCH ×4 (13:43→22:36)
[2021-03-05] MEDS: ENOXAPARIN 40 MG/0.4 ML (LOVENOX) SYR SQ SCH (13:44)
[2021-03-05 15:41] VITALS: BP 122/60
[2021-03-05] MEDS: ONDANSETRON 4 MG/2 ML (SDV) Z0FRAN IV PRN (17:07)
[2021-03-05] MEDS ORDERED: METHYLNALTREXONE 12 MG/0.6 ML (RELISTOR) VIAL SQ NR (18:00)
[2021-03-05] MEDS ORDERED: SENNA W/DOCUSATE (SENOKOT S) TABLET PO NR (18:00)
[2021-03-05 19:13] VITALS: BP 120/59
[2021-03-05] MEDS: morphine ER 15 MG (MS CONTIN) TAB PO SCH (20:46)
[2021-03-05] MEDS: polyethylene glycoL POWDER 17 GM (MIRALAX) PACK PO SCH (20:47)
[2021-03-05] MEDS: TAMSULOSIN 0.4 MG (FLOMAX) CAP PO SCH (20:47)
[2021-03-05] MEDS: FINASTERIDE (PROSCAR) 5 MG TAB PO SCH (20:47)
[2021-03-05] MEDS ORDERED: SIMETHICONE 80 MG (MYLICON) CHEW PO ONE (21:45)
[2021-03-05] MEDS ORDERED: LORazepam INJ 2 MG/ML (ATIVAN) VIAL IVP PRN (21:45)
[2021-03-06] VITALS (7 sets, daily range): BP systolic 113–149; BP diastolic 58–76
[2021-03-06] MEDS: LACTATED RINGERS 1,000 ML IV SCH ×2 (01:21→18:01)
[2021-03-06] MEDS: metroNIDAZOLE 500MG/100ML IVPB 100 ML IV SCH ×3 (01:23→18:00)
[2021-03-06] MEDS: CEFEPIME INJECTION 2,000 MG in WATER (STERILE) FOR INJECTION 20 ML IV SCH ×3 (05:43→21:35)
--- NOTE | 2021-03-06 08:40 | Progress Note ---
Subjective Subjective Date Seen by Provider: Mar 06, 2021 Time Seen by Provider: 08:45 Review of Systems General: Chills HEENT: No Head Aches Pulmonary: No Dyspnea, No Cough Cardiovascular: No: Chest Pain, Palpitations Gastrointestinal: No: Nausea, Vomiting Genitourinary: No Dysuria Neurological: Weakness All Other Systems Reviewed All Other Systems Reviewed: Yes Objective Exam Vital Signs Vital Signs - First Documented 03/03/21 03/04/21 22:04 00:49 Temp 36.8 Pulse 99 Resp 18 B/P (MAP) 142/71 (94) Pulse Ox 96 O2 Delivery Room Air Capillary Refill : Less Than 3 Seconds General Appearance: WD/WN, Mild Distress Eyes: Bilateral Eye Normal Inspection, Bilateral Eye PERRL, Bilateral Eye EOMI HEENT: PERRL/EOMI, TMs Normal, Normal ENT Inspection; No Pharynx Normal, No Moist Mucous Membranes (Dry oral mucosa) Neck: Full Range of Motion, Normal Inspection Respiratory: Lungs Clear, Normal Breath Sounds, No Accessory Muscle Use, Respiratory Distress (minimal 93% ) Cardiovascular: Regular Rate, Rhythm, Normal Peripheral Pulses Gastrointestinal: Normal Bowel Sounds, Non Tender, Soft Rectal: Deferred Extremity: Normal Capillary Refill, Normal Inspection, Non Tender, No Calf Tenderness, Pedal Edema (Trace) Neurologic/Psychiatric: Alert (Somnolent), Oriented x3, Other (Depressed affect, somnolent, slow to answer) Skin: Warm/Dry Results Lab Microbiology 03/03/21 Urine Culture - Final, Complete NO GROWTH Assessment/Plan Assessment/Plan Problems: (1) Sigmoid diverticulitis (2) Septicemia Assessment & Plan: blood cultures + gram negative- looking like ecoli. (3) Metastatic renal cell carcinoma to bone (4) Sepsis Qualifiers: Qualified Codes: A41.9 - Sepsis, unspecified organism KALI ORO MD Mar 06, 2021 08:39
[2021-03-06] MEDS: SODIUM CHLORIDE 1 GM TABLET PO SCH ×2 (08:57→20:42)
[2021-03-06] MEDS: SIMETHICONE 80 MG (MYLICON) CHEW PO SCH ×4 (08:57→20:01)
[2021-03-06] MEDS: morphine ER 15 MG (MS CONTIN) TAB PO SCH ×2 (08:57→20:01)
[2021-03-06] MEDS: SENNA W/DOCUSATE (SENOKOT S) TABLET PO SCH (08:57)
[2021-03-06] MEDS: DICLOFENAC 1% GEL 100 GM (VOLTAREN) TUBE TP SCH ×4 (08:58→20:02)
[2021-03-06] MEDS: ONDANSETRON 4 MG/2 ML (SDV) Z0FRAN IV PRN ×2 (09:16→16:06)
[2021-03-06 10:25] LABS: HEMATOCRIT 26 % (40-54); HEMOGLOBIN 8.2 g/dL (13.3-17.7); MEAN CORPUSCULAR HEMOGLOBIN 27 pg (25-34); MEAN CORPUSCULAR HGB CONC 32 g/dL (32-36); MEAN CORPUSCULAR VOLUME 85 fL (80-99); MEAN PLATELET VOLUME 9.5 fL (9.0-12.2); PLATELET COUNT 146 10^3/uL (130-400); WHITE BLOOD COUNT 3.7 10^3/uL (4.3-11.0)
[2021-03-06 10:44] LABS: ALANINE AMINOTRANSFERASE 16 U/L (0-55); ALBUMIN 2.3 GM/DL (3.2-4.5); ALKALINE PHOSPHATASE 156 U/L (40-136); BILIRUBIN,TOTAL 0.4 MG/DL (0.1-1.0); BUN/CREATININE RATIO 11; CALCIUM 7.9 MG/DL (8.5-10.1); CARBON DIOXIDE 27 MMOL/L (21-32); CHLORIDE 95 MMOL/L (98-107); CREATININE SERUM 0.76 MG/DL (0.60-1.30); GFR ESTIMATED > 60; GLUCOSE 93 MG/DL (70-105); MAGNESIUM 1.4 MG/DL (1.6-2.4); POTASSIUM 3.7 MMOL/L (3.6-5.0); SODIUM 128 MMOL/L (135-145); TOTAL PROTEIN 5.2 GM/DL (6.4-8.2)
[2021-03-06] MEDS ORDERED: MAGNESIUM 1 GM/100 ML IVPB 100 ML IV ONE (11:48)
[2021-03-06] MEDS: MAGNESIUM 1 GM/100 ML IVPB 100 ML IV SCH ×2 (11:56→13:02)
[2021-03-06] MEDS: meTOprolol TARTRATE 25 MG (LOPRESSOR) TABLET PO SCH ×2 (11:57→20:01)
[2021-03-06] MEDS: polyethylene glycoL POWDER 17 GM (MIRALAX) PACK PO SCH (13:08)
[2021-03-06] MEDS: ENOXAPARIN 40 MG/0.4 ML (LOVENOX) SYR SQ SCH (14:31)
[2021-03-06] MEDS: FINASTERIDE (PROSCAR) 5 MG TAB PO SCH (20:00)
[2021-03-06] MEDS: TAMSULOSIN 0.4 MG (FLOMAX) CAP PO SCH (20:01)
[2021-03-07] MEDS: metroNIDAZOLE 500MG/100ML IVPB 100 ML IV SCH ×3 (02:04→17:00)
[2021-03-07 04:39] VITALS: BP 128/74
[2021-03-07] MEDS: CEFEPIME INJECTION 2,000 MG in WATER (STERILE) FOR INJECTION 20 ML IV SCH ×3 (05:28→21:45)
[2021-03-07 05:30] LABS: HEMATOCRIT 26 % (40-54); HEMOGLOBIN 8.2 g/dL (13.3-17.7); MEAN CORPUSCULAR HEMOGLOBIN 27 pg (25-34); MEAN CORPUSCULAR HGB CONC 32 g/dL (32-36); MEAN CORPUSCULAR VOLUME 85 fL (80-99); MEAN PLATELET VOLUME 10.2 fL (9.0-12.2); PLATELET COUNT 149 10^3/uL (130-400); WHITE BLOOD COUNT 3.3 10^3/uL (4.3-11.0)
[2021-03-07 07:30] VITALS: BP 125/59
[2021-03-07] MEDS: SIMETHICONE 80 MG (MYLICON) CHEW PO SCH ×4 (08:45→20:04)
[2021-03-07] MEDS: morphine ER 15 MG (MS CONTIN) TAB PO SCH ×2 (08:46→20:04)
[2021-03-07] MEDS: SENNA W/DOCUSATE (SENOKOT S) TABLET PO SCH (08:46)
[2021-03-07] MEDS: meTOprolol TARTRATE 25 MG (LOPRESSOR) TABLET PO SCH ×2 (08:46→20:04)
[2021-03-07] MEDS: SODIUM CHLORIDE 1 GM TABLET PO SCH ×2 (08:48→20:05)
[2021-03-07] MEDS: DICLOFENAC 1% GEL 100 GM (VOLTAREN) TUBE TP SCH ×4 (08:50→20:05)
[2021-03-07] MEDS ORDERED: METHYLNALTREXONE 12 MG/0.6 ML (RELISTOR) VIAL SQ SCH (09:00)
--- NOTE | 2021-03-07 09:15 | Progress Note ---
Subjective Review of Systems General: Chills HEENT: No Head Aches Pulmonary: No Dyspnea, No Cough Cardiovascular: No: Chest Pain, Palpitations Gastrointestinal: No: Nausea, Vomiting Genitourinary: No Dysuria Neurological: Weakness All Other Systems Reviewed All Other Systems Reviewed: Yes Objective Exam Vital Signs Vital Signs - First Documented 03/03/21 03/04/21 22:04 00:49 Temp 36.8 Pulse 99 Resp 18 B/P (MAP) 142/71 (94) Pulse Ox 96 O2 Delivery Room Air Capillary Refill : Less Than 3 Seconds General Appearance: WD/WN, Mild Distress Eyes: Bilateral Eye Normal Inspection, Bilateral Eye PERRL, Bilateral Eye EOMI HEENT: PERRL/EOMI, TMs Normal, Normal ENT Inspection; No Pharynx Normal, No Moist Mucous Membranes (Dry oral mucosa) Neck: Full Range of Motion, Normal Inspection Respiratory: Lungs Clear, Normal Breath Sounds, No Accessory Muscle Use, Res piratory Distress (minimal 93% ) Cardiovascular: Regular Rate, Rhythm, Normal Peripheral Pulses Gastrointestinal: Normal Bowel Sounds, Non Tender, Soft Rectal: Deferred Extremity: Normal Capillary Refill, Normal Inspection, Non Tender, No Calf Tenderness, Pedal Edema (Trace) Neurologic/Psychiatric: Alert (Somnolent), Oriented x3, Other (Depressed affect, somnolent, slow to answer) Skin: Warm/Dry Results Lab Laboratory Tests 03/06/21 10:20: White Blood Count 3.7L, Red Blood Count 3.02L, Hemoglobin 8.2L, Hematocrit 26L, Mean Corpuscular Volume 85, Mean Corpuscular Hemoglobin 27, Mean Corpuscular Hemoglobin Concent 32, Red Cell Distribution Width 15.6H, Platelet Count 146, Mean Platelet Volume 9.5, Sodium Level 128L, Potassium Level 3.7, Chloride Level 95L, Carbon Dioxide Level 27, Anion Gap 6, Blood Urea Nitrogen 8, Creatinine 0.76, Estimat Glomerular Filtration Rate > 60, BUN/Creatinine Ratio 11, Glucose Level 93, Calcium Level 7.9L, Corrected Calcium 9.3, Magnesium Level 1.4L, Total Bilirubin 0.4, Aspartate Amino Transf (AST/SGOT) 15, Alanine Aminotransferase (ALT/SGPT) 16, Alkaline Phosphatase 156H, Total Protein 5.2L, Albumin 2.3L 03/07/21 05:25: White Blood Count 3.3L, Red Blood Count 3.00L, Hemoglobin 8.2L, Hematocrit 26L, Mean Corpuscular Volume 85, Mean Corpuscular Hemoglobin 27, Mean Corpuscular Hemoglobin Concent 32, Red Cell Distribution Width 15.5H, Platelet Count 149, Mean Platelet Volume 10.2 Microbiology 03/03/21 Urine Culture - Final, Complete NO GROWTH Assessment/Plan Assessment/Plan Problems: (1) Sigmoid diverticulitis (2) Septicemia Assessment & Plan: blood cultures + gram negative- looking like ecoli. (3) Metastatic renal cell carcinoma to bone (4) Sepsis Qualifiers: Qualified Codes: A41.9 - Sepsis, unspecified organism KALI ORO MD Mar 07, 2021 09:15
[2021-03-07 11:30] VITALS: BP 121/74
[2021-03-07] MEDS: ENOXAPARIN 40 MG/0.4 ML (LOVENOX) SYR SQ SCH (13:12)
[2021-03-07 16:00] VITALS: BP 137/65
[2021-03-07] MEDS ORDERED: SALIVA STIMULANT MOUTH SPRAY (BIOTENE) 1.5 OZ MM PRN (17:30)
[2021-03-07 19:57] VITALS: BP 138/64
[2021-03-07] MEDS: FINASTERIDE (PROSCAR) 5 MG TAB PO SCH (20:04)
[2021-03-07] MEDS: TAMSULOSIN 0.4 MG (FLOMAX) CAP PO SCH (20:04)
[2021-03-07] MEDS: polyethylene glycoL POWDER 17 GM (MIRALAX) PACK PO SCH (20:05)
[2021-03-07 23:38] VITALS: BP 132/72
[2021-03-08] MEDS: metroNIDAZOLE 500MG/100ML IVPB 100 ML IV SCH ×2 (02:04→09:18)
[2021-03-08 03:52] VITALS: BP 117/69
[2021-03-08] MEDS: CEFEPIME INJECTION 2,000 MG in WATER (STERILE) FOR INJECTION 20 ML IV SCH (05:10)
[2021-03-08 05:21] LABS: HEMATOCRIT 26 % (40-54); HEMOGLOBIN 8.4 g/dL (13.3-17.7); MEAN CORPUSCULAR HEMOGLOBIN 27 pg (25-34); MEAN CORPUSCULAR HGB CONC 32 g/dL (32-36); MEAN CORPUSCULAR VOLUME 86 fL (80-99); MEAN PLATELET VOLUME 9.4 fL (9.0-12.2); PLATELET COUNT 145 10^3/uL (130-400); WHITE BLOOD COUNT 3.5 10^3/uL (4.3-11.0)
[2021-03-08 05:35] LABS: ALBUMIN 2.4 GM/DL (3.2-4.5); CHLORIDE 98 MMOL/L (98-107); POTASSIUM 3.6 MMOL/L (3.6-5.0); SODIUM 134 MMOL/L (135-145)
[2021-03-08 05:37] LABS: GLUCOSE 90 MG/DL (70-105); TOTAL PROTEIN 5.3 GM/DL (6.4-8.2)
[2021-03-08 05:38] LABS: CARBON DIOXIDE 27 MMOL/L (21-32)
[2021-03-08 05:39] LABS: BILIRUBIN,TOTAL 0.5 MG/DL (0.1-1.0)
[2021-03-08 05:41] LABS: ALKALINE PHOSPHATASE 157 U/L (40-136); CREATININE SERUM 0.96 MG/DL (0.60-1.30); GFR ESTIMATED > 60
[2021-03-08 05:42] LABS: BUN/CREATININE RATIO 8
[2021-03-08 05:44] LABS: ALANINE AMINOTRANSFERASE 13 U/L (0-55); MAGNESIUM 1.8 MG/DL (1.6-2.4)
[2021-03-08 07:15] VITALS: BP 143/64
--- NOTE | 2021-03-08 08:39 | Discharge Summary ---
Diagnosis/Chief Complaint Date of Admission Mar 03, 2021 at 23:00 Date of Discharge Admission Diagnosis Admission Diagnosis 1) Sigmoid diverticulitis (2) Septicemia (3) Metastatic renal cell carcinoma to bone (4) Sepsis Discharge Diagnosis ACUTE SIGMOID DIVERTICULITIS SEPSIS ECOLI INFECTION CHRONIC HYPERTENSION METASTATIC RENAL CELL CARCINOMA CONSTIPATION DIVERTICULOSIS ABDOMINAL PAIN CONFUSION/DELIRIUM Reason Hospital Visit 80 yo M with metastatic renal cell carcinoma- admitted for possible d iverticulitis. He was at the hospital yesterday for weakness, fever, hypomagnesemia and after IVF and workup we were going to admit for observation but he ultimately decided to go home because he was feeling better. He returned last night for return/worsening of symptoms. Abdomen is distended noticed by family. Patient's says he started not feel well early last week- He had a port (right chest) placed 03/01/[address] Das. Lab called this AM and reported his blood cultures were growing gram negative likely e.coli (2 of 3 bottles). Sending for antibiotic sensitivities. One blood culture was taken from his port. He is supposed to have an infusion with oncology on FridayMarch 06. Last Admission was in January and he was discharged February 15 2021- it was for intractable back pain due to metastatic renal cell carcinoma. His pain was controlled on oral opioids. Right now his pain is not too bad. This AM- patient feels really cold, chills; warm blanket helped. CT suggests acute sigmoid diverticulitis. Labs: WBC 5.2, anemic., CRP 18, Procalc 0.6 Discharge Summary Discharge Physical Examination Allergies: Coded Allergies: No Known Drug Allergies (Verified , 03/27/20) Vitals & I&Os Vital Signs Date Time Temp Pulse Resp B/P (MAP) Pulse Ox O2 Delivery O2 Flow Rate FiO2 03/08/21 07:15 36.7 72 18 143/64 (90) 97 Room Air Hospital Course ACUTE SIGMOID DIVERTICULITIS SEPSIS ECOLI INFECTION CHRONIC HYPERTENSION METASTATIC RENAL CELL CARCINOMA CONSTIPATION DIVERTICULOSIS ABDOMINAL PAIN CONFUSION/DELIRIUM Pending Labs Laboratory Tests 03/08/21 05:00: White Blood Count 3.5, Red Blood Count 3.07, Hemoglobin 8.4, Hematocrit 26, Mean Corpuscular Volume 86, Mean Corpuscular Hemoglobin 27, Mean Corpuscular Hemoglobin Concent 32, Red Cell Distribution Width 15.8, Platelet Count 145, Mean Platelet Volume 9.4, Sodium Level 134, Potassium Level 3.6, Chloride Level 98, Carbon Dioxide Level 27, Anion Gap 9, Blood Urea Nitrogen 8, Creatinine 0.96, Estimat Glomerular Filtration Rate > 60, BUN/Creatinine Ratio 8, Glucose Level 90, Calcium Level 8.0, Corrected Calcium 9.3, Magnesium Level 1.8, Total Bilirubin 0.5, Aspartate Amino Transf (AST/SGOT) 18, Alanine Aminotransferase (ALT/SGPT) 13, Alkaline Phosphatase 157, Total Protein 5.3, Albumin 2.4 Discharge Instructions to patient/family Please see electronic discharge instructions given to patient. Discharge Medications Reviewed and agree with Discharge Medication list on patient's Discharge Instru ction sheet KALI ORO MD Mar 08, 2021 08:39
[2021-03-08] MEDS ORDERED: CIPR500T5 PO (08:46)
[2021-03-08] MEDS ORDERED: METR-145 PO (08:46)
[2021-03-08] MEDS ORDERED: LACT-242 PO (08:46)
[2021-03-08] MEDS ORDERED: MORP-68 PO (08:46)
--- NOTE | 2021-03-08 08:50 | D/C HH Face to Face Order ---
D/C Face to Face Orders Reconcile Patient Problems Problems Reviewed?: Yes Instructions for Patient Via [employer], Patient Instructions/FollowUp: [address] [facility] [address] BOYD'S OFFICE FOR APPT Physician to follow Patient: [facility] Discharge Diet for Home: other diet (BLAND DIET) Patient Problems: ACUTE SIGMOID DIVERTICULITIS SEPSIS ECOLI INFECTION CHRONIC HYPERTENSION METASTATIC RENAL CELL CARCINOMA CONSTIPATION DIVERTICULOSIS ABDOMINAL PAIN Goals for Patient: IMPROVED STRENGTH Patient Data-Allergies,Ht & Wt Patient Allergies: Coded Allergies: No Known Drug Allergies (Verified , 03/27/20) Height (Feet): 5 Height (Inches): 11.00 Weight (Pounds): 191 Weight (Ounces): 0.0 Home Health Need/Face to Face Date of Face to Face: Mar 08, 2021 Clinical Findings: Generalized weakness and fatigue, Muscle weakness I have seen Pt [id number]: Yes Discharged To: Home Diagnosis/Conditions: ACUTE SIGMOID DIVERTICULITIS SEPSIS ECOLI INFECTION CHRONIC HYPERTENSION METASTATIC RENAL CELL CARCINOMA CONSTIPATION DIVERTICULOSIS ABDOMINAL PAIN Patient is Homebound due to: Muscle weakness Homebound Status Due to the above stated illness, injury or surgical procedure (medical condition or diagnosis) and associated clinical findings, the patient is homebound because of his/her inability to leave home except with aid of a supportive device and/or person AND leaving the home requires a considerable and taxing effort or is medically contraindicated. Pt req the following assistanc: CanBayron cruz Home Health Nursing Orders Home Health Services Order: Nursing Services, Physical Therapy-Evaluate & Treat RESUME PREVIOUS HOME HEALTH ORDERS, SEE NEW MEDICATIONS - FLAGYL AND CIPRO AND PROBIOTIC Home Health Infusion Therapy Line Start Date: Mar 05, 2021 Home Health Lab Orders Labs (specify type/freq): CMP, CBC, MAGNESIUM IN 1 WK FROM DC Therapy Orders Therapy Orders: PT to assess for OT Therapy Specific Orders: Eval assistive deivces, Increase strength/endurance Certify Stmt I certify that this patient is under my care and that I, a nurse practitioner or a physician; a hearing and speech assistant working with me, had a face to face encounter that - meets the physician face to face encounter requirements with this patient as herbert ed. Medication List: Active Scripts Active Acidophilus Probiotic (Lactobacillus Acidophilus) 1 Each Capsule 1 Each PO TID ADD OTC MAGNESIUM 250MG DAILY Ciprofloxacin HCl 500 Mg Tablet 500 Mg PO BID Metronidazole 500 Mg Tablet 500 Mg PO TID Morphine Sulfate ER (Morphine Sulfate) 15 Mg Tablet.er 15 Mg PO BID 30 Days Relistor (Methylnaltrexone [place]) 12 Mg/0.6 Ml Syringe 12 Mg SQ Q48H 90 Days USED THE [employer]B [employer] Reported Bisacodyl 10 Mg Supp.rect 10 Mg RC DAILY PRN Senna S Tablet (Sennosides/Docusate Sodium) 1 Each Tablet 2 Each PO DAILY Miralax (Polyethylene Glycol 3350) 17 Gm Powd.pack 17 Gm PO HS Diclofenac Sodium 100 Gm Gel..gram. 1 Applic TP QID Finasteride 5 Mg Tablet 5 Mg PO HS Oxycodone HCl 5 Mg Tablet 5 Mg PO Q6H PRN Sodium Chloride 1 Gm Tab 1 Gm PO BID Amlodipine Besylate 10 Mg Tablet 10 Mg PO DAILY Flomax (Tamsulosin HCl) 0.4 Mg Cap 0.4 Mg PO HS Metoprolol Tartrate 25 Mg Tablet 12.5 Mg PO BID TAKES OF A (25MG) TABLET Lovastatin 40 Mg Tablet 40 Mg PO HS Lab results: Laboratory Tests Test 03/08/21 05:00 Range/Units White Blood Count 3.5 L 4.3-11.0 10^3/uL Red Blood Count 3.07 L 4.30-5.52 10^6/uL Hemoglobin 8.4 L 13.3-17.7 g/dL Hematocrit 26 L 40-54 % Mean Corpuscular Volume 86 80-99 fL Mean Corpuscular Hemoglobin 27 25-34 pg Mean Corpuscular Hemoglobin Concent 32 32-36 g/dL Red Cell Distribution Width 15.8 H 10.0-14.5 % Platelet Count 145 130-400 10^3/uL Mean Platelet Volume 9.4 9.0-12.2 fL Sodium Level 134 L 135-145 MMOL/L Potassium Level 3.6 3.6-5.0 MMOL/L Chloride Level 98 98-107 MMOL/L Carbon Dioxide Level 27 21-32 MMOL/L Anion Gap 9 5-14 MMOL/L Blood Urea Nitrogen 8 7-18 MG/DL Creatinine 0.96 0.60-1.30 MG/DL Estimat Glomerular Filtration Rate > 60 BUN/Creatinine Ratio 8 Glucose Level 90 70-105 MG/DL Calcium Level 8.0 L 8.5-10.1 MG/DL Corrected Calcium 9.3 8.5-10.1 MG/DL Magnesium Level 1.8 1.6-2.4 MG/DL Total Bilirubin 0.5 0.1-1.0 MG/DL Aspartate Amino Transf (AST/SGOT) 18 5-34 U/L Alanine Aminotransferase (ALT/SGPT) 13 0-55 U/L Alkaline Phosphatase 157 H 40-136 U/L Total Protein 5.3 L 6.4-8.2 GM/DL Albumin 2.4 L 3.2-4.5 GM/DL My orders: Orders - KALI ORO MD Ulcer/Peptic [place] (03/07/21 Breakfast) Ambulate 08,12,20 (03/07/21 09:15) Saliva Stimulant [place] (Biotene Mo (03/07/21 17:30) Magnesium (03/08/21 08:38) Attending Discharge Inpt/Inobs (03/08/21 08:40) Home [facility] Dischage (03/08/21 08:40) KALI ORO MD Mar 08, 2021 08:50
[2021-03-08] MEDS: meTOprolol TARTRATE 25 MG (LOPRESSOR) TABLET PO SCH (09:17)
[2021-03-08] MEDS: SENNA W/DOCUSATE (SENOKOT S) TABLET PO SCH (09:17)
[2021-03-08] MEDS: morphine ER 15 MG (MS CONTIN) TAB PO SCH (09:18)
[2021-03-08] MEDS: SIMETHICONE 80 MG (MYLICON) CHEW PO SCH (09:18)
[2021-03-08] MEDS: SODIUM CHLORIDE 1 GM TABLET PO SCH (09:19)
[2021-03-08] MEDS: DICLOFENAC 1% GEL 100 GM (VOLTAREN) TUBE TP SCH (09:19)
== END 2021-03-08 12:02 | disposition home health service (06) | DRG 872 ==
LOC: EDUNIT# 21:38 → ER 21:41 → 4TH 23:00
PROVIDERS: ADMIT Family Medicine; ATTEND Family Medicine
DX: A41.9 Sepsis, unspecified organism (principal); K57.32 Diverticulitis of large intestine without perforation or abscess without bleeding; C79.51 Secondary malignant neoplasm of bone; Z66 Do not resuscitate; Z20.822 Contact with and (suspected) exposure to COVID-19; E78.00 Pure hypercholesterolemia, unspecified; I10 Essential (primary) hypertension; N40.0 Benign prostatic hyperplasia without lower urinary tract symptoms; K21.9 Gastro-esophageal reflux disease without esophagitis; M19.90 Unspecified osteoarthritis, unspecified site; E83.42 Hypomagnesemia; B96.20 Unspecified Escherichia coli [E. coli] as the cause of diseases classified elsewhere; K59.00 Constipation, unspecified; R41.0 Disorientation, unspecified; Z87.891 Personal history of nicotine dependence; Z90.5 Acquired absence of kidney; Z85.528 Personal history of other malignant neoplasm of kidney; Z85.828 Personal history of other malignant neoplasm of skin
CPT/HCPCS: 36415; 71045; 74176; 80048; 80053; 81000; 83605; 83735; 84145; 85025; 85027; 86141; 87088; 87636; 96361; 96365; 96375

== ENCOUNTER 2021-04-11 14:52 | Outpatient (RCR) | payer MEDICARE, OTHER ==
[2021-03-21 11:21] LABS: BASOPHILS % (AUTO) 1 % (0-10); EOSINOPHILS % (AUTO) 1 % (0-10); HEMATOCRIT 30 % (40-54); HEMOGLOBIN 9.5 g/dL (13.3-17.7); LYMPHOCYTES # (AUTO) 1.2 10^3/uL (1.0-4.0); LYMPHOCYTES % (AUTO) 16 % (12-44); MEAN CORPUSCULAR HEMOGLOBIN 28 pg (25-34); MEAN CORPUSCULAR HGB CONC 32 g/dL (32-36); MEAN CORPUSCULAR VOLUME 88 fL (80-99); MEAN PLATELET VOLUME 10.6 fL (9.0-12.2); MONOCYTES # (AUTO) 0.8 10^3/uL (0.0-1.0); MONOCYTES % (AUTO) 11 % (0-12); NEUTROPHILS # (AUTO) 5.2 10^3/uL (1.8-7.8); NEUTROPHILS % (AUTO) 71 % (42-75); PLATELET COUNT 231 10^3/uL (130-400); WHITE BLOOD COUNT 7.3 10^3/uL (4.3-11.0)
[2021-03-21 11:53] LABS: ALANINE AMINOTRANSFERASE 17 U/L (0-55); ALBUMIN 3.1 GM/DL (3.2-4.5); ALKALINE PHOSPHATASE 214 U/L (40-136); BILIRUBIN,TOTAL 0.6 MG/DL (0.1-1.0); BUN/CREATININE RATIO 17; CALCIUM 8.7 MG/DL (8.5-10.1); CARBON DIOXIDE 27 MMOL/L (21-32); CHLORIDE 96 MMOL/L (98-107); CREATININE SERUM 1.02 MG/DL (0.60-1.30); GFR ESTIMATED > 60; GLUCOSE 135 MG/DL (70-105); POTASSIUM 4.1 MMOL/L (3.6-5.0); SODIUM 130 MMOL/L (135-145); TOTAL PROTEIN 6.7 GM/DL (6.4-8.2)
[~2021-04-11] VITALS: Ht 180.3 cm; Wt 70.3 kg
[~2021-04-11 14:52] MED LIST changes: +BISA10SU8 RC; +CIPR500T5 PO; +DICL100G13 TP; +FINA5TAB6 PO; +IPILIMUMAB IV SCH; +LACT-242 PO; +METR-145 PO; +NIVOLUMAB 240 MG in NS (IVPB) CANCER CENTER 100 ML IV SCH; +NS IV 1000 ML (CANCER CTR) IV SCH; +NS IV SCH; +OXYC5TAB PO; +POLY17PO6 PO; +SENN-145 PO; +morphine INJ 4 MG/ML 1 ML (CANCER CTR) IV PRN; +morphine INJ 4 MG/ML 1 ML (CANCER CTR) ONE; +morphine INJ 4 MG/ML 1 ML (VIAL/SYRINGE) IVP PRN
[2021-04-11 15:24] LABS: BASOPHILS # (AUTO) 0.1 10^3/uL (0.0-0.1); BASOPHILS % (AUTO) 1 % (0-10); EOSINOPHILS # (AUTO) 0.2 10^3/uL (0.0-0.3); EOSINOPHILS % (AUTO) 4 % (0-10); HEMATOCRIT 31 % (40-54); LYMPHOCYTES # (AUTO) 1.2 10^3/uL (1.0-4.0); LYMPHOCYTES % (AUTO) 22 % (12-44); MEAN CORPUSCULAR HEMOGLOBIN 28 pg (25-34); MEAN CORPUSCULAR HGB CONC 32 g/dL (32-36); MEAN CORPUSCULAR VOLUME 88 fL (80-99); MEAN PLATELET VOLUME 11.5 fL (9.0-12.2); MONOCYTES # (AUTO) 0.6 10^3/uL (0.0-1.0); MONOCYTES % (AUTO) 12 % (0-12); NEUTROPHILS # (AUTO) 3.3 10^3/uL (1.8-7.8); NEUTROPHILS % (AUTO) 61 % (42-75); PLATELET COUNT 142 10^3/uL (130-400); WHITE BLOOD COUNT 5.4 10^3/uL (4.3-11.0)
[2021-04-11 15:29] LABS: BILIRUBIN,TOTAL 0.5 MG/DL (0.1-1.0); CALCIUM 8.3 MG/DL (8.5-10.1); CREATININE SERUM 0.97 MG/DL (0.60-1.30); POTASSIUM 4.2 MMOL/L (3.6-5.0); TOTAL PROTEIN 6.3 GM/DL (6.4-8.2)
[2021-04-11] MEDS ORDERED: diphenhydrAMINE 50 MG/ML INJ (CANCER CENTER) ONE (16:47)
== END 2021-04-29 | disposition home or self-care (01) ==
LOC: ONC 14:52
PROVIDERS: ATTEND Internal Medicine Hematology & Oncology
DX: Z51.11 Encounter for antineoplastic chemotherapy (principal); C64.2 Malignant neoplasm of left kidney, except renal pelvis; C79.51 Secondary malignant neoplasm of bone; I10 Essential (primary) hypertension; Z87.891 Personal history of nicotine dependence; Z92.3 Personal history of irradiation; Z79.899 Other long term (current) drug therapy
CPT/HCPCS: 36415; 36591; 38222; 77012; 77280; 77290; 77295; 77300; 77334; 77336; 77417; 77470; 80048; 80053; 83615; 85007; 85025; 85027; 85610; 88307; 88311; 88341; 88342; 94760; 96375; 96413; 96417; 99156; 99205; 99213; 99214

== ENCOUNTER 2021-05-01 07:25 | Inpatient (IN) | payer MEDICARE, OTHER ==
[~2021-05-01] VITALS: Ht 180 cm; Wt 70.7 kg
[~2021-05-01 07:25] MED LIST changes: -IPILIMUMAB IV SCH; -NIVOLUMAB 240 MG in NS (IVPB) CANCER CENTER 100 ML IV SCH; -NS IV 1000 ML (CANCER CTR) IV SCH; -NS IV SCH; -morphine INJ 4 MG/ML 1 ML (CANCER CTR) IV PRN; -morphine INJ 4 MG/ML 1 ML (CANCER CTR) ONE; -morphine INJ 4 MG/ML 1 ML (VIAL/SYRINGE) IVP PRN
--- NOTE | 2021-05-01 07:52 | ED General ---
General Stated Complaint: FEVER,CONFUSION Source of Information: Patient, Family Exam Limitations: No Limitations History of Present Illness Date Seen by Provider: May 01, 2021 Time Seen by Provider: 07:40 Initial Comments Patient is an 80-year-old male who presents to the emergency department today with a chief complaint of fever and confusion. Patient believes that his symptoms started today. He denies any complaints of pain, upper respiratory congestion, sore throat, earache or runny nose. He denies abdominal pain but states that he is a little nauseous. He denies any problems with bowel movements or urination. No rashes joint pain, but states that he has some swelling in his lower extremities. He does not really feel short of breath. He is Covid vaccinated having received Materna but he cannot recall what date. He does not believe he has had any contact with any Covid positive persons. He states his daughter was down visiting from [place] recently but she is also Covid vaccinated and was not actively sick. Patient states that he is on chemotherapy infusions, his cancer doctor is Dr. Diaz, he cannot recall what type of cancer he has. He does have an Dvjgcy-t-Uhvm in the right upper chest. All other review of systems reviewed and negative except as stated. Further history from the patient's , Gwendolyn, phone number [phone] is that Zion started feeling chilled and becoming sleepy and had decreased appetite onset last evening. She states he spiked a fever last night. She was able to talk with Dr. Diaz and he advised her to bring him into the emergency department. She states that he just seemed to get more more confused last night she did give him 2 extra strength Tylenol at about 10 or 11 PM last night. She states at 1 point he was incontinent of urine a couple of times. Again no complaints of cough, shortness of breath, abdominal pain. She states the nausea is related to his cancer infusions. She states he is on immunotherapy treatments. 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 Associated Systoms: Denies Symptoms, Nausea/Vomiting (nausea without vomiting) Allergies and Home Medications Allergies Coded Allergies: No Known Drug Allergies (Verified , 03/27/20) Home Medications Amlodipine Besylate 10 Mg Tablet, 10 MG PO DAILY, (Reported) Bisacodyl 10 Mg Supp.rect, 10 MG RC DAILY PRN for CONSTIPATION-6TH LINE, (Reported) Ciprofloxacin HCl 500 Mg Tablet, 500 MG PO BID Prescribed by: KALI BRAVO on 03/08/21 0846 Diclofenac Sodium 100 Gm Gel..gram., 1 APPLIC TP QID, (Reported) Finasteride 5 Mg Tablet, 5 MG PO HS, (Reported) Lactobacillus Acidophilus 1 Each Capsule, 1 EACH PO TID Prescribed by: KALI BRAVO on 03/08/21 0846 Lovastatin 40 Mg Tablet, 40 MG PO HS, (Reported) Methylnaltrexone Duson 12 Mg/0.6 Ml Syringe, 12 MG SQ Q48H USED THE 340B [employer] Prescribed by: NADIA BOYD on 02/15/21 1024 Metoprolol Tartrate 25 Mg Tablet, 12.5 MG PO BID, (Reported) TAKES OF A (25MG) TABLET Metronidazole 500 Mg Tablet, 500 MG PO TID Prescribed by: KALI BRAVO on 03/08/21 0846 Morphine Sulfate 15 Mg Tablet.er, 15 MG PO BID Prescribed by: KALI BRAVO on 03/08/21 0846 Oxycodone HCl 5 Mg Tablet, 5 MG PO Q6H PRN for PAIN-SEVERE (8-10), (Reported) Polyethylene Glycol 3350 17 Gm Powd.pack, 17 GM PO HS, (Reported) Sennosides/Docusate Sodium 1 Each Tablet, 2 EACH PO DAILY, (Reported) Sodium Chloride 1 Gm Tab, 1 GM PO BID, (Reported) Tamsulosin HCl 0.4 Mg Cap, 0.4 MG PO HS, (Reported) Patient Home Medication List Home Medication List Reviewed: Yes Review of Systems Review of Systems Constitutional: see HPI, fever, malaise EENTM: no symptoms reported Respiratory: no symptoms reported Cardiovascular: edema Gastrointestinal: nausea Genitourinary: no symptoms reported Musculoskeletal: no symptoms reported Skin: no symptoms reported All Other Systems Reviewed Negative Unless Noted: Yes Past Hdtcrmt-Djydkx-Zzanqw Hx Immunizations Up To Date Tetanus Booster (TDap): Unknown Seasonal Allergies Seasonal Allergies: Yes Past Medical History Surgeries: Yes (skin cancer excision, hernia, ) Abdominal, Adenoidectomy, Nephrectomy, Tonsillectomy Respiratory: No Currently Using CPAP: No Currently Using BIPAP: No Cardiac: Yes High Cholesterol, Hypertension Neurological: No Reproductive Disorders: No Sexually Transmitted Disease: No HIV/AIDS: No Genitourinary: Yes (renal ca) Benign Prostatic Hyperpl, Prostate Problems Gastrointestinal: Yes (dysphagia) Gastroesophageal Reflux Musculoskeletal: Yes Arthritis Endocrine: No HEENT: Yes (GLASSES) Loss of Vision: Denies Hearing Impairment: Denies Cancer: Yes Skin, Kidney What Type of Treatment Did You: Surgical Intervention Psychosocial: No Integumentary: No Blood Disorders: No Adverse Reaction/Blood Tranf: No (N/A) Family Medical History Asthma 19 FATHER Cancer of mouth Cardiovascular disease G8 BROTHER Myocardial infarction G8 BROTHER Neoplasm G8 BROTHER Parkinson's disease 19 MOTHER Respiratory disorder 19 FATHER Asthma, Heart Disease, Cancer, CAD Over 55 Years Old, COPD, Other Conditions/Hx Physical Exam Vital Signs Vital Signs - First Documented 05/01/21 07:35 Temp 38.3 Pulse 102 Resp 18 B/P (MAP) 113/59 (77) Pulse Ox 96 O2 Delivery Room Air Capillary Refill : Height, Weight, BMI Height: 5'11.00" Weight: 191lbs. 0.0oz. [id number]; 22.91 BMI Method:Stated General Appearance: No Apparent Distress, WD/WN Eyes: Bilateral Eye Normal Inspection, Bilateral Eye PERRL, Bilateral Eye EOMI HEENT: PERRL/EOMI, Normal ENT Inspection, Pharynx Normal Neck: Normal Inspection Respiratory: Lungs Clear, Normal Breath Sounds, No Accessory Muscle Use, No Respiratory Distress Cardiovascular: Regular Rate, Rhythm Gastrointestinal: Normal Bowel Sounds, Non Tender, Soft Extremity: Normal Capillary Refill, Normal Inspection, Normal Range of Motion, Non Tender, Pedal Edema Neurologic/Psychiatric: Alert, Oriented x3, No Motor/Sensory Deficits, Normal Mood/Affect, practice director II-XII Norm as Tested Skin: Normal Color, Warm/Dry Focused Exam Lactate Level 05/01/21 07:50: Lactic Acid Level 0.94 Lactic Acid Level Laboratory Tests Test 05/01/21 07:50 Lactic Acid Level 0.94 MMOL/L (0.50-2.00) Progress/Results/Core Measures Suspected Sepsis SIRS Temperature: Pulse: Respiratory Rate: Laboratory Tests 05/01/21 07:50: White Blood Count 9.0 Blood Pressure / Mean: 05/01/21 07:50: Lactic Acid Level 0.94 Laboratory Tests 05/01/21 07:50: Creatinine 1.36H, INR Comment 1.3, Platelet Count 114L, Total Bilirubin 1.1H Results/Orders Lab Results Laboratory Tests Test 05/01/21 07:43 05/01/21 07:50 05/01/21 09:01 Range/Units Influenza Type A (RT-PCR) Not Detected Not Detecte Influenza Type B (RT-PCR) Not Detected Not Detecte SARS-CoV-2 RNA (RT-PCR) Not Detected Not Detecte White Blood Count 9.0 4.3-11.0 10^3/uL Red Blood Count 4.01 L 4.30-5.52 10^6/uL Hemoglobin 11.2 L 13.3-17.7 g/dL Hematocrit 35 L 40-54 % Mean Corpuscular Volume 88 80-99 fL Mean Corpuscular Hemoglobin 28 25-34 pg Mean Corpuscular Hemoglobin Concent 32 32-36 g/dL Red Cell Distribution Width 14.9 H 10.0-14.5 % Platelet Count 114 L 130-400 10^3/uL Mean Platelet Volume 10.9 9.0-12.2 fL Immature Granulocyte % (Auto) 0 % Neutrophils (%) (Auto) 82 H 42-75 % Lymphocytes (%) (Auto) 6 L 12-44 % Monocytes (%) (Auto) 11 0-12 % Eosinophils (%) (Auto) 1 0-10 % Basophils (%) (Auto) 0 0-10 % Neutrophils # (Auto) 7.3 1.8-7.8 10^3/uL Lymphocytes # (Auto) 0.6 L 1.0-4.0 10^3/uL Monocytes # (Auto) 1.0 0.0-1.0 10^3/uL Eosinophils # (Auto) 0.1 0.0-0.3 10^3/uL Basophils # (Auto) 0.0 0.0-0.1 10^3/uL Immature Granulocyte # (Auto) 0.0 0.0-0.1 10^3/uL Neutrophils % (Manual) 77 % Lymphocytes % (Manual) 8 % Monocytes % (Manual) 5 % Basophils % (Manual) 1 % Band Neutrophils 9 % Percent Immature Platelet Fraction 3.7 0.0-7.6 % Blood Morphology Comment NORMAL Prothrombin Time 17.0 H 12.2-14.7 SEC INR Comment 1.3 0.8-1.4 Activated Partial Thromboplast Time 38 H 24-35 SEC Sodium Level 125 *L 135-145 MMOL/L Potassium Level 3.9 3.6-5.0 MMOL/L Chloride Level 93 L 98-107 MMOL/L Carbon Dioxide Level 24 21-32 MMOL/L Anion Gap 8 5-14 MMOL/L Blood Urea Nitrogen 19 H 7-18 MG/DL Creatinine 1.36 H 0.60-1.30 MG/DL Estimat Glomerular Filtration Rate 50 BUN/Creatinine Ratio 14 Glucose Level 103 70-105 MG/DL Lactic Acid Level 0.94 0.50-2.00 MMOL/L Calcium Level 8.3 L 8.5-10.1 MG/DL Corrected Calcium 9.0 8.5-10.1 MG/DL Total Bilirubin 1.1 H 0.1-1.0 MG/DL Aspartate Amino Transf (AST/SGOT) 17 5-34 U/L Alanine Aminotransferase (ALT/SGPT) 20 0-55 U/L Alkaline Phosphatase 148 H 40-136 U/L C-Reactive Protein High Sensitivity 7.31 H 0.00-0.50 MG/DL Total Protein 6.0 L 6.4-8.2 GM/DL Albumin 3.1 L 3.2-4.5 GM/DL Procalcitonin 1.30 H <0.10 NG/ML Urine Color YELLOW Urine Clarity CLEAR Urine pH 5.5 5-9 Urine Specific Campbell 1.015 L 1.016-1.022 Urine Protein NEGATIVE NEGATIVE Urine Glucose (UA) NEGATIVE NEGATIVE Urine Ketones NEGATIVE NEGATIVE Urine Nitrite NEGATIVE NEGATIVE Urine Bilirubin NEGATIVE NEGATIVE Urine Urobilinogen 0.2 < = 1.0 MG/DL Urine Leukocyte Esterase NEGATIVE NEGATIVE Urine RBC (Auto) NEGATIVE NEGATIVE Urine RBC 0-2 /HPF Urine WBC RARE /HPF Urine Crystals PRESENT H /LPF Urine Calcium Oxalate Crystals MODERATE H /LPF Urine Amorphous Sediment FEW SUNI URATES H /LPF Urine Bacteria NEGATIVE /HPF Urine Casts NONE /LPF Urine Mucus NEGATIVE /LPF Urine Culture Indicated CULTURE PENDING My Orders Orders - FREDDY CUNNINGHAM MD Cbc With Automated Diff (05/01/21 07:47) Comprehensive Metabolic Panel (05/01/21 07:47) Blood Culture (05/01/21 07:47) Sputum Culture (05/01/21 07:47) Urinalysis (05/01/21 07:47) Urine Culture (05/01/21 07:47) Protime With Inr (05/01/21 07:47) Partial Thromboplastin Time (05/01/21 07:47) Chest 1 View, Ap/Pa Only (05/01/21 07:47) Ed Iv/Invasive Line Start (05/01/21 07:47) Ed Iv/Invasive Line Start (05/01/21 07:47) Vital Signs Adult Sepsis Patie Q15M (05/01/21 07:47) O2 (05/01/21 07:47) Remove Rings In Anticipation O (05/01/21 07:47) Lactic Acid Analyzer (05/01/21 07:47) Covid 19 Inhouse Test (05/01/21 07:47) Influenza A And B By Pcr (05/01/21 07:47) Hs C Reactive Protein (05/01/21 07:47) Procalcitonin (Pct) (05/01/21 07:47) Manual Differential (05/01/21 07:50) Ns Iv 1000 Ml (Sodium Chloride 0.9%) (05/01/21 09:15) Cefepime Injection (Maxipime Injection) (05/01/21 09:15) Acetaminophen Tablet (Tylenol Tablet) (05/01/21 09:15) Vital Signs/I&O 05/01/21 07:35 Temp 38.3 Pulse 102 Resp 18 B/P (MAP) 113/59 (77) Pulse Ox 96 O2 Delivery Room Air Capillary Refill : Diagnostic Imaging Diagonstic Imaging: Xray Plain Films/CT/US/NM/MRI: chest Comments [facility], [place] NAME: ZION VALERO [facility] REC#: [id number] PT STATUS: REG ER : 1940 PHYSICIAN: FREDDY CUNNINGHAM MD ADMIT DATE: 05/01/21/ER Draft Date of Exam:05/01/21 CHEST 1 VIEW, AP/PA ONLY INDICATION: Fever, confusion, COVID negative EXAMINATION: Chest 05/01/2021 COMPARISON: 05/04/2021 FINDINGS: Heart and pulmonary vasculature appear stable. Scattered patchy infiltrates seen in the periphery of the right mid lung and left lung base. No effusions. No pneumothorax. Right-sided dual lumen catheter stable. IMPRESSION: 1. Scattered bilateral infiltrates. Dictated on workstation # [id number] Dict: 05/01/2135 Trans: 05/01/21 0838 [facility] [id number] Interpreted by: NATHANIEL GERONIMO MD Electronically signed by: Departure Communication (Admissions) Time/Spoke to Admitting Phy: 09:[address] Bravo Impression Primary Impression: Bilateral pneumonia Qualified Codes: J18.9 - Pneumonia, unspecified organism Additional Impressions: Hyponatremia Acute kidney injury History of renal cell cancer Disposition: ADMITTED INPATIENT Condition: Stable Admissions Decision to Admit Reason: Admit from ER (General) Decision to Admit/Date: May 01, 2021 Time/Decision to Admit Time: 09:05 Departure-Patient Inst. Referrals: KALI BRAVO MD (PCP/Family) Primary Care Physician FREDDY CUNNINGHAM MD May 01, 2021 07:52
[2021-05-01 08:18] LABS: BASOPHILS % (AUTO) 0 % (0-10); NEUTROPHILS % (AUTO) 82 % (42-75)
[2021-05-01 08:20] LABS: EOSINOPHILS # (AUTO) 0.1 10^3/uL (0.0-0.3); EOSINOPHILS % (AUTO) 1 % (0-10); HEMATOCRIT 35 % (40-54); HEMOGLOBIN 11.2 g/dL (13.3-17.7); LYMPHOCYTES # (AUTO) 0.6 10^3/uL (1.0-4.0); LYMPHOCYTES % (AUTO) 6 % (12-44); MEAN CORPUSCULAR HEMOGLOBIN 28 pg (25-34); MEAN CORPUSCULAR HGB CONC 32 g/dL (32-36); MEAN CORPUSCULAR VOLUME 88 fL (80-99); MEAN PLATELET VOLUME 10.9 fL (9.0-12.2); MONOCYTES % (AUTO) 11 % (0-12); NEUTROPHILS # (AUTO) 7.3 10^3/uL (1.8-7.8); PLATELET COUNT 114 10^3/uL (130-400)
[2021-05-01 08:23] LABS: ALBUMIN 3.1 GM/DL (3.2-4.5); POTASSIUM 3.9 MMOL/L (3.6-5.0)
[2021-05-01 08:24] LABS: CALCIUM 8.3 MG/DL (8.5-10.1)
[2021-05-01 08:27] LABS: BILIRUBIN,TOTAL 1.1 MG/DL (0.1-1.0)
[2021-05-01 08:29] LABS: CREATININE SERUM 1.36 MG/DL (0.60-1.30)
[2021-05-01 08:30] LABS: INR 1.3 (0.8-1.4)
--- NOTE | 2021-05-01 08:38 | Diagnostic Imaging Report ---
INDICATION: Fever, confusion, COVID negative EXAMINATION: Chest 05/01/2021 COMPARISON: 05/04/2021 FINDINGS: Heart and pulmonary vasculature appear stable. Scattered patchy infiltrates seen in the periphery of the right mid lung and left lung base. No effusions. No pneumothorax. Right-sided dual lumen catheter stable. IMPRESSION: 1. Scattered bilateral infiltrates. Dictated by: Dictated on workstation # [id number]
[2021-05-01 08:47] LABS: BAND NEUTROPHILS 9 %; BASOPHILS % (MANUAL) 1 %; LYMPHOCYTES % (MANUAL) 8 %; MONOCYTES % (MANUAL) 5 %; NEUTROPHILS % (MANUAL) 77 %; RBC MORPH NORMAL
[2021-05-01 09:08] LABS: BILIRUBIN,URINE NEGATIVE (NEGATIVE); CLARITY,URINE CLEAR; COLOR,URINE YELLOW; GLUCOSE, URINE (UA) NEGATIVE (NEGATIVE); KETONES,URINE NEGATIVE (NEGATIVE); LEUKOCYTE ESTERASE ,URINE NEGATIVE (NEGATIVE); NITRITE,URINE NEGATIVE (NEGATIVE); PH,URINE 5.5 (5-9); PROTEIN,URINE NEGATIVE (NEGATIVE)
[2021-05-01] MEDS ORDERED: CEFEPIME INJECTION 2,000 MG in WATER (STERILE) FOR INJECTION 20 ML IV ONE (09:15)
[2021-05-01] MEDS ORDERED: NS IV 1000 ML 1,000 ML IV SCH (09:15)
[2021-05-01] MEDS ORDERED: ACETAMINOPHEN 500 MG TAB (TYLENOL) PO ONE (09:15)
[2021-05-01 09:16] LABS: AMORPHOUS SEDIMENT,UR FEW AMOR URATES /LPF; BACTERIA,URINE NEGATIVE /HPF; CALCIUM OXALATE CRYSTALS,UR MODERATE /LPF; RBC,URINE 0-2 /HPF; WBC,URINE RARE /HPF
--- NOTE | 2021-05-01 10:08 | History & Physical-Hospitalist ---
MICHELL RAMIREZ A MED STUDENT 05/01/21 1008: History of Present Illness HPI/Chief Complaint 80 YO MALE WHO PRESENTED TO ED FOR FEVER OF 101F AND LETHARGY THAT STARTED LAST NOC. PTS GAVE HIM TYLENOL AND FEVER DECREASED. PTS ADMITS THE PT ACTED CONFUSED YESTERDAY EVENING AND HAD URINARY INCONTINENCE UPON GETTING UP TO GO TO RESTROOM. ALSO REPORTS THE PT HAD DECREASED APPETITE AND FLUID INTAKE FOR DINNER LAST NOC. PT DENIES COUGH, SOA OR CONGESTION SINCE SXS STARTED. PT HAS HX OF RENAL CELL CARCINOMA AND IS UNDERGOING IMMUNOTHERAPY WITH ONCOLOGY. PT STATES HE HAS TREATMENT SCHEDULED TOMORROW. Source: patient, family ( PRESENT AT PT BEDSIDE) Exam Limitations: no limitations Date Seen 05/01/21 Time Seen by a Provider: 09:35 Attending Physician Kali Bravo MD PCP Kali Bravo MD Referring Physician Date of Admission May 01, 2021 at 09:30 Home Medications & Allergies Home Medications Reviewed patient Home Medication Reconciliation performed by pharmacy medication reconciliations vending technician and/or nursing. Patients Allergies have been reviewed. Allergies Allergies Coded Allergies No Known Drug Allergies (Verified03/27/20) Past Lrzzzpf-Tpqxkj-Drshcx Hx Immunizations Up To Date Date of Influenza Vaccine: Jun 08, 2020 Tetanus Booster (TDap): Unknown Hepatitis A: No Hepatitis B: No Date of Pneumonia Vaccine: Jun 15, 2018 Seasonal Allergies Seasonal Allergies: Yes Current Status Primary Language: Chinese Preferred Spoken Language: Chinese Past Medical History Surgeries: Abdominal, Adenoidectomy, Nephrectomy, Tonsillectomy Currently Using CPAP: No Currently Using BIPAP: No High Cholesterol, Hypertension Sexually Transmitted Disease: No HIV/AIDS: No Benign Prostatic Hyperpl, Prostate Problems Gastroesophageal Reflux Arthritis Loss of Vision: Denies Hearing Impairment: Denies Skin, Kidney What Type of Treatment Did You: Surgical Intervention Blood Disorders: No Adverse Reaction/Blood Tranf: No (N/A) Family Medical History Asthma 19 FATHER Cancer of mouth Cardiovascular disease G8 BROTHER Myocardial infarction G8 BROTHER Neoplasm G8 BROTHER Parkinson's disease 19 MOTHER Respiratory disorder 19 FATHER Asthma, Heart Disease, Cancer, CAD Over 55 Years Old, COPD, Other Conditions/Hx Review of Systems Constitutional: fever Respiratory: No cough, No dyspnea on exertion, No short of breath Cardiovascular: No chest pain; edema Gastrointestinal: No abdominal pain, No constipation, No diarrhea; nausea; No vomiting Genitourinary: frequency, incontinence (urge) Musculoskeletal: No muscle pain, No muscle weakness Psychiatric/Neurological: Denies Headache Physical Exam Physical Exam Vital Signs Vital Signs - First Documented 05/01/21 07:35 Temp 38.3 Pulse 102 Resp 18 B/P (MAP) 113/59 (77) Pulse Ox 96 O2 Delivery Room Air Capillary Refill : Less Than 3 Seconds Height, Weight, BMI Height: 5'11.00" Weight: 191lbs. 0.0oz. 86.633354fy; 19.00 BMI Method:Stated General Appearance: No Apparent Distress Eyes: Bilateral Eye PERRL, Bilateral Eye EOMI HEENT: PERRL/EOMI Neck: Full Range of Motion Respiratory: Chest Non Tender, Lungs Clear, No Accessory Muscle Use, No Respiratory Distress Cardiovascular: Regular Rate, Rhythm, Normal Peripheral Pulses Gastrointestinal: Normal Bowel Sounds, No Organomegaly, No Pulsatile Mass, Non Tender, Soft Extremity: Normal Capillary Refill, Pedal Edema (NONPITTING EDEMA TO KNEES BIALTERALLY) Neurologic/Psychiatric: Alert, Oriented x3, outcomes specialist II-XII Norm as Tested, Depressed Affect Results Results/Procedures Labs Laboratory Tests 05/01/21 07:50 Patient resulted labs reviewed. Assessment/Plan Admission Diagnosis COMMUNITY ACQUIRED PNEUMONIA SEPSIS RENAL CELL CARCINOMA UNDERGOING IMMUNOTHERAPY Assessment and Plan COMMUNITY ACQUIRED PNEUMONIA SEPSIS WITH LEUKOCYTOPENIA RCC UNDERGOING IMMUNOTHERAPY HYPONATREMIA NEUTROPHILIA HYPOCALCEMIA COMMUNITY ACQUIRED PNEUMONIA SEPSIS WITH LEUKOCYTOPENIA RCC UNDERGOING IMMUNOTHERAPY -TREATMENT SCHEDULED TOMORROW HYPONATREMIA NEUTROPHILIA -WILL MONITOR, SHOULD DECREASE WITH TX FOR COMM ACQUIRED PNEUMONIA HYPOCALCEMIA KALI BRAVO MD 05/01/212001: History of Present Illness HPI/Chief Complaint PT IS AN 80 Y/O MALE WHO IS WELL KNOWN TO ME FROM CLINIC. HE PRESENTED TO THE EMERGENCY DEPARTMENT THIS MORNING WITH COMPLAINT OF FEVER AND WEAKNESS YESTERDAY EVENING AND THEN WORSENING SYMPTOMS THIS MORNING. THE PT'S AND DTR REPORT THAT HE HAD DECREASED APPETITE AND POOR FLUID INTAKE YESTERDAY EVENING. GABY DENIES ANY CONCERNS AT THIS TIME. HIS FAMILY IS CONCERNED ABOUT HIS CONTINUED IMMUNOTHERAPY THAT IS DUE TOMORROW. Source: patient, family ( PRESENT AT PT BEDSIDE) Exam Limitations: no limitations Date Seen 05/01/2021 Time Seen by a Provider: 09:30 Attending Physician KALI BRAVO MD PCP KALI BRAVO MD Date of Admission 05/01/21 0930 Home Medications & Allergies Home Medications SEE LIST - ADDRESSED ON COMPUTER Past Bdrhtgj-Ksheye-Mkfqom Hx Patient Social History Marrital Status: Number of Children: 2 Number of living children: 2 Living Status: LIVES AT HOME WITH HIS Employed/Student: retired ([employer]) Tobacco Use?: No Tobacco type used: Cigarettes Smoking Status: Former Smoker (QUIT 11/03/1976) Current Status Advance Directives: Yes Primary Language: Chinese Preferred Spoken Language: Chinese Is interpretation needed?: No Past Medical History Surgeries: Abdominal, Adenoidectomy, Nephrectomy (LEFT SIDE 05/2021), Tonsillectomy High Cholesterol, Hypertension Benign Prostatic Hyperpl, Prostate Problems Gastroesophageal Reflux Arthritis Skin, Kidney Did You Recieve Any Treatments: Yes What Type of Treatment Did You: Chemotherapy, Surgical Intervention Family Medical History Reviewed and Corrections made Asthma 19 FATHER Cancer of mouth Cardiovascular disease G8 BROTHER Myocardial infarction G8 BROTHER Neoplasm G8 BROTHER Parkinson's disease 19 MOTHER Respiratory disorder 19 FATHER Heart Disease, Cancer, Hypertension Assessment/Plan Admission Diagnosis PNEUMONIA RENAL CELL CARCINOMA STATUS POST LEFT NEPHRECTOMY RENAL CELL CARCINOMA METASTATIC LESIONS TO SPINE AND ILIAC BONE AND SACRUM HYPERTENSION BPH HYPONATREMIA CONSTIPATION WEAKNESS Admission Status: Inpatient Order (span 2 midnights) Reason for Inpatient Admission: INPT ADMISSION FOR PNEUMONIA, WILL REQUIRE AT LEAST 48 - 72 HOURS FOR STABILIZATION AND IMPROVEMENT Assessment and Plan PNEUMONIA RENAL CELL CARCINOMA STATUS POST LEFT NEPHRECTOMY RENAL CELL CARCINOMA METASTATIC LESIONS TO SPINE AND ILIAC BONE AND SACRUM HYPERTENSION BPH HYPONATREMIA CONSTIPATION WEAKNESS PNEUMONIA - PT STARTED ON IV ANTIBIOTICS COMPARISON: 05/04/2021 FINDINGS: Heart and pulmonary vasculature appear stable. Scattered patchy infiltrates seen in the periphery of the right mid lung and left lung base. No effusions. No pneumothorax. Right-sided dual lumen catheter stable. IMPRESSION: 1. Scattered bilateral infiltrates. RENAL CELL CARCINOMA STATUS POST LEFT NEPHRECTOMY RENAL CELL CARCINOMA METASTATIC LESIONS TO SPINE AND ILIAC BONE AND SACRUM - PAIN CONTROL WITH ORAL MORPHINE HYPERTENSION - RESUMED HOME REGIMEN - BP STABLE, MONITOR, ADDITIONAL AGENTS IF NEEDED BPH - RESUMED HOME REGIMEN - FLOMAX AND PROSCAR LEFT HIP PAIN - PAIN CONTROLLED OUTPT WITH MORPHINE HYPONATREMIA - PT ON IV FLUIDS, MONITOR SODIUM LEVELS, GATORADE/POWERADE WITH MEALS CONSTIPATION - PRN COLACE LOVENOX AND SCD'S FOR DVT PROPHYLAXIS GI PROPHYLAXIS WITH PEPCID. Supervisory-Addendum Brief Verification & Attestation Participated in pt care: history, MDM, physical Personally performed: exam, history, MDM, supervision of care Care discussed with: Medical Student Procedures: n/a Results interpretation: Verified all documentation PNEUMONIA RENAL CELL CARCINOMA STATUS POST LEFT NEPHRECTOMY RENAL CELL CARCINOMA METASTATIC LESIONS TO SPINE AND ILIAC BONE AND SACRUM HYPERTENSION BPH HYPONATREMIA CONSTIPATION WEAKNESS AGREE WITH STUDENT NOTE DOCUMENTED - SAW PT THIS MORNING AND AGAIN THIS EVENING WILL CALL TO [facility] IN MORNING TO LET THEM KNOW PT IS IN THE HOSPITAL SO THEY CAN DETERMINE THEIR PLAN FOR HIS IMMUNOTHERAPY THAT WAS SCHEDULED FOR 05/02/2021 MICHELL RAMIREZ STUDENT May 01, 2021 10:08 KALI BRAVO MD May 01, 2021 20:02
[2021-05-01 10:53] VITALS: BP 96/60
[2021-05-01 11:34] VITALS: BP 96/60
[2021-05-01] MEDS ORDERED: RT-ALBUTEROL SULF 2.5 MG/3 ML PRE-MIX VIAL INH PRN (11:45)
[2021-05-01] MEDS ORDERED: CATHETER FLUSH 10 ML SYR IV PRN (12:15)
[2021-05-01] MEDS ORDERED: ACETAMINOPHEN 325 MG TABLET PO PRN (12:15)
[2021-05-01] MEDS ORDERED: MORP-68 PO (12:28)
[2021-05-01] MEDS ORDERED: ACET-2267 PO (12:28)
[2021-05-01] MEDS ORDERED: ONDA8TAB15 PO (12:28)
[2021-05-01] MEDS ORDERED: SIME180C4 PO (12:28)
[2021-05-01] MEDS: NS IV 1000 ML 1,000 ML IV SCH ×2 (13:14→22:15)
[2021-05-01 15:37] VITALS: BP 102/54
[2021-05-01] MEDS: CEFEPIME 1,000 MG/SWFI 10 ML IV PUSH IV SCH ×2 (17:10)
[2021-05-01] MEDS ORDERED: ACETAMINOPHEN 500 MG TAB (TYLENOL) PO PRN (19:00)
[2021-05-01] MEDS ORDERED: BISACODYL 10 MG SUPP (DULCOLAX) RC PRN (19:00)
[2021-05-01 19:29] VITALS: BP 92/58
[2021-05-01] MEDS: ENOXAPARIN 40 MG/0.4 ML (LOVENOX) SYR SC SCH (20:12)
[2021-05-01] MEDS: polyethylene glycoL POWDER 17 GM (MIRALAX) PACK PO SCH ×2 (20:13→20:17)
[2021-05-01] MEDS: TAMSULOSIN 0.4 MG (FLOMAX) CAP PO SCH (20:13)
[2021-05-01] MEDS: ONDANSETRON 4 MG (ZOFRAN) ORAL DISSOLVE TAB PO SCH (20:13)
[2021-05-01] MEDS: morphine ER 15 MG (MS CONTIN) TAB PO SCH (20:13)
[2021-05-01] MEDS: FINASTERIDE (PROSCAR) 5 MG TAB PO SCH (20:13)
[2021-05-01] MEDS: SODIUM CHLORIDE 1 GM TABLET PO SCH (20:14)
[2021-05-01] MEDS ORDERED: NON-FORMULARY MEDICATION 1 EA EA (Ondansetron HCl 8 MG) PO SCH (21:00)
[2021-05-02] VITALS (8 sets, daily range): BP systolic 104–125; BP diastolic 56–70
[2021-05-02] MEDS: CEFEPIME 1,000 MG/SWFI 10 ML IV PUSH IV SCH ×6 (01:58→17:54)
[2021-05-02 04:37] LABS: WHITE BLOOD COUNT 6.3 10^3/uL (4.3-11.0)
[2021-05-02 04:39] LABS: HEMOGLOBIN 8.7 g/dL (13.3-17.7); MEAN PLATELET VOLUME 10.4 fL (9.0-12.2)
[2021-05-02 04:49] LABS: ALBUMIN 2.3 GM/DL (3.2-4.5); POTASSIUM 3.6 MMOL/L (3.6-5.0)
[2021-05-02 04:50] LABS: CALCIUM 7.6 MG/DL (8.5-10.1)
[2021-05-02 04:52] LABS: TOTAL PROTEIN 4.5 GM/DL (6.4-8.2)
[2021-05-02 04:53] LABS: BILIRUBIN,TOTAL 0.8 MG/DL (0.1-1.0)
[2021-05-02 04:55] LABS: CREATININE SERUM 1.04 MG/DL (0.60-1.30)
[2021-05-02] MEDS: NS IV 1000 ML 1,000 ML IV SCH ×2 (08:21→18:52)
[2021-05-02] MEDS: SENNA W/DOCUSATE (SENOKOT S) TABLET PO SCH (08:22)
[2021-05-02] MEDS: morphine ER 15 MG (MS CONTIN) TAB PO SCH ×2 (08:22→20:09)
[2021-05-02] MEDS: ONDANSETRON 4 MG (ZOFRAN) ORAL DISSOLVE TAB PO SCH ×2 (08:22→20:09)
[2021-05-02] MEDS: SODIUM CHLORIDE 1 GM TABLET PO SCH ×2 (08:22→20:09)
--- NOTE | 2021-05-02 08:27 | Progress Note - Hospitalist ---
MICHELL RAMIERZ A MED STUDENT 05/02/21 0827: Subjective HPI/CC On Admission Date Seen by Provider: May 02, 2021 Time Seen by Provider: 08:00 PT IS AN 80 Y/O MALE WHO IS WELL KNOWN TO ME FROM CLINIC. HE PRESENTED TO THE EMERGENCY DEPARTMENT THIS MORNING WITH COMPLAINT OF FEVER AND WEAKNESS YESTERDAY EVENING AND THEN WORSENING SYMPTOMS THIS MORNING. THE PT'S AND DTR REPORT THAT HE HAD DECREASED APPETITE AND POOR FLUID INTAKE YESTERDAY EVENING. GABY DENIES ANY CONCERNS AT THIS TIME. HIS FAMILY IS CONCERNED ABOUT HIS CONTINUED IMMUNOTHERAPY THAT IS DUE TOMORROW. Subjective/Events-last exam 80 YO MALE WHO WAS ADMITTED YESTERDAY FOR BILATERAL COMMUNITY ACQUIRED PNEUMONIA. PT IS UP IN BED EATING BREAKFAST THIS MORNING AND STATES HE HAS BETTER APPETITE TODAY THAN YESTERDAY. DENIES SOA, CHEST PAIN, COUGH OR SORE THROAT. PT ADMITS GOOD FLUID INTAKE AND DENIES DYSURIA. LAST BM WAS YESTERDAY AND REGULAR. PT ADMITS TO SLEEPING WELL LAST NOC. Review of Systems HEENT: No Head Aches, No Sinus Congestion, No Sore Throat Pulmonary: No Dyspnea, No Cough Cardiovascular: No: Chest Pain, Palpitations Gastrointestinal: No: Nausea, Vomiting, Abdominal Pain, Diarrhea, Constipation Genitourinary: No Dysuria, No Frequency Focused Exam Lactate Level 05/01/21 07:50: Lactic Acid Level 0.94 Objective Exam Vital Signs Vital Signs Date Time Temp Pulse Resp B/P (MAP) Pulse Ox O2 Delivery O2 Flow Rate FiO2 05/02/21 04:00 36.9 62 18 104/58 (73) 94 Room Air 05/01/21 11:34 21 Capillary Refill : Less Than 3 Seconds General Appearance: No Apparent Distress, WD/WN HEENT: PERRL/EOMI Respiratory: Chest Non Tender, Lungs Clear, Normal Breath Sounds, No Accessory Muscle Use, No Respiratory Distress Cardiovascular: Regular Rate, Rhythm, No Edema, No Murmur, Normal Peripheral Pulses Gastrointestinal: Normal Bowel Sounds, Non Tender, Soft Extremity: Normal Capillary Refill, Non Tender, Pedal Edema (TO HIPS BILATERALLY) Neurologic/Psychiatric: Alert, Oriented x3, No Motor/Sensory Deficits, Normal Mood/Affect, 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 Assessment/Plan Assessment and Plan Assess & Plan/Chief Complaint PNEUMONIA RENAL CELL CARCINOMA STATUS POST LEFT NEPHRECTOMY RENAL CELL CARCINOMA METASTATIC LESIONS TO SPINE AND ILIAC BONE AND SACRUM HYPERTENSION BPH HYPONATREMIA CONSTIPATION WEAKNESS PNEUMONIA - PT STARTED ON IV ANTIBIOTICS COMPARISON: 05/04/2021 FINDINGS: Heart and pulmonary vasculature appear stable. Scattered patchy infiltrates seen in the periphery of the right mid lung and left lung base. No effusions. No pneumothorax. Right-sided dual lumen catheter stable. IMPRESSION: 1. Scattered bilateral infiltrates. -CHEST XRAY ORDERED FOR TODAY RENAL CELL CARCINOMA STATUS POST LEFT NEPHRECTOMY RENAL CELL CARCINOMA METASTATIC LESIONS TO SPINE AND ILIAC BONE AND SACRUM - PAIN CONTROL WITH ORAL MORPHINE HYPERTENSION -CURRENTLY HYPOTENSIVE BPH - RESUMED HOME REGIMEN - FLOMAX AND PROSCAR LEFT HIP PAIN - PAIN CONTROLLED OUTPT WITH MORPHINE HYPONATREMIA -SLIGHTLY IMPROVED - PT ON IV FLUIDS, MONITOR SODIUM LEVELS, GATORADE/POWERADE WITH MEALS -LABS ORDERED DAILY TO MONITOR CONSTIPATION - PRN COLACE -REGULAR BM YESTERDAY LOVENOX AND SCD'S FOR DVT PROPHYLAXIS GI PROPHYLAXIS WITH PEPCID. KALI ORO MD 05/02/21 1247: Subjective HPI/CC On Admission PT REPORTS THAT HE IS FEELING ALMOST BACK TO NORMAL AT THIS TIME. HE REPORTS THAT HE DOES NOT HAVE ANY DIZZINESS, CHEST PAIN, SHORTNESS OF BREATH. HE DENIES ABDOMINAL PAIN, NAUSEA, OR OTHER CONCERNS. PTS DAUGHTER HAD MULTIPLE QUESTIONS ON PAPER TODAY WELL. Subjective/Events-last exam PT REPORTS THAT HE IS FEELING ALMOST BACK TO NORMAL AT THIS TIME. HE REPORTS THAT HE DOES NOT HAVE ANY DIZZINESS, CHEST PAIN, SHORTNESS OF BREATH. HE DENIES ABDOMINAL PAIN, NAUSEA, OR OTHER CONCERNS. PTS DAUGHTER HAD MULTIPLE QUESTIONS ON PAPER TODAY WELL. Review of Systems General: No Chills HEENT: No Head Aches Pulmonary: No Dyspnea, No Cough Cardiovascular: No: Chest Pain, Palpitations Gastrointestinal: No: Nausea, Vomiting, Abdominal Pain, Diarrhea, Constipation Genitourinary: No Dysuria, No Frequency Neurological: Weakness Objective Exam General Appearance: No Apparent Distress, WD/WN HEENT: PERRL/EOMI Neck: Full Range of Motion, Non Tender, Supple Respiratory: Chest Non Tender, Lungs Clear, Normal Breath Sounds, No Accessory Muscle Use, No Respiratory Distress Cardiovascular: Regular Rate, Rhythm, Normal Peripheral Pulses, Other (TRACE EDEMA AT ANKLES) Gastrointestinal: Normal Bowel Sounds, Non Tender, Soft Rectal: Deferred Extremity: Normal Capillary Refill, Non Tender, Pedal Edema (TO HIPS BILATERALLY) Neurologic/Psychiatric: Alert, Oriented x3, No Motor/Sensory Deficits, Normal Mood/Affect, 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 Scattered patchy infiltrates seen in the periphery of the right mid lung and left lung base. No effusions. No pneumothorax. Right-sided dual lumen catheter stable. IMPRESSION: 1. Scattered bilateral infiltrates. RENAL CELL CARCINOMA STATUS POST LEFT NEPHRECTOMY RENAL CELL CARCINOMA METASTATIC LESIONS TO SPINE AND ILIAC BONE AND SACRUM - PAIN CONTROL WITH ORAL MORPHINE HYPERTENSION - CURRENTLY HYPOTENSIVE - BP STABLE, MONITOR, NOT NEEDING TREATMENT RIGHT NOW - MONITOR AND MAY RESUME HOME MEDICATIONS BPH - RESUMED HOME REGIMEN - FLOMAX AND PROSCAR HYPONATREMIA - PT ON IV FLUIDS, MONITOR SODIUM LEVELS, GATORADE/POWERADE WITH MEALS LOVENOX AND SCD'S FOR DVT PROPHYLAXIS GI PROPHYLAXIS WITH PEPCID. Supervisory-Addendum Brief Verification & Attestation Participated in pt care: history, MDM, physical Personally performed: exam, history, MDM, supervision of care Care discussed with: Medical Student Procedures: n/a Results interpretation: Verified all documentation AGREE WITH MEDICAL STUDENT REPORT - DOCUMENTED. MICHELL RAMIREZ MED STUDENT May 02, 2021 08:27 KALI ORO MD May 02, 2021 12:47
--- NOTE | 2021-05-02 09:53 | Diagnostic Imaging Report ---
INDICATION: Pneumonia COMPARISON: 05/01/2021 FINDINGS: Patchy infiltrate in the right upper lobe is nearly completely resolved. Infiltrate in the left lung base showed no substantial change. There may be a developing infiltrate in the right lower lobe laterally. No effusion or pneumothorax. Underlying COPD and a central venous catheter unchanged. IMPRESSION: Very similar to prior basilar infiltrates greater left present with improvements in infiltrate in the right upper lobe. No adverse development or pleural fluid. Dictated by: Dictated on workstation # [id number]
[2021-05-02] MEDS: ENOXAPARIN 40 MG/0.4 ML (LOVENOX) SYR SC SCH (17:54)
[2021-05-02] MEDS: FINASTERIDE (PROSCAR) 5 MG TAB PO SCH (20:09)
[2021-05-02] MEDS: TAMSULOSIN 0.4 MG (FLOMAX) CAP PO SCH (20:09)
[2021-05-02] MEDS: polyethylene glycoL POWDER 17 GM (MIRALAX) PACK PO SCH (20:13)
--- NOTE | 2021-05-02 20:34 | CONSULTATION REPORT ---
DATE OF SERVICE: 05/02/2021 The patient is admitted to room 401. PRIMARY AND REFERRING PHYSICIAN: Rita Bravo MD IMPRESSION: 1. An 80-year-old male admitted to the hospital with fever, confusion and weakness. 2. Admission chest x-ray with bilateral infiltrates and on antibiotic therapy. 3. History of metastatic kidney cancer to the bone with intractable pain, diagnosed in 01/2021. The patient underwent palliative radiation therapy to the pelvis with improvement of pain. He was started on palliative immunotherapy with ipilimumab and nivolumab. He has completed the last course in early 04/2021. RECOMMENDATIONS: 1. Continue antibiotic therapy as you are doing. 2. Increase activity level as tolerated and discharge home when stable. 3. The patient was due for third cycle of treatment with Yervoy and Opdivo today, but we will delay this until he has recovered from pneumonia. 4. Tentatively schedule an appointment for him to return to the [facility] a week after discharge. 5. I will follow the patient with you. BRIEF HISTORY: The patient is an 80-year-old male with history of metastatic renal cell carcinoma to the bone, diagnosed in late 01/13/2021. He completed palliative radiation therapy because of intractable pain. Following this, he was started on palliative immunotherapy with Yervoy and Opdivo. He has completed two cycles of treatment with the last treatment in early 04/2021. The patient developed fairly sudden onset fever, confusion and weakness two days ago, was brought to the emergency room, evaluated and admitted to the hospital with probable pneumonia. He is on broad spectrum antibiotics and is feeling much better. He denied any shortness of breath and was not hypoxic at the time of admission. He is ambulating in the room and in the hallway and is recovering well. Oncology consultation was requested for concurrent care. PAST MEDICAL HISTORY: Significant for left kidney cancer diagnosed in fall and underwent a nephrectomy in 05/2020. Recently, he started having increasing back pain and an MRI of the lower back done recently showed evidence of metastatic disease to the bone with possible cauda equina syndrome. He was seen urgently as an outpatient on 01/29/2021 and admitted to the hospital same day for pain management. He was started on steroids and radiation therapy with improvement. Once he completed radiation therapy, he was started on immunotherapy with Yervoy and Opdivo. Other significant history include hypertension, cardiac problems, gastroesophageal reflux disease, hypercholesterolemia and chronic anemia. PAST SURGICAL HISTORY: Include tonsillectomy and adenoidectomy, skin cancers removed from his face and neck, umbilical hernia repair in 2007 and robotic-assisted left nephrectomy in 05/2020. SOCIAL HISTORY: The patient is and lives in [place], [place]. He has two daughters, one of whom lives in [place] and one in [place]. 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 He has less than [id number] history of tobacco use and quit more than 45 years ago. He has used alcohol socially, but has quit that also. No history of recreational drug use. FAMILY HISTORY: Significant for his mother with stomach cancer at the age of 75 years, brother with pancreatic/liver cancer in his 60s, sister with breast cancer in her late 60s. No other malignancies in the family. Several of his relatives have diabetes mellitus. PHYSICAL EXAMINATION: GENERAL: Showed an elderly male, well developed and nourished, awake and oriented, in no acute distress. HEENT: Normocephalic, extraocular muscles intact, conjunctivae pink, oral mucosa moist. NECK: Supple, with no JVD. No cervical, supraclavicular or axillary lymphadenopathy palpable. CHEST: Symmetrical. LUNGS: Fairly clear to auscultation without wheezes or rales. CARDIOVASCULAR: Regular in rate and rhythm with an occasional missed beat. No murmurs or gallops heard. ABDOMEN: Soft, nontender with no hepatosplenomegaly or other masses palpable. EXTREMITIES: Showed no edema. Motor strength was intact with no focal deficits. LABORATORY DATA: Reviewed the admission chest x-ray done from the emergency room, which showed bilateral infiltrates and a followup chest x-ray done earlier today showed slight improvement. Lab work was reviewed and is stable. Thank you for allowing me to participate in this patient's care. I will follow the patient with you and make appropriate recommendations. Job ID: [id number] DocumentID: [id number] Dictated Date: 05/02/2021 17:38:14 Steel Rule Die Maker Apprentice Date: 05/02/2021 20:33:26 Dictated By: NADIA BOYD MD
[2021-05-03] MEDS: CEFEPIME 1,000 MG/SWFI 10 ML IV PUSH IV SCH ×6 (01:56→17:53)
[2021-05-03 03:35] VITALS: BP 143/69
[2021-05-03 03:56] LABS: HEMOGLOBIN 9.6 g/dL (13.3-17.7); MEAN PLATELET VOLUME 10.5 fL (9.0-12.2); WHITE BLOOD COUNT 4.6 10^3/uL (4.3-11.0)
[2021-05-03 04:22] LABS: POTASSIUM 3.5 MMOL/L (3.6-5.0)
[2021-05-03 04:23] LABS: CALCIUM 7.8 MG/DL (8.5-10.1)
[2021-05-03 04:28] LABS: CREATININE SERUM 0.87 MG/DL (0.60-1.30)
[2021-05-03] MEDS: NS IV 1000 ML 1,000 ML IV SCH (06:24)
[2021-05-03 07:30] VITALS: BP 134/67
--- NOTE | 2021-05-03 08:16 | Progress Note - Hospitalist ---
MICHELL RAMIREZ A MED STUDENT 05/03/21 0815: Subjective HPI/CC On Admission Date Seen by Provider: May 03, 2021 Time Seen by Provider: 08:00 PT REPORTS THAT HE IS FEELING ALMOST BACK TO NORMAL AT THIS TIME. HE REPORTS THAT HE DOES NOT HAVE ANY DIZZINESS, CHEST PAIN, SHORTNESS OF BREATH. HE DENIES ABDOMINAL PAIN, NAUSEA, OR OTHER CONCERNS. PTS DAUGHTER HAD MULTIPLE QUESTIONS ON PAPER TODAY WELL. Subjective/Events-last exam PT IS AN 80 YO MALE ADMITTED TWO DAYS AGO FOR COMMUNITY ACQUIRED PNEUMONIA. PT REPORTS HE FEELS ABOUT THE SAME HE DID YESTERDAY. HIS APPETITE IS SLIGHTLY DIMINISHED THIS MORNING, BUT HE ATE WELL LAST NIGHT. PT REPORTS HAVING A LOOSE BM THIS MORNING. STATES HE IS NOT DRINKING THAT MUCH WATER BECAUSE HE HAS TO GET UP TO USE THE RESTROOM A LOT ALREADY. DENIES CHEST PAIN, SOA, COUGH OR SORE THROAT. PT DENIES PAIN. Review of Systems General: No Chills HEENT: No Head Aches, No Sinus Congestion, No Post Nasal Drip, No Sore Throat Pulmonary: No Dyspnea, No Cough, No Pleuritic Chest Pain Cardiovascular: Edema (LE EDEMA IS BETTER); No: Chest Pain, Palpitations Gastrointestinal: Diarrhea (LOOSE STOOL THIS MORNING); No: Nausea, Vomiting, Constipation Genitourinary: No Dysuria; Frequency; No Incontinence Neurological: No: Confusion Focused Exam Lactate Level 05/01/21 07:50: Lactic Acid Level 0.94 Objective Exam Vital Signs Vital Signs Date Time Temp Pulse Resp B/P (MAP) Pulse Ox O2 Delivery O2 Flow Rate FiO2 05/03/21 07:30 36.4 93 18 134/67 (89) 97 Room Air 05/01/21 11:34 21 Capillary Refill : Less Than 3 Seconds General Appearance: No Apparent Distress, WD/WN HEENT: PERRL/EOMI Neck: Full Range of Motion, Normal Inspection Respiratory: Chest Non Tender, Lungs Clear, Normal Breath Sounds, No Accessory Muscle Use, No Respiratory Distress Cardiovascular: Regular Rate, Rhythm, No Edema, No Gallop, No JVD, No Murmur, Normal Peripheral Pulses Gastrointestinal: Normal Bowel Sounds, No Organomegaly, No Pulsatile Mass, Non Tender, Soft Extremity: Normal Capillary Refill, Non Tender, Pedal Edema (1+ PITTING EDEMA TO ANKLES, NONPITTING EDEMA TO THIGHS) Neurologic/Psychiatric: Alert, Oriented x3, No Motor/Sensory Deficits, 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 Assessment/Plan Assessment and Plan Assess & Plan/Chief Complaint PNEUMONIA RENAL CELL CARCINOMA STATUS POST LEFT NEPHRECTOMY RENAL CELL CARCINOMA METASTATIC LESIONS TO SPINE AND ILIAC BONE AND SACRUM HYPERTENSION BPH ANEMIA HYPOKALEMIA HYPONATREMIA CONSTIPATION WEAKNESS PNEUMONIA - PT STARTED ON IV ANTIBIOTICS COMPARISON: 05/04/2021 FINDINGS: Heart and pulmonary vasculature appear stable. Scattered patchy infiltrates seen in the periphery of the right mid lung and left lung base. No effusions. No pneumothorax. Right-sided dual lumen catheter stable. IMPRESSION: 1. Scattered bilateral infiltrates. RENAL CELL CARCINOMA STATUS POST LEFT NEPHRECTOMY RENAL CELL CARCINOMA METASTATIC LESIONS TO SPINE AND ILIAC BONE AND SACRUM - PAIN CONTROL WITH ORAL MORPHINE HYPERTENSION -CURRENTLY HYPOTENSIVE BPH - RESUMED HOME REGIMEN - FLOMAX AND PROSCAR LEFT HIP PAIN - PAIN CONTROLLED OUTPT WITH MORPHINE ANEMIA- -H&H TRENDING UP, WILL CONTINUE TO MONITOR HYPOKALEMIA -POTASSIUM TRENDING DOWN, WILL CONTINUE TO MONITOR WITH DAILY LABS HYPONATREMIA -IMPROVING - PT ON IV FLUIDS, MONITOR SODIUM LEVELS, GATORADE/POWERADE WITH MEALS -LABS ORDERED DAILY TO MONITOR HYPOCALCEMIA -WILL CONTINUE TO MONITOR CONSTIPATION - PRN COLACE -LOOSE BM THIS MORNING LOVENOX AND SCD'S FOR DVT PROPHYLAXIS GI PROPHYLAXIS WITH PEPCID. KALI ORO MD 05/03/21 0920: Subjective HPI/CC On Admission Date Seen by Provider: May 03, 2021 Time Seen by Provider: 08:30 PT WAS ADMITTED WITH PNEUMONIA, HYPONATREMIA, ON PALLIATIVE CHEMO FOR METASTATIC RENAL CELL CA Subjective/Events-last exam GABY IS AN 80 Y/O MALE WHO HAS PNEUMONIA, KLEBSIELLA FROM PERIPHERAL AND PORT, HYPONATREMIA AND RECEIVING PALLIATIVE IMMUNOTHERAPY FOR METASTATIC RENAL CELL. GABY REPORTS THAT HE IS FEELING "FINE" TODAY - HE DENIES CHEST PAIN, SHORTNESS OF BREATH, ABDOMINAL PAIN. HE REPORTS THAT HE IS URINATING FREQUENTLY, FEELS LIKE HE CAN AMBULATE WITHOUT CONCERN AT THIS TIME. PT'S 'S ONLY CONCERN IS HIS FLUID IN HIS LOWER LEGS. Review of Systems General: No Chills, No Fatigue, No Malaise Pulmonary: No Dyspnea, No Cough Cardiovascular: Edema (LE EDEMA IS BETTER); No: Chest Pain Genitourinary: No Dysuria Neurological: Weakness (GENERALIZED, IMPROVING); No: Confusion Objective Exam General Appearance: No Apparent Distress, WD/WN HEENT: PERRL/EOMI Neck: Full Range of Motion, Normal Inspection Respiratory: Chest Non Tender, Lungs Clear, Normal Breath Sounds, No Accessory Muscle Use, No Respiratory Distress Cardiovascular: Regular Rate, Rhythm, Normal Peripheral Pulses, Other (+ PITTING EDEMA AT FEET AND ANKLES) Gastrointestinal: Normal Bowel Sounds, Soft Rectal: Deferred Neurologic/Psychiatric: Alert, Oriented x3, No Motor/Sensory Deficits, 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 BOYD - PAIN FROM BONE METS IS CONTROLLED WITH MORPHINE CHRONIC HYPERTENSION - LIKELY WILL HAVE TO RESTART METOPROLOL TODAY - WILL RESTART AND PUT PARAMETERS ON THE MEDICATION EDEMA - DUE TO FLUIDS - LOW DOSE LASIX TODAY. ANTICIPATE ABLE TO DC TO HOME TOMORROW AFTER SENSITIVITIES ARE COMPLETED ON MICRO Supervisory-Addendum Brief Verification & Attestation Participated in pt care: history, MDM, physical Personally performed: exam, history, MDM, supervision of care Care discussed with: Medical Student Procedures: n/a Results interpretation: Verified all documentation AGREE WITH STUDENT NOTE DOCUMENTED - SEE MY ADDITIONAL DOCUMENTATION MICHELL RAMIREZ MED STUDENT May 03, 2021 08:15 KALI ORO MD May 03, 2021 09:20
[2021-05-03] MEDS ORDERED: FUROSEMIDE 40 MG/4 ML INJ (LASIX) IVP ONE (08:45)
[2021-05-03] MEDS ORDERED: KCL 20 MEQ TAB (K-DUR) PO ONE ×2 (08:45)
[2021-05-03] MEDS: morphine ER 15 MG (MS CONTIN) TAB PO SCH ×2 (08:50→20:05)
[2021-05-03] MEDS: SENNA W/DOCUSATE (SENOKOT S) TABLET PO SCH (08:50)
[2021-05-03] MEDS: SODIUM CHLORIDE 1 GM TABLET PO SCH ×2 (08:51→20:05)
[2021-05-03] MEDS: ONDANSETRON 4 MG (ZOFRAN) ORAL DISSOLVE TAB PO SCH ×2 (08:51→20:05)
[2021-05-03 12:11] VITALS: BP 112/55
[2021-05-03] MEDS: meTOprolol TARTRATE 25 MG (LOPRESSOR) TABLET PO SCH ×2 (12:25→20:05)
[2021-05-03 16:11] VITALS: BP 90/61
[2021-05-03 19:33] VITALS: BP 112/64
[2021-05-03] MEDS: TAMSULOSIN 0.4 MG (FLOMAX) CAP PO SCH (20:05)
[2021-05-03] MEDS: ENOXAPARIN 40 MG/0.4 ML (LOVENOX) SYR SC SCH (20:05)
[2021-05-03] MEDS: polyethylene glycoL POWDER 17 GM (MIRALAX) PACK PO SCH (20:05)
[2021-05-03] MEDS: FINASTERIDE (PROSCAR) 5 MG TAB PO SCH (20:05)
[2021-05-03 23:30] VITALS: BP 122/63
[2021-05-04] MEDS: CEFEPIME 1,000 MG/SWFI 10 ML IV PUSH IV SCH ×4 (02:27→09:07)
[2021-05-04 03:10] VITALS: BP 128/65
[2021-05-04 04:42] LABS: HEMOGLOBIN 9.3 g/dL (13.3-17.7); MEAN PLATELET VOLUME 11.7 fL (9.0-12.2); WHITE BLOOD COUNT 3.6 10^3/uL (4.3-11.0)
[2021-05-04 04:47] LABS: POTASSIUM 3.8 MMOL/L (3.6-5.0)
[2021-05-04 04:48] LABS: CALCIUM 8.1 MG/DL (8.5-10.1)
[2021-05-04 04:53] LABS: CREATININE SERUM 1.32 MG/DL (0.60-1.30)
[2021-05-04 07:17] VITALS: BP 144/68
[2021-05-04] MEDS: morphine ER 15 MG (MS CONTIN) TAB PO SCH (09:06)
[2021-05-04] MEDS: SENNA W/DOCUSATE (SENOKOT S) TABLET PO SCH (09:06)
[2021-05-04] MEDS: meTOprolol TARTRATE 25 MG (LOPRESSOR) TABLET PO SCH (09:07)
[2021-05-04] MEDS: SODIUM CHLORIDE 1 GM TABLET PO SCH (09:07)
[2021-05-04] MEDS: ONDANSETRON 4 MG (ZOFRAN) ORAL DISSOLVE TAB PO SCH (09:07)
[2021-05-04] MEDS ORDERED: LACT1CAP87 PO (09:33)
[2021-05-04] MEDS ORDERED: AMOX-358 PO (09:33)
--- NOTE | 2021-05-04 09:36 | D/C HH Face to Face Order ---
D/C Face to Face Orders Reconcile Patient Problems Problems Reviewed?: Yes Instructions for Patient RESUME HOME HEALTH SERVICES Patient Instructions/FollowUp: [facility] Physician to follow Patient: PREETHI Discharge Diet for Home: Regular Diet Patient Problems: PNEUMONIA RENAL CELL CARCINOMA STATUS POST LEFT NEPHRECTOMY RENAL CELL CARCINOMA METASTATIC LESIONS TO SPINE AND ILIAC BONE AND SACRUM HYPERTENSION BPH ANEMIA HYPOKALEMIA HYPONATREMIA CONSTIPATION WEAKNESS Goals for Patient: IMPROVED STRENGTH Patient Data-Allergies,Ht & Wt Patient Allergies: Coded Allergies: No Known Drug Allergies (Verified , 05/01/21) Height (Feet): 5 Height (Inches): 11.00 Weight (Pounds): 191 Weight (Ounces): 0.0 Home Health Need/Face to Face Date of Face to Face: May 04, 2021 Clinical Findings: Generalized weakness and fatigue, Immune-compromised, Muscle weakness, Shortness of breath I have seen Pt [id number]: Yes Discharged To: Home Diagnosis/Conditions: PNEUMONIA RENAL CELL CARCINOMA STATUS POST LEFT NEPHRECTOMY RENAL CELL CARCINOMA METASTATIC LESIONS TO SPINE AND ILIAC BONE AND SACRUM HYPERTENSION BPH ANEMIA HYPOKALEMIA HYPONATREMIA CONSTIPATION WEAKNESS Patient is Homebound due to: Muscle weakness Homebound Status Due to the above stated illness, injury or surgical procedure (medical condition or diagnosis) and associated clinical findings, the patient is homebound because of his/her inability to leave home except with aid of a supportive device and/or person AND leaving the home requires a considerable and taxing effort or is medically contraindicated. Pt req the following assistanc: [facility] Nursing Orders Home Health Services Order: Nursing Services, Physical Therapy-Evaluate & Treat CBC, CMP ON 05/08/2021 Home Health Infusion Therapy Line Start Date: May 01, 2021 Therapy Orders Therapy Orders: PT to assess for OT Therapy Specific Orders: Increase strength/endurance Certify Stmt I certify that this patient is under my care and that I, a nurse practitioner or a physician; a trust administrative assistant working with me, had a face to face encounter that - meets the physician face to face encounter requirements with this patient as dated. Medication List: Active Scripts Active Reported Gas-X Ultra Strength (Simethicone) 180 Mg Capsule 180-360 Mg PO UD PRN Tylenol Extra Strength (Acetaminophen) 500 Mg Tablet 500-1,000 Mg PO Q8H PRN Morphine Sulfate ER (Morphine Sulfate) 15 Mg Tablet.er 15 Mg PO Q12H Ondansetron HCl 8 Mg Tablet 8 Mg PO BID Bisacodyl 10 Mg Supp.rect 10 Mg RC DAILY PRN Senna S Tablet (Sennosides/Docusate Sodium) 1 Each Tablet 2 Each PO DAILY Miralax (Polyethylene Glycol 3350) 17 Gm Powd.pack 17 Gm PO HS Diclofenac Sodium 100 Gm Gel..gram. 1 Applic TP QID PRN Finasteride 5 Mg Tablet 5 Mg PO HS Oxycodone HCl 5 Mg Tablet 5 Mg PO Q6H PRN Sodium Chloride 1 Gm Tab 1 Gm PO BID Amlodipine Besylate 10 Mg Tablet 10 Mg PO DAILY Flomax (Tamsulosin HCl) 0.4 Mg Cap 0.4 Mg PO HS Metoprolol Tartrate 25 Mg Tablet 12.5 Mg PO BID TAKES OF A (25MG) TABLET Lab results: Laboratory Tests Test 05/04/21 04:30 Range/Units White Blood Count 3.6 L 4.3-11.0 10^3/uL Red Blood Count 3.31 L 4.30-5.52 10^6/uL Hemoglobin 9.3 L 13.3-17.7 g/dL Hematocrit 29 L 40-54 % Mean Corpuscular Volume 88 80-99 fL Mean Corpuscular Hemoglobin 28 25-34 pg Mean Corpuscular Hemoglobin Concent 32 32-36 g/dL Red Cell Distribution Width 14.8 H 10.0-14.5 % Platelet Count 94 L 130-400 10^3/uL Mean Platelet Volume 11.7 9.0-12.2 fL Percent Immature Platelet Fraction 6.6 0.0-7.6 % Sodium Level 129 L 135-145 MMOL/L Potassium Level 3.8 3.6-5.0 MMOL/L Chloride Level 98 98-107 MMOL/L Carbon Dioxide Level 25 21-32 MMOL/L Anion Gap 6 5-14 MMOL/L Blood Urea Nitrogen 14 7-18 MG/DL Creatinine 1.32 H 0.60-1.30 MG/DL Estimat Glomerular Filtration Rate 52 BUN/Creatinine Ratio 11 Glucose Level 80 70-105 MG/DL Calcium Level 8.1 L 8.5-10.1 MG/DL My orders: Orders - KALI ORO MD Attending Discharge Inpt/Inobs (05/04/21 09:28) Home [facility] Dischage (05/04/21 09:28) KALI ORO MD May 04, 2021 09:36
--- NOTE | 2021-05-04 09:38 | Discharge Summary ---
Diagnosis/Chief Complaint Date of Admission May 01, 2021 at 09:30 Date of Discharge Discharge Date: May 04, 2021 Discharge Time: 1030 Admission Diagnosis Admission Diagnosis PNEUMONIA RENAL CELL CARCINOMA STATUS POST LEFT NEPHRECTOMY RENAL CELL CARCINOMA METASTATIC LESIONS TO SPINE AND ILIAC BONE AND SACRUM HYPERTENSION BPH ANEMIA HYPOKALEMIA HYPONATREMIA CONSTIPATION WEAKNESS Discharge Diagnosis PNEUMONIA RENAL CELL CARCINOMA STATUS POST LEFT NEPHRECTOMY RENAL CELL CARCINOMA METASTATIC LESIONS TO SPINE AND ILIAC BONE AND SACRUM HYPERTENSION BPH ANEMIA HYPOKALEMIA HYPONATREMIA CONSTIPATION WEAKNESS Reason Hospital Visit PT IS AN 80 Y/O MALE WHO IS WELL KNOWN TO ME FROM CLINIC. HE PRESENTED TO THE EMERGENCY DEPARTMENT THIS MORNING WITH COMPLAINT OF FEVER AND WEAKNESS YESTERDAY EVENING AND THEN WORSENING SYMPTOMS THIS MORNING. THE PT'S AND DTR REPORT THAT HE HAD DECREASED APPETITE AND POOR FLUID INTAKE YESTERDAY EVENING. GABY DENIES ANY CONCERNS AT THIS TIME. HIS FAMILY IS CONCERNED ABOUT HIS CONTINUED IMMUNOTHERAPY THAT IS DUE TOMORROW. Discharge Summary Discharge Physical Examination Allergies: Coded Allergies: No Known Drug Allergies (Verified , 05/01/21) Vitals & I&Os Vital Signs Date Time Temp Pulse Resp B/P (MAP) Pulse Ox O2 Delivery O2 Flow Rate FiO2 05/04/21 07:17 36.5 72 16 144/68 (93) 97 Room Air 05/01/21 11:34 21 Hospital Course PNEUMONIA RENAL CELL CARCINOMA STATUS POST LEFT NEPHRECTOMY RENAL CELL CARCINOMA METASTATIC LESIONS TO SPINE AND ILIAC BONE AND SACRUM HYPERTENSION BPH ANEMIA HYPOKALEMIA HYPONATREMIA CONSTIPATION WEAKNESS PNEUMONIA - PT STARTED ON IV ANTIBIOTICS COMPARISON: 05/04/2021 FINDINGS: Heart and pulmonary vasculature appear stable. Scattered patchy infiltrates seen in the periphery of the right mid lung and left lung base. No effusions. No pneumothorax. Right-sided dual lumen catheter stable. IMPRESSION: 1. Scattered bilateral infiltrates. RENAL CELL CARCINOMA STATUS POST LEFT NEPHRECTOMY RENAL CELL CARCINOMA METASTATIC LESIONS TO SPINE AND ILIAC BONE AND SACRUM - PAIN CONTROL WITH ORAL MORPHINE HYPERTENSION -CURRENTLY HYPOTENSIVE BPH - RESUMED HOME REGIMEN - FLOMAX AND PROSCAR LEFT HIP PAIN - PAIN CONTROLLED OUTPT WITH MORPHINE ANEMIA- -H&H TRENDING UP, WILL CONTINUE TO MONITOR HYPOKALEMIA -POTASSIUM TRENDING DOWN, WILL CONTINUE TO MONITOR WITH DAILY LABS HYPONATREMIA -IMPROVING - PT ON IV FLUIDS, MONITOR SODIUM LEVELS, GATORADE/POWERADE WITH MEALS -LABS ORDERED DAILY TO MONITOR HYPOCALCEMIA -WILL CONTINUE TO MONITOR CONSTIPATION - PRN COLACE -LOOSE BM THIS MORNING LOVENOX AND SCD'S FOR DVT PROPHYLAXIS GI PROPHYLAXIS WITH PEPCID. Pending Labs Laboratory Tests 05/04/21 04:30: White Blood Count 3.6, Red Blood Count 3.31, Hemoglobin 9.3, Hematocrit 29, Mean Corpuscular Volume 88, Mean Corpuscular Hemoglobin 28, Mean Corpuscular Hemoglobin Concent 32, Red Cell Distribution Width 14.8, Platelet Count 94, Mean Platelet Volume 11.7, Percent Immature Platelet Fraction 6.6, Sodium Level 129, Potassium Level 3.8, Chloride Level 98, Carbon Dioxide Level 25, Anion Gap 6, Blood Urea Nitrogen 14, Creatinine 1.32, Estimat Glomerular Filtration Rate 52, BUN/Creatinine Ratio 11, Glucose Level 80, Calcium Level 8.1 Discharge Instructions to patient/family Please see electronic discharge instructions given to patient. Discharge Medications Reviewed and agree with Discharge Medication list on patient's Discharge Instruction sheet KALI ORO MD May 04, 2021 09:38
[2021-05-04 11:17] VITALS: BP 120/59
--- NOTE | 2021-05-04 12:54 | Diagnostic Imaging Report ---
INDICATION: Follow-up pneumonia. COMPARISON: 05/02/2021 FINDINGS: Frontal and lateral radiographic views of the chest were obtained and again show patchy airspace opacities in the bilateral mid and lower lung orellana, left greater than right. Since the previous exam, there has been slight interval improved aeration. There is no large effusion or pneumothorax. Cardiac silhouette and pulmonary vasculature are within normal limits. Indwelling right subclavian Port-A-Cath is noted with tip in the SVC. Osseous structures show no gross acute abnormalities. IMPRESSION: 1. Persistent, but improved bibasilar patchy infiltrate. Dictated by: Dictated on workstation # [id number]
== END 2021-05-04 11:45 | disposition home health service (06) | DRG 871 ==
LOC: EDUNIT# 07:25 → ER 07:29 → 4TH 09:30
PROVIDERS: ADMIT Family Medicine; ATTEND Family Medicine
DX: A41.89 Other specified sepsis (principal); J18.9 Pneumonia, unspecified organism; E87.1 Hypo-osmolality and hyponatremia; C79.51 Secondary malignant neoplasm of bone; Z85.53 Personal history of malignant neoplasm of renal pelvis; Z90.5 Acquired absence of kidney; I10 Essential (primary) hypertension; Z20.822 Contact with and (suspected) exposure to COVID-19; N40.0 Benign prostatic hyperplasia without lower urinary tract symptoms; D64.9 Anemia, unspecified; E87.6 Hypokalemia; K59.00 Constipation, unspecified; R53.1 Weakness; M25.552 Pain in left hip; E83.51 Hypocalcemia; R60.9 Edema, unspecified; D72.819 Decreased white blood cell count, unspecified; D72.0 Genetic anomalies of leukocytes
CPT/HCPCS: 36415; 71045; 71046; 80048; 80053; 81000; 83605; 84145; 85007; 85027; 85610; 85730; 86141; 87040; 87077; 87088; 87186; 87636; 94760; 96374

== ENCOUNTER → 2021-06-22 | Outpatient (CLI) | payer MEDICARE, OTHER ==
[~2021-06-22] MED LIST changes: +ACET-2267 PO; +AMOX-358 PO; +BARIUM SUSPENSION 2.1% (VANILLA SILQ) 450 ML PO ONE; +CATHETER FLUSH 10 ML SYR IV PRN; +HOLD METFORMIN - RECEIVED CONTRAST 20 ML VIAL IV SCH; +IOHEXOL 350 MG/ML 100 ML (OMNIPAQUE 350) VIAL IV ONE; +LACT1CAP87 PO; +NS 100 ML (IVPB) BAG IV ONE; +ONDA8TAB15 PO; +SIME180C4 PO
--- NOTE | 2021-06-22 14:39 | Diagnostic Imaging Report ---
INDICATION: Clear cell carcinoma of left kidney. TECHNIQUE: The patient was administered 25.9 mCi technetium 99m MDP intravenously and whole-body imaging was performed after a 3 hour delay. No prior bone scans are available for comparison. There is normal uptake of activity by the axial and appendicular skeleton. There is uptake by the right kidney with excretion to the urinary bladder. There is some uptake in the lower lumbar spine at approximately the L5 level. Mild uptake involving approximately T8 or T9 vertebral body is noted, indeterminate. There is also abnormal uptake involving the proximal right humeral shaft. There is probable degenerative uptake in the bilateral shoulders. There is degenerative uptake in the bilateral feet. IMPRESSION: There is uptake in the lower thoracic and lower lumbar spine. This corresponds to areas of blastic activity noted on CT study from earlier the same day and suggestive of metastatic lesions. There is also abnormal uptake involving the proximal right humerus, suspicious for a metastatic lesion. Dictated by: Dictated on workstation # [id number]
--- NOTE | 2021-06-22 16:15 | Diagnostic Imaging Report ---
PROCEDURE: CT chest with contrast, CT abdomen and pelvis with and without contrast. TECHNIQUE: Pre and post intravenous contrast axial imaging of the abdomen and pelvis and post contrast axial imaging of the chest were performed. Auto Exposure Controls were utilized during the CT exam to meet ALARA standards for radiation dose reduction. INDICATION: Clear cell carcinoma of the left kidney COMPARISONS: 03/03/2021, 01/26/2021, and 04/18/2020. FINDINGS: A right-sided Port-A-Cath is in place with the distal tip extending into the lower aspect of the superior vena cava. No significant adenopathy within the chest. Mild scattered vascular calcifications without aneurysmal dilatation of the thoracic aorta. The heart is within normal limits in size. No pericardial effusion. No pleural effusion. Tiny hiatal hernia. No pneumothorax. Minimal thickening along the bilateral major fissures with associated nodularity is again identified. This appears slightly worsened since the prior examination. Minimal bibasilar scarring and/or atelectasis. No new suspicious pulmonary nodule. Sclerosis within the left aspect of T9 has developed since the prior examination. Additionally, new sclerosis is noted within the inferior endplate of T8. Tiny hypodensities within the left hepatic lobe are again identified and not significantly changed since April 2020. The liver is otherwise unremarkable. The spleen is unremarkable. The adrenal glands are unremarkable. A 1.1 cm exophytic hypodensity is seen arising from the inferior pole of the right kidney. This is not significantly changed since April 2020. Additionally, this demonstrates Hounsfield units of near 18 on precontrast imaging without significant enhancement. The right kidney and right ureter are otherwise unremarkable. Left nephrectomy. No abnormal soft tissue mass lesion within the left renal fossa. The pancreas is unremarkable. The gallbladder is unremarkable. Advanced vascular calcifications within the abdominal aorta and its branch vessels without aneurysmal dilatation of the abdominal aorta. Evidence of a prior anterior abdominal wall hernia repair with mesh in place. Moderate-sized fat-containing left inguinal hernia. The urinary bladder is grossly unremarkable. The prostate gland is grossly unremarkable. Extensive colonic diverticulosis is present. Inflammatory stranding is identified within the left lower quadrant near the proximal sigmoid colon. No focal fluid collection or free air. No bowel obstruction. No significant adenopathy, free air, or free fluid. Increasing sclerosis with further vertebral body height loss and compression of L5 is noted. Scattered sclerotic lesions are identified within the pelvis. There is increasing focal sclerosis involving the left pubic body. No new acute fracture. Scattered degenerative changes. IMPRESSION: Inflammatory stranding within the left lower quadrant near the proximal sigmoid colon where there is extensive diverticulosis. Findings may relate to mild diverticulitis without evidence of abscess or perforation. Of note, this is in the same general region of inflammatory changes seen on prior imaging from 03/03/2021. Worsening and developing scattered sclerotic regions within the osseous structures. Findings are concerning for either developing sclerotic metastatic disease versus healing lytic osseous metastatic disease. Findings are most prominent within the thoracic spine and left pelvis. Further vertebral body height loss and compression of previously noted L5 compression fracture, which could be pathologic in nature. Minimal nodularity along the bilateral major fissures, favored to simply relate to minimal edema versus atelectasis. Dictated by: Dictated on workstation # [id number]
== END ==
LOC: CARD 11:00
PROVIDERS: ATTEND Nurse Practitioner Adult Health
DX: K57.30 Diverticulosis of large intestine without perforation or abscess without bleeding (principal); M51.36 Other intervertebral disc degeneration, lumbar region; M48.56XA Collapsed vertebra, not elsewhere classified, lumbar region, initial encounter for fracture; C64.2 Malignant neoplasm of left kidney, except renal pelvis; C79.51 Secondary malignant neoplasm of bone
CPT/HCPCS: 71260; 74178; 78306; A9503

== ENCOUNTER 2021-07-01 20:53 | Inpatient (IN) | payer MEDICARE, OTHER ==
[~2021-07-01] VITALS: Ht 177.8 cm; Wt 73.0 kg
[~2021-07-01 20:53] MED LIST changes: -BARIUM SUSPENSION 2.1% (VANILLA SILQ) 450 ML PO ONE; -CATHETER FLUSH 10 ML SYR IV PRN; -HOLD METFORMIN - RECEIVED CONTRAST 20 ML VIAL IV SCH; -IOHEXOL 350 MG/ML 100 ML (OMNIPAQUE 350) VIAL IV ONE; -NS 100 ML (IVPB) BAG IV ONE
--- NOTE | 2021-07-01 21:14 | ED General ---
General Stated Complaint: FEVER/LETHARGIC Source of Information: Patient Exam Limitations: No Limitations (SLADE CAPUTO APRN) History of Present Illness Date Seen by Provider: Jul 01, 2021 Time Seen by Provider: 21:07 Initial Comments This is an 81-year-old male who presented to the ER via POV with his for complaints of fever of 102F and lethargy. States that this morning he appeared his norm, ate and drink without difficulty. Throughout the day he began compl aining of abdominal pain and chills. Spouse states he would not eat. His temperature at home was 102F and she gave him Tylenol this afternoon. States He recently had scans to evaluate extent of his metastasis and was noted to have several diverticuli with possible early diverticulitis. States that he did eat peanuts yesterday. He has been receiving immunotherapy however he developed a rash last week and has been placed on steroid taper, still currently taking.He has a history of renal cell carcinoma and is receiving immunotherapy with [facility]. He has no complaints at this time, stating he is getting checked out because his was worried about his temperature. (SLADE CAPUTO MANAGER DIVISION) Allergies and Home Medications Allergies Coded Allergies: No Known Drug Allergies (Verified , 05/01/21) Patient Home Medication List Home Medication List Reviewed: Yes (SLADE CAPUTO APRN) Acetaminophen (Tylenol Extra Strength) 500 Mg Tablet, 500-1,000 MG PO Q8H PRN for PAIN-MILD (1-4), (Reported) Entered as Reported by: ROBYN VAIL on 05/01/21 1228 Amlodipine Besylate (Amlodipine Besylate) 10 Mg Tablet, 10 MG PO DAILY, (Reported) Entered as Reported by: GISELLE COUGHLIN on 08/02/19 1327 Amoxicillin/Potassium Clav (Augmentin 875-125 Tablet) 1 Each Tablet, 1 EACH PO BID Prescribed by: KALI ORO on 05/04/21 0933 Bisacodyl (Bisacodyl) 10 Mg Supp.rect, 10 MG RC DAILY PRN for CONSTIPATION-6TH LINE, (Reported) Entered as Reported by: ROBYN VAIL on 03/05/21 0920 Diclofenac Sodium (Diclofenac Sodium) 100 Gm Gel..gram., 1 APPLIC TP QID PRN for PAIN-BREAKTHROUGH, (Reported) Entered as Reported by: ROBYN VAIL on 03/05/21 09 Finasteride (Finasteride) 5 Mg Tablet, 5 MG PO HS, (Reported) Entered as Reported by: ROBYN VAIL on 03/05/21 09 Lactobacillus Acidophilus (Acidophilus Lactobacilli) 1 Each Capsule, 1 EACH PO TID Prescribed by: KALI ORO on 05/04/21 0933 Metoprolol Tartrate (Metoprolol Tartrate) 25 Mg Tablet, 12.5 MG PO BID, (Reported) Entered as Reported by: PINO KHANNA on 03/31/18 1404 Morphine Sulfate (Morphine Sulfate ER) 15 Mg Tablet.er, 15 MG PO Q12H, (Reported) Entered as Reported by: ROBYN VAIL on 05/01/21 122 Ondansetron HCl (Ondansetron HCl) 8 Mg Tablet, 8 MG PO BID, (Reported) Entered as Reported by: ROBYN VAIL on 05/01/21 122 Oxycodone HCl (Oxycodone HCl) 5 Mg Tablet, 5 MG PO Q6H PRN for PAIN-SEVERE (8- 10), (Reported) Entered as Reported by: ROBYN VAIL on 03/05/21919 Polyethylene Glycol 3350 (Miralax) 17 Gm Powd.pack, 17 GM PO HS, (Reported) Entered as Reported by: ROBYN VAIL on 03/05/21 09 Sennosides/Docusate Sodium (Senna S Tablet) 1 Each Tablet, 2 EACH PO DAILY, (Reported) Entered as Reported by: ROBYN VAIL on 03/05/21 09 Simethicone (Gas-X Ultra Strength) 180 Mg Capsule, 180-360 MG PO UD PRN for GAS, (Reported) Entered as Reported by: ROBYN VAIL on 05/01/21 122 Sodium Chloride (Sodium Chloride) 1 Gm Tab, 1 GM PO BID, (Reported) Entered as Reported by: ROBYN VAIL on 03/05/21 09 Tamsulosin HCl (Flomax) 0.4 Mg Cap, 0.4 MG PO HS, (Reported) Entered as Reported by: GISELLE COUGHLIN on 08/02/19 1327 Review of Systems Review of Systems Constitutional: chills, fever, malaise, weakness EENTM: no symptoms reported Respiratory: no symptoms reported Cardiovascular: edema (bilateral lower ext, chronic. ) Gastrointestinal: abdominal pain, loss of appetite, nausea Genitourinary: no symptoms reported Musculoskeletal: no symptoms reported Skin: no symptoms reported Psychiatric/Neurological: No Symptoms Reported Hematologic/Lymphatic: No Symptoms Reported Immunological/Allergic: see HPI (SLADE CAPUTO APRN) Past Jcvfqom-Mhsidi-Gaighf Hx Immunizations Up To Date Tetanus Booster (TDap): Unknown First/Initial COVID19 Vaccinat: november 06 COVID19 Vaccination Kyle: end november (SLADE CAPUTO APRN) Seasonal Allergies Seasonal Allergies: Yes (SLADE CAPUTO APRN) Past Medical History Surgeries: Yes (skin cancer excision, hernia, ) Abdominal, Adenoidectomy, Nephrectomy, Tonsillectomy Respiratory: No Currently Using CPAP: No Currently Using BIPAP: No Cardiac: Yes High Cholesterol, Hypertension Neurological: No Reproductive Disorders: No Sexually Transmitted Disease: No HIV/AIDS: No Genitourinary: Yes (renal ca) Benign Prostatic Hyperpl, Prostate Problems Gastrointestinal: Yes (dysphagia) Gastroesophageal Reflux Musculoskeletal: Yes Arthritis Endocrine: No HEENT: Yes (GLASSES) Loss of Vision: Denies Hearing Impairment: Denies Cancer: Yes Skin, Kidney Did You Recieve Any Treatments: Yes What Type of Treatment Did You: Chemotherapy, Surgical Intervention Psychosocial: No Integumentary: No Blood Disorders: No Adverse Reaction/Blood Tranf: No (N/A) (SLADE CAPUTO APRN) Family Medical History Asthma 19 FATHER Cancer of mouth Cardiovascular disease G8 BROTHER Myocardial infarction G8 BROTHER Neoplasm G8 BROTHER Parkinson's disease 19 MOTHER Respiratory disorder 19 FATHER Heart Disease, Cancer, Hypertension (SLADE CAPUTO APRN) Physical Exam Vital Signs Vital Signs - First Documented 07/01/21 21:24 Temp 37.4 Pulse 84 Resp 20 B/P (MAP) 135/63 (87) Pulse Ox 97 O2 Delivery Room Air (KRISTEN MORRIS K DO) Vital Signs Capillary Refill : (SLADE CAPUTO APRN) Height, Weight, BMI Height: 5'11.00" Weight: 191lbs. 0.0oz. [id number]; 21.82 BMI Method:Stated General Appearance: No Apparent Distress, Chronically ill, Thin Eyes: Bilateral Eye Normal Inspection, Bilateral Eye PERRL, Bilateral Eye EOMI HEENT: PERRL/EOMI, Normal ENT Inspection, Pharynx Normal, Moist Mucous Membranes Neck: Full Range of Motion, Normal Inspection Respiratory: Lungs Clear, Normal Breath Sounds, No Accessory Muscle Use, No Respiratory Distress Cardiovascular: Normal Peripheral Pulses, Systolic Murmur, Extra Beats, Irreg ularly Irregular Gastrointestinal: Normal Bowel Sounds, Non Tender, Soft Back: Normal Inspection Extremity: Normal Inspection, Normal Range of Motion, Pedal Edema (bilateral, 1+. ) Neurologic/Psychiatric: Alert, No Motor/Sensory Deficits; No Normal Mood/Affect (flat affect ); Other (oriented to person ) Skin: Normal Color, Warm/Dry (SLADE CAPUTO APRN) Focused Exam Sepsis Stage: Sepsis Possible Source: GI Tract/Intra-Abdominal Lactate Level 07/01/21 03:05: Lactic Acid Level 2.45*H 07/01/21 21:45: Lactic Acid Level 2.48*H (KRISTEN MORRIS DO) Time of Focused Exam: 00:15 Respiratory: Normal Breath Sounds, No Accessory Muscle Use, No Respiratory Di stress Cardiovascular: Regular Rate, Rhythm, No Murmur Skin: normal color, warm/dry Lactic Acid Level Laboratory Tests Test 07/01/21 03:05 07/01/21 21:45 Lactic Acid Level 2.45 MMOL/L (0.50-2.00) *H 2.48 MMOL/L (0.50-2.00) *H (ARTUROKRISTEN K DO) Within 3hrs of presentation: Admin fluids, Admin ABX, Blood cultures prior to ABX's, Focus exam, Lactate level (ARTUROKRISTEN K DO) Progress/Results/Core Measures Suspected Sepsis SIRS Temperature: Pulse: Respiratory Rate: Laboratory Tests 07/01/21 21:15: White Blood Count 8.2 Blood Pressure / Mean: 07/01/21 21:45: Lactic Acid Level 2.48*H Laboratory Tests 07/01/21 21:15: Creatinine 1.51H, INR Comment 1.3, Platelet Count 89L, Total Bilirubin 3.3H (SLADE CAPUTO APRN) Results/Orders Lab Results Laboratory Tests Test 07/01/21 03:05 07/01/21 21:05 07/01/21 21:15 07/01/21 21:45 Range/Units Lactic Acid Level 2.45 *H 2.48 *H 0.50-2.00 MMOL/L Urine Color PAULA H Urine Clarity CLEAR Urine pH 6.0 5-9 Urine Specific [place] 1.010 L 1.016-1.022 Urine Protein TRACE H NEGATIVE Urine Glucose (UA) NEGATIVE NEGATIVE Urine Ketones NEGATIVE NEGATIVE Urine Nitrite NEGATIVE NEGATIVE Urine Bilirubin 1+ H NEGATIVE Urine Urobilinogen 1.0 < = 1.0 MG/DL Urine Leukocyte Esterase NEGATIVE NEGATIVE Urine RBC (Auto) NEGATIVE NEGATIVE Urine RBC NONE /HPF Urine WBC NONE /HPF Urine Crystals PRESENT H /LPF Urine Amorphous Sediment RARE SUNI URATES H /LPF Urine Bacteria NEGATIVE /HPF Urine Casts NONE /LPF Urine Mucus NEGATIVE /LPF Urine Culture Indicated CULTURE PENDING White Blood Count 8.2 4.3-11.0 10^3/uL Red Blood Count 4.69 4.30-5.52 10^6/uL Hemoglobin 13.5 13.3-17.7 g/dL Hematocrit 41 40-54 % Mean Corpuscular Volume 87 80-99 fL Mean Corpuscular Hemoglobin 29 25-34 pg Mean Corpuscular Hemoglobin Concent 33 32-36 g/dL Red Cell Distribution Width 14.8 H 10.0-14.5 % Platelet Count 89 L 130-400 10^3/uL Mean Platelet Volume 11.9 9.0-12.2 fL Immature Granulocyte % (Auto) 1 % Neutrophils (%) (Auto) 92 H 42-75 % Lymphocytes (%) (Auto) 4 L 12-44 % Monocytes (%) (Auto) 4 0-12 % Eosinophils (%) (Auto) 0 0-10 % Basophils (%) (Auto) 0 0-10 % Neutrophils # (Auto) 7.5 1.8-7.8 10^3/uL Lymphocytes # (Auto) 0.3 L 1.0-4.0 10^3/uL Monocytes # (Auto) 0.4 0.0-1.0 10^3/uL Eosinophils # (Auto) 0.0 0.0-0.3 10^3/uL Basophils # (Auto) 0.0 0.0-0.1 10^3/uL Immature Granulocyte # (Auto) 0.1 0.0-0.1 10^3/uL Neutrophils % (Manual) 80 % Lymphocytes % (Manual) 3 % Monocytes % (Manual) 4 % Band Neutrophils 13 % Percent Immature Platelet Fraction 7.2 0.0-7.6 % Blood Morphology Comment NORMAL Prothrombin Time 16.7 H 12.2-14.7 SEC INR Comment 1.3 0.8-1.4 Activated Partial Thromboplast Time 28 24-35 SEC Sodium Level 131 L 135-145 MMOL/L Potassium Level 4.1 3.6-5.0 MMOL/L Chloride Level 98 98-107 MMOL/L Carbon Dioxide Level 20 L 21-32 MMOL/L Anion Gap 13 5-14 MMOL/L Blood Urea Nitrogen 25 H 7-18 MG/DL Creatinine 1.51 H 0.60-1.30 MG/DL Estimat Glomerular Filtration Rate 44 BUN/Creatinine Ratio 17 Glucose Level 101 70-105 MG/DL Calcium Level 8.6 8.5-10.1 MG/DL Corrected Calcium 9.1 8.5-10.1 MG/DL Total Bilirubin 3.3 H 0.1-1.0 MG/DL Aspartate Amino Transf (AST/SGOT) 773 H 5-34 U/L Alanine Aminotransferase (ALT/SGPT) 860 H 0-55 U/L Alkaline Phosphatase 230 H 40-136 U/L C-Reactive Protein High Sensitivity 1.86 H 0.00-0.50 MG/DL Total Protein 6.2 L 6.4-8.2 GM/DL Albumin 3.4 3.2-4.5 GM/DL Procalcitonin 11.09 H <0.10 NG/ML Influenza Type A Antigen NEGATIVE NEGATIVE Influenza Type B Antigen NEGATIVE NEGATIVE Test 07/01/21 21:50 07/01/21 22:30 07/01/21 23:42 07/02/21 00:00 Range/Units SARS-CoV-2 RNA (RT-PCR) Not Detected Not Detecte Direct Bilirubin 1.2 H 0.0-0.3 MG/DL Lactate Dehydrogenase 905 H 125-220 U/L Ammonia 23 11-32 UMOL/L Amylase Level 34 25-125 U/L Lipase 19 8-78 U/L (KRISTEN MORRIS DO) My Orders Orders - KRISTEN MORRIS DO Amylase (07/02/21 00:15) Lipase (07/02/21 00:15) (KRISTEN MORRIS DO) Medications Given in ED Current Medications Medications Dose Ordered Sig/Sherron Route Start Time Stop Time Status Last Admin Dose Admin Piperacillin Sod/ Tazobactam Sod 4.5 gm/Sodium Chloride 100 ml @ 200 mls/hr ONCE ONCE IV 07/01/21 22:51 07/01/21 23:20 DC 07/01/21 22:59 200 MLS/HR Sodium Chloride 1,000 ml @ 999 mls/hr Q1H ONCE IV 07/01/21 22:00 07/01/21 23:00 DC 07/01/21 22:07 999 MLS/HR (KRISTEN MORRIS DO) Vital Signs/I&O 07/01/21 21:24 Temp 37.4 Pulse 84 Resp 20 B/P (MAP) 135/63 (87) Pulse Ox 97 O2 Delivery Room Air (KRISTEN MORRIS DO) Vital Signs/I&O Capillary Refill : (SLADE CAP[employer]O [employer]GER [employer]) Progress Note : Progress Note Patient examined and in no acute distress at this time. His vital signs are stable. However with his history of renal cell carcinoma and immunotherapy will initiate sepsis work-up. Labs reviewed: WBC-8.2, Hgb-13.5, Hct-41, PLT-89, Neut%-92, PTT-16.7, INR-1.3, PT-28, K-4.1 NA-131, Creat-1.51, BUN-25, GFR-44, Total Bili-3.3, AST-773, ALP- 230, ALT-860, CRP-1.86. Added Ammonia to order set. Lactic-2.48. ProCal-11.09 (SLADE CAPUTO MA[employer]GER [employer]) Progress Note : Progress Note ASSUMED CARE OF PT AT END OF SHIFT, CT PENDING AT THIS TIME PT HAS NO COMPLAINTS AT THIS TIME VITALS STABLE AT THIS TIME. (KRISTEN MORRIS DO) ECG Initial ECG Impression Date: Jul 01, 2021 Initial ECG Impression Time: 22:29 Initial ECG Rate: 94 Comment Artifact, difficult to interpret. HI-155, QT-345, QTc-432. (SLADE CAPUTO MANAGER [employer]) Diagnostic Imaging Comments CT ABDOMEN/PELVIS--PER RADIOLOGIST REPORT AT [address] abdomen/pelvis exam of 06/22/2021 suggested mild diverticulitis of the sigmoid colon. On this study, there are still numerous diverticula involving the sigmoid and descending colon. However, there is no clear evidence for acute diverticulitis. There is no mass or abscess identified either. The appendix is not well-visualized but there are no indirect signs of acute appendicitis. The urinary bladder and prostate gland are grossly unremarkable. The fat-containing inguinal hernia on the left is again evident. There is a portion of the sigmoid colon which is in close proximity to the hernia but there is no incarceration or obstruction of the colon by the hernia. There is very slight distortion of the mesenteric fat interposed between the stomach and the body of the pancreas. This could be secondary to mild edema/inflammation secondary to pancreatitis although the pancreas does not appear to be enlarged. Correlation with the patient's pancreatic enzymes would be recommended. The sclerotic osseous lesions seen previously are again evident and no different. The compression deformity of L5 seen on the prior study does not appear to have changed significantly either. There is no acute abnormality identified. There are still a few faint patchy alveolar/interstitial infiltrates involving the lungs. IMPRESSION: 1. There is diverticulosis of the sigmoid and descending colon but there is no clear evidence for acute diverticulitis. Clinical follow-up is recommended. 2. The slight distortion of the mesenteric fat between the body of the pancreas and the stomach does suggest mild edema/inflammation and the possibility of pancreatitis should be considered. Recommendations as above. 3. There is no acute abnormality of the abdomen or pelvis noted otherwise. Reviewed: Reviewed by Me (KRISTEN MORRIS DO) Departure Communication (Admissions) 0027--SPOKE WITH DR. SILVERMAN, OUTDOOR ADVERTISING LEASING AGENT FOR DR. ORO'S PATIENTS, ACCEPTS PT FOR ADMIT (KRISTEN MORRIS DO) Impression Primary Impression: PANCREATITIS Additional Impressions: Elevated liver enzymes Metastatic renal cell carcinoma Renal insufficiency Electrolyte imbalance Sepsis Disposition: ADMITTED INPATIENT Condition: Stable Admissions Decision to Admit Reason: Admit from ER (General) Decision to Admit/Date: Jul 02, 2021 Time/Decision to Admit Time: 00:30 (KRISTEN MORRIS DO) Departure-Patient Inst. Referrals: KALI ORO MD (PCP/Family) Primary Care Physician SLADE CAPUTO APRN Jul 01, 2021 21:14 KRISTEN MORRIS DO Jul 02, 2021 00:15
[2021-07-01 21:17] LABS: CLARITY,URINE CLEAR; COLOR,URINE AMBER; GLUCOSE, URINE (UA) NEGATIVE (NEGATIVE); KETONES,URINE NEGATIVE (NEGATIVE); LEUKOCYTE ESTERASE ,URINE NEGATIVE (NEGATIVE); NITRITE,URINE NEGATIVE (NEGATIVE); PROTEIN,URINE TRACE (NEGATIVE)
[2021-07-01 21:37] LABS: BASOPHILS % (AUTO) 0 % (0-10); EOSINOPHILS % (AUTO) 0 % (0-10); HEMOGLOBIN 13.5 g/dL (13.3-17.7); MEAN PLATELET VOLUME 11.9 fL (9.0-12.2)
[2021-07-01 21:39] LABS: HEMATOCRIT 41 % (40-54); LYMPHOCYTES # (AUTO) 0.3 10^3/uL (1.0-4.0); LYMPHOCYTES % (AUTO) 4 % (12-44); MEAN CORPUSCULAR HEMOGLOBIN 29 pg (25-34); MEAN CORPUSCULAR HGB CONC 33 g/dL (32-36); MEAN CORPUSCULAR VOLUME 87 fL (80-99); MONOCYTES # (AUTO) 0.4 10^3/uL (0.0-1.0); MONOCYTES % (AUTO) 4 % (0-12); NEUTROPHILS # (AUTO) 7.5 10^3/uL (1.8-7.8); NEUTROPHILS % (AUTO) 92 % (42-75); PLATELET COUNT 89 10^3/uL (130-400); WHITE BLOOD COUNT 8.2 10^3/uL (4.3-11.0)
[2021-07-01 21:48] LABS: ALBUMIN 3.4 GM/DL (3.2-4.5); POTASSIUM 4.1 MMOL/L (3.6-5.0)
[2021-07-01 21:48] LABS: AMORPHOUS SEDIMENT,UR RARE AMOR URATES /LPF; BACTERIA,URINE NEGATIVE /HPF; BILIRUBIN,URINE 1+ (NEGATIVE)
[2021-07-01 21:49] LABS: CALCIUM 8.6 MG/DL (8.5-10.1)
[2021-07-01 21:51] LABS: TOTAL PROTEIN 6.2 GM/DL (6.4-8.2)
[2021-07-01 21:52] LABS: BILIRUBIN,TOTAL 3.3 MG/DL (0.1-1.0)
[2021-07-01 21:54] LABS: CREATININE SERUM 1.51 MG/DL (0.60-1.30)
[2021-07-01 21:59] LABS: INR 1.3 (0.8-1.4); PROTHROMBIN TIME PATIENT 16.7 SEC (12.2-14.7)
[2021-07-01] MEDS ORDERED: NS IV 1000 ML 1,000 ML IV ONE (22:00)
[2021-07-01 22:40] LABS: BAND NEUTROPHILS 13 %; LYMPHOCYTES % (MANUAL) 3 %; MONOCYTES % (MANUAL) 4 %; NEUTROPHILS % (MANUAL) 80 %
[2021-07-01 22:41] LABS: RBC MORPH NORMAL
[2021-07-01] MEDS ORDERED: PIPERACILLIN SODIUM/TAZOBACTAM 4.5 GM in NS (IVPB) 100 ML IV ONE (22:51)
--- NOTE | 2021-07-01 23:48 | Diagnostic Imaging Report ---
EXAMINATION: Portable AP chest at 1052 PM INDICATION: Fever The heart size is within normal limits and stable when compared to 05/01/2021. The previous study did show scattered bilateral alveolar/interstitial infiltrates. On this study, both lungs do seem better aerated. There may be a small amount of residual density still present in each lung, particularly the left lung base. The mediastinum is not widened. The osseous structures are intact. The right-sided Port-A-Cath seen previously is unchanged in position. IMPRESSION: 1. The appearance of the chest has improved since the prior exam as both lungs do seem better aerated. There may still be a small amount of residual density present bilaterally, particularly on the left. 2. Reportedly, CT of the abdomen and pelvis is pending for further study. Dictated by: Dictated on workstation # [id number]
--- NOTE | 2021-07-01 23:52 | Diagnostic Imaging Report ---
PROCEDURE: CT abdomen and pelvis without contrast. TECHNIQUE: Multiple contiguous axial images were obtained through the abdomen and pelvis without the use of intravenous contrast. Auto Exposure Controls were utilized during the CT exam to meet ALARA standards for radiation dose reduction. INDICATION: Recent diverticulitis The CT abdomen/pelvis exam of 06/22/2021 suggested mild diverticulitis of the sigmoid colon. On this study, there are still numerous diverticula involving the sigmoid and descending colon. However, there is no clear evidence for acute diverticulitis. There is no mass or abscess identified either. The appendix is not well-visualized but there are no indirect signs of acute appendicitis. The urinary bladder and prostate gland are grossly unremarkable. The fat-containing inguinal hernia on the left is again evident. There is a portion of the sigmoid colon which is in close proximity to the hernia but there is no incarceration or obstruction of the colon by the hernia. There is very slight distortion of the mesenteric fat interposed between the stomach and the body of the pancreas. This could be secondary to mild edema/inflammation secondary to pancreatitis although the pancreas does not appear to be enlarged. Correlation with the patient's pancreatic enzymes would be recommended. The sclerotic osseous lesions seen previously are again evident and no different. The compression deformity of L5 seen on the prior study does not appear to have changed significantly either. There is no acute abnormality identified. There are still a few faint patchy alveolar/interstitial infiltrates involving the lungs. IMPRESSION: 1. There is diverticulosis of the sigmoid and descending colon but there is no clear evidence for acute diverticulitis. Clinical follow-up is recommended. 2. The slight distortion of the mesenteric fat between the body of the pancreas and the stomach does suggest mild edema/inflammation and the possibility of pancreatitis should be considered. Recommendations as above. 3. There is no acute abnormality of the abdomen or pelvis noted otherwise. Dictated by: Dictated on workstation # [id number]
[2021-07-02] VITALS (8 sets, daily range): BP systolic 81–112; BP diastolic 48–64
[2021-07-02 00:28] LABS: AMYLASE 34 U/L (25-125)
[2021-07-02 00:37] LABS: LIPASE 19 U/L (8-78)
[2021-07-02] MEDS ORDERED: LACTATED RINGERS 1,000 ML IV ONE (01:00)
[2021-07-02] MEDS ORDERED: NS IV 1000 ML 1,000 ML IV SCH (01:00)
[2021-07-02] MEDS: D5 1/2 NS W/KCL 20 MEQ/L 1,000 ML IV SCH ×3 (02:14→16:44)
[2021-07-02] MEDS ORDERED: fentaNYL INJ 100 MCG/2 ML AMP IVP PRN (02:15)
[2021-07-02] MEDS ORDERED: ONDANSETRON 4 MG/2 ML (SDV) Z0FRAN IVP PRN (02:15)
[2021-07-02 03:46] LABS: BASOPHILS % (AUTO) 0 % (0-10); HEMOGLOBIN 11.5 g/dL (13.3-17.7); MEAN CORPUSCULAR VOLUME 87 fL (80-99)
[2021-07-02 03:48] LABS: EOSINOPHILS % (AUTO) 0 % (0-10); HEMATOCRIT 35 % (40-54); LYMPHOCYTES # (AUTO) 0.4 10^3/uL (1.0-4.0); LYMPHOCYTES % (AUTO) 4 % (12-44); MEAN CORPUSCULAR HEMOGLOBIN 29 pg (25-34); MEAN CORPUSCULAR HGB CONC 33 g/dL (32-36); MEAN PLATELET VOLUME 12.1 fL (9.0-12.2); MONOCYTES % (AUTO) 9 % (0-12); NEUTROPHILS # (AUTO) 9.4 10^3/uL (1.8-7.8); NEUTROPHILS % (AUTO) 85 % (42-75); PLATELET COUNT 66 10^3/uL (130-400); WHITE BLOOD COUNT 11.1 10^3/uL (4.3-11.0)
[2021-07-02 03:57] LABS: POTASSIUM 3.9 MMOL/L (3.6-5.0)
[2021-07-02 03:58] LABS: CALCIUM 7.5 MG/DL (8.5-10.1)
[2021-07-02 04:03] LABS: CREATININE SERUM 1.52 MG/DL (0.60-1.30)
[2021-07-02] MEDS: PIPERACILLIN/TAZO 4.5 GM/NS 100 ML IV SCH ×6 (05:36→21:02)
[2021-07-02] MEDS ORDERED: FLU QUAD HIGH DOSE 240 MCG/0.7 ML 2021-22 (FLUZONE) IM ONE (07:30)
--- NOTE | 2021-07-02 08:37 | History & Physical ---
History of Present Illness History of Present Illness Reason for visit/HPI PT IS AN 81 Y/O MALE WHO IS KNOWN TO ME FROM CLINIC AND PREVIOUS HOSPITALIZATIONS. 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 HE PRESENTED TO THE HOSPITAL WITH CONFUSION, WEAKNESS AND WAS FOUND TO HAVE ELEVATED LIVER ENZYMES WITH SHADOW AT HIS PANCREAS ON THE CT OF THE ABDOMEN/PELVIS - CONCERNING FOR MASS VERSUS INFECTION. HE WAS ADMITTED FOR STABILIZATION, FLUIDS, AND MONITORING OF HIS LABS. Date of Admission Jul 02, 2021 at 00:30 Date Seen by a Provider: Jul 02, 2021 Time Seen by a Provider: 08:30 I consulted on this patient on 07/02/21 08:35 Attending Physician Kali Bravo MD Admitting Physician Kali Bravo MD Consult DR. ROBBY IGNACIO Allergies and Home Medications Allergies Coded Allergies: No Known Drug Allergies (Verified , 05/01/21) Patient Home Medication List Home Medication List Reviewed: Yes Acetaminophen (Tylenol Extra Strength) 500 Mg Tablet, 500-1,000 MG PO Q8H PRN for PAIN-MILD (1-4), (Reported) Entered as Reported by: ROBYN VAIL on 05/01/21 1228 Last Action: Held Amlodipine Besylate (Amlodipine Besylate) 10 Mg Tablet, 10 MG PO DAILY, (Reported) Entered as Reported by: GISELLE COUGHLIN on 08/02/19 1327 Last Action: Held Diclofenac Sodium (Diclofenac Sodium) 100 Gm Gel..gram., 100 GM TP DAILY PRN for PAIN-MILD (1-4), (Reported) Entered as Reported by: MAYTE VALENCIA on 07/02/21 1408 Last Action: Continued Fexofenadine HCl (Marie Allergy) 180 Mg Tablet, 180 MG PO DAILY PRN for ALLERGIES, (Reported) Entered as Reported by: MAYTE VALENCIA on 07/02/21 1412 Last Action: Held Finasteride (Finasteride) 5 Mg Tablet, 5 MG PO HS, (Reported) Entered as Reported by: ROBYN VAIL on 03/05/21 0920 Last Action: Continued Lactobacillus Acidophilus (Florajen Acidophilus) 1 Each Capsule, 1 EACH PO DAILY, (Reported) Entered as Reported by: MAYTE VALENCIA on 07/02/21 1416 Last Action: Held Metoprolol Tartrate (Metoprolol Tartrate) 25 Mg Tablet, 12.5 MG PO BID, (Reported) Entered as Reported by: PINO KHANNA on 03/31/18 1404 Last Action: Continued Morphine Sulfate (Morphine Sulfate ER) 15 Mg Tablet.er, 15 MG PO Q12H, (Reported) Entered as Reported by: ROBYN VAIL on 05/01/21 1228 Last Action: Continued Ondansetron HCl (Ondansetron HCl) 8 Mg Tablet, 8 MG PO Q8H PRN for NAUSEA/VOMITING, (Reported) Entered as Reported by: ROBYN VAIL on 05/01/211227 Last Action: Converted Polyethylene Glycol 3350 (Miralax) 17 Gm Powd.pack, 17 GM PO HS, (Reported) Entered as Reported by: ROBYN VAIL on 03/05/21919 Last Action: Held Prednisone (Prednisone) 10 Mg Tab, 20 MG PO DAILY, (Reported) Entered as Reported by: MAYTE VALENCIA on 07/02/21 1419 Last Action: Continued Sennosides/Docusate Sodium (Senna S Tablet) 1 Each Tablet, 2 EACH PO DAILY, (Reported) Entered as Reported by: ROBYN VAIL on 03/05/21919 Last Action: Continued Simethicone (Gas-X Ultra Strength) 180 Mg Capsule, 180-360 MG PO UD PRN for GAS, (Reported) Entered as Reported by: ROBYN VAIL on 05/01/21 122 Last Action: Converted Sodium Chloride (Sodium Chloride) 1 Gm Tab, 1 GM PO BID, (Reported) Entered as Reported by: ROBYN VAIL on 03/05/21919 Last Action: Continued Tamsulosin HCl (Flomax) 0.4 Mg Cap, 0.4 MG PO HS, (Reported) Entered as Reported by: GISELLE COUGHLIN on 08/02/19 1327 Last Action: Continued Discontinued Medications Amoxicillin/Potassium Clav (Augmentin 875-125 Tablet) 1 Each Tablet, 1 EACH PO BID Discontinued Reason: No Longer Taking Prescribed by: KALI BRAVO on 05/04/21 0933 Last Action: Discontinued Bisacodyl (Bisacodyl) 10 Mg Supp.rect, 10 MG RC DAILY PRN for CONSTIPATION-6TH LINE, (Reported) Discontinued Reason: No Longer Taking Entered as Reported by: ROBYN VAIL on 03/05/21919 Last Action: Discontinued Diclofenac Sodium (Diclofenac Sodium) 100 Gm Gel..gram., 1 APPLIC TP QID PRN for PAIN-BREAKTHROUGH, (Reported) Discontinued Reason: No Longer Taking Entered as Reported by: ROBYN VAIL on 03/05/21919 Last Action: Discontinued Lactobacillus Acidophilus (Acidophilus Lactobacilli) 1 Each Capsule, 1 EACH PO TID Discontinued Reason: No Longer Taking Prescribed by: KALI BRAVO on 05/04/21932 Last Action: Discontinued Oxycodone HCl (Oxycodone HCl) 5 Mg Tablet, 5 MG PO Q6H PRN for PAIN-SEVERE (8- 10), (Reported) Discontinued Reason: No Longer Taking Entered as Reported by: ROBYN VAIL on 03/05/21919 Last Action: Discontinued Past Nmalgus-Paaffb-Cvjawm Hx Patient Social History Marrital Status: Living Status: LIVES AT HOME WITH HIS SPOUSE 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) Tobacco Use?: No Smoking Status: Former Smoker Use of E-Cig and/or Vaping dev: No Substance use?: No Alcohol Use?: No Alcohol type: Beer, Hard Liquor Alcohol Frequency: Once in a while Pt feels they are or have been: No Immunizations Up To Date Date of Influenza Vaccine: Jun 08, 2020 First/Initial COVID19 Vaccinat: november 06 Second COVID19 Vaccination Kyle: end november Tetanus Booster (TDap): Unknown Hepatitis A: No Hepatitis B: No Date of Pneumonia Vaccine: Jun 15, 2018 Seasonal Allergies Seasonal Allergies: Yes Current Status Advance Directives: No Communicates: Verbally Primary Language: Prydeinig Preferred Spoken Language: Prydeinig Is interpretation needed?: No Sensory deficits: Vision impairment Implanted or Applied Medical D: Port-a-cath Past Medical History Surgeries: Abdominal, Adenoidectomy, Nephrectomy, Tonsillectomy Currently Using CPAP: No Currently Using BIPAP: No High Cholesterol, Hypertension Sexually Transmitted Disease: No HIV/AIDS: No Benign Prostatic Hyperpl, Prostate Problems Gastroesophageal Reflux Arthritis Loss of Vision: Denies Hearing Impairment: Denies Skin, Kidney Did You Recieve Any Treatments: Yes What Type of Treatment Did You: Chemotherapy, Surgical Intervention Blood Disorders: No Adverse Reaction/Blood Tranf: No (N/A) Family Medical History Reviewed and Corrections made Asthma 19 FATHER Cancer of mouth Cardiovascular disease G8 BROTHER Myocardial infarction G8 BROTHER Neoplasm G8 BROTHER Parkinson's disease 19 MOTHER Respiratory disorder 19 FATHER Heart Disease, Cancer, CAD Over 55 Years Old, COPD, Hypertension, Other Conditions/Hx (PARKINSON'S DISEASE) Review of Systems Constitutional: No chills, No fever; malaise, weakness EENTM: hearing loss; No hoarseness, No throat pain Respiratory: No cough, No dyspnea on exertion Cardiovascular: No chest pain, No edema, No palpitations Gastrointestinal: RUQ, LUQ (ABD PAIN), abdominal pain (RUQ); No nausea, No vomiting Genitourinary: frequency; No hematuria Musculoskeletal: muscle weakness Skin: no symptoms reported Psychiatric/Neurological: Denies Anxiety, Denies Depressed; Weakness All Other Systems Reviewed Negative Unless Noted: Yes Physical Exam Vital Signs Vital Signs - First Documented 07/01/21 21:24 Temp 37.4 Pulse 84 Resp 20 B/P (MAP) 135/63 (87) Pulse Ox 97 O2 Delivery Room Air Capillary Refill : Less Than 3 Seconds Height, Weight, BMI Height: 5'11.00" Weight: 191lbs. 0.0oz. 86.126010ax; 23.09 BMI Method:Stated General Appearance: No Apparent Distress, WD/WN HEENT: PERRL/EOMI, Pharynx Normal Neck: Full Range of Motion, Non Tender, Supple Respiratory: Chest Non Tender, Lungs Clear, Normal Breath Sounds, No Accessory Muscle Use, No Respiratory Distress Cardiovascular: Regular Rate, Rhythm, No Edema, Normal Peripheral Pulses Gastrointestinal: Normal Bowel Sounds, Soft; No Distended, No Guarding; Tenderness (EPIGASTRIUM) Rectal: Deferred Back: Normal Inspection, No Vertebral Tenderness Extremity: Normal Capillary Refill, Normal Range of Motion, Non Tender, No Calf Tenderness Neurologic/Psychiatric: Alert, Oriented x3, No Motor/Sensory Deficits, Normal Mood/Affect Skin: Normal Color, Warm/Dry Lymphatic: No Adenopathy Assessment/Plan Assessment and Plan PANCREATITIS ACUTE ELEVATION OF LIVER ENZYMES RENAL CELL CARCINOMA CHRONIC MILD HYPONATREMIA MILD LEUKOCYTOSIS ELEVATED PROCALCITONIN ELEVATED CRP CHRONIC HYPERTENSION 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 BUSTAMANTE - ANTICIPATE NO INTERVENTION, HOWEVER WOULD LIKE INPUT FROM SURGEON. - NPO EXCEPT ICE CHIPS RENAL CELL CARCINOMA WITH CHRONIC PAIN FROM METASTATIC RENAL CELL CA - WILL RESUME HOME MEDS - PT ON IV FENTANYL PRN CHRONIC MILD HYPONATREMIA - ONCE STABLE, RESTART ORAL SODIUM TABS MILD LEUKOCYTOSIS - MONITOR LABS ELEVATED PROCALCITONIN AND ELEVATED CRP - DUE TO ACUTE ILLNESS, MONITOR LABS - IV FLUIDS, TREAT INFECTION WITH IV ZOSYN. CHRONIC HYPERTENSION - CURRENTLY LOW BP - HOLD NORVASC, RESTART METOPROLOL TOMORROW DVT PROPHYLAXIS WITH SCD'S AND LOVENOX GI PROPHYLAXIS WITH PROTONIX AND PROBIOTICS TO START ONCE ABLE TO TAKE MORE PO SCANS FOLLOWS: CT ABDOMEN/PELVIS WO PROCEDURE: CT abdomen and pelvis without contrast. INDICATION: Recent diverticulitis The CT abdomen/pelvis exam of 06/22/2021 suggested mild diverticulitis of the sigmoid colon. On this study, there are still numerous diverticula involving the sigmoid and descending colon. However, there is no clear evidence for acute diverticulitis. There is no mass or abscess identified either. The appendix is not well-visualized but there are no indirect signs of acute appendicitis. The urinary bladder and prostate gland are grossly unremarkable. The fat-containing inguinal hernia on the left is again evident. There is a portion of the sigmoid colon which is in close proximity to the hernia but there is no incarceration or obstruction of the colon by the hernia. There is very slight distortion of the mesenteric fat interposed between the stomach and the body of the pancreas. This could be secondary to mild edema/inflammation secondary to pancreatitis although the pancreas does not appear to be enlarged. Correlation with the patient's pancreatic enzymes would be recommended. The sclerotic osseous lesions seen previously are again evident and no different. The compression deformity of L5 seen on the prior study does not appear to have changed significantly either. There is no acute abnormality identified. There are still a few faint patchy alveolar/interstitial infiltrates involving the lungs. IMPRESSION: 1. There is diverticulosis of the sigmoid and descending colon but there is no clear evidence for acute diverticulitis. Clinical follow-up is recommended. 2. The slight distortion of the mesenteric fat between the body of the pancreas and the stomach does suggest mild edema/inflammation and the possibility of pancreatitis should be considered. Recommendations as above. 3. There is no acute abnormality of the abdomen or pelvis noted otherwise. Admission Diagnosis PANCREATITIS ACUTE ELEVATION OF LIVER ENZYMES RENAL CELL CARCINOMA CHRONIC MILD HYPONATREMIA MILD LEUKOCYTOSIS ELEVATED PROCALCITONIN ELEVATED CRP CHRONIC HYPERTENSION CHRONIC PAIN FROM METASTATIC RENAL CELL CA Admission Status: Inpatient Order (span 2 midnights) Reason for Inpatient Admission: INPT ADMISSION FOR PANCREATITIS - ANTICIPATE AT LEAST 3-4 DAYS IN HOSPITAL KALI BRAVO MD Jul 02, 2021 08:37
--- NOTE | 2021-07-02 11:16 | Consultation - Surgery ---
DEEPA RAINEY 07/02/21 1115: History of Present Illness History of Present Illness Patient Consulted On(herbert/time) 07/02/21 11:14 Date Seen by Provider: Jul 02, 2021 Time Seen by Provider: 11:25 History of Present Illness PT is an 81 YO male in the hospital for elevated liver enzymes. PT reports that yesterday his noticed him acting "goofy", he then went to the ED. PT also had a fever per ED note. PT reports that he has not been having any vomiting. He reports some shoulder pain, however it has been going on for quite some time. He does not have any abdominal pain. Allergies and Home Medications Allergies Coded Allergies: No Known Drug Allergies (Verified , 05/01/21) Patient Home Medication List Acetaminophen (Tylenol Extra Strength) 500 Mg Tablet, 500-1,000 MG PO Q8H PRN for PAIN-MILD (1-4), (Reported) Entered as Reported by: ROBYN VAIL on 05/01/21 1228 Last Action: Reviewed Amlodipine Besylate (Amlodipine Besylate) 10 Mg Tablet, 10 MG PO DAILY, (Reported) Entered as Reported by: GISELLE COUGHLIN on 08/02/19 1327 Last Action: Reviewed Diclofenac Sodium (Diclofenac Sodium) 100 Gm Gel..gram., 100 GM TP DAILY PRN for PAIN-MILD (1-4), (Reported) Entered as Reported by: MAYTE VALENCIA on 07/02/21 1408 Last Action: Reviewed Fexofenadine HCl (Marie Allergy) 180 Mg Tablet, 180 MG PO DAILY PRN for ALLERGIES, (Reported) Entered as Reported by: MAYTE VALENCIA on 07/02/21 1412 Last Action: Reviewed Finasteride (Finasteride) 5 Mg Tablet, 5 MG PO HS, (Reported) Entered as Reported by: ROBYN VAIL on 03/05/21 0920 Last Action: Reviewed Lactobacillus Acidophilus (Florajen Acidophilus) 1 Each Capsule, 1 EACH PO DAILY, (Reported) Entered as Reported by: MAYTE VALENCIA on 07/02/21 1416 Last Action: Reviewed Metoprolol Tartrate (Metoprolol Tartrate) 25 Mg Tablet, 12.5 MG PO BID, (Reported) Entered as Reported by: PINO KHANNA on 03/31/18 1404 Last Action: Reviewed Morphine Sulfate (Morphine Sulfate ER) 15 Mg Tablet.er, 15 MG PO Q12H, (Reported) Entered as Reported by: ROBYN VAIL on 05/01/21 122 Last Action: Reviewed Ondansetron HCl (Ondansetron HCl) 8 Mg Tablet, 8 MG PO Q8H PRN for NAUSEA/VOMITING, (Reported) Entered as Reported by: ROBYN VAIL on 05/01/21 122 Last Action: Reviewed Polyethylene Glycol 3350 (Miralax) 17 Gm Powd.pack, 17 GM PO HS, (Reported) Entered as Reported by: ROBYN VAIL on 03/05/21919 Last Action: Reviewed Prednisone (Prednisone) 10 Mg Tab, 20 MG PO DAILY, (Reported) Entered as Reported by: MAYTE VALENCIA on 07/02/21 141 Last Action: Edited Sennosides/Docusate Sodium (Senna S Tablet) 1 Each Tablet, 2 EACH PO DAILY, (Reported) Entered as Reported by: ROBYN VAIL on 03/05/21919 Last Action: Reviewed Simethicone (Gas-X Ultra Strength) 180 Mg Capsule, 180-360 MG PO UD PRN for GAS, (Reported) Entered as Reported by: ROBYN VAIL on 05/01/211227 Last Action: Reviewed Sodium Chloride (Sodium Chloride) 1 Gm Tab, 1 GM PO BID, (Reported) Entered as Reported by: ROBYN VAIL on 03/05/21919 Last Action: Reviewed Tamsulosin HCl (Flomax) 0.4 Mg Cap, 0.4 MG PO HS, (Reported) Entered as Reported by: GISELLE COUGHLIN on 08/02/19 1327 Last Action: Reviewed Discontinued Medications Amoxicillin/Potassium Clav (Augmentin 875-125 Tablet) 1 Each Tablet, 1 EACH PO BID Discontinued Reason: No Longer Taking Prescribed by: KALI ORO on 05/04/21 09 Last Action: Discontinued Bisacodyl (Bisacodyl) 10 Mg Supp.rect, 10 MG RC DAILY PRN for CONSTIPATION-6TH LINE, (Reported) Discontinued Reason: No Longer Taking Entered as Reported by: ROBYN VAIL on 03/05/21919 Last Action: Discontinued Diclofenac Sodium (Diclofenac Sodium) 100 Gm Gel..gram., 1 APPLIC TP QID PRN for PAIN-BREAKTHROUGH, (Reported) Discontinued Reason: No Longer Taking Entered as Reported by: ROBYN VAIL on 03/05/21919 Last Action: Discontinued Lactobacillus Acidophilus (Acidophilus Lactobacilli) 1 Each Capsule, 1 EACH PO TID Discontinued Reason: No Longer Taking Prescribed by: KALI ORO on 05/04/21932 Last Action: Discontinued Oxycodone HCl (Oxycodone HCl) 5 Mg Tablet, 5 MG PO Q6H PRN for PAIN-SEVERE (8- 10), (Reported) Discontinued Reason: No Longer Taking Entered as Reported by: ROBYN VAIL on 03/05/21919 Last Action: Discontinued Past Jlbjrkg-Blzugp-Mitpba Hx Patient Social History Drug of Choice: Denies Smoking Status: Former Smoker Former Smoker, Quit: Nov 03, 1976 Type Used: Cigarettes 2nd Hand Smoke Exposure: No Recent Hopitalizations: No Alcohol Use?: No Have you traveled recently?: No Immunizations Up To Date Tetanus Booster (TDap): Unknown Date of Pneumonia Vaccine: Jun 15, 2018 Date of Influenza Vaccine: Jun 08, 2020 Seasonal Allergies Seasonal Allergies: Yes Surgeries History of Surgeries: Yes (skin cancer excision, hernia, ) Surgeries: Abdominal, Adenoidectomy, Nephrectomy, Tonsillectomy Respiratory History of Respiratory Disorde: No Cardiovascular History of Cardiac Disorders: Yes Cardiac Disorders: High Cholesterol, Hypertension Neurological History of Neurological Disord: No Reproductive System Hx Reproductive Disorders: No Sexually Transmitted Disease: No HIV/AIDS: No Genitourinary History of Genitourinary Disor: Yes (renal ca) Genitourinary Disorders: Benign Prostatic Hyperpl, Prostate Problems Gastrointestinal History of Gastrointestinal Di: Yes (dysphagia) Gastrointestinal Disorders: Gastroesophageal Reflux Musculoskeletal History of Musculoskeletal Dis: Yes Musculoskeletal Disorders: Arthritis Endocrine History of Endocrine Disorders: No HEENT History of HEENT Disorders: Yes (GLASSES) Loss of Vision: Denies Hearing Impairment: Denies Cancer History of Cancer: Yes Cancer: Skin, Kidney Psychosocial History of Psychiatric Problem: No Integumentary History of Skin or Integumenta: No Blood Transfusions History of Blood Disorders: No Adverse Reaction to a Blood Tr: No (N/A) Family Medical History Significant Family History: Heart Disease, Cancer, Hypertension Other Mother: PT reports his mother had cancer but he was unsure to what kind. No DM no HTN. Father: No DM no HTN Family Medial History: Asthma 19 FATHER Cancer of mouth Cardiovascular disease G8 BROTHER Myocardial infarction G8 BROTHER Neoplasm G8 BROTHER Parkinson's disease 19 MOTHER Respiratory disorder 19 FATHER Review of Systems-General Constitutional: No chills; other (no night sweats ) EENTM: No blurred vision, No double vision Respiratory: No cough, No short of breath Cardiovascular: No chest pain, No palpitations Gastrointestinal: nausea (hx of some nausea but no change from base line); No vomiting; other Genitourinary: No dysuria, No hematuria Musculoskeletal: back pain, joint pain (right shoulder); No neck pain Skin: No change in color, No change in hair/nails Psychiatric/Neurological: Denies Anxiety, Denies Depressed, Denies Emotional Problems Physical Exam-General Problems Physical Exam Vital Signs Vital Signs - First Documented 07/01/21 21:24 Temp 37.4 Pulse 84 Resp 20 B/P (MAP) 135/63 (87) Pulse Ox 97 O2 Delivery Room Air Capillary Refill : Less Than 3 Seconds General Appearance: WD/WN, no apparent distress Eyes: Bilateral Eye PERRL, Bilateral Eye EOMI HEENT: PERRL/EOMI, pharynx normal Neck: non-tender, full range of motion, supple Respiratory: chest non-tender, lungs clear, normal breath sounds, no respiratory distress, no accessory muscle use Cardiovascular: normal peripheral pulses, regular rate, rhythm, no edema Peripheral Pulses: 2+ Radial Pulses (R), 2+ Radial Pulses (L) Gastrointestinal: soft, no organomegaly, no pulsatile mass, tenderness (mild epigastric tenderness on palpation ) Rectal: deferred Extremities: normal range of motion, non-tender, no pedal edema, no calf tenderness, normal capillary refill Neurologic/Psychiatric: no motor/sensory deficits, normal mood/affect, oriented x 3 Skin: normal color, warm/dry Lymphatic: no adenopathy (cervical ) Data Review Labs Laboratory Tests 07/01/21 21:05: Urine Color AMBERH, Urine Clarity CLEAR, Urine pH 6.0, Urine Specific [place] 1.010L, Urine Protein TRACEH, Urine Glucose (UA) NEGATIVE, Urine Ketones NEGATIVE, Urine Nitrite NEGATIVE, Urine Bilirubin 1+H, Urine Urobilinogen 1.0, Urine Leukocyte Esterase NEGATIVE, Urine RBC (Auto) NEGATIVE, Urine RBC NONE, Urine WBC NONE, Urine Crystals PRESENTH, Urine Amorphous Sediment RARE SUNI URATESH, Urine Bacteria NEGATIVE, Urine Casts NONE, Urine Mucus NEGATIVE, Urine Culture Indicated CULTURE PENDING 07/01/21 21:15: White Blood Count 8.2, Red Blood Count 4.69, Hemoglobin 13.5, Hematocrit 41, Mean Corpuscular Volume 87, Mean Corpuscular Hemoglobin 29, Mean Corpuscular Hemoglobin Concent 33, Red Cell Distribution Width 14.8H, Platelet Count 89L, Mean Platelet Volume 11.9, Immature Granulocyte % (Auto) 1, Neutrophils (%) (Auto) 92H, Lymphocytes (%) (Auto) 4L, Monocytes (%) (Auto) 4, Eosinophils (%) (Auto) 0, Basophils (%) (Auto) 0, Neutrophils # (Auto) 7.5, Lymphocytes # (Auto) 0.3L, Monocytes # (Auto) 0.4, Eosinophils # (Auto) 0.0, Basophils # (Auto) 0.0, Immature Granulocyte # (Auto) 0.1, Neutrophils % (Manual) 80, Lymphocytes % (Manual) 3, Monocytes % (Manual) 4, Band Neutrophils 13, Percent Immature Platelet Fraction 7.2, Blood Morphology Comment NORMAL, Prothrombin Time 16.7H, INR Comment 1.3, Activated Partial Thromboplast Time 28, Sodium Level 131L, Potassium Level 4.1, Chloride Level 98, Carbon Dioxide Level 20L, Anion Gap 13, Blood Urea Nitrogen 25H, Creatinine 1.51H, Estimat Glomerular Filtration Rate 44, BUN/Creatinine Ratio 17, Glucose Level 101, Calcium Level 8.6, Corrected Calcium 9.1, Total Bilirubin 3.3H, Aspartate Amino Transf (AST/SGOT) 773H, Alanine Aminotransferase (ALT/SGPT) 860H, Alkaline Phosphatase 230H, C-Reactive Protein High Sensitivity 1.86H, Total Protein 6.2L, Albumin 3.4, Procalcitonin 11.09H, Influenza Type A Antigen NEGATIVE, Influenza Type B Antigen NEGATIVE 07/01/21 21:45: Lactic Acid Level 2.48*H 07/01/21 21:50: SARS-CoV-2 RNA (RT-PCR) Not Detected 07/01/21 22:30: Direct Bilirubin 1.2H, Lactate Dehydrogenase 905H 07/01/21 23:42: Ammonia 23 07/02/21 00:00: Amylase Level 34, Lipase 19 07/02/21 03:05: Amylase Level 33, Lipase 14, White Blood Count 11.1H, Red Blood Count 4.03L, Hemoglobin 11.5L, Hematocrit 35L, Mean Corpuscular Volume 87, Mean Corpuscular Hemoglobin 29, Mean Corpuscular Hemoglobin Concent 33, Red Cell Distribution Width 15.1H, Platelet Count 66L, Mean Platelet Volume 12.1, Immature Granulocyte % (Auto) 3, Neutrophils (%) (Auto) 85H, Lymphocytes (%) (Auto) 4L, Monocytes (%) (Auto) 9, Eosinophils (%) (Auto) 0, Basophils (%) (Auto) 0, Neutrophils # (Auto) 9.4H, Lymphocytes # (Auto) 0.4L, Monocytes # (Auto) 1.0, Eosinophils # (Auto) 0.0, Basophils # (Auto) 0.0, Immature Granulocyte # (Auto) 0.3H, Percent Immature Platelet Fraction 8.5H, Sodium Level 131L, Potassium Level 3.9, Chloride Level 99, Carbon Dioxide Level 20L, Anion Gap 12, Blood Urea Nitrogen 26H, Creatinine 1.52H, Estimat Glomerular Filtration Rate 44, BUN/Creatinine Ratio 17, Glucose Level 89, Calcium Level 7.5L 07/02/21 05:30: Lactic Acid Level 3.30*H 07/02/21 08:20: Lactic Acid Level 2.70*H 07/02/21 10:45: Lactic Acid Level 2.07*H Microbiology 07/01/21 Blood Culture - Preliminary, Resulted Gram Negative Bacillus 1 Assessment/Plan Assessment/Plan Assessment/Plan Elevated liver enzymes PT will continue to be followed by medicine for his elevated liver enzymes. Consider US of the RUQ to rule out gallstones. All questions answered at this time. DORIS BUSTAMANTE DO 07/02/21 1552: History of Present Illness History of Present Illness Time Seen by Provider: 13:37 History of Present Illness Surgery is asked to consult regarding elevated LFT's and questionable Pancreatitis. HPI per ED: This is an 81-year-old male who presented to the ER via POV with his for complaints of fever of 102F and lethargy. States that this morning he appeared his norm, ate and drink without difficulty. Throughout the day he began complaining of abdominal pain and chills. Spouse states he would not eat. His temperature at home was 102F and she gave him Tylenol this afternoon. States He recently had scans to evaluate extent of his metastasis and was noted to have several diverticuli with possible early diverticulitis. States that he did eat peanuts yesterday. He has been receiving immunotherapy however he developed a rash last week and has been placed on steroid taper, still currently taking.He has a history of renal cell carcinoma and is receiving immunotherapy with [facility] inex[facility]. He has no complaints at this time, stating he is getting haley cked out because his was worried about his temperature. When I spoke to the pt, his and daughter they stated he was much better than yesterday. He was confused yesterday and that was one of the main reasons they brought him in; it was similar to an episode he had back in February and "was septic at that time". Since he has been in the hospital and even at home he has denied any abdominal pain. He has significant history of Stage IV Renal CA. Allergies and Home Medications Allergies Coded Allergies: No Known Drug Allergies (Verified , 05/01/21) Patient Home Medication List Home Medication List Reviewed: Yes Acetaminophen (Tylenol Extra Strength) 500 Mg Tablet, 500-1,000 MG PO Q8H PRN for PAIN-MILD (1-4), (Reported) Entered as Reported by: ROBYN VAIL on 05/01/21 1228 Last Action: Reviewed Amlodipine Besylate (Amlodipine Besylate) 10 Mg Tablet, 10 MG PO DAILY, (Reported) Entered as Reported by: GISELLE COUGHLIN on 08/02/19 1327 Last Action: Reviewed Diclofenac Sodium (Diclofenac Sodium) 100 Gm Gel..gram., 100 GM TP DAILY PRN for PAIN-MILD (1-4), (Reported) Entered as Reported by: MAYTE VALENCIA on 07/02/21 1408 Last Action: Reviewed Fexofenadine HCl (Marie Allergy) 180 Mg Tablet, 180 MG PO DAILY PRN for ALLERGIES, (Reported) Entered as Reported by: MAYTE VALENCIA on 07/02/21 1412 Last Action: Reviewed Finasteride (Finasteride) 5 Mg Tablet, 5 MG PO HS, (Reported) Entered as Reported by: ROBYN VAIL on 6/28/21 0920 Last Action: Reviewed Lactobacillus Acidophilus (Florajen Acidophilus) 1 Each Capsule, 1 EACH PO DAILY, (Reported) Entered as Reported by: MAYTE VALENCIA on 07/02/21 141 Last Action: Reviewed Metoprolol Tartrate (Metoprolol Tartrate) 25 Mg Tablet, 12.5 MG PO BID, (Reported) Entered as Reported by: PINO KHANNA on 03/31/18 1404 Last Action: Reviewed Morphine Sulfate (Morphine Sulfate ER) 15 Mg Tablet.er, 15 MG PO Q12H, (Reported) Entered as Reported by: ROBYN VAIL on 05/01/211227 Last Action: Reviewed Ondansetron HCl (Ondansetron HCl) 8 Mg Tablet, 8 MG PO Q8H PRN for NAUSEA/VOMITING, (Reported) Entered as Reported by: ROBYN VAIL on 05/01/211227 Last Action: Reviewed Polyethylene Glycol 3350 (Miralax) 17 Gm Powd.pack, 17 GM PO HS, (Reported) Entered as Reported by: ROBYN VAIL on 03/05/21919 Last Action: Reviewed Prednisone (Prednisone) 10 Mg Tab, 20 MG PO DAILY, (Reported) Entered as Reported by: MAYTE VALENCIA on 07/02/211418 Last Action: Edited Sennosides/Docusate Sodium (Senna S Tablet) 1 Each Tablet, 2 EACH PO DAILY, (Reported) Entered as Reported by: ROBYN VAIL on 03/05/21919 Last Action: Reviewed Simethicone (Gas-X Ultra Strength) 180 Mg Capsule, 180-360 MG PO UD PRN for GAS, (Reported) Entered as Reported by: ROBYN VAIL on 05/01/211227 Last Action: Reviewed Sodium Chloride (Sodium Chloride) 1 Gm Tab, 1 GM PO BID, (Reported) Entered as Reported by: ROBYN VAIL on 03/05/21919 Last Action: Reviewed Tamsulosin HCl (Flomax) 0.4 Mg Cap, 0.4 MG PO HS, (Reported) Entered as Reported by: GISELLE COUGHLIN on 08/02/19 1327 Last Action: Reviewed Discontinued Medications Amoxicillin/Potassium Clav (Augmentin 875-125 Tablet) 1 Each Tablet, 1 EACH PO BID Discontinued Reason: No Longer Taking Prescribed by: KALI ORO on 05/04/21932 Last Action: Discontinued Bisacodyl (Bisacodyl) 10 Mg Supp.rect, 10 MG RC DAILY PRN for CONSTIPATION-6TH LINE, (Reported) Discontinued Reason: No Longer Taking Entered as Reported by: ROBYN VAIL on 03/05/21919 Last Action: Discontinued Diclofenac Sodium (Diclofenac Sodium) 100 Gm Gel..gram., 1 APPLIC TP QID PRN for PAIN-BREAKTHROUGH, (Reported) Discontinued Reason: No Longer Taking Entered as Reported by: ROBYN VAIL on 03/05/21919 Last Action: Discontinued Lactobacillus Acidophilus (Acidophilus Lactobacilli) 1 Each Capsule, 1 EACH PO TID Discontinued Reason: No Longer Taking Prescribed by: KALI ORO on 05/04/21932 Last Action: Discontinued Oxycodone HCl (Oxycodone HCl) 5 Mg Tablet, 5 MG PO Q6H PRN for PAIN-SEVERE (8- 10), (Reported) Discontinued Reason: No Longer Taking Entered as Reported by: ROBYN VAIL on 03/05/21919 Last Action: Discontinued Past Wdisyqz-Xfhgzo-Okoyjq Hx Patient Social History Smoking Status: Former Smoker Surgeries History of Surgeries: Yes ([employer]) Surgeries: Abdominal (umbilical hernia repair), Nephrectomy, Tonsillectomy Respiratory History of Respiratory Disorde: No Cardiovascular History of Cardiac Disorders: Yes Cardiac Disorders: High Cholesterol, Hypertension Neurological History of Neurological Disord: No Genitourinary History of Genitourinary Disor: Yes (renal CA) Gastrointestinal History of Gastrointestinal Di: Yes Gastrointestinal Disorders: Abdominal Hernia, Gastroesophageal Reflux Musculoskeletal History of Musculoskeletal Dis: Yes Musculoskeletal Disorders: Arthritis Endocrine History of Endocrine Disorders: No HEENT History of HEENT Disorders: No Loss of Vision: Bilateral Hearing Impairment: Hard of Hearing Cancer History of Cancer: Yes Cancer: Kidney Psychosocial History of Psychiatric Problem: No Family Medical History Significant Family History: Asthma, Heart Disease, Cancer, Lung Disease Family Medial History: Asthma 19 FATHER Cancer of mouth Cardiovascular disease G8 BROTHER Myocardial infarction G8 BROTHER Neoplasm G8 BROTHER Parkinson's disease 19 MOTHER Respiratory disorder 19 FATHER Review of Systems-General Constitutional: No chills; fever EENTM: No blurred vision, No double vision Respiratory: No cough, No short of breath Cardiovascular: No chest pain, No palpitations Gastrointestinal: nausea (hx of some nausea but no change from base line); No vomiting Genitourinary: No dysuria, No hematuria Musculoskeletal: back pain, joint pain (right shoulder); No neck pain Skin: No change in color, No change in hair/nails Psychiatric/Neurological: Denies Anxiety, Denies Depressed, Denies Emotional Problems Physical Exam-General Problems Physical Exam General Appearance: WD/WN, no apparent distress Eyes: Bilateral Eye PERRL, Bilateral Eye EOMI HEENT: pharynx normal; No scleral icterus (R), No scleral icterus (L) Neck: non-tender, full range of motion, supple Respiratory: chest non-tender, lungs clear, normal breath sounds, no accessory muscle use Cardiovascular: regular rate, rhythm, no edema, no murmur Gastrointestinal: soft, no organomegaly, no pulsatile mass, tenderness (mild epigastric tenderness on palpation ), hernia (b/l inguinal - incarcerated) Rectal: deferred Extremities: non-tender, no pedal edema, no calf tenderness Neurologic/Psychiatric: no motor/sensory deficits, normal mood/affect, oriented x 3 Skin: normal color, warm/dry Lymphatic: no adenopathy (cervical ) Data Review Radiology Date of Exam:07/01/21 CT ABDOMEN/PELVIS WO PROCEDURE: CT abdomen and pelvis without contrast. TECHNIQUE: Multiple contiguous axial images were obtained through the abdomen and pelvis without the use of intravenous contrast. Auto Exposure Controls were utilized during the CT exam to meet ALARA standards for radiation dose reduction. INDICATION: Recent diverticulitis The CT abdomen/pelvis exam of 06/22/2021 suggested mild diverticulitis of the sigmoid colon. On this study, there are still numerous diverticula involving the sigmoid and descending colon. However, there is no clear evidence for acute diverticulitis. There is no mass or abscess identified either. The appendix is not well-visualized but there are no indirect signs of acute appendicitis. The urinary bladder and prostate gland are grossly unremarkable. The fat-containing inguinal hernia on the left is again evident. There is a portion of the sigmoid colon which is in close proximity to the hernia but there is no incarceration or obstruction of the colon by the hernia. There is very slight distortion of the mesenteric fat interposed between the stomach and the body of the pancreas. This could be secondary to mild edema/inflammation secondary to pancreatitis although the pancreas does not appear to be enlarged. Correlation with the patient's pancreatic enzymes would be recommended. The sclerotic osseous lesions seen previously are again evident and no different. The compression deformity of L5 seen on the prior study does not appear to have changed significantly either. There is no acute abnormality identified. There are still a few faint patchy alveolar/interstitial infiltrates involving the lungs. IMPRESSION: 1. There is diverticulosis of the sigmoid and descending colon but there is no clear evidence for acute diverticulitis. Clinical follow-up is recommended. 2. The slight distortion of the mesenteric fat between the body of the pancreas and the stomach does suggest mild edema/inflammation and the possibility of pancreatitis should be considered. Recommendations as above. 3. There is no acute abnormality of the abdomen or pelvis noted otherwise. Dictated by: Dictated on workstation # [id number] Dict: 07/01/21 [id number] Trans: 07/02/21 0001 RICKY [id number] Interpreted by: JEAN PAUL REILLY MD Electronically signed by: JEAN PAUL REILLY MD 07/02/21 0001 Date of Exam:07/02/21 US ABDOMEN COMPLETE [id number] EXAMINATION: US Abdomen complete. TECHNIQUE: Multiple real-time grayscale images were obtained over the right upper quadrant in various projections. HISTORY: Pancreatitis COMPARISON: None available. FINDINGS: The liver is normal in size. The liver is normal in echogenicity. No focal lesions are seen. The portal vein is patent with hepatopedal flow. There is sludge in the gallbladder. No stones are seen. Sonographic Suarez sign is negative. Common duct is not visualized. No intrahepatic or extrahepatic biliary ductal dilation is seen. The visualized portions of the pancreas are normal. The right kidney is normal without hydronephrosis. The left kidney is normal without hydronephrosis. The aorta and inferior vena cava are normal. The spleen is normal. No ascites is seen. IMPRESSION: 1. Gallbladder sludge, no stones are seen. Dictated by: Dictated on workstation # [id number] Dict: 07/02/21 0910 Trans: 07/02/21 1150 CVB [id number] Interpreted by: JONI SALGADO MD Electronically signed by: JONI SALGADO MD 07/02/21 1150 Assessment/Plan Assessment/Plan Assessment/Plan Elevated liver enzymes ??Pancreatitis Stage IV Renal CA Dehydration Diverticula - not sure he has diverticulitis, the "inflammation" seen was the same as CT done in February B/ inguinal hernia - Left side incarcerated with some bowel, but not bothering pt so therefore would not perform surgery. US showed sludge, but no acute cholecystitis. He does not have abdominal pain or elevated amylase or lipase; therefore, I doubt he has Pancreatitis. I am unsure why he has elevated LFT's, but do not think it is surgical in nature at this point. In addition, I think that unfortunately he is a poor surgical candidate. However, pt and his family all agreed they do not really want any surgery. Will follow along and monitor labs and physical exam. Pt and family had all questions answered at this time. Supervisory-Addendum Brief Verification & Attestation Participated in pt care: history, MDM, physical Personally performed: exam, history, MDM, supervision of care Care discussed with: Medical Student Procedures: n/a Verification and Attestation of Medical Student E/M Service A medical student performed and documented this service. I then reviewed and verified all information documented by the medical student and made modifications to such information, when appropriate. I personally performed a physical exam, medical decision making and then discussed any differences between the notes and made revisions as necessary to create one note. Doris Bustamante , 07/02/21 , 16:16 DEEPA RAINEY Jul 02, 2021 11:15 DORIS BUSTAMANTE DO Jul 02, 2021 15:52
--- NOTE | 2021-07-02 12:33 | Diagnostic Imaging Report ---
EXAMINATION: US Abdomen complete. TECHNIQUE: Multiple real-time grayscale images were obtained over the right upper quadrant in various projections. HISTORY: Pancreatitis COMPARISON: None available. FINDINGS: The liver is normal in size. The liver is normal in echogenicity. No focal lesions are seen. The portal vein is patent with hepatopedal flow. There is sludge in the gallbladder. No stones are seen. Sonographic Suarez sign is negative. Common duct is not visualized. No intrahepatic or extrahepatic biliary ductal dilation is seen. The visualized portions of the pancreas are normal. The right kidney is normal without hydronephrosis. The left kidney is normal without hydronephrosis. The aorta and inferior vena cava are normal. The spleen is normal. No ascites is seen. IMPRESSION: 1. Gallbladder sludge, no stones are seen. Dictated by: Dictated on workstation # [id number]
[2021-07-02] MEDS ORDERED: DICL100G13 TP (14:08)
[2021-07-02] MEDS ORDERED: FEXO180T84 PO (14:12)
[2021-07-02] MEDS ORDERED: LACT460C PO (14:16)
[2021-07-02] MEDS ORDERED: PRD10T PO (14:19)
--- NOTE | 2021-07-02 15:37 | Oncology Consultation ---
Visit Information Visit Information Date of Admission Jul 02, 2021 at 00:30 Attending Physician Rita Bravo MD Admitting Physician Rita Bravo MD Chief Complaint Fever, pancreatitis in the setting of metastatic renal cell carcinoma. Interval History Mr. 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 CT scan showed the slight distortion of the mesenteric fat between the body of the pancreas and the stomach does suggest mild edema/inflammation and the possibility of pancreatitis should be considered. He was admitted for IV antibiotics and IVF. He is better today per patient and his family. He has NOT have any chemo nor immunotherapy for at least 6 weeks. He had disease progressing and is in the processing of changing to the new treatment but has not started yet. He had immunotherapy Opdivo and ipilimumab treatment before. They were stopped due to disease progressing and GI side effect. He was treated with Prednisone and on the taper at 20mg daily x 2 more days and then 10mg x7 days. He is Dr. Mccallum's patient. I consulted the patient on: 07/02/21 15:33 Time Seen by Provider: 15:33 Review of Systems Constitutional: see HPI Health Status Allergies Coded Allergies: No Known Drug Allergies (Verified , 05/01/21) Home Medications Acetaminophen (Tylenol Extra Strength) 500 Mg Tablet, 500-1,000 MG PO Q8H PRN for PAIN-MILD (1-4), (Reported) Amlodipine Besylate (Amlodipine Besylate) 10 Mg Tablet, 10 MG PO DAILY, (Reported) Diclofenac Sodium (Diclofenac Sodium) 100 Gm Gel..gram., 100 GM TP DAILY PRN for PAIN-MILD (1-4), (Reported) Fexofenadine HCl (Marie Allergy) 180 Mg Tablet, 180 MG PO DAILY PRN for ALLERGIES, (Reported) Finasteride (Finasteride) 5 Mg Tablet, 5 MG PO HS, (Reported) Lactobacillus Acidophilus (Florajen Acidophilus) 1 Each Capsule, 1 EACH PO DAILY, (Reported) Metoprolol Tartrate (Metoprolol Tartrate) 25 Mg Tablet, 12.5 MG PO BID, (Reported) TAKES OF A (25MG) TABLET Morphine Sulfate (Morphine Sulfate ER) 15 Mg Tablet.er, 15 MG PO Q12H, (Reported) Ondansetron HCl (Ondansetron HCl) 8 Mg Tablet, 8 MG PO Q8H PRN for NAUSEA/VOMITING, (Reported) Polyethylene Glycol 3350 (Miralax) 17 Gm Powd.pack, 17 GM PO HS, (Reported) Prednisone (Prednisone) 10 Mg Tab, 20 MG PO DAILY, (Reported) 06-26-2021 TAKES 20MG X 7DAYS, 15MG X 7DAYS, 10MG X 7 DAYS Sennosides/Docusate Sodium (Senna S Tablet) 1 Each Tablet, 2 EACH PO DAILY, (Reported) Simethicone (Gas-X Ultra Strength) 180 Mg Capsule, 180-360 MG PO UD PRN for GAS, (Reported) Sodium Chloride (Sodium Chloride) 1 Gm Tab, 1 GM PO BID, (Reported) Tamsulosin HCl (Flomax) 0.4 Mg Cap, 0.4 MG PO HS, (Reported) [id number] Hx Patient Social History Drug of Choice: Denies Smoking Status: Former Smoker Type Used: Cigarettes 2nd Hand Smoke Exposure: No Recent Hopitalizations: No Alcohol Use?: No Have you traveled recently?: No Immunizations Up To Date Tetanus Booster (TDap): Unknown Date of Pneumonia Vaccine: Jun 15, 2018 Date of Influenza Vaccine: Jun 08, 2020 Family Medical History Significant Family History: Heart Disease, Cancer, Hypertension Family History: Asthma 19 FATHER Cancer of mouth Cardiovascular disease G8 BROTHER Myocardial infarction G8 BROTHER Neoplasm G8 BROTHER Parkinson's disease 19 MOTHER Respiratory disorder 19 FATHER Physical Exam Vital Signs Vital Signs - First Documented 07/01/21 21:24 Temp 37.4 Pulse 84 Resp 20 B/P (MAP) 135/63 (87) Pulse Ox 97 O2 Delivery Room Air Capillary Refill : Less Than 3 Seconds Height, Weight, BMI Height: 5'11.00" Weight: 191lbs. 0.0oz. 86.821430lg; 23.09 BMI Method:Stated General Appearance: No Apparent Distress, Other (appeared very weak. ) HEENT: PERRL/EOMI Respiratory: No Accessory Muscle Use, No Respiratory Distress Cardiovascular: Regular Rate, Rhythm Gastrointestinal: Non Tender, Soft Neurologic/Psychiatric: Alert, Oriented x3 Data Review Labs Laboratory Tests 07/01/21 03:05: Lactic Acid Level 2.45*H 07/01/21 21:05: Urine Color AMBERH, Urine Specific [place] 1.010L, Urine Protein TRACEH, Urine Bilirubin 1+H, Urine Crystals PRESENTH, Urine Amorphous Sediment RARE SUNI URATESH 07/01/21 21:15: Red Cell Distribution Width 14.8H, Platelet Count 89L, Neutrophils (%) (Auto) 92H, Lymphocytes (%) (Auto) 4L, Lymphocytes # (Auto) 0.3L, Prothrombin Time 16.7H, Sodium Level 131L, Carbon Dioxide Level 20L, Blood Urea Nitrogen 25H, Creatinine 1.51H, Total Bilirubin 3.3H, Aspartate Amino Transf (AST/SGOT) 773H, Alanine Aminotransferase (ALT/SGPT) 860H, Alkaline Phosphatase 230H, C-Reactive Protein High Sensitivity 1.86H, Total Protein 6.2L, Procalcitonin 11.09H 07/01/21 21:45: Lactic Acid Level 2.48*H 07/01/21 21:50: 07/01/21 22:30: Direct Bilirubin 1.2H, Lactate Dehydrogenase 905H 07/01/21 23:42: 07/02/21 00:00: 07/02/21 03:05: White Blood Count 11.1H, Red Blood Count 4.03L, Hemoglobin 11.5L, Hematocrit 35L , Red Cell Distribution Width 15.1H, Platelet Count 66L, Neutrophils (%) (Auto) 85H, Lymphocytes (%) (Auto) 4L, Neutrophils # (Auto) 9.4H, Lymphocytes # (Auto) 0.4L, Immature Granulocyte # (Auto) 0.3H, Percent Immature Platelet Fraction 8.5H, Sodium Level 131L, Carbon Dioxide Level 20L, Blood Urea Nitrogen 26H, Creatinine 1.52H, Calcium Level 7.5L 07/02/21 05:30: Lactic Acid Level 3.30*H 07/02/21 08:20: Lactic Acid Level 2.70*H 07/02/21 10:45: Lactic Acid Level 2.07*H 07/02/21 14:10: Lactic Acid Level 2.25*H 07/02/21 16:12: Impression & Plan Impression & Plan Imp: 1. 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 Primary oncology Dr Mccallum 2. Fever, lethargic and CT showed possible pancreatitis and acutely elevated LFTS. Responded to IV antibiotics and IVF. 3. h/o Intractable low back pain due to metastatic disease. Status post palliative radiation to L4-S1 including left iliac completed 02/15/2021. 4. Previous history of left kidney mass, status post robotic assisted laparoscopic left nephrectomy at [facility] in 2019. Pathology report showing a WHO grade 4 tumor and was unclassified the pathology staging of T3a NX M0. 5. Recent restaging scans showed disease progression. Treatment with nivolumab plus cabozantinib recommended but were NOT actually started. 6. Patient has been on prednisone taper for immunetherapy related side effect. Rec: 1. Hold off any cancer treatment 2. Continue prednisone taper as per Dr. Mccallum and [place] recommended. 3. Agree with antibiotics and IVF treatment as you are doing 4. Once he recovers from the fever and infection, he can see Dr. Mccallum to decide if and when to start the new treatment. Dr Mccallum will be back next week. ROLAN IGNACIO MD Jul 02, 2021 15:37
[2021-07-03] VITALS (7 sets, daily range): BP systolic 104–154; BP diastolic 55–74
[2021-07-03] MEDS: D5 1/2 NS W/KCL 20 MEQ/L 1,000 ML IV SCH ×3 (02:29→11:22)
[2021-07-03] MEDS: PIPERACILLIN/TAZO 4.5 GM/NS 100 ML IV SCH ×6 (05:53→20:53)
--- NOTE | 2021-07-03 07:25 | Progress Note - Surgery ---
JOHNNY NGO 07/03/21 0724: Subjective Date Seen by a Provider: Jul 03, 2021 Time Seen by a Provider: 07:10 Subjective/Events-last exam Pt is a 81yo M that presented yesterday for altered mental status. Elevated liver enzymes was found. Pt reports he is doing well overall and is not having any pain. He reports sleeping about 2 hours last night, but this has been his normal habit for the past few years. Reports last getting up to use the bathroom 20 minutes ago. Was not able to fully void. Pt also able to get up and walk with his walker with no issues. Review of Systems General: No Chills; Fatigue (Pt appeared slightly tired when first waking.), Other (Elderly male, appears awake, alert, and responsive to exam.) Pulmonary: No Dyspnea, No Cough Cardiovascular: No: Chest Pain Gastrointestinal: No: Nausea, Vomiting, Abdominal Pain, Diarrhea Genitourinary: Dysuria (Pt said he sometimes has trouble getting all of urine out) Musculoskeletal: No: shoulder pain, back pain Neurological: No: Change in speech, Confusion Focused Exam Lactate Level 07/02/21 10:45: Lactic Acid Level 2.07*H 07/02/21 14:10: Lactic Acid Level 2.25*H 07/02/21 16:12: Lactic Acid Level 1.76 Time of Focused Exam: 00:15 Objective Exam Vital Signs Date Time Temp Pulse Resp B/P (MAP) Pulse Ox O2 Delivery O2 Flow Rate FiO2 07/03/21 04:17 36.6 73 18 123/58 (79) 95 Room Air 07/03/21 00:59 62 07/03/21 00:09 36.6 64 20 104/58 (73) 95 Room Air 07/02/21 20:59 Room Air 07/02/21 20:20 37.2 81 16 107/58 (74) 93 Room Air 07/02/21 19:00 92 07/02/21 16:53 99/58 (72) 07/02/21 15:47 87/54 (65) 07/02/21 15:39 37.4 86 18 81/48 (59) 95 Room Air 07/02/21 13:00 65 07/02/21 12:00 36.5 83 18 91/58 (69) 94 Room Air 07/02/21 08:00 Room Air 07/02/21 08:00 37.1 87 20 98/57 (71) 92 Room Air I & O 07/03/21 07:00 Output Total 250 ml Balance -250 ml Capillary Refill : Less Than 3 Seconds General Appearance: No Apparent Distress (Elderly male), Other (appeared very weak. ) HEENT: PERRL/EOMI Neck: Full Range of Motion, Normal Inspection Respiratory: No Accessory Muscle Use, No Respiratory Distress Cardiovascular: Regular Rate, Rhythm Peripheral Pulses: 2+ Radial Pulses (R), 2+ Radial Pulses (L) Gastrointestinal: soft, no organomegaly, no pulsatile mass; No tenderness; hernia (b/l inguinal - incarcerated) Extremity: Normal Inspection Neurologic/Psychiatric: Alert, Oriented x3 Skin: Normal Color, Warm/Dry Lymphatic: No Adenopathy (Cervical) Results Lab Laboratory Tests 07/02/21 08:20: Lactic Acid Level 2.70*H 07/02/21 10:45: Lactic Acid Level 2.07*H 07/02/21 14:10: Lactic Acid Level 2.25*H 07/02/21 16:12: Lactic Acid Level 1.76 Microbiology 07/01/21 Blood Culture - Preliminary, Resulted Gram Negative Bacillus 1 07/01/21 Urine Culture - Final, Complete NO GROWTH Assessment/Plan Assessment/Plan Assessment/Plan Elevated liver enzymes ??Pancreatitis Stage IV Renal CA Dehydration Diverticula - not sure he has diverticulitis, the "inflammation" seen was the same as CT done in February inguinal hernia - Left side incarcerated with some bowel, but not bothering pt so therefore would not perform surgery. US showed sludge, but no acute cholecystitis. He does not have abdominal pain or elevated amylase or lipase; therefore, I doubt he has Pancreatitis. I am unsure why he has elevated LFT's, but do not think it is surgical in nature at this point. In addition, I think that unfortunately he is a poor surgical candidate. However, pt and his family all agreed they do not really want any surgery. Will follow along and monitor labs and physical exam. Pt and family had all questions answered at this time. RAJAN DAS DO 07/03/21 7948: Subjective Time Seen by a Provider: 11:42 Subjective/Events-last exam Pt seen and examined, he had just started clear liquids and was having some nausea. Denied abdominal pain, no more confusion. Review of Systems General: No Chills; Fatigue (Pt appeared slightly tired when first waking.), Other (Elderly male, appears awake, alert, and responsive to exam.) Pulmonary: No Dyspnea, No Cough Cardiovascular: No: Chest Pain Gastrointestinal: Nausea; No: Vomiting, Abdominal Pain Genitourinary: Dysuria (Pt said he sometimes has trouble getting all of urine out) Objective Exam General Appearance: No Apparent Distress (Elderly male), Other (appeared very weak. ) HEENT: PERRL/EOMI Respiratory: Lungs Clear, No Accessory Muscle Use, No Respiratory Distress Cardiovascular: Regular Rate, Rhythm, No Murmur Gastrointestinal: non tender, soft, no organomegaly, hernia (b/l inguinal - incarcerated) Assessment/Plan Assessment/Plan Assessment/Plan Elevated liver enzymes - have come down today Pancreatitis - doubt this, just some ??inflammation Stage IV Renal CA Dehydration Diverticula - not sure he has diverticulitis, the "inflammation" seen was the same as CT done in February B/ inguinal hernia - Left side incarcerated with some bowel, but not bothering pt so therefore would not perform surgery. Labs have improved, agree with increasing diet as tolerated (can start some Zofran for nausea). Nothing surgical at this point, can be d/c'd home when ok with Medicine. Supervisory-Addendum Brief Verification & Attestation Participated in pt care: history, MDM, physical Personally performed: exam, history, MDM, supervision of care Care discussed with: Medical Student Procedures: n/a Verification and Attestation of Medical Student E/M Service A medical student performed and documented this service. I then reviewed and verified all information documented by the medical student and made modif ications to such information, when appropriate. I personally performed a physical exam, medical decision making and then discussed any differences between the notes and made revisions as necessary to create one note. Rajan Das , 07/03/21 , 21:48 JOHNNY NGO Jul 03, 2021 07:24 RAJAN DAS DO Jul 03, 2021 21:48
[2021-07-03] MEDS ORDERED: DICLOFENAC 1% GEL 100 GM (VOLTAREN) TUBE TP PRN (09:15)
--- NOTE | 2021-07-03 09:27 | Progress Note ---
Subjective Subjective Date Seen by Provider: Jul 03, 2021 Time Seen by Provider: 09:50 PT REPORTS THAT HIS ABDOMINAL DISCOMFORT HAS IMPROVED, HE WOULD LIKE TO EAT AND DRINK MORE IF POSSIBLE. THE PTS AND DTR REPORT THAT HE SEEMS TO BE MORE COGNITIVELY INTACT THIS MORNING COMPARED TO ADMISSION. Review of Systems General: No Chills; Fatigue (Pt appeared slightly tired when first waking.), Other (Elderly male, appears awake, alert, and responsive to exam.) Pulmonary: No Dyspnea, No Cough Cardiovascular: No: Chest Pain Gastrointestinal: No: Nausea, Vomiting, Abdominal Pain, Diarrhea Genitourinary: Dysuria (Pt said he sometimes has trouble getting all of urine out) Musculoskeletal: No: shoulder pain, back pain Neurological: No: Change in speech, Confusion All Other Systems Reviewed All Other Systems Reviewed: Yes Objective Exam Vital Signs Vital Signs Date Time Temp Pulse Resp B/P (MAP) Pulse Ox O2 Delivery O2 Flow Rate FiO2 07/03/21 07:46 36.2 72 18 109/58 (75) 95 Room Air 07/03/21 07:00 69 07/03/21 04:17 36.6 73 18 123/58 (79) 95 Room Air 07/03/21 00:59 62 07/03/21 00:09 36.6 64 20 104/58 (73) 95 Room Air 07/02/21 20:59 Room Air 07/02/21 20:20 37.2 81 16 107/58 (74) 93 Room Air 07/02/21 19:00 92 07/02/21 16:53 99/58 (72) 07/02/21 15:47 87/54 (65) 07/02/21 15:39 37.4 86 18 81/48 (59) 95 Room Air 07/02/21 13:00 65 07/02/21 12:00 36.5 83 18 91/58 (69) 94 Room Air I & O 07/03/21 07:00 Output Total 250 ml Balance -250 ml General Appearance: No Apparent Distress, WD/WN Eyes: Bilateral Eye Normal Inspection, Bilateral Eye PERRL, Bilateral Eye EOMI HEENT: PERRL/EOMI, Pharynx Normal Neck: Full Range of Motion, Non Tender, Supple Respiratory: Chest Non Tender, Lungs Clear, Normal Breath Sounds, No Accessory Muscle Use, No Respiratory Distress Cardiovascular: Regular Rate, Rhythm, No Edema, Normal Peripheral Pulses Gastrointestinal: Normal Bowel Sounds, Soft; No Distended, No Guarding; Tenderness (EPIGASTRIUM) Rectal: Deferred Back: Normal Inspection, No Vertebral Tenderness Extremity: Normal Capillary Refill, Normal Range of Motion, Non Tender, No Calf Tenderness Neurologic/Psychiatric: Alert, Oriented x3, No Motor/Sensory Deficits, Normal Mood/Affect Skin: Normal Color, Warm/Dry Lymphatic: No Adenopathy Results Lab Laboratory Tests 07/02/21 10:45: Lactic Acid Level 2.07*H 07/02/21 14:10: Lactic Acid Level 2.25*H 07/02/21 16:12: Lactic Acid Level 1.76 Microbiology 07/01/21 Blood Culture - Preliminary, Resulted Probable Klebsiella/Enterobact 07/01/21 Urine Culture - Final, Complete NO GROWTH Assessment/Plan Assessment/Plan Admission Dx PANCREATITIS ACUTE ELEVATION OF LIVER ENZYMES RENAL CELL CARCINOMA CHRONIC MILD HYPONATREMIA MILD LEUKOCYTOSIS ELEVATED PROCALCITONIN ELEVATED CRP CHRONIC HYPERTENSION CHRONIC PAIN FROM METASTATIC RENAL CELL CA Assessment and Plan PANCREATITIS ACUTE ELEVATION OF LIVER ENZYMES RENAL CELL CARCINOMA CHRONIC MILD HYPONATREMIA MILD LEUKOCYTOSIS ELEVATED PROCALCITONIN ELEVATED CRP CHRONIC HYPERTENSION CHRONIC PAIN FROM METASTATIC RENAL CELL CA URINARY TRACT INFECTION PANCREATITIS WITH ACUTE ELEVATION OF LIVER ENZYMES - PT ON IV ANTIBIOTIC - ZOSYN - CONTINUE CURRENT ANTIBIOTIC SELECTION - CONSULT TO SURGERY - DR. BUSTAMANTE - ANTICIPATE NO INTERVENTION, HOWEVER WOULD LIKE INPUT FROM SURGEON. - NPO EXCEPT ICE CHIPS UNTIL THIS AFTERNOON SINCE HIS LFTS HAVE IMPROVED RENAL CELL CARCINOMA WITH CHRONIC PAIN FROM METASTATIC RENAL CELL CA - WILL RESUME HOME MEDS - PT ON IV FENTANYL PRN CHRONIC MILD HYPONATREMIA - RESTART ORAL SODIUM TABS TODAY MILD LEUKOCYTOSIS DUE TO PANCREATITIS AND UTI - MONITOR LABS ELEVATED PROCALCITONIN AND ELEVATED CRP - DUE TO ACUTE ILLNESS, MONITOR LABS - IV FLUIDS, TREAT INFECTION WITH IV ZOSYN. CHRONIC HYPERTENSION - CURRENTLY LOW BP - HOLD NORVASC, RESTART METOPROLOL TOMORROW DVT PROPHYLAXIS WITH SCD'S AND LOVENOX GI PROPHYLAXIS WITH PROTONIX AND PROBIOTICS TO START ONCE ABLE TO TAKE MORE PO SCANS FOLLOWS: Admission Dx PANCREATITIS ACUTE ELEVATION OF LIVER ENZYMES RENAL CELL CARCINOMA CHRONIC MILD HYPONATREMIA MILD LEUKOCYTOSIS ELEVATED PROCALCITONIN ELEVATED CRP CHRONIC HYPERTENSION CHRONIC PAIN FROM METASTATIC RENAL CELL CA Clinical Quality Measures Admission Status Admission Dx PANCREATITIS ACUTE ELEVATION OF LIVER ENZYMES RENAL CELL CARCINOMA CHRONIC MILD HYPONATREMIA MILD LEUKOCYTOSIS ELEVATED PROCALCITONIN ELEVATED CRP CHRONIC HYPERTENSION CHRONIC PAIN FROM METASTATIC RENAL CELL CA KALI ORO MD Jul 03, 2021 09:26
[2021-07-03] MEDS ORDERED: D5 1/2 NS W/KCL 20 MEQ/L 1,000 ML IV ONE (09:39)
[2021-07-03 10:24] LABS: ALBUMIN 2.6 GM/DL (3.2-4.5); BILIRUBIN,TOTAL 4.6 MG/DL (0.1-1.0); CREATININE SERUM 1.75 MG/DL (0.60-1.30); POTASSIUM 3.9 MMOL/L (3.6-5.0)
[2021-07-03 10:34] LABS: CALCIUM 8.1 MG/DL (8.5-10.1)
[2021-07-03] MEDS ORDERED: SIMETHICONE 80 MG (MYLICON) CHEW PO PRN (10:45)
[2021-07-03] MEDS ORDERED: ONDANSETRON 4 MG (ZOFRAN) ORAL DISSOLVE TAB PO PRN (10:45)
[2021-07-03] MEDS: SODIUM CHLORIDE 1 GM TABLET PO SCH ×2 (11:05→20:54)
[2021-07-03] MEDS: morphine ER 15 MG (MS CONTIN) TAB PO SCH ×2 (11:05→20:54)
--- NOTE | 2021-07-03 17:05 | Physician Query Clarification ---
Physician Query-General Query to Physician: The medical record reflects the following clinical scenario: Clinical Indicators: admission VS/LABS HR 84 increased to 97, RR 20, BP 135/63, SpO2 97% sat on room air T 37.4, WBC 8.2 increased to 11.1 Lactic acid 2.48 Risk Factor(s): Advance Cancer, advanced age Treatment: 2L NS, and 1L LR in first 4 hours, Zosyn IV Question: Do you agree with the impression of Sepsis per Dr. Tara Sheppard? 1. Yes; will document Sepsis, present on admission in the Progress Notes 2. No; will continue current documentation in the Progress Notes 3. Other; will document explanation of clinical findings 4. Clinically undetermined; no explanation for clinical findings Please clarify and document your clinical opinion in the Progress Notes and Discharge Summary including the definitive and/or presumptive diagnosis, (suspected or probable), related to the above clinical findings. Please include clinical findings supporting your diagnosis. In responding to this query, please exercise your independent professional judgment. The purpose of this communication is to more accurately reflect the complexity of your patients condition. The fact that a question is asked does not imply that any particular answer is desired or expected. Please remember a lack of response to the above will prompt a phone page by CDI/coding staff Thank you for timely response to this clarification. Tayla Flood MSN, RN Clinical Sheet Metal Duct Installer Apprentice [phone] [email or web address] PHYSICIAN RESPONSE: Based on the clinical findings in the record, please respond to the query above on this document as an addendum. Physician Response: Physician Response WILL DOCUMENT SEPSIS IN NOTES If you have questions please contact: General Farmworker: Ext: Thank you for your time and cooperation. Clinical Sheet Metal Duct Installer Apprentice/General Farmworker This is a permanent part of the medical record TAYLA FLOOD Jul 03, 2021 17:05 KALI ORO MD Jul 25, 2021 12:34
[2021-07-03] MEDS: TAMSULOSIN 0.4 MG (FLOMAX) CAP PO SCH (20:54)
[2021-07-03] MEDS: FINASTERIDE (PROSCAR) 5 MG TAB PO SCH (20:54)
[2021-07-03] MEDS: meTOprolol TARTRATE 25 MG (LOPRESSOR) TABLET PO SCH (20:54)
[2021-07-04] MEDS: D5 NS W/KCL 20 MEQ/L 1,000 ML IV SCH ×3 (00:49→15:45)
[2021-07-04 04:33] VITALS: BP 102/57
[2021-07-04] MEDS: PIPERACILLIN/TAZO 4.5 GM/NS 100 ML IV SCH ×2 (05:22)
[2021-07-04 05:34] LABS: HEMATOCRIT 34 % (40-54); HEMOGLOBIN 11.2 g/dL (13.3-17.7); MEAN CORPUSCULAR HEMOGLOBIN 29 pg (25-34); MEAN CORPUSCULAR HGB CONC 33 g/dL (32-36); MEAN CORPUSCULAR VOLUME 86 fL (80-99); WHITE BLOOD COUNT 5.4 10^3/uL (4.3-11.0)
[2021-07-04 05:39] LABS: PLATELET COUNT 33 10^3/uL (130-400)
[2021-07-04 05:49] LABS: ALBUMIN 2.4 GM/DL (3.2-4.5)
[2021-07-04 05:50] LABS: POTASSIUM 3.8 MMOL/L (3.6-5.0)
[2021-07-04 05:51] LABS: CALCIUM 7.9 MG/DL (8.5-10.1)
[2021-07-04 05:52] LABS: TOTAL PROTEIN 4.7 GM/DL (6.4-8.2)
[2021-07-04 05:54] LABS: BILIRUBIN,TOTAL 4.3 MG/DL (0.1-1.0)
[2021-07-04 05:56] LABS: CREATININE SERUM 1.43 MG/DL (0.60-1.30)
[2021-07-04 05:58] LABS: MAGNESIUM 1.4 MG/DL (1.6-2.4)
[2021-07-04 08:00] VITALS: BP 115/60
--- NOTE | 2021-07-04 08:56 | Progress Note ---
Subjective Subjective Date Seen by Provider: Jul 04, 2021 Time Seen by Provider: 08:56 PT IS AN 81 Y/O MALE WHO IS KNOWN TO ME FROM CLINIC. HE PRESENTED TO THE HOSPITAL WITH WEAKNESS, CONFUSION, ABDOMINAL DISCOMFORT. HE WAS FOUND TO HAVE ACUTE PANCREATITIS AND ADMITTED TO THE HOSPITAL FOR IV ANTIBIOTICS AND FLUIDS. TODAY GABY STATES THAT HIS STOMACH IS "RUMBLING" AND HE IS HUNGRY, BUT HIS STOMACH IS NOT PAINFUL, JUST "EMPTY". HE DENIES CHEST PAIN AND SHORTNESS OF BREATH. HIS REPORTS THAT HE HAD BEEN ON PREDNISONE FOR A RASH ON HIS BACK THAT HAS SINCE CLEARED UP. Review of Systems General: No Chills, No Night Sweats; Fatigue (IMPROVED) HEENT: No Head Aches, No Dysphasia Pulmonary: No Dyspnea, No Cough Cardiovascular: No: Chest Pain Gastrointestinal: Abdominal Pain (RUMBLING STOMACH); No: Nausea, Vomiting, Diarrhea Genitourinary: Dysuria (Pt said he sometimes has trouble getting all of urine out) Musculoskeletal: No: shoulder pain, back pain Neurological: Weakness; No: Change in speech, Confusion All Other Systems Reviewed All Other Systems Reviewed: Yes Objective Exam Vital Signs Vital Signs Date Time Temp Pulse Resp B/P (MAP) Pulse Ox O2 Delivery O2 Flow Rate FiO2 07/04/21 08:17 96 Room Air 07/04/21 08:00 36.7 63 20 115/60 (78) 96 Room Air 07/04/21 07:00 60 07/04/21 04:33 36.8 59 20 102/57 (72) 94 Room Air 07/04/21 01:00 58 07/03/21 23:55 36.6 63 18 108/55 (72) 93 Room Air 07/03/21 19:54 Room Air 07/03/21 19:29 36.4 75 18 154/68 (96) 98 Room Air 07/03/21 19:00 76 07/03/21 15:44 36.6 71 18 139/74 (95) 98 Room Air 07/03/21 13:55 68 07/03/21 11:41 35.6 71 16 114/55 (74) 97 Room Air I & O 07/04/21 06:59 Intake Total 1610 ml Balance 1610 ml General Appearance: No Apparent Distress, WD/WN Eyes: Bilateral Eye Normal Inspection, Bilateral Eye PERRL, Bilateral Eye EOMI HEENT: PERRL/EOMI, Pharynx Normal Neck: Full Range of Motion, Non Tender, Supple Respiratory: Chest Non Tender, Lungs Clear, Normal Breath Sounds, No Accessory Muscle Use, No Respiratory Distress Cardiovascular: Regular Rate, Rhythm, No Edema, Normal Peripheral Pulses Gastrointestinal: Normal Bowel Sounds, Non Tender, Soft; No Distended, No Guarding Rectal: Deferred Back: Normal Inspection, No Vertebral Tenderness Extremity: Normal Capillary Refill, Normal Range of Motion, Non Tender, No Calf Tenderness Neurologic/Psychiatric: Alert, Oriented x3, No Motor/Sensory Deficits, Normal Mood/Affect Skin: Normal Color, Warm/Dry Lymphatic: No Adenopathy Results Lab Laboratory Tests 07/03/21 09:45: Sodium Level 131L, Potassium Level 3.9, Chloride Level 102, Carbon Dioxide Level 18L, Anion Gap 11, Blood Urea Nitrogen 27H, Creatinine 1.75H, Estimat Glomerular Filtration Rate 38, BUN/Creatinine Ratio 15, Glucose Level 81, Calcium Level 8.1L, Corrected Calcium 9.2, Total Bilirubin 4.6H, Aspartate Amino Transf (AST/SGOT) 147H, Alanine Aminotransferase (ALT/SGPT) 395H, Alkaline Phosphatase 133, Total Protein 5.0L, Albumin 2.6L 07/04/21 05:20: Sodium Level 129L, Potassium Level 3.8, Chloride Level 102, Carbon Dioxide Level 18L, Anion Gap 9, Blood Urea Nitrogen 21H, Creatinine 1.43H, Estimat Glomerular Filtration Rate 47, BUN/Creatinine Ratio 15, Glucose Level 91, Calcium Level 7.9L, Corrected Calcium 9.2, Total Bilirubin 4.3H, Aspartate Amino Transf (AST/SGOT) 54H, Alanine Aminotransferase (ALT/SGPT) 248H, Alkaline Phosphatase 152H, Total Protein 4.7L, Albumin 2.4L, White Blood Count 5.4, Red Blood Count 3.93L, Hemoglobin 11.2L, Hematocrit 34L, Mean Corpuscular Volume 86, Mean Corpuscular Hemoglobin 29, Mean Corpuscular Hemoglobin Concent 33, Red Cell Distribution Width 15.5H, Platelet Count 33*L, Mean Platelet Volume , Percent Immature Platelet Fraction 15.9H, Magnesium Level 1.4L 07/04/21 06:20: Platelet Count 38*L Microbiology 07/01/21 Blood Culture - Preliminary, Resulted Klebsiella pneumoniae Testing In Progress 07/01/21 Urine Culture - Final, Complete NO GROWTH Assessment/Plan Assessment/Plan Admission Dx PANCREATITIS ACUTE ELEVATION OF LIVER ENZYMES RENAL CELL CARCINOMA CHRONIC MILD HYPONATREMIA MILD LEUKOCYTOSIS ELEVATED PROCALCITONIN ELEVATED CRP CHRONIC HYPERTENSION 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 - CONSULT TO SURGERY - DR. BUSTAMANTE - ANTICIPATE NO INTERVENTION, HOWEVER WOULD LIKE INPUT FROM SURGEON. - LFT'S IMPROVED - PT ON CLEAR LIQUIDS - WILL LIKELY ADVANCE DIET FURTHER TOMORROW PENDING HIS LABS. RENAL CELL CARCINOMA WITH CHRONIC PAIN FROM METASTATIC RENAL CELL CA - RESUMED HOME MEDS - PT ON IV FENTANYL PRN CHRONIC MILD HYPONATREMIA - RESTARTED ORAL SODIUM TABS URINARY TRACT INFECTION - KLEBSIELLA - STOPPED ZOSYN AND STARTED ON ROCEPHIN - PAST SENSITIVITIES SHOW SENSITIVE TO ROCEPHIN/AUGMENTIN/BACTRIM DS THROMBOCYTOPENIA - MAY BE DUE TO COMBINATION FROM SIDE EFFECT FROM ZOSYN AND HIS PALLIATIVE CHEMOTHERAPY/IMMUNOTHERAPY - STOPPED ZOSYN 07/04/2021 - MONITOR LABS. CHRONIC HYPERTENSION - CURRENTLY LOW BP -MONITOR PRESSURES, ONLY PARTIAL BP REGIMEN FROM HOME RESTARTED DUE TO HIS LOW BP. 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
[2021-07-04] MEDS ORDERED: ENOXAPARIN 40 MG/0.4 ML (LOVENOX) SYR SC SCH (09:00)
[2021-07-04] MEDS ORDERED: predniSONE 10 MG TAB PO SCH (09:00)
[2021-07-04] MEDS ORDERED: predniSONE 10 MG TAB PO ONE (09:00)
[2021-07-04] MEDS ORDERED: metroNIDAZOLE 500MG/100ML IVPB 100 ML IV SCH (09:00)
[2021-07-04] MEDS: cefTRIAXone 1,000 MG in WATER (STERILE) FOR INJECTION 10 ML IV SCH (09:35)
[2021-07-04] MEDS: PANTOPRAZOLE 40 MG (PROTONIX) TAB PO SCH (09:35)
[2021-07-04] MEDS: MAGNESIUM 1 GM/100 ML IVPB 100 ML IV SCH ×2 (09:35→11:09)
[2021-07-04] MEDS: meTOprolol TARTRATE 25 MG (LOPRESSOR) TABLET PO SCH ×2 (09:36→21:01)
[2021-07-04] MEDS: morphine ER 15 MG (MS CONTIN) TAB PO SCH ×2 (09:36→21:01)
[2021-07-04] MEDS: SENNA W/DOCUSATE (SENOKOT S) TABLET PO SCH (09:36)
[2021-07-04] MEDS: SODIUM CHLORIDE 1 GM TABLET PO SCH ×2 (09:42→21:01)
[2021-07-04 12:00] VITALS: BP 114/59
[2021-07-04] MEDS: metroNIDAZOLE 500 MG (FLAGYL) TAB PO SCH ×2 (13:00→21:01)
[2021-07-04 16:00] VITALS: BP 131/71
--- NOTE | 2021-07-04 17:27 | Progress Note ---
Progress Note Assessment/Plan Date Seen by Provider: Jul 04, 2021 Time Seen by Provider: 17:23 Events since last exam Plt dropped to 33 today. Pt has been on Zosyn antibiotics. It was changed to rocephine today. Will f/u CBC tomorrow. If Plt is getting lower, then treat it as ITP with high dose prednisone 60mg/day. If Plt is better, just watch and keep current prednisone dose and do a slower taper. Assessment/Plan Imp: 1. 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 Primary oncology Dr Mccallum 2. Fever, lethargic and CT showed possible pancreatitis and acutely elevated LFTS. Responded to IV antibiotics and IVF. 3. h/o Intractable low back pain due to metastatic disease. Status post palliative radiation to L4-S1 including left iliac completed 02/15/2021. 4. Previous history of left kidney mass, status post robotic assisted laparosco pic left nephrectomy at [facility] in 2019. Pathology report showing a WHO grade 4 tumor and was unclassified the pathology staging of T3a NX M0. 5. Recent restaging scans showed disease progression. Treatment with nivolumab plus cabozantinib recommended but were NOT actually started. 6. Patient has been on prednisone taper for immunetherapy related side effect. 7. Acutely drop of Plt, most likely due to Zosyn antibiotics which was stopped today and changed to Rocephin. Rec: 1. Hold off any cancer treatment 2. Continue prednisone taper as per Dr. Mccallum and [place] recommended. 3. Agree with antibiotics and IVF treatment as you are doing 4. Once he recovers from the fever and infection, he can see Dr. Mccallum to decide if and when to start the new treatment. Dr Mccallum will be back next week. Vitals Last set of Vitals Signs Vital Signs Date Time Temp Pulse Resp B/P (MAP) Pulse Ox O2 Delivery O2 Flow Rate FiO2 07/04/21 16:00 36.4 64 20 131/71 (91) 96 Room Air I&O I&O Intake and Output 07/04/21 00:00 Intake Total 810 ml Balance 810 ml Intake Oral 810 ml # Voids 10 # Bowel Movements 4 Labs Laboratory Tests 07/04/21 05:20: White Blood Count 5.4, Red Blood Count 3.93L, Hemoglobin 11.2L, Hematocrit 34L, Mean Corpuscular Volume 86, Mean Corpuscular Hemoglobin 29, Mean Corpuscular Hemoglobin Concent 33, Red Cell Distribution Width 15.5H, Platelet Count 33*L, Mean Platelet Volume , Percent Immature Platelet Fraction 15.9H, Sodium Level 129L, Potassium Level 3.8, Chloride Level 102, Carbon Dioxide Level 18L, Anion Gap 9, Blood Urea Nitrogen 21H, Creatinine 1.43H, Estimat Glomerular Filtration Rate 47, BUN/Creatinine Ratio 15, Glucose Level 91, Calcium Level 7.9L, Corrected Calcium 9.2, Magnesium Level 1.4L, Total Bilirubin 4.3H, Aspartate Amino Transf (AST/SGOT) 54H, Alanine Aminotransferase (ALT/SGPT) 248H, Alkaline Phosphatase 152H, Total Protein 4.7L, Albumin 2.4L 07/04/21 06:20: Platelet Count 38*L Microbiology 07/01/21 Blood Culture - Final, Complete Klebsiella pneumoniae 07/01/21 Urine Culture - Final, Complete NO GROWTH Focused Exam Lactate Level 07/02/21 10:45: Lactic Acid Level 2.07*H 07/02/21 14:10: Lactic Acid Level 2.25*H 07/02/21 16:12: Lactic Acid Level 1.76 Time of Focused Exam: 00:15 ROLAN IGNACIO MD Jul 04, 2021 17:27
[2021-07-04 19:43] VITALS: BP 110/54
[2021-07-04] MEDS: FINASTERIDE (PROSCAR) 5 MG TAB PO SCH (21:01)
[2021-07-04] MEDS: TAMSULOSIN 0.4 MG (FLOMAX) CAP PO SCH (21:01)
[2021-07-05] VITALS (7 sets, daily range): BP systolic 110–186; BP diastolic 53–87
[2021-07-05] MEDS: D5 NS W/KCL 20 MEQ/L 1,000 ML IV SCH ×3 (05:36→22:55)
[2021-07-05 05:49] LABS: HEMOGLOBIN 10.6 g/dL (13.3-17.7)
[2021-07-05 05:51] LABS: HEMATOCRIT 32 % (40-54); MEAN CORPUSCULAR HEMOGLOBIN 29 pg (25-34); MEAN CORPUSCULAR HGB CONC 34 g/dL (32-36); MEAN CORPUSCULAR VOLUME 86 fL (80-99); WHITE BLOOD COUNT 5.6 10^3/uL (4.3-11.0)
[2021-07-05 05:57] LABS: PLATELET COUNT 33 10^3/uL (130-400)
[2021-07-05 06:11] LABS: ALBUMIN 2.4 GM/DL (3.2-4.5)
[2021-07-05 06:12] LABS: CALCIUM 7.9 MG/DL (8.5-10.1)
[2021-07-05 06:14] LABS: TOTAL PROTEIN 4.7 GM/DL (6.4-8.2)
[2021-07-05 06:15] LABS: BILIRUBIN,TOTAL 3.4 MG/DL (0.1-1.0)
[2021-07-05 06:17] LABS: CREATININE SERUM 1.13 MG/DL (0.60-1.30)
[2021-07-05] MEDS ORDERED: predniSONE 5 MG TAB PO SCH (07:00)
[2021-07-05] MEDS: SODIUM CHLORIDE 1 GM TABLET PO SCH ×2 (08:11→21:19)
[2021-07-05] MEDS: PANTOPRAZOLE 40 MG (PROTONIX) TAB PO SCH (08:12)
[2021-07-05] MEDS: cefTRIAXone 1,000 MG in WATER (STERILE) FOR INJECTION 10 ML IV SCH (08:12)
[2021-07-05] MEDS: metroNIDAZOLE 500 MG (FLAGYL) TAB PO SCH ×3 (08:12→21:18)
[2021-07-05] MEDS: meTOprolol TARTRATE 25 MG (LOPRESSOR) TABLET PO SCH ×2 (08:12→21:19)
[2021-07-05] MEDS: morphine ER 15 MG (MS CONTIN) TAB PO SCH ×2 (08:12→21:18)
--- NOTE | 2021-07-05 08:55 | Progress Note ---
Subjective Subjective Date Seen by Provider: Jul 05, 2021 Time Seen by Provider: 08:50 PT IS AN 81 Y/O MALE WHO IS KNOWN TO ME FROM CLINIC. HE PRESENTED TO THE HOSPITAL WITH WEAKNESS, CONFUSION, ABDOMINAL DISCOMFORT. HE WAS FOUND TO HAVE ACUTE PANCREATITIS AND ADMITTED TO THE HOSPITAL FOR IV ANTIBIOTICS AND FLUIDS. TODAY GABY STATES THAT HE IS FEELING "OKAY" - HE STILL HAS SOME MILD ABDOMINAL PAIN. HE IS FEELING BETTER SINCE GETTING TO EAT A LITTLE. Review of Systems General: No Chills, No Night Sweats; Fatigue (IMPROVED) HEENT: No Head Aches, No Dysphasia Pulmonary: No Dyspnea, No Cough Cardiovascular: No: Chest Pain Gastrointestinal: Abdominal Pain (RUMBLING STOMACH); No: Nausea, Vomiting, Sadia rrhea Genitourinary: Dysuria (Pt said he sometimes has trouble getting all of urine out) Musculoskeletal: No: shoulder pain, back pain Neurological: Weakness; No: Change in speech, Confusion All Other Systems Reviewed All Other Systems Reviewed: Yes Objective Exam Vital Signs Vital Signs Date Time Temp Pulse Resp B/P (MAP) Pulse Ox O2 Delivery O2 Flow Rate FiO2 07/05/21 08:00 36.6 83 15 111/58 (75) 96 Room Air 07/05/21 07:00 65 07/05/21 03:41 36.2 60 18 119/55 (76) 95 Room Air 07/05/21 01:00 54 07/05/21 00:00 36.0 55 18 145/64 (91) 97 Room Air 07/04/21 20:02 Room Air 07/04/21 19:43 36.1 59 18 110/54 (72) 96 Room Air 07/04/21 19:00 62 07/04/21 16:00 36.4 64 20 131/71 (91) 96 Room Air 07/04/21 12:42 60 07/04/21 12:00 36.8 59 20 114/59 (77) 98 Room Air I & O0 07/05/21 07:00 Intake Total 3110 ml Output Total 300 ml Balance 2810 ml General Appearance: No Apparent Distress, WD/WN Eyes: Bilateral Eye Normal Inspection, Bilateral Eye PERRL, Bilateral Eye EOMI HEENT: PERRL/EOMI, Pharynx Normal Neck: Full Range of Motion, Non Tender, Supple Respiratory: Chest Non Tender, Lungs Clear, Normal Breath Sounds, No Accessory Muscle Use, No Respiratory Distress Cardiovascular: Regular Rate, Rhythm, No Edema, Normal Peripheral Pulses Gastrointestinal: Normal Bowel Sounds, Non Tender, Soft; No Distended, No Guarding Rectal: Deferred Back: Normal Inspection, No Vertebral Tenderness Extremity: Normal Capillary Refill, Normal Range of Motion, Non Tender, No Calf Tenderness Neurologic/Psychiatric: Alert, Oriented x3, No Motor/Sensory Deficits, Normal Mood/Affect Skin: Normal Color, Warm/Dry Lymphatic: No Adenopathy Results Lab Laboratory Tests 07/05/21 05:43: White Blood Count 5.6, Red Blood Count 3.68L, Hemoglobin 10.6L, Hematocrit 32L, Mean Corpuscular Volume 86, Mean Corpuscular Hemoglobin 29, Mean Corpuscular Hemoglobin Concent 34, Red Cell Distribution Width 15.5H, Platelet Count 33*L, Mean Platelet Volume , Percent Immature Platelet Fraction 18.4H, Sodium Level 130L, Potassium Level 4.0, Chloride Level 104, Carbon Dioxide Level 18L, Anion Gap 8, Blood Urea Nitrogen 16, Creatinine 1.13, Estimat Glomerular Filtration Rate 62, BUN/Creatinine Ratio 14, Glucose Level 88, Calcium Level 7.9L, Corrected Calcium 9.2, Total Bilirubin 3.4H, Aspartate Amino Transf (AST/SGOT) 23, Alanine Aminotransferase (ALT/SGPT) 159H, Alkaline Phosphatase 173H, Total Protein 4.7L, Albumin 2.4L Microbiology 07/01/21 Blood Culture - Final, Complete Klebsiella pneumoniae 07/01/21 Urine Culture - Final, Complete NO GROWTH Assessment/Plan Assessment/Plan Admission Dx PANCREATITIS ACUTE ELEVATION OF LIVER ENZYMES RENAL CELL CARCINOMA CHRONIC MILD HYPONATREMIA MILD LEUKOCYTOSIS ELEVATED PROCALCITONIN ELEVATED CRP CHRONIC HYPERTENSION 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 - CONSULT TO SURGERY - DR. BUSTAMANTE - ANTICIPATE NO INTERVENTION, HOWEVER WOULD LIKE INPUT FROM SURGEON. - LFT'S IMPROVED - PT WAS ON CLEAR LIQUIDS - WILL ADVANCE DIET FURTHER TO BLAND DIET AND MONITOR TOMORROW'S LABS. RENAL CELL CARCINOMA WITH CHRONIC PAIN FROM METASTATIC RENAL CELL CA - RESUMED HOME MEDS - PT ON IV FENTANYL PRN SEPSIS DUE TO PANCREATITIS CHRONIC MILD HYPONATREMIA - RESTARTED ORAL SODIUM TABS URINARY TRACT INFECTION - KLEBSIELLA - STOPPED ZOSYN AND STARTED ON ROCEPHIN - PAST SENSITIVITIES SHOW SENSITIVE TO ROCEPHIN/AUGMENTIN/BACTRIM DS THROMBOCYTOPENIA - MAY BE DUE TO COMBINATION FROM SIDE EFFECT FROM ZOSYN AND HIS PALLIATIVE CHEMOTHERAPY/IMMUNOTHERAPY - STOPPED ZOSYN 07/04/2021 - MONITOR LABS. CHRONIC HYPERTENSION - CURRENTLY LOW BP -MONITOR PRESSURES, ONLY PARTIAL BP REGIMEN FROM HOME RESTARTED DUE TO HIS LOW BP. 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
[2021-07-05] MEDS: SENNA W/DOCUSATE (SENOKOT S) TABLET PO SCH (09:08)
--- NOTE | 2021-07-05 10:13 | Progress Note ---
Progress Note Assessment/Plan Date Seen by Provider: Jul 05, 2021 Time Seen by Provider: 10:09 Events since last exam Plt was 33, then 38 and now 33 again. Day 2 off Zosyn. He is on Rocephin. He is on prednisone taper at 5mg daily for rash from immunotherapy. Pt is doing much better overall. Will change prednisone back to 40mg a day for next 3 days in hope to bring up the Plts. He needs to be re-evaluate the Plt and set up new taper schedule. Assessment/Plan Imp: 1. 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 Primary oncology Dr Mccallum 2. Fever, lethargic and CT showed possible pancreatitis and acutely elevated LFTS. Responded to IV antibiotics and IVF. 3. h/o Intractable low back pain due to metastatic disease. Status post palliative radiation to L4-S1 including left iliac completed 02/15/2021. 4. Previous history of left kidney mass, status post robotic assisted laparoscopic left nephrectomy at [facility] in 2019. Pathology report showing a WHO grade 4 tumor and was unclassified the pathology staging of T3a NX M0. 5. Recent restaging scans showed disease progression. Treatment with nivolumab plus cabozantinib recommended but were NOT actually started. 6. Patient has been on prednisone taper for immunetherapy related side effect. 7. Acutely drop of Plt, most likely due to Zosyn antibiotics which was stopped today and changed to Rocephin. Rec: 1. Hold off any cancer treatment 2. Increase prednisone to 40mg daily for 3-4 days for the reason of thr ombocytopenia and then re-taper. 3. Agree with antibiotics and IVF treatment as you are doing 4. Once he recovers from the fever and infection, he can see Dr. Mccallum to decide if and when to start the new treatment. Dr Mccallum will be back next week. 5. Dr. Bravo to decide the discharge plan. Vitals Last set of Vitals Signs Vital Signs Date Time Temp Pulse Resp B/P (MAP) Pulse Ox O2 Delivery O2 Flow Rate FiO2 07/05/21 08:00 Room Air 07/05/21 08:00 36.6 83 15 111/58 (75) 96 I&O I&O Intake and Output 07/05/21 00:00 Intake Total 3610 ml Output Total 300 ml Balance 3310 ml Intake Oral 2180 ml IV Total 1430 ml Output Urine Total 300 ml # Voids 8 # Bowel Movements 2 Labs Laboratory Tests 07/05/21 05:43: White Blood Count 5.6, Red Blood Count 3.68L, Hemoglobin 10.6L, Hematocrit 32L, Mean Corpuscular Volume 86, Mean Corpuscular Hemoglobin 29, Mean Corpuscular Hemoglobin Concent 34, Red Cell Distribution Width 15.5H, Platelet Count 33*L, Mean Platelet Volume , Percent Immature Platelet Fraction 18.4H, Sodium Level 130L, Potassium Level 4.0, Chloride Level 104, Carbon Dioxide Level 18L, Anion Gap 8, Blood Urea Nitrogen 16, Creatinine 1.13, Estimat Glomerular Filtration Rate 62, BUN/Creatinine Ratio 14, Glucose Level 88, Calcium Level 7.9L, Corrected Calcium 9.2, Total Bilirubin 3.4H, Aspartate Amino Transf (AST/SGOT) 23, Alanine Aminotransferase (ALT/SGPT) 159H, Alkaline Phosphatase 173H, Total Protein 4.7L, Albumin 2.4L Microbiology 07/01/21 Blood Culture - Final, Complete Klebsiella pneumoniae 07/01/21 Urine Culture - Final, Complete NO GROWTH Focused Exam Lactate Level 07/02/21 10:45: Lactic Acid Level 2.07*H 07/02/21 14:10: Lactic Acid Level 2.25*H 07/02/21 16:12: Lactic Acid Level 1.76 Time of Focused Exam: 00:15 ROLAN IGNACIO MD Jul 05, 2021 10:13
[2021-07-05] MEDS ORDERED: predniSONE 20 MG TAB PO NR (10:30)
[2021-07-05] MEDS: FINASTERIDE (PROSCAR) 5 MG TAB PO SCH (21:18)
[2021-07-05] MEDS: TAMSULOSIN 0.4 MG (FLOMAX) CAP PO SCH (21:18)
[2021-07-06 03:41] VITALS: BP 128/68
[2021-07-06 06:29] LABS: HEMATOCRIT 31 % (40-54); HEMOGLOBIN 10.6 g/dL (13.3-17.7); MEAN CORPUSCULAR HEMOGLOBIN 29 pg (25-34); MEAN CORPUSCULAR HGB CONC 34 g/dL (32-36); MEAN CORPUSCULAR VOLUME 85 fL (80-99); PLATELET COUNT 41 10^3/uL (130-400); WHITE BLOOD COUNT 4.5 10^3/uL (4.3-11.0)
[2021-07-06 06:38] LABS: ALBUMIN 2.4 GM/DL (3.2-4.5)
[2021-07-06 06:39] LABS: POTASSIUM 4.2 MMOL/L (3.6-5.0)
[2021-07-06 06:40] LABS: CALCIUM 7.5 MG/DL (8.5-10.1)
[2021-07-06 06:41] LABS: TOTAL PROTEIN 4.6 GM/DL (6.4-8.2)
[2021-07-06 06:43] LABS: BILIRUBIN,TOTAL 2.3 MG/DL (0.1-1.0)
[2021-07-06 06:45] LABS: CREATININE SERUM 0.96 MG/DL (0.60-1.30)
[2021-07-06] MEDS ORDERED: predniSONE 20 MG TAB PO SCH (07:00)
[2021-07-06 08:09] VITALS: BP 138/71
[2021-07-06] MEDS: meTOprolol TARTRATE 25 MG (LOPRESSOR) TABLET PO SCH (09:01)
[2021-07-06] MEDS: metroNIDAZOLE 500 MG (FLAGYL) TAB PO SCH (09:01)
[2021-07-06] MEDS: morphine ER 15 MG (MS CONTIN) TAB PO SCH (09:01)
[2021-07-06] MEDS: SENNA W/DOCUSATE (SENOKOT S) TABLET PO SCH (09:01)
[2021-07-06] MEDS: PANTOPRAZOLE 40 MG (PROTONIX) TAB PO SCH (09:01)
[2021-07-06] MEDS: cefTRIAXone 1,000 MG in WATER (STERILE) FOR INJECTION 10 ML IV SCH (09:02)
[2021-07-06] MEDS: SODIUM CHLORIDE 1 GM TABLET PO SCH (09:02)
[2021-07-06] MEDS: D5 NS W/KCL 20 MEQ/L 1,000 ML IV SCH (09:12)
--- NOTE | 2021-07-06 09:32 | Discharge Summary ---
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 HE PRESENTED TO THE HOSPITAL WITH CONFUSION, WEAKNESS AND WAS FOUND TO HAVE ELEVATED LIVER ENZYMES WITH SHADOW AT HIS PANCREAS ON THE CT OF THE ABDOMEN/PELVIS - CONCERNING FOR MASS VERSUS INFECTION. HE WAS ADMITTED FOR STABILIZATION, FLUIDS, AND MONITORING OF HIS LABS. Discharge Summary Discharge Physical Examination Allergies: Coded Allergies: No Known Drug Allergies (Verified , 05/01/21) Vitals & I&Os General Appearance: Alert, Oriented X3, Cooperative, No Acute Distress HEENT: Atraumatic, PERRLA, Mucous Memb Moist/[place] 1 Respiratory: Clear to Auscultation, Normal Air Movement Cardiovascular: Regular Rate Abdominal: Normal Bowel Sounds, Soft, No Tenderness Extremities: No Clubbing, No Cyanosis Skin: No Rashes, No Breakdown Neuro: Normal Speech, Cranial Nerves 3-12 NL Psych/Mental Status: Mental Status NL, Mood NL Hospital Course PANCREATITIS ACUTE ELEVATION OF LIVER ENZYMES RENAL CELL CARCINOMA SEPSIS CHRONIC MILD HYPONATREMIA MILD LEUKOCYTOSIS ELEVATED PROCALCITONIN ELEVATED CRP CHRONIC HYPERTENSION 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 - CONSULT TO SURGERY - DR. BUSTAMANTE - ANTICIPATE NO INTERVENTION, HOWEVER WOULD LIKE INPUT FROM SURGEON. - LFT'S IMPROVED - PT WAS ON CLEAR LIQUIDS - ADVANCED DIET FURTHER TO BLAND DIET AND HE TOLERATED THE DIET CHANGE WITHOUT ISSUE, PT TO BE DC'D ON BLAND DIET FOR SEVERAL MORE DAYS. RENAL CELL CARCINOMA WITH CHRONIC PAIN FROM METASTATIC RENAL CELL CA - RESUMED HOME MEDS - PT ON IV FENTANYL PRN SEPSIS DUE TO PANCREATITIS CHRONIC MILD HYPONATREMIA - RESTARTED ORAL SODIUM TABS URINARY TRACT INFECTION - KLEBSIELLA - STOPPED ZOSYN AND STARTED ON ROCEPHIN - PAST SENSITIVITIES SHOW SENSITIVE TO ROCEPHIN/AUGMENTIN/BACTRIM DS THROMBOCYTOPENIA - MAY BE DUE TO COMBINATION FROM SIDE EFFECT FROM ZOSYN AND HIS PALLIATIVE CHEMOTHERAPY/IMMUNOTHERAPY - STOPPED ZOSYN 07/04/2021 - MONITOR LABS. CHRONIC HYPERTENSION - CURRENTLY LOW BP -MONITOR PRESSURES, ONLY PARTIAL BP REGIMEN FROM HOME RESTARTED DUE TO HIS LOW BP. DVT PROPHYLAXIS WITH SCD'S AND WILL NOT GIVE LOVENOX DUE TO LOW PLT LEVELS GI PROPHYLAXIS WITH PROTONIX ADMISSION CT SCANS FOLLOWS: CT ABDOMEN/PELVIS WO PROCEDURE: CT abdomen and pelvis without contrast. INDICATION: Recent diverticulitis The CT abdomen/pelvis exam of 06/22/2021 suggested mild diverticulitis of the sigmoid colon. On this study, there are still numerous diverticula involving the sigmoid and descending colon. However, there is no clear evidence for acute diverticulitis. There is no mass or abscess identified either. The appendix is not well-visualized but there are no indirect signs of acute appendicitis. The urinary bladder and prostate gland are grossly unremarkable. The fat-containing inguinal hernia on the left is again evident. There is a portion of the sigmoid colon which is in close proximity to the hernia but there is no incarceration or obstruction of the colon by the hernia. There is very slight distortion of the mesenteric fat interposed between the stomach and the body of the pancreas. This could be secondary to mild edema/inflammation secondary to pancreatitis although the pancreas does not appear to be enlarged. Correlation with the patient's pancreatic enzymes would be recommended. The sclerotic osseous lesions seen previously are again evident and no different. The compression deformity of L5 seen on the prior study does not appear to have changed significantly either. There is no acute abnormality identified. There are still a few faint patchy alveolar/interstitial infiltrates involving the lungs. IMPRESSION: 1. There is diverticulosis of the sigmoid and descending colon but there is no clear evidence for acute diverticulitis. Clinical follow-up is recommended. 2. The slight distortion of the mesenteric fat between the body of the pancreas and the stomach does suggest mild edema/inflammation and the possibility of pancreatitis should be considered. Recommendations as above. 3. There is no acute abnormality of the abdomen or pelvis noted otherwise. Pending Labs Discharge Condition at discharge IMPROVED Instructions to patient/family Please see electronic discharge instructions given to patient. Discharge Medications Reviewed and agree with Discharge Medication list on patient's Discharge Instruction sheet KALI ORO MD Jul 06, 2021 09:32
[2021-07-06] MEDS ORDERED: METR-145 PO (09:36)
[2021-07-06] MEDS ORDERED: AMLO-251 PO (09:36)
[2021-07-06] MEDS ORDERED: AMOX-358 PO (09:36)
[2021-07-06] MEDS ORDERED: TRIM100T PO (09:38)
--- NOTE | 2021-07-06 09:46 | Discharge Inst-Simple/Standard ---
Discharge Inst-Standard Reconcile Patient Problems Problems Reviewed?: Yes Discharge Medications New, Converted or Re-Newed RX: Transmitted to Pharmacy Patient Instructions/Follow Up Plan of Care/Instructions/FU: 1 WK FOLLOW UP [facility] 1 WK WITH [facility] Activity as Tolerated: Yes Discharge Diet: Regular Diet Health Concerns: HYPONATREMIA, PANCREATITIS, ANEMIA, THROMBOCYTOPENIA Return to The Hospital For: ANY CONCERN FOR ACUTE BLEEDING THAT WILL NOT STOP AFTER 5 MINUTES OF PRESSURE, RECURRENT URINARY TRACT INFECTION SYMPTOMS, CONFUSION, WEAKNESS OR OTHER LIFETHREATENING ILLNESS OR INJURY Other Inst to Patient DR. ORO LEFT DR. BOYD A MESSAGE ABOUT THE PLAN TO HAVE YOU ON AUGMENTIN X 5 DAYS, FLAGYL X 5 DAYS AND THEN FOR YOU TO START ON PREVENTATIVE ANTIBIOTIC - TRIMETHOPRIM 100MG DAILY - RX FOR THE ANTIBIOTICS HAVE BEEN SENT TO YOUR PHARMACY - [facility] Medication List: Active Scripts Active Trimethoprim 100 Mg Tablet 100 Mg PO DAILY START THE TRIMETHOPRIM THE DAY AFTER STOPPING AUGMENTIN Augmentin 875-125 Tablet (Amoxicillin/Potassium Clav) 1 Each Tablet 1 Each PO BID X 5 DAYS Metronidazole 500 Mg Tablet 500 Mg PO TID X 5 DAYS Amlodipine Besylate 10 Mg Tablet 10 Mg PO DAILY HOLD IF SBP IS LESS THAN 120 Reported Florajen Acidophilus (Lactobacillus Acidophilus) 1 Each Capsule 1 Each PO DAILY Marie Allergy (Fexofenadine HCl) 180 Mg Tablet 180 Mg PO DAILY PRN Diclofenac Sodium 100 Gm Gel..gram. 100 Gm TP DAILY PRN Gas-X Ultra Strength (Simethicone) 180 Mg Capsule 180-360 Mg PO UD PRN Tylenol Extra Strength (Acetaminophen) 500 Mg Tablet 500-1,000 Mg PO Q8H PRN Morphine Sulfate ER (Morphine Sulfate) 15 Mg Tablet.er 15 Mg PO Q12H Ondansetron HCl 8 Mg Tablet 8 Mg PO Q8H PRN Senna S Tablet (Sennosides/Docusate Sodium) 1 Each Tablet 2 Each PO DAILY Miralax (Polyethylene Glycol 3350) 17 Gm Powd.pack 17 Gm PO HS Finasteride 5 Mg Tablet 5 Mg PO HS Sodium Chloride 1 Gm Tab 1 Gm PO BID Flomax (Tamsulosin HCl) 0.4 Mg Cap 0.4 Mg PO HS Metoprolol Tartrate 25 Mg Tablet 12.5 Mg PO BID TAKES OF A (25MG) TABLET Lab results: Laboratory Tests Test 07/06/21 06:20 Range/Units White Blood Count 4.5 4.3-11.0 10^3/uL Red Blood Count 3.69 L 4.30-5.52 10^6/uL Hemoglobin 10.6 L 13.3-17.7 g/dL Hematocrit 31 L 40-54 % Mean Corpuscular Volume 85 80-99 fL Mean Corpuscular Hemoglobin 29 25-34 pg Mean Corpuscular Hemoglobin Concent 34 32-36 g/dL Red Cell Distribution Width 15.5 H 10.0-14.5 % Platelet Count 41 L 130-400 10^3/uL Mean Platelet Volume 9.0-12.2 fL Sodium Level 131 L 135-145 MMOL/L Potassium Level 4.2 3.6-5.0 MMOL/L Chloride Level 105 98-107 MMOL/L Carbon Dioxide Level 18 L 21-32 MMOL/L Anion Gap 8 5-14 MMOL/L Blood Urea Nitrogen 17 7-18 MG/DL Creatinine 0.96 0.60-1.30 MG/DL Estimat Glomerular Filtration Rate 75 BUN/Creatinine Ratio 18 Glucose Level 133 H 70-105 MG/DL Calcium Level 7.5 L 8.5-10.1 MG/DL Corrected Calcium 8.8 8.5-10.1 MG/DL Total Bilirubin 2.3 H 0.1-1.0 MG/DL Aspartate Amino Transf (AST/SGOT) 14 5-34 U/L Alanine Aminotransferase (ALT/SGPT) 106 H 0-55 U/L Alkaline Phosphatase 225 H 40-136 U/L Total Protein 4.6 L 6.4-8.2 GM/DL Albumin 2.4 L 3.2-4.5 GM/DL KALI ORO MD Jul 06, 2021 09:46
[2021-07-06] MEDS ORDERED: FLU QUAD HIGH DOSE 240 MCG/0.7 ML 2021-22 (FLUZONE) IM ONE (10:30)
--- NOTE | 2021-07-09 05:07 | Physician Query Clarification ---
PQ-Uncertain Diagnosis Admission/Discharge Admission Date: Jul 02, 2021 at 00:30 Discharge Date: Jul 06, 2021 at 10:35 KALI Hernandez MD The medical record reflects the following clinical scenario: History/Risk Factors: 81 y/o male patient admitted with pancreatitis, sepsis was documented in medical record. Clinical Findings: HR 84 increased to 97, RR 20, BP 135/63, SpO2 97% sat on room air T 37.4, WBC 8.2 increased to 11.1 Lactic acid 2.48 Treatment: 2L NS, and 1L LR in first 4 hours, Zosyn IV. Question: Is Sepsis a clinically valid diagnosis? Sepsis was documented in the ER provider notes, 07/01 with no further documentation in the medical record. Please document a response in Progress Note or Discharge Summary. 1. Yes, clinically valid, condition resolved. 2. No, condition ruled out. 3. Other, with explanation of clinical findings. 4. Undetermined, no explanation for clinical findings. PHYSICIAN RESPONSE Diagnosis clinically valid: Yes, Conditon resolved Please remember a lack of response to the above will prompt a phone page by [facility]/Coding staff. In responding to this query, please exercise your independent professional judgment. The purpose of this communication is to more accurately reflect the complexity of your patients condition. The fact that a question is asked does not imply that any particular answer is desired or expected. Thank you for your timely response to this clarification. Requestors name: [ ] Phone # [ ] THIS PHYSICIAN QUERY FORM IS A PERMANENT PART OF THE MEDICAL RECORD MASON SEGOVIA Jul 09, 2021 05:07 KALI ORO MD Jul 25, 2021 13:00
== END 2021-07-06 10:35 | disposition home or self-care (01) | DRG 438 ==
LOC: EDUNIT# 20:53 → ER 20:54 → 4TH 07-02 00:30
PROVIDERS: ADMIT Family Medicine; ATTEND Family Medicine
DX: K85.90 Acute pancreatitis without necrosis or infection, unspecified (principal); A41.9 Sepsis, unspecified organism; E87.1 Hypo-osmolality and hyponatremia; N39.0 Urinary tract infection, site not specified; K40.30 Unilateral inguinal hernia, with obstruction, without gangrene, not specified as recurrent; C79.51 Secondary malignant neoplasm of bone; E78.00 Pure hypercholesterolemia, unspecified; I10 Essential (primary) hypertension; Z20.822 Contact with and (suspected) exposure to COVID-19; N40.0 Benign prostatic hyperplasia without lower urinary tract symptoms; K21.9 Gastro-esophageal reflux disease without esophagitis; D72.829 Elevated white blood cell count, unspecified; K57.90 Diverticulosis of intestine, part unspecified, without perforation or abscess without bleeding; G89.29 Other chronic pain; D69.6 Thrombocytopenia, unspecified; N28.9 Disorder of kidney and ureter, unspecified; E83.42 Hypomagnesemia; K40.90 Unilateral inguinal hernia, without obstruction or gangrene, not specified as recurrent; R79.82 Elevated C-reactive protein (CRP); M19.91 Primary osteoarthritis, unspecified site; B96.1 Klebsiella pneumoniae [K. pneumoniae] as the cause of diseases classified elsewhere; Z85.528 Personal history of other malignant neoplasm of kidney; Z87.891 Personal history of nicotine dependence; Z90.5 Acquired absence of kidney; Z92.21 Personal history of antineoplastic chemotherapy; K40.20 Bilateral inguinal hernia, without obstruction or gangrene, not specified as recurrent; Z82.49 Family history of ischemic heart disease and other diseases of the circulatory system
CPT/HCPCS: 36415; 71045; 74176; 76700; 80048; 80053; 81000; 82140; 82150; 82248; 83605; 83615; 83690; 83735; 84145; 85007; 85025; 85027; 85049; 85610; 85730; 86141; 87040; 87077; 87088; 87186; 87636; 87804; 93005; 96374

== ENCOUNTER 2021-07-12 14:44 | Outpatient (RCR) | payer MEDICARE, OTHER ==
[2021-05-17 09:32] LABS: BASOPHILS # (AUTO) 0.1 10^3/uL (0.0-0.1); BASOPHILS % (AUTO) 1 % (0-10); EOSINOPHILS # (AUTO) 0.2 10^3/uL (0.0-0.3); EOSINOPHILS % (AUTO) 3 % (0-10); HEMATOCRIT 36 % (40-54); HEMOGLOBIN 11.4 g/dL (13.3-17.7); LYMPHOCYTES # (AUTO) 1.3 10^3/uL (1.0-4.0); LYMPHOCYTES % (AUTO) 21 % (12-44); MEAN CORPUSCULAR HEMOGLOBIN 28 pg (25-34); MEAN CORPUSCULAR HGB CONC 32 g/dL (32-36); MEAN CORPUSCULAR VOLUME 89 fL (80-99); MEAN PLATELET VOLUME 10.6 fL (9.0-12.2); MONOCYTES # (AUTO) 0.7 10^3/uL (0.0-1.0); MONOCYTES % (AUTO) 11 % (0-12); NEUTROPHILS # (AUTO) 3.8 10^3/uL (1.8-7.8); NEUTROPHILS % (AUTO) 63 % (42-75); PLATELET COUNT 155 10^3/uL (130-400)
[2021-05-17 09:49] LABS: ALBUMIN 3.2 GM/DL (3.2-4.5); BILIRUBIN,TOTAL 0.5 MG/DL (0.1-1.0); CALCIUM 8.4 MG/DL (8.5-10.1); CREATININE SERUM 1.22 MG/DL (0.60-1.30); POTASSIUM 3.9 MMOL/L (3.6-5.0)
[2021-06-07 10:57] LABS: HEMOGLOBIN 11.9 g/dL (13.3-17.7)
[2021-06-07 10:59] LABS: BASOPHILS # (AUTO) 0.1 10^3/uL (0.0-0.1); BASOPHILS % (AUTO) 1 % (0-10); EOSINOPHILS # (AUTO) 0.3 10^3/uL (0.0-0.3); EOSINOPHILS % (AUTO) 4 % (0-10); HEMATOCRIT 38 % (40-54); LYMPHOCYTES # (AUTO) 0.9 10^3/uL (1.0-4.0); LYMPHOCYTES % (AUTO) 16 % (12-44); MEAN CORPUSCULAR HEMOGLOBIN 29 pg (25-34); MEAN CORPUSCULAR HGB CONC 32 g/dL (32-36); MEAN CORPUSCULAR VOLUME 90 fL (80-99); MONOCYTES # (AUTO) 0.7 10^3/uL (0.0-1.0); MONOCYTES % (AUTO) 12 % (0-12); NEUTROPHILS # (AUTO) 3.9 10^3/uL (1.8-7.8); NEUTROPHILS % (AUTO) 67 % (42-75); PLATELET COUNT 115 10^3/uL (130-400); WHITE BLOOD COUNT 5.8 10^3/uL (4.3-11.0)
[2021-06-07 11:35] LABS: ALBUMIN 3.4 GM/DL (3.2-4.5); BILIRUBIN,TOTAL 0.6 MG/DL (0.1-1.0); CALCIUM 9.1 MG/DL (8.5-10.1); CREATININE SERUM 1.68 MG/DL (0.60-1.30); TOTAL PROTEIN 6.2 GM/DL (6.4-8.2)
[~2021-07-12 14:44] MED LIST changes: +FEXO180T84 PO; +IPILIMUMAB IV SCH; +LACT460C PO; +NIVOLUMAB 240 MG in NS (IVPB) CANCER CENTER 100 ML IV SCH; +NS IV 1000 ML (CANCER CTR) IV SCH; +NS IV SCH; +ONDA-106 PO; -ONDA8TAB15 PO; +PRD10T PO; +TRIM100T PO
[2021-07-12 14:59] LABS: BASOPHILS % (AUTO) 1 % (0-10); EOSINOPHILS # (AUTO) 0.1 10^3/uL (0.0-0.3); EOSINOPHILS % (AUTO) 1 % (0-10)
[2021-07-12 15:01] LABS: HEMATOCRIT 34 % (40-54); LYMPHOCYTES # (AUTO) 1.2 10^3/uL (1.0-4.0); LYMPHOCYTES % (AUTO) 15 % (12-44); MEAN CORPUSCULAR HEMOGLOBIN 29 pg (25-34); MEAN CORPUSCULAR HGB CONC 33 g/dL (32-36); MEAN CORPUSCULAR VOLUME 88 fL (80-99); MONOCYTES # (AUTO) 0.8 10^3/uL (0.0-1.0); MONOCYTES % (AUTO) 10 % (0-12); NEUTROPHILS # (AUTO) 5.6 10^3/uL (1.8-7.8); NEUTROPHILS % (AUTO) 72 % (42-75); PLATELET COUNT 110 10^3/uL (130-400); WHITE BLOOD COUNT 7.7 10^3/uL (4.3-11.0)
[2021-07-12 15:17] LABS: ALBUMIN 2.9 GM/DL (3.2-4.5); BILIRUBIN,TOTAL 1.3 MG/DL (0.1-1.0); CALCIUM 8.4 MG/DL (8.5-10.1); CREATININE SERUM 1.25 MG/DL (0.60-1.30); POTASSIUM 4.3 MMOL/L (3.6-5.0); TOTAL PROTEIN 5.9 GM/DL (6.4-8.2)
== END 2021-08-08 | disposition home or self-care (01) ==
LOC: ONC 14:44
PROVIDERS: ATTEND Internal Medicine Hematology & Oncology
DX: Z51.11 Encounter for antineoplastic chemotherapy (principal); C64.9 Malignant neoplasm of unspecified kidney, except renal pelvis; C79.51 Secondary malignant neoplasm of bone; I10 Essential (primary) hypertension; K21.9 Gastro-esophageal reflux disease without esophagitis; Z90.5 Acquired absence of kidney; Z92.3 Personal history of irradiation
CPT/HCPCS: 36591; 71260; 74178; 78306; 80053; 83615; 84443; 85025; 96360; 96413; 96417; 99213

== ENCOUNTER 2021-08-15 10:00 | Outpatient (RCR) | payer MEDICARE, OTHER ==
[~2021-08-15 10:00] MED LIST changes: -IPILIMUMAB IV SCH; -NIVOLUMAB 240 MG in NS (IVPB) CANCER CENTER 100 ML IV SCH; -NS IV 1000 ML (CANCER CTR) IV SCH; -NS IV SCH
[2021-08-15 10:09] LABS: BASOPHILS # (AUTO) 0.1 10^3/uL (0.0-0.1); BASOPHILS % (AUTO) 1 % (0-10); EOSINOPHILS # (AUTO) 0.5 10^3/uL (0.0-0.3); EOSINOPHILS % (AUTO) 6 % (0-10); HEMATOCRIT 38 % (40-54); HEMOGLOBIN 12.1 g/dL (13.3-17.7); LYMPHOCYTES # (AUTO) 1.8 10^3/uL (1.0-4.0); LYMPHOCYTES % (AUTO) 25 % (12-44); MEAN CORPUSCULAR HEMOGLOBIN 29 pg (25-34); MEAN CORPUSCULAR HGB CONC 32 g/dL (32-36); MEAN CORPUSCULAR VOLUME 91 fL (80-99); MEAN PLATELET VOLUME 11.5 fL (9.0-12.2); MONOCYTES # (AUTO) 0.8 10^3/uL (0.0-1.0); MONOCYTES % (AUTO) 11 % (0-12); NEUTROPHILS # (AUTO) 4.3 10^3/uL (1.8-7.8); NEUTROPHILS % (AUTO) 58 % (42-75); PLATELET COUNT 102 10^3/uL (130-400); WHITE BLOOD COUNT 7.4 10^3/uL (4.3-11.0)
[2021-08-15 10:29] LABS: ALBUMIN 3.6 GM/DL (3.2-4.5); BILIRUBIN,TOTAL 0.8 MG/DL (0.1-1.0); CALCIUM 9.1 MG/DL (8.5-10.1); CREATININE SERUM 1.59 MG/DL (0.60-1.30); TOTAL PROTEIN 6.5 GM/DL (6.4-8.2)
== END 2021-09-07 | disposition home or self-care (01) ==
LOC: ONC 10:00
PROVIDERS: ATTEND Internal Medicine Hematology & Oncology
DX: C64.9 Malignant neoplasm of unspecified kidney, except renal pelvis (principal); C79.51 Secondary malignant neoplasm of bone; I10 Essential (primary) hypertension; K21.9 Gastro-esophageal reflux disease without esophagitis; Z90.5 Acquired absence of kidney; Z92.3 Personal history of irradiation
CPT/HCPCS: 80053; 83615; 85025; G0463; 99213

== ENCOUNTER → 2021-09-10 | Outpatient (CLI) | payer MEDICARE, OTHER ==
[~2021-09-10] MED LIST changes: +BARIUM SUSPENSION 2.1% (VANILLA SILQ) 450 ML PO ONE; +CATHETER FLUSH 10 ML SYR IV PRN; +HOLD METFORMIN - RECEIVED CONTRAST 20 ML VIAL IV SCH; +IOHEXOL 350 MG/ML 100 ML (OMNIPAQUE 350) VIAL IV ONE; +NS 100 ML (IVPB) BAG IV ONE
[2021-09-10] MEDS: CATHETER FLUSH 10 ML SYR IV PRN ×2 (10:41→12:53)
--- NOTE | 2021-09-10 13:51 | Diagnostic Imaging Report ---
PROCEDURE: CT chest, abdomen, and pelvis with contrast. TECHNIQUE: Multiple contiguous axial images were obtained through the chest, abdomen, and pelvis after the administration of intravenous contrast. Auto Exposure Controls were utilized during the CT exam to meet ALARA standards for radiation dose reduction. INDICATION: Clear-cell carcinoma of the left kidney. Correlation is made with prior CT from 06/22/2021. CT CHEST: A right chest wall port has the tip at the SVC right atrial junction. No axillary lymphadenopathy is detected. No definite mediastinal or hilar lymphadenopathy is detected. There is no pericardial or pleural fluid. No pulmonary mass is identified. The areas of nodularity along the right major fissure appears similar. No infiltrates are detected. Sclerotic lesions in the lower thoracic vertebral bodies appear similar to prior exam. CT abdomen and pelvis: Tiny hypodensities left lobe liver appear stable. No new liver mass is detected. Gallbladder is unremarkable. There is no biliary ductal dilatation. Pancreas and spleen are unremarkable. No adrenal mass is detected. Tiny low-density lower pole right kidney is stable. Left kidney is surgically absent. No residual or recurrent mass left renal fossa is identified. Aorta is heavily calcified but not aneurysmal. No central retroperitoneal or mesenteric lymphadenopathy is identified. Bowel loops are normal caliber. There is no obstruction. There is diverticulosis of the sigmoid but no evidence of acute diverticulitis. Previously noted inflammation near the sigmoid is no longer appreciated. There is no free fluid or fluid collection. Bladder is unremarkable. There is a fat-containing left inguinal hernia. Prostate is unremarkable. No pelvic lymphadenopathy is identified. Sclerotic changes in the lower lumbar spine and bony pelvis again noted. L5 osteoblastic lesion appears similar to prior study. IMPRESSION: Overall stable CT chest, abdomen and pelvis when compared prior study from 06/22/2021. No definite chest, abdominal or pelvic lymphadenopathy is seen. There are sclerotic lesions present consistent with metastatic disease. Dictated by: Dictated on workstation # [id number]
--- NOTE | 2021-09-10 14:31 | Diagnostic Imaging Report ---
INDICATION: Colon cancer. EXAMINATION: Whole body bone scan. COMPARISON: Correlation is made with the CT chest, abdomen, and pelvis dated 09/10/2021. FINDINGS: There is increased activity in the lumbar spine at L5. This corresponds to osteoblastic activity seen in the L5 vertebral body on the CT scan. There is also some increased activity in the right ilium adjacent to the SI joint which also corresponds to some osteoblastic activity seen on the CT scan. There is slight activity seen at L3 which is probably related to degenerative disc changes at that level. There is slight increased activity in the thoracic spine at the left costovertebral junction at T9. There was some osteoblastic activity seen on the CT at that location. IMPRESSION: There are foci of increased activity in the thoracic spine, lumbar spine, and right ilium which correspond to osteoblastic osseous lesions on the CT scan and are consistent with bone metastases. These have not appreciably changed from a prior exam dated 06/22/2021. Dictated by: Dictated on workstation # [id number]
== END ==
LOC: CARD 11:00
PROVIDERS: ATTEND Internal Medicine Hematology & Oncology
DX: C64.2 Malignant neoplasm of left kidney, except renal pelvis (principal); D12.4 Benign neoplasm of descending colon
CPT/HCPCS: 71260; 74177; 78306; A9503

== ENCOUNTER 2021-09-18 14:28 | Outpatient (RCR) | payer MEDICARE, OTHER ==
[2021-09-10 10:20] LABS: EOSINOPHILS # (AUTO) 0.4 10^3/uL (0.0-0.3); HEMOGLOBIN 12.2 g/dL (13.3-17.7); MEAN CORPUSCULAR VOLUME 93 fL (80-99)
[2021-09-10 10:22] LABS: BASOPHILS # (AUTO) 0.1 10^3/uL (0.0-0.1); BASOPHILS % (AUTO) 1 % (0-10); EOSINOPHILS % (AUTO) 6 % (0-10); HEMATOCRIT 38 % (40-54); LYMPHOCYTES # (AUTO) 1.3 10^3/uL (1.0-4.0); LYMPHOCYTES % (AUTO) 22 % (12-44); MEAN CORPUSCULAR HEMOGLOBIN 30 pg (25-34); MEAN CORPUSCULAR HGB CONC 33 g/dL (32-36); MEAN PLATELET VOLUME 11.2 fL (9.0-12.2); MONOCYTES # (AUTO) 0.6 10^3/uL (0.0-1.0); MONOCYTES % (AUTO) 10 % (0-12); NEUTROPHILS # (AUTO) 3.7 10^3/uL (1.8-7.8); NEUTROPHILS % (AUTO) 61 % (42-75); PLATELET COUNT 117 10^3/uL (130-400)
[2021-09-10 10:40] LABS: ALBUMIN 3.7 GM/DL (3.2-4.5); BILIRUBIN,TOTAL 0.9 MG/DL (0.1-1.0); CALCIUM 9.2 MG/DL (8.5-10.1); CREATININE SERUM 1.63 MG/DL (0.60-1.30); POTASSIUM 4.6 MMOL/L (3.6-5.0); TOTAL PROTEIN 6.5 GM/DL (6.4-8.2)
[~2021-09-18 14:28] MED LIST changes: -BARIUM SUSPENSION 2.1% (VANILLA SILQ) 450 ML PO ONE; -CATHETER FLUSH 10 ML SYR IV PRN; -HOLD METFORMIN - RECEIVED CONTRAST 20 ML VIAL IV SCH; -IOHEXOL 350 MG/ML 100 ML (OMNIPAQUE 350) VIAL IV ONE; -NS 100 ML (IVPB) BAG IV ONE; +NS IV 1000 ML (CANCER CTR) 1,000 ML ONE
== END 2021-10-08 | disposition home or self-care (01) ==
LOC: ONC 14:28
PROVIDERS: ATTEND Internal Medicine Hematology & Oncology
DX: C64.9 Malignant neoplasm of unspecified kidney, except renal pelvis (principal); C79.51 Secondary malignant neoplasm of bone; I10 Essential (primary) hypertension; K21.9 Gastro-esophageal reflux disease without esophagitis; Z90.5 Acquired absence of kidney; Z92.3 Personal history of irradiation
CPT/HCPCS: 80053; 83615; 85025; 96360; 96361; 99213

== ENCOUNTER → 2021-12-18 | Outpatient (CLI) | payer MEDICARE, OTHER ==
[~2021-12-18] MED LIST changes: -NS IV 1000 ML (CANCER CTR) 1,000 ML ONE
--- NOTE | 2021-12-18 16:06 | Diagnostic Imaging Report ---
INDICATION: Clear cell carcinoma of the left kidney. TECHNIQUE: The patient was administered 25.2 mCi of technetium 99m MDP intravenously and whole-body imaging was performed after a 3 hour delay. COMPARISON: Correlation is made with the prior whole body bone scan from 09/10/2021. FINDINGS: Normal uptake of activity by the axial and appendicular skeleton is noted. There is uptake by the right kidney with excretion into the urinary bladder. Uptake in the midthoracic spine and lower lumbar spine persists. There is some uptake in the right iliac bone, similar to the prior exam. No new foci of abnormal uptake are identified. IMPRESSION: Stable whole body bone scan when compared with the exam from 09/10/2021. Dictated by: Dictated on workstation # [id number]
== END ==
LOC: CARD 12:00
PROVIDERS: ATTEND Nurse Practitioner Adult Health
DX: C64.2 Malignant neoplasm of left kidney, except renal pelvis (principal); C79.51 Secondary malignant neoplasm of bone
CPT/HCPCS: 78306; A9503

== ENCOUNTER → 2022-03-26 | Outpatient (CLI) | payer MEDICARE, OTHER ==
--- NOTE | 2022-03-26 16:01 | Diagnostic Imaging Report ---
INDICATION: Clear cell carcinoma of the left kidney. Patient was administered 24.9 mCi technetium 99m MDP intravenously and whole-body imaging was performed after 3 hour delay. Comparison is made with prior bone scan from 12/18/2021. There is normal uptake of activity by the axial and appendicular skeleton. There is uptake by the right kidney. Left kidney appears to be surgically absent. No suspicious foci are identified to suggest osseous metastatic disease. IMPRESSION: No scintigraphic evidence of osseous metastatic disease. Dictated by: Dictated on workstation # [id number]
== END ==
LOC: CARD 11:05
PROVIDERS: ATTEND Internal Medicine Hematology & Oncology
DX: C64.2 Malignant neoplasm of left kidney, except renal pelvis (principal); C79.51 Secondary malignant neoplasm of bone
CPT/HCPCS: 78306; A9503

== ENCOUNTER → 2022-06-21 | Outpatient (CLI) | payer MEDICARE, OTHER ==
--- NOTE | 2022-06-21 16:18 | Diagnostic Imaging Report ---
INDICATION: Clear cell carcinoma of left kidney. TECHNIQUE: Patient was administered 26.6 mCi technetium-99m MDP intravenously, and whole body imaging was performed after a three-hour delay. COMPARISON: Correlation is made with prior whole body bone scan from 03/26/2022. FINDINGS: The bone scan remains unremarkable without suspicious foci of uptake to suggest osseous metastatic disease. Left kidney is surgically absent. Right kidney uptake is seen with excretion into the urinary bladder. Normal uptake in the axial and appendicular skeleton is noted. IMPRESSION: Continued stable whole-body bone scan without evidence of osseous metastatic disease. Dictated by: Dictated on workstation # [id number]
== END ==
LOC: CARD 10:56
PROVIDERS: ATTEND Internal Medicine Hematology & Oncology
DX: C64.2 Malignant neoplasm of left kidney, except renal pelvis (principal)
CPT/HCPCS: 78306; A9503

== ENCOUNTER 2022-08-07 06:02 | Outpatient (CLI) | payer MEDICARE, OTHER ==
[~2022-08-07] VITALS: Ht 180.3 cm; Wt 72.7 kg
[~2022-08-07 06:02] MED LIST changes: +BETA15CR14 TP
== END 2022-08-07 09:20 | disposition home or self-care (01) ==
LOC: PREOP 06:02
PROVIDERS: ATTEND Specialist
DX: Z01.818 Encounter for other preprocedural examination (principal)

== ENCOUNTER 2022-08-09 10:33 | Day surgery (SDC) | payer MEDICARE, OTHER ==
[~2022-08-09] VITALS: Ht 180.3 cm; Wt 72.7 kg
[2022-08-09 10:40] VITALS: BP 126/60
[2022-08-09] MEDS: TETRACAINE 0.5% OPHTH SOLN 4 ML BTL (SINGLE DOSE ONLY) OU PRN ×4 (10:55→11:07)
[2022-08-09] MEDS: PHENYLEPHRINE 10% OPHTH (NEO-SYN) 5 ML BTL OU SCH ×3 (11:00→11:09)
[2022-08-09] MEDS ORDERED: TIMOLOL 0.5% (CATARACTS) 0.3 ML BTL OU PRN (11:00)
[2022-08-09] MEDS ORDERED: POVIDONE (BETADINE) OPHTH SOLN 5% 30 ML OP ONE (11:00)
[2022-08-09] MEDS: TROPICAMIDE 1% OPH SOLN (MYDRIACYL) 15 ML BTL OP SCH ×3 (11:00→11:08)
[2022-08-09] MEDS ORDERED: MOXIFLOXACIN OPHTH SOLN 5 MG/ML 0.3 ML SYRINGE OP ONE (11:00)
[2022-08-09] MEDS ORDERED: MIDAZOLAM 2 MG/2 ML (VERSED) VIAL ONE (11:30)
--- NOTE | 2022-08-09 11:46 | Ophthalmologist Pre-Op Note ---
Pre-Operative Progress Note H&P Reviewed The H&P was reviewed, patient examined and no changes noted. Date H&P Reviewed: Aug 09, 2022 Time H&P Reviewed: 11:45 Pre-Op Dx Cataract, Left Eye ELROY ROYAL MD Aug 09, 2022 11:46
--- NOTE | 2022-08-09 12:13 | Ophthalmology Operative Report ---
Cataract, Miotic Pupil PREOPERATIVE DIAGNOSIS: 1. Cataract Right Eye 2. Miotic Pupil POSTOPERATIVE DIAGNOSIS: 1. Cataract Right Eye 2. Miotic Pupil PROCEDURE: 1. Cataract removal and placement of posterior chamber implant, right eye 2. Pupillary expansion with malyugin ring SURGEON: Goyo Royal ANESTHESIA: Topical with sedation COMPLICATIONS: None ESTIMATED BLOOD LOSS: Minimal DESCRIPTION OF PROCEDURE: After proper informed consent was obtained, the patient, a 82 male, was taken to the Operating Room and the right eye was anesthetized with Tetracaine. The eye was then prepped and draped in the usual manner. A wire lid speculum was placed. A paracentesis was made at the left hand position. Preservative free lidocaine was injected into anterior chamber followed by viscoelastic. A clear corneal incision was made in the temporal position. The malyugin ring was injected into the anterior chamber and the pupil was dilated. A capsulorrhexis was preformed and the central nuclear and cortical material were removed. The posterior capsule was polished and Mo 20.5 AU00T0 IOL was placed into the capsular bag. The malyugin ring was removed. The residual viscoelastic was aspirated and the balanced saline solution was injected into the anterior chamber. Moxifloxacin was injected into the anterior chamber. The wound was checked and found to be water tight. The patient tolerated the procedure well without complications. GOYO ROYAL MD Aug 09, 2022 12:13
[2022-08-09 12:15] VITALS: BP 132/61
--- NOTE | 2022-08-09 12:58 | Anesthesia-General Post-Op ---
MAC Patient Condition Mental Status/LOC: Same as Preop Cardiovascular: Satisfactory Nausea/Vomiting: Absent Respiratory: Satisfactory Pain: Controlled Complications: Absent Post Op Complications Complications None Follow Up Care/Instructions Patient Instructions None needed. Anesthesiology Discharge Order Discharge Order Patient is doing well, no complaints, stable vital signs, no apparent adverse anesthesia problems. No complications reported per nursing. LELE PETTIT CRNA Aug 09, 2022 12:58
[2022-08-09] MEDS ORDERED: acetaZOLAMIDE ER 500 MG CAP (DIAMOX SEQUELS) PO ONE (13:30)
== END 2022-08-09 12:19 | disposition home or self-care (01) ==
LOC: SDC 10:33
PROVIDERS: ATTEND Specialist
DX: H25.11 Age-related nuclear cataract, right eye (principal); H57.03 Miosis; Z87.891 Personal history of nicotine dependence
CPT/HCPCS: 66982; V2632

== ENCOUNTER 2022-08-16 05:32 | Outpatient (CLI) | payer MEDICARE, OTHER ==
[~2022-08-16] VITALS: Ht 180.3 cm; Wt 72.7 kg
== END 2022-08-20 15:15 | disposition home or self-care (01) ==
LOC: PREOP 05:32
PROVIDERS: ATTEND Specialist
DX: Z01.818 Encounter for other preprocedural examination (principal); H25.12 Age-related nuclear cataract, left eye

== ENCOUNTER 2022-08-23 11:15 | Day surgery (SDC) | payer MEDICARE, OTHER ==
[~2022-08-23] VITALS: Ht 180.3 cm; Wt 72.7 kg
[2022-08-23] MEDS: TETRACAINE 0.5% OPHTH SOLN 4 ML BTL (SINGLE DOSE ONLY) OU PRN ×4 (11:21→11:37)
[2022-08-23] MEDS: TROPICAMIDE 1% OPH SOLN (MYDRIACYL) 15 ML BTL OP SCH ×3 (11:27→11:37)
[2022-08-23] MEDS: PHENYLEPHRINE 10% OPHTH (NEO-SYN) 5 ML BTL OU SCH ×3 (11:27→11:37)
[2022-08-23 11:28] VITALS: BP 115/62
[2022-08-23] MEDS ORDERED: MIDAZOLAM 2 MG/2 ML (VERSED) VIAL ONE (11:29)
[2022-08-23] MEDS ORDERED: MOXIFLOXACIN OPHTH SOLN 5 MG/ML 0.3 ML SYRINGE OP ONE (11:30)
[2022-08-23] MEDS ORDERED: POVIDONE (BETADINE) OPHTH SOLN 5% 30 ML OP ONE (11:30)
[2022-08-23] MEDS ORDERED: TIMOLOL 0.5% (CATARACTS) 0.3 ML BTL OU PRN (11:30)
[2022-08-23] MEDS ORDERED: acetaZOLAMIDE ER 500 MG CAP (DIAMOX SEQUELS) PO ONE (12:00)
--- NOTE | 2022-08-23 12:03 | Ophthalmologist Pre-Op Note ---
Pre-Operative Progress Note H&P Reviewed The H&P was reviewed, patient examined and no changes noted. Date H&P Reviewed: Aug 23, 2022 Time H&P Reviewed: 12:03 Pre-Op Dx Cataract, Left Eye ELROY ROYAL MD Aug 23, 2022 12:03
--- NOTE | 2022-08-23 12:30 | Ophthalmology Operative Report ---
Cataract, Miotic Pupil PREOPERATIVE DIAGNOSIS: 1. Cataract Left Eye 2. Miotic Pupil POSTOPERATIVE DIAGNOSIS: 1. Cataract Left Eye 2. Miotic Pupil PROCEDURE: 1. Cataract removal and placement of posterior chamber implant, left eye 2. Pupillary expansion with malyugin ring SURGEON: Goyo Royal ANESTHESIA: Topical with sedation COMPLICATIONS: None ESTIMATED BLOOD LOSS: Minimal DESCRIPTION OF PROCEDURE: After proper informed consent was obtained, the patient, a 82 male, was taken to the Operating Room and the left eye was anesthetized with Tetracaine. The eye was then prepped and draped in the usual manner. A wire lid speculum was placed. A paracentesis was made at the left hand position. Preservative free lid ocaine was injected into anterior chamber followed by viscoelastic. A clear corneal incision was made in the temporal position. The malyugin ring was injected into the anterior chamber and the pupil was dilated. A capsulorrhexis was preformed and the central nuclear and cortical material were removed. The posterior capsule was polished and Mo 20.0 AU00T0 IOL was placed into the capsular bag. The myalgian ring was removed. The residual viscoelastic was aspirated and the balanced saline solution was injected into the anterior chamber. Moxifloxacin was injected into the anterior chamber. The wound was checked and found to be water tight. The patient tolerated the procedure well without complications. GOYO ROYAL MD Aug 23, 2022 12:30
[2022-08-23 12:35] VITALS: BP 112/60
--- NOTE | 2022-08-23 13:57 | Anesthesia-General Post-Op ---
MAC Patient Condition Mental Status/LOC: Same as Preop Cardiovascular: Satisfactory Nausea/Vomiting: Absent Respiratory: Satisfactory Pain: Controlled Complications: Absent Post Op Complications Complications None Follow Up Care/Instructions Patient Instructions None needed. Anesthesiology Discharge Order Discharge Order Patient is doing well, no complaints, stable vital signs, no apparent adverse anesthesia problems. No complications reported per nursing. SANJIV DIAS CRNA Aug 23, 2022 13:57
== END 2022-08-23 12:35 | disposition home or self-care (01) ==
LOC: SDC 11:15
PROVIDERS: ATTEND Specialist
DX: H25.9 Unspecified age-related cataract (principal); H57.03 Miosis; Z87.891 Personal history of nicotine dependence
CPT/HCPCS: 66982; V2632

== ENCOUNTER → 2023-06-24 | Outpatient (CLI) | payer MEDICARE, OTHER ==
[~2023-06-24] MED LIST changes: -DICL100G13 TP; +DICL100G60 TP; +SENN-271 PO; -SENN1TAB76 PO
--- NOTE | 2023-06-24 14:35 | Diagnostic Imaging Report ---
PROCEDURE: US Venous Lower Ext Fred. TECHNIQUE: Multiple Real-time grayscale images were obtained over the lower extremities in various projections bilaterally. Additional duplex Doppler and color Doppler images were also obtained. INDICATION: Bilateral lower extremity edema. FINDINGS: There is no evidence of right or left lower extremity DVT. Both lower extremity deep venous systems demonstrate normal compressibility with normal response to augmentation and Valsalva. No fluid collection or mass is detected. IMPRESSION: No evidence of right or left lower extremity DVT. Dictated by: Dictated on workstation # [id number]
== END ==
LOC: RAD 11:24
PROVIDERS: ATTEND Internal Medicine Cardiovascular Disease
DX: R60.0 Localized edema (principal)
CPT/HCPCS: 93970

== ENCOUNTER 2023-08-06 22:34 | Emergency (ER) | payer MEDICARE, OTHER ==
[~2023-08-06] VITALS: Ht 177 cm; Wt 72.0 kg
[~2023-08-06 22:34] MED LIST changes: -OXYB5TAB13 PO; +OXYB5TAB14 PO
[2023-08-06] MEDS ORDERED: LEVO75TA6 (23:14)
[2023-08-06] MEDS ORDERED: TAMSULOSIN (23:14)
[2023-08-06] MEDS ORDERED: MAGN400T29 (23:14)
[2023-08-06] MEDS ORDERED: GABAPENTIN (23:14)
[2023-08-06] MEDS ORDERED: NITR50CA (23:14)
[2023-08-07 00:01] LABS: AMORPHOUS SEDIMENT,UR LARGE AMOR PHOSPHATE /LPF; BACTERIA,URINE NEGATIVE /HPF; BILIRUBIN,URINE NEGATIVE (NEGATIVE); CLARITY,URINE CLEAR; COLOR,URINE YELLOW; GLUCOSE, URINE (UA) NEGATIVE (NEGATIVE); KETONES,URINE NEGATIVE (NEGATIVE); LEUKOCYTE ESTERASE ,URINE NEGATIVE (NEGATIVE); NITRITE,URINE NEGATIVE (NEGATIVE); PH,URINE 7.5 (5-9); PROTEIN,URINE TRACE (NEGATIVE)
--- NOTE | 2023-08-07 00:04 | ED General ---
General Chief Complaint: - Reproductive Stated Complaint: ALTERED MENTAL STATE, FREQUENT URINATION, FEVER Nursing Triage Note: URINARY FREQUENCY, FEVER X1 DAY. ON ABX FOR CHRONIC UTI, MEDICATION CHANGED TO MACROBID 07/24/23 Source of Information: Patient History of Present Illness Date Seen by Provider: Aug 07, 2023 Time Seen by Provider: 00:04 Initial Comments Patient is an 83-year-old male who presents to the emergency department with a chief complaint of burning with urination, going frequently fever as high as 101.4 intermittently over the last 2 to 3 days. He has a history of metastatic renal cell cancer, currently not on treatment. Has had a nonspecific dermatitis over the last several weeks that has responded to steroids but he has been off the steroids for exactly a week. He has had some confusion today and yesterday that is intermittent. It seems a little bit better now that he is in the emergency department and does not have a fever. Family did not give him any Tylenol or ibuprofen for the fever. He denies diarrhea. He has chronic low back pain and left sciatica pain. No runny nose, sore throat. No cough. Dr. Diaz is his oncologist. Timing/Duration: 1-2 Days Severity: Moderate Associated Systoms: Fever/Chills, Malaise, Other (dysuria) Allergies and Home Medications Allergies Coded Allergies: No Known Drug Allergies (Verified , 08/07/22) Patient Home Medication List Home Medication List Reviewed: Yes Acetaminophen (Tylenol Extra Strength) 500 Mg Tablet, 500-1,000 MG PO Q8H PRN for PAIN-MILD (1-4), (Reported) Entered as Reported by: ROBYN VAIL on 05/01/21 1228 Amlodipine Besylate (Amlodipine Besylate) 10 Mg Tablet, 10 MG PO DAILY Prescribed by: AKLI ORO on 07/06/21 0936 Betamethasone/Propylene Glyc (Betamethasone Dp Aug 0.05% Crm) 0.05 % Cream..g., 15 GM TP UD, (Reported) Entered as Reported by: RADHA PARIKH on 08/06/22 1147 Finasteride (Finasteride) 5 Mg Tablet, 5 MG PO HS, (Reported) Entered as Reported by: ROBYN VAIL on 03/05/21 0920 Levothyroxine Sodium (Levothyroxine Sodium) 75 Mcg Tablet, (Reported) Entered as Reported by: TAMAR GARCÍA on 08/06/232313 Last Action: New Order Magnesium Oxide (Magox 400) 400 Mg (241.3 Mg Magnesium) Tablet, (Reported) Entered as Reported by: TAMAR GARCÍA on 08/06/232313 Last Action: New Order Metoprolol Tartrate (Metoprolol Tartrate) 25 Mg Tablet, 12.5 MG PO BID, (Reported) Entered as Reported by: PINO KHANNA on 03/31/18 1404 Morphine Sulfate (Morphine Sulfate ER) 15 Mg Tablet.er, 15 MG PO Q12H, (Reported) Entered as Reported by: ROBYN VAIL on 05/01/21 1228 Nitrofurantoin Macrocrystal (Nitrofurantoin) 50 Mg Capsule, (Reported) Entered as Reported by: TAMAR GARCÍA on 08/06/232313 Last Action: New Order Ondansetron HCl (Ondansetron HCl) 8 Mg Tablet, 8 MG PO Q8H PRN for NAUSEA/VOMITING, (Reported) Entered as Reported by: ROBYN VAIL on 05/01/21 1228 Polyethylene Glycol 3350 (Miralax) 17 Gm Powd.pack, 17 GM PO HS, (Reported) Entered as Reported by: ROBYN VAIL on 03/05/21 0920 Simethicone (Gas-X Ultra Strength) 180 Mg Capsule, 180-360 MG PO UD PRN for GAS, (Reported) Entered as Reported by: ROBYN VAIL on 05/01/21 1228 Sodium Chloride (Sodium Chloride) 1 Gm Tab, 1 GM PO BID, (Reported) Entered as Reported by: ROBYN VAIL on 03/05/21 0920 Tamsulosin HCl (Flomax) 0.4 Mg Cap, 0.4 MG PO HS, (Reported) Entered as Reported by: GISELLE COGUHLIN on 08/02/19 132 Trimethoprim (Trimethoprim) 100 Mg Tablet, 100 MG PO DAILY Prescribed by: KALI ORO on 07/06/21 0938 [Gabapentin] , (Reported) Entered as Reported by: TAMAR GARCÍA on 08/06/232313 Last Action: New Order [Tamsulosin] , (Reported) Entered as Reported by: TAMAR GARCÍA on 08/06/232313 Last Action: New Order Review of Systems Review of Systems Constitutional: see HPI, fever, malaise EENTM: no symptoms reported Respiratory: no symptoms reported Cardiovascular: no symptoms reported Gastrointestinal: no symptoms reported Genitourinary: dysuria, frequency Musculoskeletal: back pain (chronic), joint pain (left hip) Skin: rash (chronic nonspecific rash) Past Wdclbra-Jhqoop-Kuqfwa Hx Patient Social History Tobacco Use?: No Substance use?: No Alcohol Use?: No Pt feels they are or have been: No Immunizations Up To Date Tetanus Booster (TDap): Unknown First/Initial COVID19 Vaccinat: november 06 COVID19 Vaccination Kyle: end of november COVID19 Vaccination Date: november 06 Seasonal Allergies Seasonal Allergies: Yes Past Medical History Surgery/Hospitalization HX: NEPHRECTOMY, SKIN CA REMOVED, T/A, ABDOMINAL HERNIA CHRONIC UTI, RENAL CA, SKIN CA, HYPOTHRYOIDISM, BPH, HLD, HTN, GERD Surgeries: Yes ([employer]) Abdominal, Nephrectomy, Tonsillectomy Respiratory: No Currently Using CPAP: No Currently Using BIPAP: No Cardiac: Yes High Cholesterol, Hypertension Neurological: No Reproductive Disorders: No Sexually Transmitted Disease: No HIV/AIDS: No Genitourinary: Yes (renal CA) Benign Prostatic Hyperpl, Prostate Problems Gastrointestinal: Yes Abdominal Hernia, Gastroesophageal Reflux Musculoskeletal: Yes Arthritis Endocrine: No HEENT: No Loss of Vision: Bilateral Hearing Impairment: Hard of Hearing Cancer: Yes Kidney Did You Recieve Any Treatments: Yes What Type of Treatment Did You: Chemotherapy, Surgical Intervention Psychosocial: No Integumentary: No Blood Disorders: No Adverse Reaction/Blood Tranf: No (N/A) Family Medical History Asthma 19 FATHER Cancer of mouth Cardiovascular disease G8 BROTHER Myocardial infarction G8 BROTHER Neoplasm G8 BROTHER Parkinson's disease 19 MOTHER Respiratory disorder 19 FATHER Heart Disease, Cancer, CAD Over 55 Years Old, COPD, Hypertension, Other Conditions/Hx Physical Exam Vital Signs Vital Signs - First Documented 08/06/23 23:07 Temp 37.8 Pulse 78 Resp 16 B/P (MAP) 166/77 (106) Pulse Ox 97 O2 Delivery Room Air Capillary Refill : Less Than 3 Seconds Height, Weight, BMI Height: 5'11.00" Weight: 191lbs. 0.0oz. [id number]; 22.00 BMI Method:Stated General Appearance: No Apparent Distress, WD/WN, Chronically ill Eyes: Bilateral Eye Normal Inspection, Bilateral Eye PERRL, Bilateral Eye EOMI HEENT: PERRL/EOMI Neck: Normal Inspection, Lymphadenopathy (L) Respiratory: Lungs Clear, Normal Breath Sounds, No Accessory Muscle Use, No Respiratory Distress Cardiovascular: Regular Rate, Rhythm Gastrointestinal: Non Tender, Soft Extremity: Normal Inspection, Pedal Edema (3+ pedal edema; tight legs ) Neurologic/Psychiatric: Alert, Oriented x3, No Motor/Sensory Deficits, Normal Mood/Affect Skin: Normal Color, Warm/Dry Focused Exam Lactate Level 08/07/23 00:32: Lactic Acid Level 0.55 Lactic Acid Level Laboratory Tests Test 08/07/23 00:32 Lactic Acid Level 0.55 MMOL/L (0.50-2.00) Progress/Results/Core Measures Suspected Sepsis SIRS Temperature: Pulse: 78 Respiratory Rate: 16 Laboratory Tests 08/07/23 00:32: White Blood Count 9.0 Blood Pressure 166 /77 Mean: 106 08/07/23 00:32: Lactic Acid Level 0.55 Laboratory Tests 08/07/23 00:32: Creatinine 1.52H, INR Comment 1.3, Platelet Count 139, Total Bilirubin 0.6 Results/Orders Lab Results Laboratory Tests Test 08/06/23 23:10 08/07/23 00:32 08/07/23 00:47 Range/Units Urine Color YELLOW Urine Clarity CLEAR Urine pH 7.5 5-9 Urine Specific [place] 1.015 L 1.016-1.022 Urine Protein TRACE H NEGATIVE Urine Glucose (UA) NEGATIVE NEGATIVE Urine Ketones NEGATIVE NEGATIVE Urine Nitrite NEGATIVE NEGATIVE Urine Bilirubin NEGATIVE NEGATIVE Urine Urobilinogen 0.2 < = 1.0 MG/DL Urine Leukocyte Esterase NEGATIVE NEGATIVE Urine RBC (Auto) NEGATIVE NEGATIVE Urine RBC NONE /HPF Urine WBC NONE /HPF Urine Squamous Epithelial Cells NONE /HPF Urine Crystals PRESENT H /LPF Urine Amorphous Sediment LARGE SUNI PHOSPHATE H /LPF Urine Bacteria NEGATIVE /HPF Urine Casts NONE /LPF Urine Mucus NEGATIVE /LPF Urine Culture Indicated NO White Blood Count 9.0 4.3-11.0 10^3/uL Red Blood Count 3.48 L 4.30-5.52 10^6/uL Hemoglobin 9.2 L 13.3-17.7 g/dL Hematocrit 31 L 40-54 % Mean Corpuscular Volume 88 80-99 fL Mean Corpuscular Hemoglobin 26 25-34 pg Mean Corpuscular Hemoglobin Concent 30 L 32-36 g/dL Red Cell Distribution Width 15.6 H 10.0-14.5 % Platelet Count 139 130-400 10^3/uL Mean Platelet Volume 10.6 9.0-12.2 fL Immature Granulocyte % (Auto) 0 % Neutrophils (%) (Auto) 69 42-75 % Lymphocytes (%) (Auto) 10 L 12-44 % Monocytes (%) (Auto) 11 0-12 % Eosinophils (%) (Auto) 9 0-10 % Basophils (%) (Auto) 0 0-10 % Neutrophils # (Auto) 6.3 1.8-7.8 10^3/uL Lymphocytes # (Auto) 0.9 L 1.0-4.0 10^3/uL Monocytes # (Auto) 1.0 0.0-1.0 10^3/uL Eosinophils # (Auto) 0.8 H 0.0-0.3 10^3/uL Basophils # (Auto) 0.0 0.0-0.1 10^3/uL Immature Granulocyte # (Auto) 0.0 0.0-0.1 10^3/uL Prothrombin Time 17.1 H 12.2-14.7 SEC INR Comment 1.3 0.8-1.4 Activated Partial Thromboplast Time 39 H 24-35 SEC Sodium Level 134 L 135-145 MMOL/L Potassium Level 4.2 3.6-5.0 MMOL/L Chloride Level 100 98-107 MMOL/L Carbon Dioxide Level 23 21-32 MMOL/L Anion Gap 11 5-14 MMOL/L Blood Urea Nitrogen 22 H 7-18 MG/DL Creatinine 1.52 H 0.60-1.30 MG/DL Estimat Glomerular Filtration Rate 45 BUN/Creatinine Ratio 14 Glucose Level 103 70-105 MG/DL Lactic Acid Level 0.55 0.50-2.00 MMOL/L Calcium Level 8.1 L 8.5-10.1 MG/DL Corrected Calcium 8.9 8.5-10.1 MG/DL Total Bilirubin 0.6 0.1-1.0 MG/DL Aspartate Amino Transf (AST/SGOT) 32 5-34 U/L Alanine Aminotransferase (ALT/SGPT) 27 0-55 U/L Alkaline Phosphatase 130 40-136 U/L Total Protein 6.5 6.4-8.2 GM/DL Albumin 3.0 L 3.2-4.5 GM/DL Influenza Type A (RT-PCR) Not Detected Not Detecte Influenza Type B (RT-PCR) Not Detected Not Detecte SARS-CoV-2 RNA (RT-PCR) Not Detected Not Detecte Micro Results Microbiology 08/07/23 Blood Culture - Preliminary, Resulted 08/07/23 Blood Culture - Preliminary, Resulted 08/06/23 Urine Culture - Final, Complete NO GROWTH My Orders Orders - FREDDY CUNNINGHAM MD Ua Culture If Indicated (08/06/23 23:38) Cbc And Automated Diff (08/07/23 00:14) Comprehensive Metabolic Panel (08/07/23 00:14) Blood Culture (08/07/23 00:14) Sputum Culture (08/07/23 00:14) Urine Culture (08/07/23 00:14) Protime With Inr (08/07/23:14) Partial Thromboplastin Time (08/07/23:14) Chest 1 View, Ap/Pa Only (08/07/23 00:14) Ed Iv/Invasive Line Start (08/07/23 00:14) Ed Iv/Invasive Line Start (08/07/23 00:14) Vital Signs Adult Sepsis Patie Q15M (08/07/23 00:14) O2 (08/07/23 00:14) Remove Rings In Anticipation O (08/07/23 00:14) Lactic Acid Analyzer (08/07/23 00:14) Covid 19 Inhouse Test (08/07/23 00:14) Influenza A And B By Pcr (08/07/23 00:14) Vital Signs/I&O 08/06/23 08/07/23 08/07/23 23:07 00:13 02:42 Temp 37.8 37.5 36.9 Pulse 78 78 67 Resp 16 18 16 B/P (MAP) 166/77 (106) 158/70 (99) 167/58 Pulse Ox 97 97 95 O2 Delivery Room Air Room Air Room Air Capillary Refill : Less Than 3 Seconds Blood Pressure Mean: 106 Progress Note : Time: 02:34 Progress Note Patient seen and evaluated by me. Evaluation today includes history and phys ical exam with "sepsis workup" to include CBC, comprehensive metabolic panel, blood cultures with lactic acid, coags, urinalysis, COVID and flu test and single view chest x-ray. Pertinent physical exam findings elderly gentleman in no acute distress, thin, slightly pale. His vital signs are stable, he is afebrile in the department. He is alert and completely oriented, answering questions appropriately. Dry mucous membranes, clear lungs, regular heart rate. Soft abdomen. Moving all extremities normally. No focal neurologic deficits. Differential diagnosis includes COVID/flu/pneumonia/UTI/bacteremia Patient's labs independently reviewed and interpreted by me. His CBC shows a normal white count of 9000 with slightly low hemoglobin at 9.2, hematocrit of 31. Platelets are normal at 139. His comprehensive metabolic panel is normal except for mildly increased kidney function BUN of 22, creatinine of 1.52. Lactic acid is 0.55. Coags show PT of 17.1, INR of 1.3 PTT of 39. His urinalysis does not show any signs of infection/UTI. His COVID and flu are negative. Single view chest x-ray interpreted by me shows no evidence of pneum onia. Patient had no deterioration in his condition throughout his stay. He did not mount a fever in the emergency department. Low clinical concern for bacteremia at this point. He is at high risk secondary to his treatment for cancer. I recommended close follow-up with his oncologist. Family is present at the bedside and are agreeable to the plan of care. Will discharge to home, encouraging them to monitor his fever and other symptoms. Return precautions provided in both verbal and written format. All questions are sought and answered. Patient is stable at discharge. Diagnostic Imaging Diagonstic Imaging: Xray Plain Films/CT/US/NM/MRI: chest Comments Chest x-ray independently reviewed and interpreted by me, no effusion, infiltrate; [id number] present Departure Impression Primary Impression: Recent unexplained fever Disposition: HOME, SELF-CARE Condition: Stable Departure-Patient Inst. Decision time for Depature: 02:33 Referrals: KALI ORO MD (PCP/Family) Primary Care Physician NADIA BOYD Patient Instructions: Fever, Adult ED Add. Discharge Instructions: Drink plenty of fluids to stay well-hydrated. If you develop more symptoms of illness such as productive cough, shortness of breath, diarrhea with fever over 101 please return to the emergency room for reevaluation. Please contact Dr. Key office later today to let him know about your fever. I have sent a copy of your emergency room chart to his office. Continue all your daily prescribed medications. Copy Copies To 1: KALI ORO MD Copies To 2: NADIA BOYD KATHRYN M MD Aug 07, 2023 00:04
[2023-08-07 00:42] LABS: BASOPHILS % (AUTO) 0 % (0-10); EOSINOPHILS # (AUTO) 0.8 10^3/uL (0.0-0.3); EOSINOPHILS % (AUTO) 9 % (0-10); HEMATOCRIT 31 % (40-54); HEMOGLOBIN 9.2 g/dL (13.3-17.7); LYMPHOCYTES # (AUTO) 0.9 10^3/uL (1.0-4.0); LYMPHOCYTES % (AUTO) 10 % (12-44); MEAN CORPUSCULAR HEMOGLOBIN 26 pg (25-34); MEAN CORPUSCULAR HGB CONC 30 g/dL (32-36); MEAN CORPUSCULAR VOLUME 88 fL (80-99); MEAN PLATELET VOLUME 10.6 fL (9.0-12.2); MONOCYTES % (AUTO) 11 % (0-12); NEUTROPHILS # (AUTO) 6.3 10^3/uL (1.8-7.8); NEUTROPHILS % (AUTO) 69 % (42-75); PLATELET COUNT 139 10^3/uL (130-400)
[2023-08-07 00:52] LABS: POTASSIUM 4.2 MMOL/L (3.6-5.0)
[2023-08-07 00:53] LABS: CALCIUM 8.1 MG/DL (8.5-10.1); INR 1.3 (0.8-1.4); PROTHROMBIN TIME PATIENT 17.1 SEC (12.2-14.7)
[2023-08-07 00:55] LABS: TOTAL PROTEIN 6.5 GM/DL (6.4-8.2)
[2023-08-07 00:56] LABS: BILIRUBIN,TOTAL 0.6 MG/DL (0.1-1.0)
[2023-08-07 00:58] LABS: CREATININE SERUM 1.52 MG/DL (0.60-1.30)
[2023-08-07 02:42] VITALS: BP 167/58
--- NOTE | 2023-08-07 07:08 | Diagnostic Imaging Report ---
EXAM: CHEST 1 VIEW, AP/PA ONLY INDICATION: Fever. COMPARISON: 07/01/2021. FINDINGS: Right subclavian tunneled port CVC tip low SVC. Normal heart size and central pulmonary vascularity. No focal pulmonary opacity. No pleural effusion or pneumothorax. No acute osseous findings. No significant change. IMPRESSION: No acute cardiopulmonary findings. Dictated by: Dictated on workstation # [id number]
== END 2023-08-07 02:42 | disposition home or self-care (01) ==
LOC: EDUNIT# 22:34 → ER 22:37
DX: R50.9 Fever, unspecified (principal); R35.0 Frequency of micturition; R30.0 Dysuria
CPT/HCPCS: 36415; 71045; 80053; 81000; 83605; 85025; 85610; 85730; 87040; 87088; 87636

== ENCOUNTER → 2023-08-12 | Outpatient (CLI) | payer MEDICARE, OTHER ==
[~2023-08-12] MED LIST changes: +GABAPENTIN; +LEVO75TA6; +MAGN400T29; +NITR50CA; +TAMSULOSIN
--- NOTE | 2023-08-12 15:54 | Diagnostic Imaging Report ---
PROCEDURE: CT head without contrast. TECHNIQUE: Multiple contiguous axial images were obtained through the brain without the use of intravenous contrast. Auto Exposure Controls were utilized during the CT exam to meet ALARA standards for radiation dose reduction. INDICATION: Fever, altered mental status. COMPARISON: None. FINDINGS: Scattered hypoattenuation within the periventricular and subcortical white matter. Generalized prominence of ventricles and cortical sulci.. No intra- or extra-axial mass or fluid collection. No acute hemorrhage. The ventricles are normal in size, shape, and morphology. The gomez-white matter junction is normal. The subarachnoid cisterns are patent. The visualized paranasal sinuses are normal. The visualized portions of the orbits and globes are normal. The mastoid air cells are clear. The skull intact. Impression: No acute intracranial hemorrhage. No large vascular territory quinteros-white loss. No intracranial mass, midline shift, or hydrocephalus. Mild chronic small vessel ischemic disease. Mild global volume loss. Dictated by: Dictated on workstation # [id number]
== END ==
LOC: RAD 15:32
PROVIDERS: ATTEND Physician Assistant
DX: G31.9 Degenerative disease of nervous system, unspecified (principal); I67.82 Cerebral ischemia; R50.9 Fever, unspecified
CPT/HCPCS: 70450